=== PATIENT | female | born 1950 | race Caucasian/White ===

== ENCOUNTER 2023-10-06 18:28 | Inpatient (IN) | payer MEDICARE, OTHER, SELFPAY ==
[2023-10-06 18:53] VITALS: BP 148/88; PULSE 70; TEMP 36.7; O2SAT 100; BMI 48.2
--- NOTE | 2023-10-06 19:42 | ED_ITS ---
HPI - Extremity Problem General Chief complaint: Extremity Problem, Nontraumatic Stated complaint: LOWER EXTREMITY PAIN Time Seen by Provider: 10/06/23 19:35 Source: patient Mode of arrival: walk-in History of Present Illness HPI Narrative: This 73-year-old female with a history of diabetes and renal insufficiency presents for evaluation of swelling of the right great toe. Patient states she was at [facility] and admitted in August. At that time she was wearing socks that were intended to keep her from falling. After getting home she took the socks off and there was a white spot on the top of the right great toe. She states she popped it with a pin and a large amount of pus came out of it. She soaked it in Epsom salt water and the drainage stopped but the swelling persisted. In the past 2 days she has had redness and swelling in the left second toe which has spread onto the dorsal aspect of the foot up onto the ankle. She has not had any fevers or chills. She denies any injury to this toe. She has been treated for gout in the past but states she does not have gout. She is not having any pain in this area. Her sugars have been running in the 100s. She is scheduled to see Dr. Torres next Tuesday. Related Data Home Medications ?Medication ?Instructions ?Recorded ?Confirmed atorvastatin 10 mg tablet 10 mg PO DAILY 10/06/23 10/06/23 gabapentin 300 mg capsule 300 mg PO Q12H 10/06/23 10/06/23 hydrochlorothiazide 25 mg tablet 25 mg PO DAILY 10/06/23 10/06/23 lisinopril 5 mg tablet 5 mg PO DAILY 10/06/23 10/06/23 venlafaxine 150 mg 150 mg PO DAILY 10/06/23 10/06/23 capsule,extended release 24 hr Allergies Allergy/AdvReac Type Severity Reaction Status Date / Time Penicillins Allergy Severe Verified 10/06/23 18:59 semaglutide [From Ozempic] Allergy Severe Verified 10/06/23 18:59 Review of Systems ROS Status of ROS 10 or more systems reviewed and unremark able except as noted in history and below Exam Narrative Exam Narrative: Vital signs and Nursing Notes reviewed: Patient is afebrile with a normal pulse, blood pressure is elevated at 148/88, she is not hypoxic with pulse ox of 100% on room air General: Awake, alert, oriented, obese female, no respiratory distress, lying comfortably on the stretcher HEENT: Normocephalic atraumatic, mucous membranes are moist and pink, eyes are clear, normal conjunctiva, vision is grossly intact, Neck: Supple, no meningeal signs, no anterior or posterior cervical lymphadenopathy Chest: Lungs are clear to auscultation with good air entry, there is no wheezing rhonchi or rales appreciated no accessory muscle use, patient is speaking in complete sentences-no chest wall tenderness to palpation CVS: Regular rate and rhythm S1-S2, no murmurs rubs or gallops, pulses are brisk and equal bilaterally ABD: Soft, nondistended, nontender, no rebound guarding or rigidity, bowel sounds are normal, no pulsatile masses appreciated Extremities: There is bilateral pitting edema to both feet and lower legs. The right great toe is markedly enlarged but not tender or erythematous or does not appear infected, the left second toe is red, swollen and mildly tender. There is no drainage noted. The redness extends onto the dorsal aspect of the foot and up onto the lateral aspect of the ankle. There is no calf swelling or tenderness. There is no lymphangitic streaking. Skin: Normal in appearance without rash,pallor, petechiae or purpura Neuro: No focal deficits Constitutional Vital Signs, click to edit/add: Last Vital Signs Temp 98.0 F 10/06/23 18:53 Pulse 74 10/06/23 21:51 Resp 18 10/06/23 21:51 BP 168/92 H 10/06/23 21:51 Pulse Ox 99 10/06/23 21:51 O2 Del Method Room Air 10/06/23 18:53 Course Vital Signs Vital signs: Vital Signs Temperature 98.0 F 10/06/23 18:53 Pulse Rate 70 10/06/23 18:53 Respiratory Rate 16 10/06/23 18:53 Blood Pressure 148/88 H 10/06/23 18:53 Pulse Oximetry 100 10/06/23 18:53 Oxygen Delivery Method Room Air 10/06/23 18:53 Temperature 98.0 F 10/06/23 18:53 Pulse Rate 74 10/06/23 21:51 Respiratory Rate 18 10/06/23 21:51 Blood Pressure 168/92 H 10/06/23 21:51 Pulse Oximetry 99 10/06/23 21:51 Oxygen Delivery Method Room Air 10/06/23 18:53 MDM - Extremity (Nontraumatic) MDM Narrative Medical decision making narrative: The [address] [address] XRay Report Signed Patient: SHANT TRENT MR#: [id number] : 1950 Acct:[id number] Age/Sex: 73 / F ADM Date: 10/06/23 Loc: ER Attending Dr: Ordering Physician: Rosa Asher Date of Service: 10/06/23 Procedure(s): XR foot NANDO 2V Accession Number(s): [id number] cc: Yuli Duckworth OVEN UNLOADER; Rosa Asher~ The [address] [address] Patient Name: SHANT TRENT MRN: [id number] date: 1950 Sex: F Assigned Patient Location: ER Current Patient Location: ER Accession/Order Number: [id number] Exam Date: 10/06/2023 20:40 Report Date: 10/06/2023 21:41 At the request of: ROSA ASHER Procedure: XR foot NANDO 2V EXAM: XR foot NANDO 2V HISTORY: The patient is a 73-year-old female with diabetic foot infection, right great toe, left sec COMPARISON: None. FINDINGS: There is evidence of fragmentation of the base of the right great toe distal phalanx with narrowing of the interphalangeal joint. This could represent septic arthritis with osteomyelitis. This could be best evaluated with an MRI of the right forefoot pre and post intravenous contrast. No other fractures or areas of bone destruction are seen within the right foot. The widths and alignment of the other joints are maintained. No fractures or dislocations are seen on the 2 views of the left foot. There are no areas of bone destruction, periosteal reaction, or soft tissue gas to radiographically suggest osteomyelitis within the left foot. Specifically, I do not identify any abnormalities of the left second toe. This 73-year-old female with a history of diabetes presents for evaluation of a markedly enlarged right great toe that had an infection in June that she drained with Epsom salts and compression. She had a small wound on it after being hospitalized at [facility] The fifth toe swelling has never gone down. For the past several days she has had redness and swelling of the left second toe that extends onto the dorsum of her foot and up around the lateral aspect of her ankle. She has not had a fever. She has no lymphangitic streaking. She does have a history of penicillin allergy and chronic renal insufficiency. An IV was placed and she was medicated with IV clindamycin. Routine labs are ordered. She has a normal white count at 9. Hemoglobin is normal at 9.9. She has an elevated CRP and sed rate. Lactic acid is normal. 2 sets of blood cultures are pending. Potassium was noted to be low at 2.5 and this was replaced orally. X-ray of the extremity shows a bony erosion of the right great toe and normal x-ray of the left foot. This great toe x-ray on the right foot is concerning for osteomyelitis. She does have a history of gout and her uric acid is elevated however she does have sensation in her feet and denies any pain in her feet. Clinically this is not consistent with gout. The case was discussed with the hospitalist who suggested I add on vancomycin despite her elevated creatinine and this will be dosed by pharmacy. She received the first dose of vancomycin and clindamycin while in the emergency department. She is hemodynamically and neurologically stable. She has follow-up appointment with Dr. Torres, podiatry, he will be consulted while the patient is admitted. Lab Data Labs: Lab Results 10/06/23 Range/Units 19:52 WBC 9.9 (4.0-11.0) 10^3/uL RBC 3.70 L (4.20-5.40) 10^6/uL Hgb 9.9 L (12.0-16.0) g/dL Hct 32.0 L (36.0-48.0) % MCV 86.5 (81.0-99.0) fL MCH 26.8 (26.7-34.0) pg MCHC 30.9 (29.9-35.2) g/dL RDW 17.9 H (11.0-15.0) % Plt Count 352 (150-450) 10^3/uL MPV 9.2 L (9.5-13.5) fL Neut % (Auto) 75.3 H (43.0-75.0) % Lymph % (Auto) 12.6 L (20.5-60.0) % [place] % (Auto) 6.5 (1.7-12.0) % Eos % (Auto) 4.7 (0.9-7.0) % Baso % (Auto) 0.6 (0.2-2.0) % Neut # (Auto) 7.5 H (1.4-6.5) 10^3/uL Lymph # (Auto) 1.3 (1.2-3.8) 10^3/uL [place] # (Auto) 0.7 (0.3-0.8) 10^3/uL Eos # (Auto) 0.5 (0.0-0.7) 10^3/uL Baso # (Auto) 0.1 (0.0-0.1) 10^3/uL Abs Immat Gran (auto) 0.03 (0.00-0.03) 10^3/uL Imm/Tot Granulo (auto) 0.3 (0.0-0.5) % ESR >130 H (<=30) mm/hr Sodium 137 (136-145) mmol/L Potassium 2.5 L* (3.5-5.1) mmol/L Chloride 98 (98-107) mmol/L Carbon Dioxide 31.0 (21.0-32.0) mmol/L Anion Gap 10.5 BUN 16.0 (7.0-18.0) mg/dL Creatinine 1.51 H (0.55-1.02) mg/dL Est GFR ( Amer) 41 L (>=60) Est GFR (Non-Af Amer) 34 L (>=60) BUN/Creatinine Ratio 10.6 Glucose 116 H (74-106) mg/dL Lactate 1.2 (0.4-2.0) mmol/L Uric Acid 7.8 H (2.6-6.0) mg/dL Calcium 10.8 H (8.5-10.1) mg/dL Total Bilirubin 0.5 (0.2-1.0) mg/dL AST 22 (15-37) U/L ALT 34 (14-59) U/L Alkaline Phosphatase 159 H (46-116) U/L C-Reactive Protein 7.28 H (<=0.50) mg/dL Total Protein 7.3 (6.4-8.2) g/dL Albumin 3.2 L (3.4-5.0) g/dL Globulin 4.1 g/dL Albumin/Globulin Ratio 0.8 Discharge Plan Discharge Chief Complaint: Extremity Problem, Nontraumatic Clinical Impression: Osteomyelitis of great toe of right foot, Edema, peripheral, Cellulitis of second toe of left foot, Hypokalemia Prescriptions / Home Meds: No Action atorvastatin 10 mg tablet 10 mg PO DAILY gabapentin 300 mg capsule 300 mg PO Q12H hydrochlorothiazide 25 mg tablet 25 mg PO DAILY lisinopril 5 mg tablet 5 mg PO DAILY venlafaxine 150 mg capsule,extended release 24hr 150 mg PO DAILY Print Language: Afghan Referrals: Yuli Duckworth NP [Primary Care Provider] - 1 week
--- NOTE | 2023-10-06 19:42 | XR_ITS ---
The [address] [address] Patient Name: SHANT TRENT MRN: [id number] date: 1950 Sex: F Assigned Patient Location: ER Current Patient Location: Accession/Order Number: [id number] Exam Date: 10/06/2023 20:40 Report Date: 10/06/2023 21:41 At the request of: JAAVN MARKER Procedure: XR foot NANDO 2V EXAM: XR foot NANDO 2V HISTORY: The patient is a 73-year-old female with diabetic foot infection, right great toe, left sec COMPARISON: None. FINDINGS: There is evidence of fragmentation of the base of the right great toe distal phalanx with narrowing of the interphalangeal joint. This could represent septic arthritis with osteomyelitis. This could be best evaluated with an MRI of the right forefoot pre and post intravenous contrast. No other fractures or areas of bone destruction are seen within the right foot. The widths and alignment of the other joints are maintained. No fractures or dislocations are seen on the 2 views of the left foot. There are no areas of bone destruction, periosteal reaction, or soft tissue gas to radiographically suggest osteomyelitis within the left foot. Specifically, I do not identify any abnormalities of the left second toe. XR/XR foot NANDO 2V IMPRESSION: As above. Electronically authenticated by: MADAI SAINI Date: 10/06/2023 21:41
[2023-10-06 20:08] LABS: Basophils Absolute Auto 0.1 10^3/uL (0.0-0.1); Basophils Percent Auto 0.6 % (0.2-2.0); Eosinophils Absolute Auto 0.5 10^3/uL (0.0-0.7); Eosinophils Percent Auto 4.7 % (0.9-7.0); Hemoglobin 9.9 g/dL (12.0-16.0); Immature Granulocytes Abs Auto 0.03 10^3/uL (0.00-0.03); Immature Granulocytes Pct Auto 0.3 % (0.0-0.5); Lymphocytes Absolute Auto 1.3 10^3/uL (1.2-3.8); Lymphocytes Percent Auto 12.6 % (20.5-60.0); Mean Corpuscular HGB Conc 30.9 g/dL (29.9-35.2); Mean Corpuscular Hemoglobin 26.8 pg (26.7-34.0); Mean Corpuscular Volume 86.5 fL (81.0-99.0); Mean Platelet Volume 9.2 fL (9.5-13.5); Monocytes Absolute Auto 0.7 10^3/uL (0.3-0.8); Monocytes Percent Auto 6.5 % (1.7-12.0); Neutrophils Absolute Auto 7.5 10^3/uL (1.4-6.5); Neutrophils Percent Auto 75.3 % (43.0-75.0); Platelet Count 352 10^3/uL (150-450); Red Cell Distribution Width 17.9 % (11.0-15.0); White Blood Count 9.9 10^3/uL (4.0-11.0)
[2023-10-06 20:24] LABS: Alanine Aminotransferase 34 U/L (14-59); Albumin Globulin Ratio 0.8; Albumin Level 3.2 g/dL (3.4-5.0); Alkaline Phosphatase 159 U/L (46-116); Anion Gap 10.5; Aspartate Amino Transferase 22 U/L (15-37); BUN Creatinine Ratio 10.6; Bilirubin Total 0.5 mg/dL (0.2-1.0); Calcium 10.8 mg/dL (8.5-10.1); Chloride 98 mmol/L (98-107); Estimated GFR (African America 41 (>=60); Estimated GFR (Non-African Ame 34 (>=60); Globulin 4.1 g/dL; Glucose 116 mg/dL (74-106); Sodium 137 mmol/L (136-145); Total Protein 7.3 g/dL (6.4-8.2); Uric Acid 7.8 mg/dL (2.6-6.0)
[2023-10-06 20:28] LABS: Potassium 2.5 mmol/L (3.5-5.1)
[2023-10-06 20:59] LABS: Lactate/Lactic Acid 1.2 mmol/L (0.4-2.0)
[2023-10-06 21:04] LABS: C Reactive Protein 7.28 mg/dL (<=0.50); Erythrocyte Sedimentation Rate >130 mm/hr (<=30)
[2023-10-06] MEDS: POTASSIUM CHLORIDE 10 MEQ ER TABLET 40 MEQ PO (21:09)
[2023-10-06] MEDS: CLINDAMYCIN PHOSPHATE/D5W 600 MG/50 ML PIGGYBACK 100 MG IV (21:48)
[2023-10-06 21:51] VITALS: BP 168/92; PULSE 74; O2SAT 99
[2023-10-06 22:21] VITALS: BP 156/82; PULSE 76; TEMP 36.5; O2SAT 98
[2023-10-06] MEDS: VANCOMYCIN HCL 1,500 MG in 0.9 % SODIUM CHLORIDE 500 ML 250 MG IV (22:24)
--- NOTE | 2023-10-06 22:44 | PC.NURSE ---
Nurse is aware of blood pressure.
[2023-10-06 22:50] VITALS: BMI 48.7
[2023-10-06 22:51] LABS: Magnesium 1.9 mg/dL (1.8-2.4)
[2023-10-06 23:00] VITALS: BP 156/82; PULSE 76; TEMP 36.5; O2SAT 98
[2023-10-07] MEDS: HEPARIN SODIUM (PORCINE) 5,000 UNIT/ML VIAL 5000 UNIT SUBQ ×2 (00:40→09:50)
[2023-10-07] MEDS: GABAPENTIN 300 MG CAPSULE PO ×2 (00:40→09:50)
[2023-10-07] MEDS: VENLAFAXINE HCL ER 150 MG CAPSULE PO (01:15)
[2023-10-07 04:17] VITALS: BP 143/80; PULSE 82; TEMP 36.8; O2SAT 94
[2023-10-07 04:38] LABS: Basophils Absolute Auto 0.1 10^3/uL (0.0-0.1); Basophils Percent Auto 0.7 % (0.2-2.0); Eosinophils Absolute Auto 0.4 10^3/uL (0.0-0.7); Eosinophils Percent Auto 4.4 % (0.9-7.0); Hematocrit 29.8 % (36.0-48.0); Hemoglobin 9.1 g/dL (12.0-16.0); Immature Granulocytes Abs Auto 0.03 10^3/uL (0.00-0.03); Immature Granulocytes Pct Auto 0.3 % (0.0-0.5); Lymphocytes Absolute Auto 1.3 10^3/uL (1.2-3.8); Mean Corpuscular HGB Conc 30.5 g/dL (29.9-35.2); Mean Corpuscular Hemoglobin 26.2 pg (26.7-34.0); Mean Corpuscular Volume 85.9 fL (81.0-99.0); Mean Platelet Volume 9.6 fL (9.5-13.5); Monocytes Absolute Auto 0.5 10^3/uL (0.3-0.8); Monocytes Percent Auto 6.1 % (1.7-12.0); Neutrophils Absolute Auto 6.6 10^3/uL (1.4-6.5); Neutrophils Percent Auto 74.5 % (43.0-75.0); Platelet Count 317 10^3/uL (150-450); Red Blood Count 3.47 10^6/uL (4.20-5.40); Red Cell Distribution Width 17.6 % (11.0-15.0); White Blood Count 8.9 10^3/uL (4.0-11.0)
[2023-10-07 04:52] LABS: Alanine Aminotransferase 28 U/L (14-59); Albumin Globulin Ratio 0.7; Albumin Level 2.7 g/dL (3.4-5.0); Alkaline Phosphatase 135 U/L (46-116); Anion Gap 8.6; Aspartate Amino Transferase 14 U/L (15-37); BUN Creatinine Ratio 10.9; Bilirubin Total 0.7 mg/dL (0.2-1.0); Calcium 10.2 mg/dL (8.5-10.1); Carbon Dioxide 31.1 mmol/L (21.0-32.0); Chloride 101 mmol/L (98-107); Estimated GFR (African America 46 (>=60); Estimated GFR (Non-African Ame 38 (>=60); Globulin 3.7 g/dL; Glucose 114 mg/dL (74-106); Sodium 138 mmol/L (136-145); Total Protein 6.4 g/dL (6.4-8.2)
[2023-10-07 05:00] LABS: Potassium 2.7 mmol/L (3.5-5.1)
[2023-10-07] MEDS: CLINDAMYCIN PHOSPHATE/D5W 600 MG/50 ML PIGGYBACK 100 MG IV (05:00)
[2023-10-07] MEDS: POTASSIUM CHLORIDE 10 MEQ ER TABLET 40 MEQ PO (05:48)
[2023-10-07] MEDS: POTASSIUM CHLORIDE IN WATER 10 MEQ/100 ML PIGGYBACK 100 MEQ IV ×2 (05:48→06:43)
[2023-10-07] MEDS: 0.9 % SODIUM CHLORIDE 250 ML IV.SOLN 100 ML IV (08:28)
[2023-10-07 09:39] LABS: Estimated Average Glucose 105 mg/dL; Glycohemoglobin A1C 5.3 % (4.5-6.2)
[2023-10-07] MEDS: ATORVASTATIN CALCIUM 10 MG TABLET PO (09:50)
--- NOTE | 2023-10-07 11:17 | CM.NOTE ---
Rounds made with Dr. Coleman. Dr. Coleman reviews labs and Xray with Dinorah. Dinorah states great improvement in redness of foot/toe area. Plan for discharge today. Dinorah has an Appointment with Podiatry on October 11, 2023.
--- NOTE | 2023-10-07 11:33 | SWNOTE1 ---
SW met with pt and in room. Pt was sitting up in chair. Pt lives in 1 story home, does not use any assistive devices at home. Pt is independent. Pt has no concerns about discharge and is feeling better. She has as follow up with Dr. Torres on Tuesday. Pt voices no needs/concerns at discharge. Important Message from Medicare reviewed and discussed with patient. Pt. verbalized understanding and signed the form. Original given to patient and copy placed in patient?s chart.
--- NOTE | 2023-10-07 11:49 | PM.HP ---
HPI H&P: HPI History of Present Illness Chief complaint: Lower Extremity Pain, Diabetic Foot Infection Narrative: Redness and swelling to right great toe. Developed wound on toe several weeks ago and noticed a white spot. Picked at wound and drained small amount purulent material. Soaked in epson salt and continued to have drainage. Developed redness and increased drainage. Developed redness to left 2nd toe. To ER and WBC normal. ESR and CRP elevated. X-ray with changes concerning for osteomyelitis. Admitted and started IV clindamycin. Redness much improved today and almost resolved. Normal WBC and afebrile. No further drainage. Opioid HPI Opioid Management Most Recent Opioid Data: Last Pain Scale 0 10/07/23 06:18 Last Pain Assessment 10/07/23 11:00 Last ORT Total Score 0 10/06/23 22:50 Last ORT Risk Category Low Risk 10/06/23 22:50 Review of Systems ROS Constitutional Denies: fever, chills or fatigue Cardiovascular Denies: chest pain, palpitations or edema Respiratory Denies: shortness of breath, cough or wheezing Gastrointestinal Denies: abdominal pain, nausea, vomiting or diarrhea Genitourinary Denies: painful urination PFSH PFS Family History (Updated 10/06/23 @ 22:44 by María Fernandez, JAQUAN) Father Family history of CHF (congestive heart failure) Mother Family history of stroke Other Family history of diabetes mellitus Social History (Updated 10/06/23 @ 22:46 by María Fernandez, RN) Within the past year, how often did you have a drink containing alcohol: never Within the past year, how often did you have six or more drinks on one occasion: never Score interpretation: A score less than 3 is consistent with normal alcohol consumption. 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 history: stay at home Known occupational exposures/hazards: No Highest level of school completed/degree received: high school graduate Do you want help with school or training: No Are you now , , , , never or living with a partner: Little interest or pleasure in doing things: not at all Feeling down, depressed, or hopeless: not at all Feel stressed/tense/nervous/anxious/difficulty sleeping: not at all Due to disability, difficulty making decisions: No Meds Home Medications and Allergies Home Medications ?Medication ?Instructions ?Recorded ?Confirmed ?Type alendronate 70 mg tablet 70 mg PO .weekly 10/06/23 10/06/23 History atorvastatin 10 mg tablet 10 mg PO DAILY 10/06/23 10/06/23 History gabapentin 300 mg capsule 300 mg PO Q12H 10/06/23 10/06/23 History hydrochlorothiazide 25 mg tablet 25 mg PO DAILY 10/06/23 10/06/23 History lisinopril 5 mg tablet 5 mg PO DAILY 10/06/23 10/06/23 History venlafaxine 150 mg 150 mg PO DAILY 10/06/23 10/06/23 History capsule,extended release 24 hr clindamycin HCl 300 mg capsule 300 mg PO Q6H 14 days #56 caps 10/07/23 Rx Allergies Allergy/AdvReac Type Severity Reaction Status Date / Time Penicillins Allergy Severe Verified 10/06/23 18:59 semaglutide [From Ozempic] Allergy Severe Verified 10/06/23 18:59 Exam Constitutional Vital Signs, click to edit/add: Last Vital Signs Temp 98.2 F 10/07/23 04:17 Pulse 82 10/07/23 04:17 Resp 18 10/07/23 04:17 BP 143/80 H 10/07/23 04:17 Pulse Ox 94 L 10/07/23 04:17 O2 Del Method Room Air 10/06/23 23:00 Documenting provider has reviewed patient's vital signs: yes Common normals: no apparent distress, oriented x3 and alert HENMT Common normals: normocephalic Eye Common normals: PERRL and EOMs intact bilaterally Respiratory Common normals: normal respiratory effort and clear to auscultation bilaterally Cardio Common normals: regular rate, regular rhythm, no gallops, no murmurs and no rub GI Common normals: Normal to inspection, nondistended, normoactive bowel sounds present and non-tender Extremity Common normals: no pedal edema Right lower extremity: foot and digits (No redness or drainage, small eschar on right great toe) Left lower extremity: foot and digits (Mild redness over 2nd toe) Results Labs Labs: Short CBC 10/06/23 10/07/23 Range/Units 19:52 04:08 WBC 9.9 8.9 (4.0-11.0) 10^3/uL Hgb 9.9 L 9.1 L (12.0-16.0) g/dL Hct 32.0 L 29.8 L (36.0-48.0) % Plt Count 352 317 (150-450) 10^3/uL BMP 10/06/23 10/07/23 19:52 04:08 Sodium 137 138 Potassium 2.5 L* 2.7 L* Chloride 98 101 Carbon Dioxide 31.0 31.1 BUN 16.0 15.0 Creatinine 1.51 H 1.37 H Glucose 116 H 114 H Calcium 10.8 H 10.2 H Liver Function 10/06/23 10/07/23 Range/Units 19:52 04:08 Total Bilirubin 0.5 0.7 (0.2-1.0) mg/dL AST 22 14 L (15-37) U/L ALT 34 28 (14-59) U/L Alkaline Phosphatase 159 H 135 H (46-116) U/L Albumin 3.2 L 2.7 L (3.4-5.0) g/dL Imaging Foot x-ray: Attestation: I have reviewed the pertinent imaging results. Assessment and Plan Assessment and Plan (1) Osteomyelitis of great toe of right foot: (2) Cellulitis of second toe of left foot: (3) Hypokalemia: (4) Benign essential hypertension: (5) Type 2 diabetes mellitus without complications: (6) Edema, peripheral: (7) CKD stage 3b, GFR 30-44 ml/min: Plan Admitted with cellulitis and possible osteomyelitis. Much improved with antibiotics. Podiatry not available and discussed by phone. Will discharge home on oral clindamycin. Continue Epson salt soaks. Scheduled 10/10 with podiatry and follow up in office. If redness or drainage worsens return to ER. Resume home medication as directed.
--- NOTE | 2023-10-10 13:13 | CM.DCFOLLOWU ---
Person spoke with: Dinorah How are you feeling? Much better How is your pain? No pain Did you understand your discharge instructions? Yes Do you have any questions about your discharge instructions? No Were you given any prescriptions at discharge? Yes Were you able to get your prescriptions filled? Yes Do you understand how to take your medications as ordered? Yes Do you have any questions about your follow up appointment and do you plan to keep your follow up appointment? I have an appt with podiatry tomorrow. Is there anything else that you would like to discuss? No Questions/Comments/Concerns/Other:
== END 2023-10-07 12:06 | disposition home or self-care (01) | DRG 540 ==
LOC: ER 20:01 → MS 22:36
PROVIDERS: Registered Nurse; Admitting Provider Family Medicine; Emergency Provider Emergency Medicine; PCP Nurse Practitioner Family; Visit Provider Family Medicine
DX: M86.8X7 Other osteomyelitis, ankle and foot (principal); L03.116 Cellulitis of left lower limb; E87.6 Hypokalemia; I12.9 Hypertensive chronic kidney disease with stage 1 through stage 4 chronic kidney disease, or unspecified chronic kidney disease; N18.32 Chronic kidney disease, stage 3b; R60.9 Edema, unspecified; E11.22 Type 2 diabetes mellitus with diabetic chronic kidney disease; Z79.899 Other long term (current) drug therapy; Z88.0 Allergy status to penicillin; Z88.8 Allergy status to other drugs, medicaments and biological substances; Z79.83 Long term (current) use of bisphosphonates; Z83.3 Family history of diabetes mellitus; Z87.39 Personal history of other diseases of the musculoskeletal system and connective tissue
CPT/HCPCS: 36415; 73620; 80053; 83036; 83605; 83735; 84550; 85025; 85652; 86140; 87040; 96365; 96366; 96367; 96376; 99285; J3370

== ENCOUNTER 2023-10-26 09:00 | Outpatient (OUT) | payer MEDICARE, OTHER, SELFPAY ==
--- NOTE | 2023-10-26 09:05 | MR_ITS ---
The [address] [address] Patient Name: SHANT TRENT MRN: [id number] date: 1950 Sex: F Assigned Patient Location: MRI Current Patient Location: MRI Accession/Order Number: [id number] Exam Date: 10/26/2023 09:15 Report Date: 10/29/2023 08:26 At the request of: TANISHA BONILLA Procedure: MR foot RT wo con EXAM: MR foot RT wo con HISTORY: Right Foot Acute Osteomyelitis. Right foot great toe redness and swelling. COMPARISON: X-rays 10/06/2023. TECHNIQUE: Multiplanar multisequence MRI of the right foot was performed without IV contrast. This included short axis T1, short axis T2, sagittal PD fat-sat, sagittal T2, sagittal T1, long axis T1, long axis T2 imaging. FINDINGS: JOINTS: Study is somewhat motion degraded. The tarsometatarsal alignment appears preserved on this non-weightbearing study. The interosseous component of the Lisfranc ligament is identified and is intact. [id number]-[id number] marginal spur at the first MTP joint. There is irregularity of the articular surfaces of the first interphalangeal joint. Mild subchondral cystic change noted at the calcaneocuboid joint, naviculocuneiform articulations, and at the fourth and fifth TMT joints. BONES: Infiltrative T1 signal changes centered at the first interphalangeal joint with adjacent soft tissue edema. No fracture is seen. Sesamoid bones appear intact. TENDONS: Visualized flexor and extensor tendons are intact. Mild fluid in the second flexor tendon at the level of the distal metatarsals. PLANTAR FASCIA: The visualized plantar fascia appears intact. Large plantar calcaneal spur on sagittal imaging. SOFT TISSUES: There is soft tissue swelling and edema involving the great toe. No evidence of intermetatarsal bursitis. No perineural fibrosis/Santoro's neuroma identified. Plantar plates are intact. Mild to moderate atrophy of the forefoot muscles. MR/MR foot RT wo con IMPRESSION: 1. Soft tissue swelling and edema along the great toe concerning for cellulitis. No abscess identified. Evaluation of the soft tissues is limited without IV contrast. 2. Similar erosive/destructive changes noted at the first interphalangeal joint concerning for septic arthropathy. Recommend clinical correlation. 3. No tendon tear identified. 4. Minimal fluid in the second flexor tendon at the level of the metatarsals, nonspecific. 5. 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 Electronically authenticated by: KYLEE LOPEZ Date: 10/29/2023 08:26
--- NOTE | 2023-10-26 09:05 | MR_ITS ---
The [address] [address] Patient Name: SHANT TRENT MRN: [id number] date: 1950 Sex: F Assigned Patient Location: MRI Current Patient Location: MRI Accession/Order Number: [id number] Exam Date: 10/26/2023 09:15 Report Date: 10/29/2023 08:31 At the request of: TANISHA BONILLA Procedure: MR foot LT wo con EXAM: MR foot LT wo con HISTORY: Left Foot Acute Osteomyelitis. Left-second toe redness and swelling x 1 month. No known trauma. COMPARISON: X-rays 10/06/2023. TECHNIQUE: Multiplanar multisequence MRI of the left foot was performed without IV contrast. This included short axis T1, short axis T2, sagittal PD fat-sat, sagittal T2, sagittal T1, long axis T1, and long axis T2 imaging. FINDINGS: Study is somewhat motion degraded. JOINTS: The tarsometatarsal alignment appears preserved on this non-weightbearing study. The interosseous component of the Lisfranc ligament is identified and is intact. Mild marginal spur at the first MTP joint is noted. Subchondral cystic change at the calcaneocuboid joint. BONES: There is some flattening of the plantar aspect of the first metatarsal head with heterogeneous T1 signal change in the first metatarsal head and moderate adjacent bone marrow edema like signal. Associated effusion of the first MTP joint. Mild marginal spur at the second MTP joint. Sesamoid bones appear intact. TENDONS: Visualized flexor and extensor tendons are intact. No long-segment tenosynovitis is seen. PLANTAR FASCIA: The visualized plantar fascia appears intact. Plantar calcaneal spur is noted. SOFT TISSUES: No evidence of intermetatarsal bursitis. 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 Plantar plates are intact. There is [id number]-ra-iqijtbkw forefoot muscular atrophy which could be related to chronic diabetic neuropathy. MR/MR foot LT wo con IMPRESSION: 1. Interval flattening of the plantar surface of the first metatarsal head with heterogeneous T1 signal change and moderate bone marrow edema. This could be related to AVN versus acute traumatic injury. 2. Nthr-ha-ssucwaku osteoarthritis at the first MTP joint. Lesser osteoarthritis at the second MTP joint and calcaneocuboid joint. 3. No tendon tear or tenosynovitis. 4. 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 Electronically authenticated by: KYLEE LOPEZ Date: 10/29/2023 08:31
--- OUTSIDE RECORDS SUMMARY | 2023-10-26 09:19 | XMS_ITS | CCD ---
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 Name Role Phone Yuli Duckworth Primary Care Physician [phone] Heath Davis Unavailable Gucci Yuli Ze Primary Care Provider MART Walden Emergency Provider [phone] Chris Walden Attending Unavailable Chris Walden Admitting Unavailable Duckworth, Yuli L Primary Care Unavailable Duckworth, Yuli L Primary Care Unavailable Heath Davis Attending Unavailable Afshan Davisul Admitting Unavailable Duckworth, Yuli L Primary Care Provider MD Heath Davis Attending Provider [phone] VANDA STUART Attending Unavailable VANDA STUART Attending Unavailable VANDA STUART Referring Unavailable Angel Page Referring Unavailable Angel Page Admitting Unavailable Angel Page Attending Unavailable Duckworth, Yuli L Referring Unavailable Duckworth, Yuli L Admitting Unavailable Duckworth, Yuli L Attending Unavailable HEATH DAVIS Attending Unavailable HEATH DAVIS Referring Unavailable SUSAN, HEATH Admitting Unavailable Duckworth, Yuli L Attending Unavailable Duckworth, Yuli L Referring Unavailable Duckworth, Yuli L Admitting Unavailable Duckworth, Yuli L Attending Unavailable Duckworth, Yuli L Referring Unavailable Duckworth, Yuli L Admitting Unavailable Angel Page Attending Unavailable Angel Page Attending Unavailable Amy Julian Referring Unavailable Angel Page Admitting Unavailable Angel Page Attending Unavailable Angel Page Referring Unavailable Vin Joy Consulting Unavailable Vin Joy Consulting Unavailable Vin Joy Consulting Unavailable Vin Joy Consulting Unavailable Vin Joy Consulting Unavailable Vin Joy Consulting Unavailable Vin Joy Consulting Unavailable Rufino, Vin Kunz Consulting Unavailable Rufino, Vin Kunz Consulting Unavailable Rufino, Vin Kunz Consulting Unavailable SUSAN, HEATH Admitting Unavailable SUSAN, HEATH Attending Unavailable Akkina, Salvador Admitting Unavailable Akkina, Salvador Attending Unavailable SUSAN, HEATH Admitting Unavailable SUSAN, HEATH Attending Unavailable Gunner Remy Attending Unavailable Akkina, Salvador Consulting Unavailable Isabelle Wilson Admitting Unavailable MD Anabelle Salvador Consulting Unavailable Akkina, Salvador Consulting Unavailable Akkina, Salvador Consulting Unavailable Akkina, Salvador Consulting Unavailable Akkina, Salvador Consulting Unavailable Akkina, Salvador Consulting Unavailable Akkina, Salvador Consulting Unavailable Akkina, Salvador Consulting Unavailable Allergies Allergy Classification Reported Allergen(s) Allergy Type Date of Onset Reaction(s) Facility (13 sources) Penicillins; Translations: [penicillins] Drug allergy 3 Itching, Rash [facility] (2 sources) Penicillin Drug Allergy rash [facility] [place] Other (2 sources) Codeine Drug Allergy 4 [facility] Repository Medications Current Medications Medication Drug Class(es) Dates Sig (Normalized) Sig (Original) alendronic acid 70 mg oral tablet (12 sources) Bisphosphonate Start: 05-12-2023 take 70 mg by mouth every week alendronate 70 mg, Oral, qWeek, Refills(s) 0 Start Date: 09/03/23 Status: Ordered take 1 tablet by mouth once violeta y Fosamax 70 MG 1 tablet 30 minutes before the first food, beverage or medicine of the day with plain water Orally Active aspirin 81 mg delayed release oral tablet (12 sources) Platelet Aggregation Inhibitor, Nonsteroidal Anti-inflammatory Drug Start: 08-02-2023 take 81 mg by mouth once daily Aspirin Active 81 MG PO Daily August 02, 2023 12:00am Start: 07-01-2021 aspirin Refill s(s) 0, Prophylaxis Start Date: 07/01/21 Status: Ordered take 1 tablet by john every twenty-four hours Aspirin Adult Low Dose 81 MG 1 tablet Orally Once a day Active atorvastatin 10 mg oral tablet (10 sources) HMG-CoA Reductase Inhibitor Start: 05-12-2023 take 1 tablet by mouth once daily atorvastatin 10 mg Tab 10 mg = 1 tab(s), Oral, Daily, Refills(s) 0 Start Date: 05/12/23 Status: Ordered take 1 tablet by [facility] every twenty-four hours Atorvastatin Calcium 10 MG 1 tablet Oral ly Once a day Active ferrous sulfate 325 mg oral tablet (1 source) Start: 08-02-2023 Ferrous Sulfat e Active 325 MG PO Every 48 hours 45 August 02, 2023 12:00am gabapentin 300 mg oral capsule (12 sources) Anti-epileptic Agent Start: 08-02-2023 take 300 mg by mouth twice daily Gabapentin Active 300 MG PO Twice daily August 02, 2023 12:00am Start: 08-25-2015 take 2 capsules by [facility] at bedtime gabapentin 300 mg Cap 600 mg = 2 cap(s), Oral, Bedtime, Refills(s) 0, Other (see comment) Start Date: 08/25/15 Status: Ordered take 1 capsule by [facility] every twelve hours Gabapentin 300 MG 1 capsule Orally TWICE A DAY Active hydroCHLOROthiazide 50 mg / triamterene 75 mg oral tablet (10 sources) Potassium-sparing Diuretic, Thiazide Diuretic Start: 08-25-2015 take 1 tablet by mouth once daily Triamterene-Hydrochlorothiazid Active 1 TAB PO Daily August 02, 2023 12:00am indomethacin 50 mg oral capsule (8 sources) Nonsteroidal Anti-inflammatory Drug Start: 08-02-2023 take 50 mg by mouth once Indomethacin Active 50 MG PO Once August 02, 2023 12:00am Start: 05-12-2023 take 1 capsule by [facility] three times daily indomethacin 50 mg oral capsule 50 mg = 1 cap(s), Oral, TID, Refills(s) 0 Start Date: 05/12/23 Status: Ordered take 1 capsule by [facility] at mealtime Indomethacin 50 MG 1 capsule with food or milk Orally As Directed Active Lactobacillus acidophilus (2 sources) Start: 09-03-2023 Acidophilus Anthony cárdenas, Refill(s) 0 Start Date: 09/03/23 Status: Ordered metoprolol tartrate 50 mg oral tablet (10 sources) beta-Adrenergic Unruly Start: 08-25-2015 take 50 mg by mouth twice daily Metoprolol Tartrate Active 50 MG PO Twice daily August 02, 2023 12:00am Probiotic 250 MG (2 sources) Probiotic 250 MG as directed Orally Active saccharomyces boulardii 250 mg oral capsule (3 sources) Start: 09-03-2023 take 250 mg by mouth twice daily saccharomyces boulardii lyo 250 mg, Oral, BID, Refills(s) 0 Start Date: 09/03/23 Status: Ordered Start: 08-02-2023 Saccharomyces Boulardii Active PO As Directed August 02, 2023 12:00am FreeTextSig: as directed Orally; Note: Source Status: Taking; Provider: Susan Joe ( ) Semaglutide (1 source) Start: 08-02-2023 Semaglutide (Ozempic) 0.25 mg or 0.5 mg (2 mg/3 mL) pen injector Active 0.5 MG SUBCUT every week August 02, 2023 12:00am for 4 weeks 24 hr venlafaxine 150 mg extended release oral capsule (12 sources) Serotonin and Norepinephrine Reuptake Inhibitor Start: 08-25-2015 take 1 capsule by mouth once daily venlafaxine 150 mg Cap-ER 150 mg = 1 cap(s), Oral, Daily, Refills(s) 0, Depression Start Date: 08/25/15 Status: Ordered Completed/Discontinued Medications Medication Drug Class(es) Dates Sig (Normalized) Sig (Original) acetaminophen 325 mg / HYDROcodone bitartrate 5 mg oral tablet (2 sources) Opioid Agonist Start: 04-19-2023 End: 08-02-2023 take 1 tablet by mouth every six hours Hydrocodone-Acetami nophen Discontinued 1 TAB PO Q6H 12 April 19, 2023 August 02, 2023 11:26am Insulin Lispro (2 sources) Insulin Analog Start: 09-04-2023 End: 09-04-2023 Insulin Lispro Sliding Scale 0-10 Unit(s), Injection-Insulin, SubCutaneous, Start date 09/04/23 4:30:00 PM EDT Start Date: 09/04/23 Stop Date: 09/04/23 Status: Completed Start: 09-04-2023 End: 09-04-2023 Insulin Lispro Sliding Scale 0-10 Unit(s), Injection-Insulin, SubCutaneous, Start date 09/04/23 11:30:00 AM EDT Start Date: 09/04/23 Stop Date: 09/04/23 Status: Completed Problems Active Problems Problem Classification Problem Date Documented Date Episodic/Chronic Acute and unspecified renal failure (1 source) Acute renal failure syndrome; Translations: [Acute kidney failure, unspecified] Onset: 4 Episodic Calculus of urinary tract (18 sources) Kidney stone; Translations: [Urinary bladder stone] 05-29-2021 Episodic Chronic kidney disease (11 sources) Chronic kidney disease; Translations: [Chronic kidney disease, unspecified] Onset: 4 04-19-2023 Chronic Deficiency and other anemia (3 sources) Anemia of renal disease; Translations: [Anemia in chronic kidney disease] 08-02-2023 Chronic Deficiency and other anemia (1 source) Anemia in chronic kidney disease Chronic Diabetes mellitus with complications (5 sources) Disorder of kidney due to diabetes mellitus; Translations: [Type 2 diabetes mellitus with diabetic chronic kidney disease] Chronic Diabetes mellitus without complication (1 source) Type 2 diabetes mellitus without complication; Translations: [Type 2 diabetes mellitus without complications] Onset: 4 Chronic Disorders of lipid metabolism (6 sources) Dyslipidemia; Translations: [Hyperlipidemia, unspecified] Onset: 4 Chronic Essential hypertension (9 sources) Hypertensive disorder 08-25-2015 Chronic Hypertension with complications and secondary hypertension (6 sources) Chronic kidney disease due to hypertension; Translations: [Hypertensive chronic kidney disease with stage 1 through stage 4 chronic kidney disease, or unspecified chronic kidney disease] Onset: 4 Chronic Intestinal infection (9 sources) Clostridium difficile colitis 08-25-2015 Episodic Comment on above: in 2013 Malaise and fatigue (1 source) Asthenia; Translations: [Weakness] Onset: 4 Episodic Mood disorders (9 sources) Depressive disorder 08-25-2015 Chronic Osteoarthritis (9 sources) Osteoarthritis 08-25-2015 Chronic Other circulatory disease (1 source) Low blood pressure; Translations: [Hypotension, unspecified] Onset: 4 Episodic Other diseases of kidney and ureters (2 sources) Secondary hyperparathyroidism; Translations: [Secondary hyperparathyroidism of renal origin] Chronic Other diseases of kidney and ureters (1 source) Secondary hyperparathyroidism of renal origin Chronic Other hereditary and degenerative nervous system conditions (9 sources) Restless legs 08-25-2015 Chronic Other nervous system disorders (1 source) Abnormal gait; Translations: [Other abnormalities of gait and mobility] Onset: 4 Episodic Other non-traumatic joint disorders (2 sources) Pain in left shoulder; Translations: [Acute pain of left shoulder] 04-19-2023 Episodic Other nutritional; endocrine; and metabolic disorders (2 sources) Hypercalcemia; Translations: [Hypercalcemia] 04-19-2023 Chronic Other nutritional; endocrine; and metabolic disorders (9 sources) Obesity; Translations: [Obesity, unspecified] Onset: 3 Chronic Other nutritional; endocrine; and metabolic disorders (8 sources) Body mass index 40+ - severely obese; Translations: [Body mass index (BMI) 50.0-59.9, adult] Onset: 3 Chronic Other nutritional; endocrine; and metabolic disorders (2 sources) Hypercalcemia; Translations: [Hypercalcemia] Onset: 4 Chronic Other screening for suspected conditions (not mental disorders or infectious disease) (9 sources) Abnormal findings on diagnostic imaging of breast; Translations: [Other abnormal and inconclusive findings on diagnostic imaging of breast] Onset: 3 Episodic Other skin disorders (9 sources) Impaired skin integrity 09-09-2015 Episodic Comment on above: Problem added on doc umentation of skin impairments. Other skin disorders (1 source) Change in skin lesion; Translations: [Anemia in chronic kidney disease] Onset: 4 Episodic Thyroid disorders (1 source) Hypothyroidism; Translations: [Other specified hypothyroidism] Onset: 4 Chronic Unclassified (1 source) Pain in left shoulder; Translations: [Pain in left shoulder] Onset: 3 Past or Other Problems Problem Classification Problem Date Documented Da te Episodic/Chronic Chronic kidney disease (1 source) Chronic kidney disease Results Test Name Value Interpretation Reference Range Facility Physician Orderon 10-14-2023 Physician Order [id number] Normal [facility] Progress Note-Physicianon Progress Note-Physician Patient: DINORAH PEPE Age: 73 years Sex: Female : 1950 Associated Diagnoses: None Author: Madison Alvarez CNP Basic Information Requesting Provider: Hospitalist Reason For Request: IRINA management Review of Systems No overnight events. She is planning to be discharged today. Will follow-up with her anaesthetic technician. Health Status Allergies: Allergic Reactions (Selected) Severity Not Documented Penicillins- Itching. Current medications: Home Medications (8) Active Acidophilus , Daily alendronate 70 mg, Oral, qWeek aspirin atorvastatin 10 mg Tab 10 mg = 1 tab(s), Oral, Daily Fosamax 70 mg Tab 70 mg = 1 tab(s), Oral, qWeek gabapentin 300 mg Cap 600 mg = 2 cap(s), Oral, Bedtime saccharomyces boulardii lyo 250 mg, Oral, BID venlafaxine 150 mg Cap-ER 150 mg = 1 cap(s), Oral, Daily , Medications (11) Active Scheduled: (6) aspirin 81 mg Oral EC Tab [F] 81 mg 1 tab(s), Oral, Daily atorvastatin 20 mg Tab [F] 10 mg 0.5 tab(s), Oral, Daily gabapentin 300 mg Cap [F] 600 mg 2 cap(s), Oral, Bedtime heparin 5,000 units/mL Inj [F] 5,000 unit(s) 1 mL, SubCutaneous, q8hrFT insulin lispro 100 units/mL (HUMALOG) SubQ Inj [F] 0-10 Unit(s), SubCutaneous, QIDACHS venlafaxine 150 mg Cap-ER [F] 150 mg 1 cap(s), Oral, Bedtime Continuous: (1) Sodium Chloride 0.9% 1,000 mL 1,000 mL, IV, 75 mL/hr PRN: (4) acetaminophen 325 mg Tab UD [F] 650 mg 2 tab(s), Oral, q6hr dextrose 50% IV Diane 50 mL Abboject [F] 50 mL, IV Push, Once ondansetron 2 mg/mL Inj [F] 4 mg 2 mL, IV Push, q6hr senna 8.6 mg Tab [F] 17.2 mg 2 tab(s), Oral, BID Histories Past Medical History: No active or resolved past medical history items have been selected or recorded. Family History: Heart failure Father Stroke Mother Cardiac arrhythmia Sister Procedure history: Colonoscopy ([id number]) on 08/07/2021 at 71 Years. t tka compounded by obesity BMI>58 on 09/09/2015 at 65 Years. Knee arthroplasty ([id number]). Comments: 08/25/2015 10:57 EDT - Tiffany PARTIDA, Linda colindres Social History Social & Psychosocial Habits Alcohol 06/03/2023 Risk Assessment: Denies Alcohol Use Comment: Alexis - 03/20/2021 23:44 - Kenyatta Kitchen RN Substance Abuse 06/03/2023 Risk Assessment: Denies Substance Abuse Comment: Alexis - 03/20/2021 23:45 - Kenyatta Kitchen RN Tobacco 06/03/2023 Risk Assessment: Denies Tobacco Use 06/03/2023 Tobacco Use: Never (less than 100 in l Comment: Alexis - 03/20/2021 23:45 - Kenyatta Kitchen RN . Objective Vital Signs (last 24 hrs) Last Charted Temp Axillary 36.5 DegC (SEP 05 12:18) Heart Rate Monitored 75 bpm (SEP 05 12:22) SBP 120 mmHg (SEP 05 12:17) DBP 74 mmHg (SEP 05 12:17) Weight 122.4 kg (SEP 05 05:59) General: Alert and oriented, No acute distress. Eye: Pupils are equal, round and reactive to light, Normal conjunctiva. HENT: Oral mucosa is moist. Neck: Supple, Non-tender, No carotid bruit, No jugular venous distention. Respiratory: Lungs are clear to auscultation, Breath sounds are equal. Cardiovascular: Normal rate, Regular rhythm, No murmur, No gallop, Good pulses equal in all extremities, No edema. Gastrointestinal: Soft, Non-tender, Non-distended, Normal bowel sounds. Genitourinary: No costovertebral angle tenderness. Integumentary: Warm, Dry. Neurologic: Alert, Oriented, Normal motor function, No focal deficits. Review / Management Results review: Lab results 09/06/2023 15:39 EDT Test Name Light Free Av Test Code [id number] 09/06/2023 12:21 EDT Glucose Cap 100 mg/dL CT POC Device SN [id number] POC User ID [id number] POC Username TITA MARROQUIN 09/06/2023 10:05 EDT Glucose Cap 88 mg/dL POC Device SN [id number] POC User ID [id number] POC Username TITA MARROQUIN 09/06/2023 9:22 EDT Glucose Cap 70 mg/dL POC Device SN [id number] POC User ID [id number] POC Username ABIDA RYAN 09/06/2023 5:07 EDT WBC 5.4 E9/L RBC 3.4 E12/L LOW HGB 8.9 gm/dL LOW Hct 27.6 % LOW MCV 81.9 fL MCH 26.4 pg LOW MCHC 32.3 gm/dL RDW 20.3 % HI Platelet 212.0 E9/L MPV 7.5 fL RBC Morph NORMAL Glucose Lvl 76 mg/dL BUN 23 mg/dL HI Creatinine 2.1 mg/dL HI eGFR 25 mL/min/1.73 m2 LOW BUN/Creat Ratio 11 Sodium Lvl 140 mmol/L Potassium Lvl 3.5 mmol/L Chloride 112 mmol/L HI CO2 20 mmol/L LOW AGAP 12 mEq/L Calcium Lvl 10.0 mg/dL Vitamin D 25 Hydroxy 24.0 ng/mL LOW 09/05/2023 21:06 EDT Glucose Cap 86 mg/dL POC Device SN [id number] POC User ID [id number] POC Username TRENTON CHURCH 09/05/2023 16:01 EDT Glucose Cap 75 mg/dL POC Device SN [id number] POC User ID [id number] POC Username POC Username 09/05/2023 11:55 EDT Glucose Cap 100 mg/dL HI POC Device SN [id number] POC User ID [id number] POC Username MATTHEW DINERO 09/05/2023 8:32 EDT Glucose Cap 78 mg/dL POC Device SN [id number] POC User ID [id number] POC Username [email or web address] 09/05/2023 6:15 EDT WBC 4.5 (more content not included)... Normal [facility] Comment on above: Result Comment: Elec tronically Signed By: Madison Alvarez CNP\.br\Date and Time Signed: 09/06/23 16:31 EDT\.br\Electronically Co-Signed By: Salvador Ahn MD\.br\Date and Time Co-Signed: 10/05/23 15:53 EDT CHEMISTRYOrdered By: SYSTEM SYSTEM on 10-03-2023 Albumin [Mass/Vol] 3.8 g/dL Normal 3.3 - 5.0 gm/dL Remisol Chem Anion gap [Moles/Vol] 11 mmol/L Normal 6 - 16 mEq/L Remisol Chem Calcium [Mass/Vol] 10.4 mg/dL Normal 8.9 - 11. 1 mg/dL Remisol Chem Chloride [Moles/Vol] 101 mmol/L Normal 101 - 1 11 mmol/L Remisol Chem CO2 [Moles/Vol] 30 mmol/L Normal 21 - 31 mmol/L Remisol Chem Creatinine [Mass/Vol] 1.4 mg/dL High 0.5 - 1.3 mg/dL Remisol Chem eGFR 40 mL/min/1.73 m2 Low >=59mL/min /1.73 m2 Remisol Chem Glucose [Mass/Vol] 118 mg/dL Normal 55 - 199 mg/dL Remisol Chem Phosphate [Mass/Vol] 2.4 mg/dL Normal 1.9 - 4 .6 mg/dL Remisol Chem Potassium [Moles/Vol] 3.1 mmol/L Low 3.5 - 5.3 mmol/L Remisol Chem Sodium [Moles/Vol] 139 mmol/L Normal 135 - 145 mmol/L Remisol Chem Urea nitrogen [Mass/Vol] 14 mg/dL Normal 5 - 21 mg/dL Remisol Chem Urea nitrogen/Creatinine [Mass ratio] 10 mg/mg Normal 10 - 20 Remisol Chem Protein/Creatinine (U) [Ratio] 20.40 mg/gm Cr Normal 0.00 - 200.00 mg/gm Cr Remisol Chem U Creatinine 133.4 mg/dL Invalid Interpretation Code Remisol Chem Ur Total Protein 27.2 mg/dL Invalid Interpretation Code Remisol Chem Consent for Treatmenton 09-20 Consent for Treatment [id number]#[id number] Normal [facility] Physician Orderon 10-03-2023 Physician Order [id number]#[id number] Normal [facility] Renal Panelon 10-03-2023 Albumin [Mass/Vol] 3.8 g/dL Normal 3.3-5.0 [facility] Comment on above: Performed By: #### 1 [id number], [id number] ####[facility] [address] [place] [address] Anion gap [Moles/Vol] 11 mmol/L Normal 6-16 [facility] Comment on above: Performed By: #### 1 [id number], [id number] ####[facility] [address] [address] Calcium [Mass/Vol] 10.4 mg/dL Normal 8.9-11.1 [facility] Comment on above: Performed By: #### 1 [id number], [id number] ####[facility] [address] [place] [address] Chloride [Moles/Vol] 101 mmol/L Normal 101-111 [facility] Comment on above: Performed By: #### 1 [id number], [id number] ####[facility] [address] [address] CO2 [Moles/Vol] 30 mmol/L Normal 21-31 [facility] Comment on above: Performed By: #### 1 [id number], [id number] ####[facility] [address] [address] Creatinine [Mass/Vol] 1.4 mg/dL High 0.5-1.3 [facility] Comment on above: Performed By: #### 1 [id number], [id number] ####[facility] [address] [place] [address] Glucose [Mass/Vol] 118 mg/dL Normal 55-199 [facility] Comment on above: Performed By: #### 1 [id number], [id number] ####[facility] [address] [place] [address] Phosphate [Mass/Vol] 2.4 mg/dL Normal 1.9-4.6 [facility] Comment on above: Performed By: #### 1 [id number], [id number] ####[facility] [address] [place] [address] Potassium [Moles/Vol] 3.1 mmol/L Low 3.5-5.3 [facility] Comment on above: Performed By: #### 1 [id number], [id number] ####[facility] [address] [place] [address] Sodium [Moles/Vol] 139 mmol/L Normal 135-145 [facility] Comment on above: Performed By: #### 1 [id number], [id number] ####[facility] [address] [place] [address] Urea nitrogen [Mass/Vol] 14 mg/dL Normal 5-21 [facility] Comment on above: Performed By: #### 1 [id number], [id number] ####[facility] [address] [place] [address] Urea nitrogen/Creatinine [Mass ratio] 10 No Units Normal 10-20 [facility] Comment on above: Performed By: #### 1 [id number], [id number] ####[facility] [address] [place] [address] U Protein/Creat Ratioon 09-20 Protein/Creatinine (U) [Ratio] 20.40 mg/gm Cr Normal .00-200.00 [facility] Comment on above: Performed By: #### 2 [id number] #### [facility] [address] [place] [address] U Creatinine 133.4 mg/dL Invalid Interpretation Code [facility] Comment on above: Performed By: #### 2 [id number] #### [facility] [address] [place] [address] Ur Total Protein 27.2 mg/dL Invalid Interpretation Code [facility] Comment on above: Performed By: #### 2 [id number] #### [facility] [address] [place] [address] URINALYSISOrdered By: SYSTEM SYSTEM on 10-03-2023 Bacteria Auto Ql (U) Trace /HPF Normal Trace/HPF [facility] UA Auto SS Bilirubin Ql (U) Negative Normal Negativemg /dL [facility] UA Auto SS Clarity (U) Turbid *ABN* (10/03/23 9:15 AM) Invalid Interpretation Code Clear [facility] UA Auto SS Color (U) Yellow 1 (10/03/23 9:15 AM) Normal Yellow [facility] UA Auto SS Comment on above: Interpretive Data: M icroscopic readings are only performed on those samples that meet specific criteria set forth by [facility]. Epithelial cells.squamous Auto (Urine sed) [#/Area] >10 graded/HPF Invalid Interpretation Code 0-2graded/ HPF [facility] UA Auto SS Glucose Ql (U) Negative Normal Negativemg /dL [facility] UA Auto SS Hemoglobin Auto test strip (U) [Mass/Vol] Negative Normal Negativemg /dL [facility] UA Auto SS Ketones Auto test strip Ql (U) Negative Normal Negativemg /dL [facility] UA Auto SS Leukocyte esterase Auto test strip Ql (U) 500 Flakita/uL Flakita/uL Invalid Interpretation Code NegativeLe u/uL [facility] UA Auto SS Mucus Auto Ql (U) Trace graded/LPF Normal Negati vegr aded/LPF [facility] UA Auto SS Nitrite Auto test strip Ql (U) Negative Normal Negativemg /dL [facility] UA Auto SS pH (U) 6.5 *NA* (10/03/23 9:15 AM) Invalid Interpretation Code 5.0 - 9.0 [facility] UA Auto SS Protein Ql (U) Trace mg/dL Invalid Interpretation Code Negativemg /dL [facility] UA Auto SS RBC Ql (U) 4-20 graded/HPF Invalid Interpretation Code 0-3graded/ HPF [facility] UA Auto SS Specific gravity (U) [Rel density] 1.017 *NA* (10/03/23 9:15 AM) Invalid Interpretation Code 1.005 - 1.030 [facility] UA Auto SS Urobilinogen (U) [Mass/Vol] Negative Normal Negativemg /dL [facility] UA Auto SS WBC Auto (Urine sed) [#/Area] 31-75 graded/HPF Invalid Interpretation Code 0-5graded/ HPF [facility] UA Auto SS URINALYSISOrdered By: Genny Nava on 10-03-2023 UA Spec Desc Clean Catch (10/03/23 9:15 AM) Normal [facility] UA Auto SS Urinalysis with Microon 05- Bacteria Auto Ql (U) Trace Normal Trace Fish er [facility] Comment on above: Performed By: #### 2 [id number] #### [facility] [facility] [address] [place] [address] Bilirubin Ql (U) Negative Normal Negative [facility] Comment on above: Performed By: #### 2 [id number] #### [facility] [address] [place] [address] Clarity (U) Turbid Abnormal Clear [facility] Comment on above: Performed By: #### 2 [id number] #### [facility] [address] [place] [address] Color (U) Yellow Normal Yellow [facility] Comment on above: Result Comment: Micr oscopic readings are only performed on those samples that meet specific criteria set forth by [facility]. Performed By: #### 2 [id number] #### [facility] [address] [place] [address] Epithelial cells.squamous Auto (Urine sed) [#/Area] >10 Abnormal 0-2 [facility] Comment on above: Performed By: #### 2 [id number] #### [facility] [address] [place] [address] Glucose Ql (U) Negative Normal Negative [facility] Comment on above: Performed By: #### 2 [id number] #### [facility] [address] [place] [address] Hemoglobin Auto test strip (U) [Mass/Vol] Negative Normal Negative [facility] Comment on above: Performed By: #### 2 [id number] #### [facility] [address] [place] [address] Ketones Auto test strip Ql (U) Negative Normal Negative [facility] Comment on above: Performed By: #### 2 [id number] #### [facility] [address] [place] [address] Leukocyte esterase Auto test strip Ql (U) 500 Flakita/uL Abnormal Negative [facility] Comment on above: Performed By: #### 2 [id number] #### [facility] [address] [place] [address] Mucus Auto Ql (U) Trace Normal Negative [facility] Comment on above: Performed By: #### 2 [id number] #### [facility] [address] [place] [address] Nitrite Auto test strip Ql (U) Negative Normal Negative [facility] Comment on above: Performed By: #### 2 [id number] #### [facility] [address] [place] [address] pH (U) 6.5 [pH] Invalid Interpretation Code 5.0-9.0 [facility] Comment on above: Performed By: #### 2 [id number] #### [facility] [address] [place] [address] Protein Ql (U) Trace Abnormal Negative [facility] Comment on above: Performed By: #### 2 [id number] #### [facility] [address] [place] [address] RBC Ql (U) 4-20 Abnormal 0-3 [facility] Comment on above: Performed By: #### 2 [id number] #### [facility] [address] [place] [address] Specific gravity (U) [Rel density] 1.017 Invalid Interpretation Code 1.005-1.03 0 [facility] Comment on above: Performed By: #### 2 [id number] #### [facility] [address] [place] [address] Urobilinogen (U) [Mass/Vol] Negative Normal Negative [facility] Comment on above: Performed By: #### 2 [id number] #### [facility] [address] [place] [address] WBC Auto (Urine sed) [#/Area] 31-75 Abnormal 0-5 [facility] Comment on above: Performed By: #### 2 [id number] #### [facility] [address] [place] [address] Type of Urine collection method Clean Catch Normal [facility] Comment on above: Performed By: #### 2 [id number] #### [facility] [address] [place] [address] eGFRon 10-03-2023 eGFR 40 mL/min/1.73 m2 Low >=59 [facility] Comment on above: Order Comment: Order added by Discern Expert. Performed By: #### 1 [id number], [id number] ####[facility] [address] [place] [address] Inpatient Clinical Summaryon 09-20-2023 Inpatient Clinical Summary [address] [address] Clinical Summary Person Information: Name: DINORAH PEPE Age: 73 Years : 1950 Sex: Female PCP: Yuli Duckworth CNP Marital Status: Race: White Ethnicity: Non- or Language: Sri Lankan Visit Id: Visit Reason: Nausea; Weakness or fatigue; Vision changes; FEELING OFF BALANCE Speciality: Acuity: Enc Type: Inpatient Med Service: Medical Arrival: 09/03/2023 17:22:54 Discharge: 09/06/2023 16:56:26 Dispo Type: Home (Routine DC) Address: [address] [place] [id number] Provider Notes: Diagnosis: 1:Weakness; 2:Balance problems; 3:Acute kidney injury superimposed on chronic kidney disease; 4:Hypotension; 5:Hypercalcemia; 6:Stage 3b chronic kidney disease (CKD); 7:Type 2 diabetes mellitus; 8:Subclinical hypothyroidism; 9:Obesity Problems Active Obesity BMI 50.0-59.9, adult Abnormal mammogram of left breast Kidney stone Bladder stone Smoking Status: Never Smoker Functional Status: Sensory Deficits: History of Falls: Mobility Assistance Prior to Admission: ADLs: Independent Current Level of Assistance for Self-Care/Mobility: Cognitive Status: Oriented x 3 Allergies penicillins (Itching) Measurements: Height: 152.40 cm Weight: 122.4 kg Blood Pressure: 113 mmHg / 69 mmHg BMI: 50.25 kg/m2 Procedures No Procedures Documented Immunizations No Immunizations Documented This Visit Final Med List: alendronate 70 Milligram By Mouth every week. alendronate (Fosamax 70 mg Tab) 1 Tablets By Mouth every week. aspirin atorvastatin (atorvastatin 10 mg Tab) 1 Tablets By Mouth every day. gabapentin (gabapentin 300 mg Cap) 2 Capsules By Mouth at bedtime. lactobacillus acidophilus (Acidophilus) every day. saccharomyces boulardii lyo 250 Milligram By Mouth 2 times a day. venlafaxine (venlafaxine 150 mg Cap-ER) 1 Capsules By Mouth every day. Care Team Members: Attending Physician: Gunner Remy DO Consulting Physician: Anabelle GELLER, Salvador Referring Physician: Follow up: With: Address: When: Salvador Ahn [facility], [address] [place] [address] Business (1) Comments: Call for followup appointment With: Address: When: Follow-up with anaesthetic technician; call for appointment With: Address: When: Yuli Duckworth [address] [place] [address], [facility] [address], [address] [place] [address] Business (1) Comments: Call for followup appointment Type Location Start [facility] Diagnostic (FT) FT.MAMMOGRAM 11/07/2023 8:45 AM 11/07/2023 9:15 AM Confirmed US Breast (FT) FT.ULTRASOUND 11/07/2023 9:30 AM 11/07/2023 10:30 AM Confirmed Patient Education Information: Hypotension, Jhde-hd-Uhhp Normal [facility] Inpatient Patient Summaryon 09-20-2023 Inpatient Patient Summary [facility] [address] [place], [place] [address] Patient Discharge Instructions PERSON INFORMATION Name: DINORAH PEPE Date of : 1950 Current Date: 09/20/2023 12:56:30 PHYSICIANS Admitting Physician: Isabelle Wilson MD Primary Care Physician: Yuli Duckworth CNP PCP Comment: Discharge Diagnosis: 1:Weakness; 2:Balance problems; 3:Acute kidney injury superimposed on chronic kidney disease; 4:Hypotension; 5:Hypercalcemia; 6:Stage 3b chronic kidney disease (CKD); 7:Type 2 diabetes mellitus; 8:Subclinical hypothyroidism; 9:Obesity Condition at Discharge: DINORAH Snow has been given the following list of follow-up instructions, prescriptions, and patient education materials: PATIENT FOLLOW-UP INFORMATION Diet: Calorie Controlled- 1800 Calorie Diet Discharge Activity: Ambulate as tolerated Discharge Restrictions: No restrictions Wound Care Instructions: Remove Your Dressing In Days Call Your Doctor For: IF UNABLE TO CONTACT YOUR PHYSICIAN AND YOU FEEL IT IS AN EMERGENCY, GO TO THE NEAREST EMERGENCY ROOM OR CALL 911 Home Treatment: Devices/Equipment: Blood glucose monitor Special Services: Additional Instructions: Primary Care Physician to provide the following pending test results: Follow up: With: Address: When: Salvador Ahn [facility], [address] [place] [address] Business (1) Comments: Call for followup appointment With: Address: When: Follow-up with anaesthetic technician; call for appointment With: Address: When: Yuli Duckworth [address] [place] [address], [facility], [address] [place] [address] Business (1) Comments: Call for followup appointment In the event that this physician does not participate in your insurance network, please consult with your insurance company to find a nearby participating provider. Type Location [facility] Diagnostic (FT) FT.MAMMOGRAM 11/07/2023 8:45 AM 11/07/2023 9:15 AM Confirmed US Breast (FT) FT.ULTRASOUND 11/07/2023 9:30 AM 11/07/2023 10:30 AM Confirmed Comment: MILEY Ortiz LINDA L, have received the attached patient education materials/instructions and have verbalized understanding: Patient Signature __ Date Clinican/Nurse Signature Date HERE ARE THE MEDICATION CHANGES THAT OCCURRED DURING YOUR HOSPITAL STAY Medications to Continue with No Changes Other Medications alendronate 70 Milligram By Mouth every week. Last Dose: N ext Dose: alendronate (Fosamax 70 mg Tab) 1 Tablets By Mouth every week. Last Dose: N ext Dose: aspirin Last Dose: N ext Dose: atorvastatin (atorvastatin 10 mg Tab) 1 Tablets By Mouth every day. Last Dose: N ext Dose: gabapentin (gabapentin 300 mg Cap) 2 Capsules By Mouth at bedtime., restless leg syndrome Last Dose: N ext Dose: lactobacillus acidophilus (Acidophilus) every day. Last Dose: N ext Dose: saccharomyces boulardii lyo 250 Milligram By Mouth 2 times a day. Last Dose: N ext Dose: venlafaxine (venlafaxine 150 mg Cap-ER) 1 Capsules By Mouth every day. Last Dose: N ext Dose: No Longer Take the Following Medications hydrochlorothiazide-triamt erene (hydrochlorothiazide-triam terene 50 mg-75 mg Tab) 0.5 Tablets By Mouth every day. indomethacin (indomethacin 50 mg oral capsule) 1 Capsules By Mouth 3 times a day. lisinopril 5 Milligram By Mouth every day. metoprolol (Metoprolol tartrate 50 mg Tab) 1 Tablets By Mouth 2 times a day. semaglutide (Ozempic) Subcutaneous every week. Comment: MEDICATION LIST PROVIDED FOR YOU IS A LIST OF YOUR CURRENT MEDICATIONS. PLEASE CARRY THIS WITH YOU AT ALL TIMES. alendronate 70 Milligram By Mouth every week. alendronate (Fosamax 70 mg Tab) 1 Tablets By Mouth every week. aspirin atorvastatin (atorvastatin 10 mg Tab) 1 Tablets By Mouth every day. gabapentin (gabapentin 300 mg Cap) 2 Capsules By Mouth at bedtime. lactobacillus acidophilus (Acidophilus) every day. saccharomyces boulardii lyo 250 Milligram By Mouth 2 times a day. venlafaxine (venlafaxine 150 mg Cap-ER) 1 Capsules By Mouth every day. Pharmacy Information: [facility] , Mail Order Comment: PATIENT EDUCATION INFORMATION Instructions: Hypotension As your heart beats, it forces blood through your body. This force is called blood pressure. If you have hypotension, you have low blood pressure. When your blood pressure is too low, you may not get enough blood to your brain or ot (more content not included)... Normal [facility] Vit D 1,25on 09-12-2023 1,25-dihydroxyvitamin D [Mass/Vol] 25.8 pg/mL Invalid Interpretation Code 24.8-81.5 [facility] Comment on above: Result Comment: Perf ormed at: [facility] [address] [id number] MD Audi Vega Performed By: #### 1 [id number] #### [facility] [address] [place] [address] Lab Miscellaneous-LCon 09-08 Lab Miscellaneous COMMENT Invalid Interpretation Code [facility] Comment on above: Order Comment: urine Result Comment: Test Ordered: 140120 Immunofixation, Urine CHRIS Interpretation:U Comment No monoclonality detected. Performed at: [facility] [address] [place], [place] [id number] PhD Jessica Ferris Performed By: #### 1 [id number] ####[facility] [address] [place] [address] Discharge Instructionson Discharge Instructions [id number] Normal [facility] Lab Miscellaneous-LCon 09-07 Lab Miscellaneous COMMENT Invalid Interpretation Code [facility] Comment on above: Result Comment: Test Ordered: [id number] Free K+L Lt Chains,Qn,S Free [place] Lt Chains,S 37.8 [H ] mg/L CB Reference Range: 3.3-19.4 Free Lambda Lt Chains,S 32.8 [H ] mg/L CB Reference Range: 5.7-26.3 [place]/Lambda Ratio,S 1.15 CB Reference Range: 0.26-1.65 Performed at: [facility] [address] [place], [place] [id number] PhD Jessica Ferris Performed By: #### 2 [id number] #### [facility] [address] [place] [address] Message from Medicareon 08-21 Message from Medicare [id number] Normal [facility] Immunofixation Serumon 09-06 IgA [Mass/Vol] 294 mg/dL Invalid Interpretation Code 26-351 [facility] Comment on above: Performed By: #### 1 [id number], [id number], 51832635, 2500204, 6547335 #### [facility] [address] [place] [address] IgG [Mass/Vol] 795 mg/dL Invalid Interpretation Code 509-3717 [facility] Comment on above: Performed By: #### 1 8067060, [id number], 82610338, 5145132, 7627705 #### [facility] [address] [place] [address] IgM [Mass/Vol] 33 mg/dL Invalid Interpretation Code [facility] Comment on above: Result Comment: Perf ormed at: [address] [id number] PhD Jessica Ferris Performed By: #### 1 7581270, [id number], 75970553, 4791653, 8903848 #### [facility] [address] [place] [address] Protein Fractions [Interp] Comment Invalid Interpretation Code [facility] Comment on above: Result Comment: No m onoclonality detected. Performed By: #### 1 7758476, [id number], 76831366, 0879691, 0573098 #### [facility] [address] [place] [address] PTH Intacton 09-07-2023 Parathyrin.intact [Mass/Vol] 207 pg/mL High 15-65 [facility] Comment on above: Result Comment: Perf ormed at: [address] [id number] PhD Jessica Ferris Performed By: #### 1 [id number] ####[facility] [address] [place] [address] BMPon 09-06-2023 Anion gap [Moles/Vol] 12 mmol/L Normal 6-16 [facility] Comment on above: Performed By: #### 1 0601683, [id number], 12646174, 2730932, 2022261 #### [facility] [address] [place] [address] Calcium [Mass/Vol] 10.0 mg/dL Normal 8.9-11.1 [facility] Comment on above: Performed By: #### 1 [id number], [id number], 22792398, 9803803, 5293325 #### [facility] [address] [place] [address] Chloride [Moles/Vol] 112 mmol/L High 101-111 [facility] Comment on above: Performed By: #### 1 7164678, [id number], 00699432, 1969889, 1905045 #### [facility] [address] [place] [address] CO2 [Moles/Vol] 20 mmol/L Low 21-31 [facility] Comment on above: Performed By: #### 1 7625211, [id number], 88124023, 5006518, 9497461 #### [facility] [address] [place] [address] Creatinine [Mass/Vol] 2.1 mg/dL High 0.5-1.3 [facility] Comment on above: Performed By: #### 1 7519459, 481621334, 76442125, 2789870, 2741763 #### [facility] [address] [place] [address] Glucose [Mass/Vol] 76 mg/dL Normal 55-199 [facility] Comment on above: Performed By: #### 1 2221580, 678673506, 37247233, 8829782, 2373097 #### [facility] [address] [place] [address] Potassium [Moles/Vol] 3.5 mmol/L Normal 3.5-5.3 [facility] Comment on above: Performed By: #### 1 3384416, 689352037, 40707948, 0806772, 6234846 #### [facility] [address] [place] [address] Sodium [Moles/Vol] 140 mmol/L Normal 135-145 [facility] Comment on above: Performed By: #### 1 3809066, 424202723, 59908432, 0684522, 7475829 #### [facility] [address] [place] [address] Urea nitrogen [Mass/Vol] 23 mg/dL High 5-21 [facility] Comment on above: Performed By: #### 1 2681890, 692640253, 26161784, 5969515, 6438558 #### [facility] [address] [place] [address] Urea nitrogen/Creatinine [Mass ratio] 11 No Units Normal 10-20 [facility] Comment on above: Performed By: #### 1 8009459, 482056782, 02764585, 0269606, 4665919 #### [facility] [address] [place] [address] CBC w/Indiceson 09-06-2023 Erythrocyte distribution width (RBC) [Ratio] 20.3 % High 10.9-14.2 [facility] Comment on above: Performed By: #### 1 8957223, 665550977, 99837085, 7935293, 5698628 #### [facility] [address] [place] [address] Hematocrit (Bld) [Volume fraction] 27.6 % Low 34.0-46.0 [facility] Comment on above: Performed By: #### 1 0716809, 400122696, 20995475, 2784319, 4280390 #### [facility] [address] [place] [address] Hemoglobin (Bld) [Mass/Vol] 8.9 g/dL Low 12.0-16.0 [facility] Comment on above: Performed By: #### 1 6878459, 776714444, 91677053, 8575553, 5215653 #### [facility] [address] [place] [address] MCH (RBC) [Entitic mass] 26.4 pg Low 27.0-34.0 [facility] Comment on above: Performed By: #### 1 4850637, 603053261, 26335926, 7551725, 2239784 #### [facility] [address] [place] [address] MCHC (RBC) [Mass/Vol] 32.3 g/dL Normal 31.4-36.0 [facility] Comment on above: Performed By: #### 1 2618462, 561674429, 30917865, 6467769, 4807859 #### [facility] [address] [place] [address] MCV (RBC) [Entitic vol] 81.9 fL Normal 80.0-100.0 [facility] Comment on above: Performed By: #### 1 8591024, 676811103, 20338243, 5636520, 8343861 #### [facility] [address] [place] [address] Platelet mean volume (Bld) [Entitic vol] 7.5 fL Normal 6.4-10.8 [facility] Comment on above: Performed By: #### 1 5010686, 719361153, 32544053, 6333128, 1015751 #### [facility] [address] [place] [address] Platelets (Bld) [#/Vol] 212.0 E9/L Normal 150.0-500. 0 [facility] Comment on above: Performed By: #### 1 8389102, 281022711, 40981215, 1662509, 1118811 #### [facility] [address] [place] [address] RBC (Bld) [#/Vol] 3.4 E12/L Low 4.3-5.9 [facility] Comment on above: Performed By: #### 1 1445548, 682280171, 88601548, 1532046, 2538967 #### [facility] [address] [place] [address] RBC size Nom (Bld) NORMAL Invalid Interpretation Code [facility] Comment on above: Performed By: #### 1 6867969, 318694680, 34366749, 6129395, 8291443 #### [facility] [address] [place] [address] WBC corrected for nucl RBC Auto (Bld) [#/Vol] 5.4 E9/L Normal 4.0-11.0 [facility] Comment on above: Performed By: #### 1 7828031, 151386626, 49851874, 9722592, 7042741 #### [facility] [address] [place] [address] CHEMISTRYOrdered By: Lab ROP User on 09-06-2023 Glucose [Mass/Vol] 100 mg/dL High 55 - 99 mg/dL [facility] POC Subsection Comment on above: Result Comment: Katina esparza RN/ POC Device SN [id number] 1 Invalid Interpretation Code [facility] POC Subsection POC User ID [id number] 1 Invalid Interpretation Code [facility] POC Subsection POC Username TITA MARROQUIN Invalid Interpretation Code [facility] POC Subsection Glucose [Mass/Vol] 88 mg/dL Normal 55 - 99 mg/dL [facility] POC Subsection Comment on above: Result Comment: Katina esparza RN/ POC Device SN [id number] 1 Invalid Interpretation Code [facility] POC Subsection POC User ID [id number] 1 Invalid Interpretation Code [facility] POC Subsection POC Username TITA MARROQUIN Invalid Interpretation Code [facility] POC Subsection Glucose [Mass/Vol] 70 mg/dL Normal 55 - 99 mg/dL [facility] POC Subsection Comment on above: Result Comment: María mercedes Meter POC Device SN [id number] 1 Invalid Interpretation Code [facility] POC Subsection POC User ID [id number] 1 Invalid Interpretation Code [facility] POC Subsection POC Username ABIDA RYAN Invalid Interpretation Code [facility] POC Subsection CHEMISTRYOrdered By: SYSTEM SYSTEM on 09-06-2023 25-hydroxyvitamin D3 [Mass/Vol] 24.0 ng/mL Low 30.0 - 100.0 ng/mL [facility] Anion gap [Moles/Vol] 12 mmol/L Normal 6 - 16 mEq/L [facility] Calcium [Mass/Vol] 10.0 mg/dL Normal 8.9 - 11. 1 mg/dL [facility] Chloride [Moles/Vol] 112 mmol/L High 101 - 1 11 mmol/L [facility] CO2 [Moles/Vol] 20 mmol/L Low 21 - 31 mmol/L [facility] Creatinine [Mass/Vol] 2.1 mg/dL High 0.5 - 1.3 mg/dL [facility] eGFR 25 mL/min/1.73 m2 Low >=59mL/min /1.73 m2 [facility] Glucose [Mass/Vol] 76 mg/dL Normal 55 - 199 mg/dL [facility] Potassium [Moles/Vol] 3.5 mmol/L Normal 3.5 - 5.3 mmol/L [facility] Sodium [Moles/Vol] 140 mmol/L Normal 135 - 145 mmol/L [facility] Urea nitrogen [Mass/Vol] 23 mg/dL High 5 - 21 mg/dL [facility] Urea nitrogen/Creatinine [Mass ratio] 11 mg/mg Normal 10 - 20 [facility] Capillary Glucose POCon 08-21 Glucose [Mass/Vol] 100 mg/dL High 55-99 [facility] Comment on above: Result Comment: Katina AYALA Performed By: #### 2 [id number] #### [facility] [address] [place] [address] Glucose [Mass/Vol] 88 mg/dL Normal 55-99 [facility] Comment on above: Result Comment: Katina AYALA Performed By: #### 2 [id number] ####[facility] [address] [place] [address] Glucose [Mass/Vol] 70 mg/dL Normal 55-99 [facility] Comment on above: Result Comment: María mercedes Meter Performed By: #### 1 [id number] #### [facility] [address] [place] [address] HEMATOLOGYOrdered By: SYSTEM SYSTEM on 09-06-2023 Erythrocyte distribution width (RBC) [Ratio] 20.3 % High 10.9 - 14.2 % [facility] Heme Hematocrit (Bld) [Volume fraction] 27.6 % Low 34.0 - 46.0 % [facility] Heme Hemoglobin (Bld) [Mass/Vol] 8.9 g/dL Low 12.0 - 16.0 gm/dL Remisol Heme MCH (RBC) [Entitic mass] 26.4 pg Low 27.0 - 34.0 pg Remisol Heme MCHC (RBC) [Mass/Vol] 32.3 g/dL Normal 31.4 - 36.0 gm/dL Remisol [facility]e MCV (RBC) [Entitic vol] 81.9 fL Normal 80.0 - 100.0 fL [facility] Platelet mean volume (Bld) [Entitic vol] 7.5 fL Normal 6.4 - 10.8 fL [facility]e Platelets (Bld) [#/Vol] 212.0 E9/L Normal 150.0 - 500.0 E9/L [facility]e RBC (Bld) [#/Vol] 3.4 E12/L Low 4.3 - 5.9 E12/L [facility]e RBC size Nom (Bld) NORMAL *NA* (09/06/23 5:07 AM) Invalid Interpretation Code Remisol [facility]e WBC corrected for nucl RBC Auto (Bld) [#/Vol] 5.4 E9/L Normal 4.0 - 11.0 E9/L [facility] Inpatient Patient Summaryon 09-06-2023 Inpatient Patient Summary DINORAH PEPE :1950 Visit Date:09/03/2023 Inpatient Discharge Instructions Your Care Team Admitting Physician - Steve GELLER, Isabelle Consulting Physician - Salvador Ahn MD Reason for Your Visit Dizziness and no appetite Your Diagnosis Weakness Balance problems Acute kidney injury superimposed on chronic kidney disease Hypotension Hypercalcemia Stage 3b chronic kidney disease (CKD) Type 2 diabetes mellitus Subclinical hypothyroidism Obesity Nausea Vision changes Weakness or fatigue Tests Performed Dihydroxyvitamin D 1,25 Level -- Results Pending -- Immunofixation Serum -- Results Pending -- Lab Miscellaneous-LC -- Results Pending -- PTH Intact -- Results Pending -- UA with Cult Rflx -- Results Pending -- Urinalysis with Micro -- Results Pending -- Brain MRI w/o Contrast CT Head or Brain w/o Contrast XR Chest Single View Please visit your patient portal for your results or contact your primary care physician. This Is Your Medications List alendronate alendronate (Fosamax 70 mg Tab) aspirin atorvastatin (atorvastatin 10 mg Tab) gabapentin (gabapentin 300 mg Cap) lactobacillus acidophilus (Acidophilus) saccharomyces boulardii lyo venlafaxine (venlafaxine 150 mg Cap-ER) [Image Removed: STOP]Stop taking these medications hydrochlorothiazide-triamt erene (hydrochlorothiazide-triam terene 50 mg-75 mg Tab) indomethacin (indomethacin 50 mg oral capsule) lisinopril metoprolol (Metoprolol tartrate 50 mg Tab) semaglutide (Ozempic) Procedure History Colonoscopy (08/07/2021), t tka compounded by obesity BMI>58 (09/09/2015), Knee arthroplasty. Discharge Vitals Temperature (Axillary) 36.7 ?C Heart Rate (Monitored) 75 Respiratory Rate 18 Blood Pressure 113/69 Weight 122.4 kg What to do next Instructions From Your Doctor Event Name Event Result Discharge Activity Ambulate as tolerated Discharge Restrictions No restrictions Discharge Diet(s) Calorie Controlled- 1800 Calorie Diet Pharmacy Information [facility]- [place] , Mail Order Discharge Instructions STOP -Ozempic, indomethacin, lisinopril, metoprolol aand HCTZ-triamtereneNeed thyroid function studies in 6 weeks Previously Scheduled Follow-Up Appointments Tuesday 8:45 AM EDT Where: [facility] Tuesday 9:30 AM EDT Where: [facility] New Follow Up Appointments after Discharge Follow Up with Salvador Ahn When: Comments: Call for followup appointment Where: [address] [address]- Business (1) Follow Up with Follow-up with anaesthetic technician; call for appointment When: Follow Up with Yuli Duckworth When: Comments: Call for followup appointment Where: [address] [place] [address], [address] [place] [address]- Business (1) Medications What How Much When Instructions Next Dose Unchanged alendronate 70 Milligram By Mouth Every week resume Unchanged alendronate (Fosamax 70 mg Tab) 1 Tablets By Mouth Every week resume Unchanged aspirin Unchanged atorvastatin (atorvastatin 10 mg Tab) 1 Tablets By Mouth Every day 09/06 @ 0900am Unchanged gabapentin (gabapentin 300 mg Cap) 2 Capsules By Mouth At bedtime 09/05 @ 0900pm Unchanged lactobacillus acidophilus (Acidophilus) Every day 09/06 @ 0900am Unchanged saccharomyces boulardii lyo 250 Milligram By Mouth 2 times a day 09/05 @ 0900pm Unchanged venlafaxine (venlafaxine 150 mg Cap-ER) 1 Capsules By Mouth Every day 09/06 @ 0900am What How Much When Comments Stop Taking hydrochlorothiazide-triamt erene (hydrochlorothiazide-triam terene 50 mg-75 mg Tab) 0.5 Tablets By Mouth Every day Stop Taking indomethacin (indomethacin 50 mg oral capsule) 1 Capsules By Mouth 3 times a day Stop Taking lisinopril 5 Milligram By Mouth Every day Stop Taking metoprolol (Metoprolol tartrate 50 mg Tab) 1 Tablets By Mouth 2 times a day Stop Taking semaglutide (Ozempic) Subcutaneous Every week Test Results CBC BMP WBC: 5.4 E9/L (09/06/23 05:07:00) Glucose Lvl: 76 mg/dL (09/06/23 05:07:00) RBC: 3.4 E12/L Low (09/06/23 05:07:00) BUN: 23 mg/dL High (09/06/23 05:07:00) HGB: 8.9 gm/dL Low (09/06/23 05:07:00) Creatinine: 2.1 mg/dL High (09/06/23 05:07:00) Hct: 27.6 % Low (09/06/23 05:07:00) BUN/Creat Ratio: 11 (09/06/23 05:07:00) MCV: 81.9 fL (09/06/23 05:07:00) Sodium Lvl: 140 mmol/L (09/06/23 05:07:00) MCH: 26.4 pg Low (09/06/23 05:07:00) Potassium Lvl: 3.5 mmol/L (09/06/23 05:07:00) MCHC: 32.3 gm/dL (09/06/23 05:07:00) Chloride: 112 mmol/L High (09/06/23 05:07:00) RDW: 20.3 % High (09/06/23 05:07:00) CO2: 20 mmol/L Low (09/06/23 05:07:00) Platelet: 212 E9/L (09/06/23 05:07:00) AGAP: 12 mEq/L (09/06/23 05:07:00) MPV: 7.5 fL (09/06/23 05:07:00) Calcium Lvl: 10 mg/dL (09/06/23 05:07:00) Allergies penicillins (Itching) Problems Ongoing - A (more content not included)... Normal [facility] Interdisciplinary Note - Alan e Manageron 09-06-2023 Interdisciplinary Note - Video Effects Editor CRM to room to discuss DC planning. patient is alert and oriented. Spouse present in room. Patient white board updated, and CRM contact information provided. Discussed CRM spoke with Dr Remy who saw patient earlier today and waiting nephrology today. Patient is form home with spouse and he will transport at dc. She denies any needs at discharge. PT had no recommendations. Patient has walker at home. Reviewed Medicare rights. CRM following Possible DC today Normal [facility] Comment on above: Result Comment: Elec tronically Signed By: Ngozi Farfan\.br\Date and Time Signed: 09/06/23 12:44 EDT Lab Miscellaneous-LCon 09-05 Source Serum Invalid Interpretation Code [facility] Comment on above: Performed By: #### 2 [id number] #### [facility] Laboratory [address] [place] [address] Test Code 806662 Invalid Interpretation Code [facility] Comment on above: Performed By: #### 2 [id number] #### [facility] Laboratory [address] [facility] [place] [place] [address] Test Name Light Free Av Invalid Interpretation Code [facility] Comment on above: Performed By: #### 2 [id number] #### [facility] [address] [place] [address] Source Urine Invalid Interpretation Code [facility] Comment on above: Order Comment: urine Performed By: #### 1 [id number] ####[facility] [address] [place] [address] Test Code 210684 Invalid Interpretation Code [facility] Comment on above: Order Comment: urine Performed By: #### 1 [id number] ####[facility] [address] [place] [address] Test Name Immunofixation Invalid Interpretation Code [facility] Comment on above: Order Comment: urine Performed By: #### 1 [id number] ####[facility] [address] [place] [address] Message from Medicareon 08-21 Message from Medicare [id number] Normal [facility] Monitor Recordon 09-06-2023 Monitor Record [id number] Normal [facility] Monitor Record [id number] Normal [facility] Progress Note-Nurseon 2023 Progress Note-Nurse pt blood sugar this AM is 70. I gave patient 2 fruit juices and ordered her breakfast. Normal [facility] Reference Laboratory Testing Ordered By: Madison Alvarez on 09-06-2023 Test Code [id number] 1 Invalid Interpretation Code [facility] [employer] Work Phone: Test Name Immunofixation Invalid Interpretation Code [facility] [employer] Work Phone: Test Code 713508 1 Invalid Interpretation Code [facility] [employer] Work Phone: Test Name Light Free Av Invalid Interpretation Code [facility] [employer] Work Phone: URINALYSISOrdered By: SYSTEM SYSTEM on 09-06-2023 Bacteria Auto Ql (U) Trace graded/HPF Normal Tra cegrade d/HPF [facility] UA Auto SS Bilirubin Ql (U) Negative Normal Negativemg /dL [facility] Auto SS Clarity (U) Turbid *ABN* (09/06/23 4:31 PM) Invalid Interpretation Code Clear [facility]A Auto SS Color (U) Light-Yellow 1 (09/06/23 4:31 PM) Normal Yellow [facility] UA Auto SS Comment on above: Interpretive Data: M icroscopic readings are only performed on those samples that meet specific criteria set forth by [facility] Laboratory. Crystals.amorphous Computer assisted Ql (U) Present graded/HPF Invalid Interpretation Code [facility] UA Auto SS Epithelial cells.renal Computer assisted Ql (U) 0-2 graded/HPF Normal 0-2graded/ HPF [facility] UA Auto SS Epithelial cells.squamous Auto (Urine sed) [#/Area] >10 graded/HPF Invalid Interpretation Code 0-2graded/ HPF [facility] UA Auto SS Glucose Ql (U) Negative Normal Negativemg /dL [facility] UA Auto SS Hemoglobin Auto test strip (U) [Mass/Vol] 3+ mg/dL Invalid Interpretation Code Negativemg /dL [facility] UA Auto SS Ketones Auto test strip Ql (U) Negative Normal Negativemg /dL [facility] UA Auto SS Leukocyte esterase Auto test strip Ql (U) 500 Flakita/uL Flakita/uL Invalid Interpretation Code NegativeLe u/uL [facility] UA Auto SS Mucus Auto Ql (U) Trace graded/LPF Normal Negati vegr aded/LPF [facility] UA Auto SS Nitrite Auto test strip Ql (U) Negative Normal Negativemg /dL [facility] UA Auto SS pH (U) 5.5 *NA* (09/06/23 4:31 PM) Invalid Interpretation Code 5.0 - 9.0 [facility] UA Auto SS Protein Ql (U) Trace mg/dL Invalid Interpretation Code Negativemg /dL [facility] UA Auto SS RBC Ql (U) 4-20 graded/HPF Invalid Interpretation Code 0-3graded/ HPF [facility] UA Auto SS Specific gravity (U) [Rel density] 1.014 *NA* (09/06/23 4:31 PM) Invalid Interpretation Code 1.005 - 1.030 [facility] UA Auto SS Transitional cells Computer assisted (U) [#/Area] 5-8 graded/HPF Invalid Interpretation Code 0-2graded/ HPF [facility] UA Auto SS Urobilinogen (U) [Mass/Vol] Negative Normal Negativemg /dL [facility] UA Auto SS WBC Auto (Urine sed) [#/Area] 16-25 graded/HPF Invalid Interpretation Code 0-5graded/ HPF [facility] UA Auto SS URINALYSISOrdered By: Erin Lucero on 09-06-2023 UA Spec Desc Random Urine (09/06/23 4:31 PM) Normal [facility] UA Auto SS Work Phone: Urinalysis with Microon 08-21 Bacteria Auto Ql (U) Trace Normal Trace Fish [facility] Comment on above: Performed By: #### 1 [id number] #### [facility] [address] [place] [address] Bilirubin Ql (U) Negative Normal Negative [facility] Comment on above: Performed By: #### 1 [id number] #### [facility] [address] [place] [address] Clarity (U) Turbid Abnormal Clear [facility] Comment on above: Performed By: #### 1 [id number] #### [facility] [address] [place] [address] Color (U) Light-Yellow Normal Yellow [facility] Comment on above: Result Comment: Micr oscopic readings are only performed on those samples that meet specific criteria set forth by [facility]. Performed By: #### 1 [id number] #### [facility] [address] [place] [address] Crystals.amorphous Computer assisted Ql (U) Present Abnormal [facility] Comment on above: Performed By: #### 1 [id number] #### [facility] [address] [place] [address] Epithelial cells.renal Computer assisted Ql (U) 0-2 Normal 0-2 [facility] Comment on above: Performed By: #### 1 [id number] #### [facility] [address] [place] [address] Epithelial cells.squamous Auto (Urine sed) [#/Area] >10 Abnormal 0-2 [facility] Comment on above: Performed By: #### 1 [id number] #### [facility] [address] [place] [address] Glucose Ql (U) Negative Normal Negative [facility] Comment on above: Performed By: #### 1 [id number] #### [facility] [address] [place] [address] Hemoglobin Auto test strip (U) [Mass/Vol] 3+ mg/dL Abnormal Negative [facility] Comment on above: Performed By: #### 1 [id number] #### [facility] [address] [place] [address] Ketones Auto test strip Ql (U) Negative Normal Negative [facility] Comment on above: Performed By: #### 1 [id number] #### [facility] [address] [place] [address] Leukocyte esterase Auto test strip Ql (U) 500 Flakita/uL Abnormal Negative [facility] Comment on above: Performed By: #### 1 [id number] #### [facility] [address] [place] [address] Mucus Auto Ql (U) Trace Normal Negative [facility] Comment on above: Performed By: #### 1 [id number] #### [facility] [address] [place] [address] Nitrite Auto test strip Ql (U) Negative Normal Negative [facility] Comment on above: Performed By: #### 1 [id number] #### [facility] [address] [place] [address] pH (U) 5.5 [pH] Invalid Interpretation Code 5.0-9.0 [facility] Comment on above: Performed By: #### 1 [id number] #### [facility] [address] [place] [address] Protein Ql (U) Trace Abnormal Negative [facility] Comment on above: Performed By: #### 1 [id number] #### [facility] [address] [place] [address] RBC Ql (U) 4-20 Abnormal 0-3 [facility] Comment on above: Performed By: #### 1 [id number] #### [facility] [address] [place] [address] Specific gravity (U) [Rel density] 1.014 Invalid Interpretation Code 1.005-1.03 0 [facility] Comment on above: Performed By: #### 1 [id number] #### [facility] [address] [place] [address] Transitional cells Computer assisted (U) [#/Area] 5-8 Abnormal 0-2 [facility] Comment on above: Performed By: #### 1 [id number] #### [facility] [address] [place] [address] Urobilinogen (U) [Mass/Vol] Negative Normal Negative [facility] Comment on above: Performed By: #### 1 [id number] #### [facility] [address] [place] [address] WBC Auto (Urine sed) [#/Area] 16-25 Abnormal 0-5 [facility] Comment on above: Performed By: #### 1 [id number] #### [facility] [address] [place] [address] Vitamin D 25 Hydroxyon 09-05 25-hydroxyvitamin D3 [Mass/Vol] 24.0 ng/mL Low 30.0-100.0 [facility] Comment on above: Performed By: #### 1 [id number], [id number], [id number], [id number], [id number] #### [facility] [address] [place] [address] eGFRon 09-06-2023 eGFR 25 mL/min/1.73 m2 Low >=59 [facility] Comment on above: Order Comment: Order added by Discern Expert. Performed By: #### 1 [id number], [id number], [id number], [id number], [id number] #### [facility] [address] [place] [address] BMPon 09-05-2023 Anion gap [Moles/Vol] 9 mmol/L Normal 6-16 [facility] Comment on above: Performed By: #### 2 [id number], [id number], [id number] ####[facility] [address] [place] [address] Calcium [Mass/Vol] 9.9 mg/dL Normal 8.9-11.1 [facility] Comment on above: Performed By: #### 2 236858, [id number], [id number] ####[facility] [address] [place] [address] Chloride [Moles/Vol] 112 mmol/L High 101-111 [facility] Comment on above: Performed By: #### 2 184823, [id number], [id number] ####[facility] [address] [place] [address] CO2 [Moles/Vol] 23 mmol/L Normal 21-31 [facility] Comment on above: Performed By: #### 2 879454, [id number], 7239345 ####[facility] [address] [place] [address] Creatinine [Mass/Vol] 2.6 mg/dL High 0.5-1.3 [facility] Comment on above: Performed By: #### 2 043049, [id number], [id number] ####[facility] [address] [place] [address] Glucose [Mass/Vol] 87 mg/dL Normal 55-199 [facility] Comment on above: Performed By: #### 2 155384, [id number], [id number] ####[facility] [address] [place] [address] Potassium [Moles/Vol] 4.0 mmol/L Normal 3.5-5.3 [facility] Comment on above: Performed By: #### 2 206576, [id number], 8309434 ####[facility] [address] [place] [address] Sodium [Moles/Vol] 140 mmol/L Normal 135-145 [facility] Comment on above: Performed By: #### 2 269010, [id number], 2378960 ####[facility] [address] [place] [address] Urea nitrogen [Mass/Vol] 33 mg/dL High 5-21 [facility] Comment on above: Performed By: #### 2 443192, [id number], 0150114 ####[facility] [address] [place] [address] Urea nitrogen/Creatinine [Mass ratio] 13 No Units Normal 10-20 [facility] Comment on above: Performed By: #### 2 999846, [id number], 9675536 ####[address] [address] CBC w/ Auto Diffon 4 Basophils/100 WBC (Bld) 0.6 % Normal 0.0-2.0 [facility] Comment on above: Performed By: #### 2 229296, [id number], 6596059 ####[address] [address] Basophils/Leukocytes Auto (Bld) [Pure # fraction] 0.0 E9/L Normal 0.0-0.2 [facility] Comment on above: Performed By: #### 2 220001, [id number], 7752495 ####[address] [address] Eosinophils (Bld) [#/Vol] 0.2 E9/L Normal 0.0-0.5 [facility] Comment on above: Performed By: #### 2 016522, [id number], 8942153 ####[address] [address] Eosinophils/100 WBC (Bld) 5.3 % Normal 0.0-8.0 [facility] Comment on above: Performed By: #### 2 644021, 95989969, 2004329 ####[address] [address] Erythrocyte distribution width (RBC) [Ratio] 20.4 % High 10.9-14.2 [facility] Comment on above: Performed By: #### 2 704632, 46404542, 3671528 ####[address] [address] Hematocrit (Bld) [Volume fraction] 27.5 % Low 34.0-46.0 [facility] Comment on above: Performed By: #### 2 344906, 37993250, 9081712 ####[address] [address] Hemoglobin (Bld) [Mass/Vol] 8.8 g/dL Low 12.0-16.0 [facility] Comment on above: Performed By: #### 2 009124, 71572238, 8443682 ####[address] [address] Lymphocytes (Bld) [#/Vol] 0.6 E9/L Low 1.0-4.0 [facility] Comment on above: Performed By: #### 2 377516, 70329221, 4148441 ####[address] [address] Lymphocytes/100 WBC (Bld) 14.2 % Normal 14.0-50.0 [facility] Comment on above: Performed By: #### 2 786030, 16766432, 4875451 ####[address] [address] MCH (RBC) [Entitic mass] 26.3 pg Low 27.0-34.0 [facility] Comment on above: Performed By: #### 2 284463, 28053843, 5960824 ####[address] [address] MCHC (RBC) [Mass/Vol] 31.9 g/dL Normal 31.4-36.0 [facility] Comment on above: Performed By: #### 2 114352, 29257649, 6661689 ####[address] [address] MCV (RBC) [Entitic vol] 82.4 fL Normal 80.0-100.0 [facility] Comment on above: Performed By: #### 2 518084, 39988931, 5042979 ####[address] [address] Monocytes (Bld) [#/Vol] 0.3 E9/L Normal 0.2-1.0 [facility] Comment on above: Performed By: #### 2 801383, 23244342, 0415548 ####[address] [address] Neutrophils (Bld) [#/Vol] 3.3 E9/L Normal 2.0-7.5 [facility] Comment on above: Performed By: #### 2 416888, 90993152, 4705266 ####[address] [address] Neutrophils/100 WBC (Bld) 74.2 % Normal 36.0-75.0 [facility] Comment on above: Performed By: #### 2 762857, 92621371, 3730088 ####[address] [address] Platelet mean volume (Bld) [Entitic vol] 7.6 fL Normal 6.4-10.8 [facility] Comment on above: Performed By: #### 2 545878, 50108994, 1714616 ####[address] [address] Platelets (Bld) [#/Vol] 190.0 E9/L Normal 150.0-500. 0 [facility] Comment on above: Performed By: #### 2 417419, 37802274, 3259047 ####[address] [address] RBC (Bld) [#/Vol] 3.3 E12/L Low 4.3-5.9 [facility] Comment on above: Performed By: #### 2 920288, 93804755, 4780640 ####[address] [address] WBC corrected for nucl RBC Auto (Bld) [#/Vol] 4.5 E9/L Normal 4.0-11.0 [facility] Comment on above: Performed By: #### 2 143869, 28345647, 7575461 ####[address] [address] CHEMISTRYOrdered By: SYSTEM SYSTEM on 09-05-2023 Anion gap [Moles/Vol] 9 mmol/L Normal 6 - 16 mEq/L [facility] Calcium [Mass/Vol] 9.9 mg/dL Normal 8.9 - 11. 1 mg/dL [facility] Chloride [Moles/Vol] 112 mmol/L High 101 - 1 11 mmol/L [facility] CO2 [Moles/Vol] 23 mmol/L Normal 21 - 31 mmol/L [facility] Creatinine [Mass/Vol] 2.6 mg/dL High 0.5 - 1.3 mg/dL [facility] eGFR 19 mL/min/1.73 m2 Low >=59mL/min /1.73 m2 [facility] Glucose [Mass/Vol] 87 mg/dL Normal 55 - 199 mg/dL [facility] Potassium [Moles/Vol] 4.0 mmol/L Normal 3.5 - 5.3 mmol/L [facility] Sodium [Moles/Vol] 140 mmol/L Normal 135 - 145 mmol/L [facility] Urea nitrogen [Mass/Vol] 33 mg/dL High 5 - 21 mg/dL [facility] Urea nitrogen/Creatinine [Mass ratio] 13 mg/mg Normal 10 - 20 [facility] Capillary Glucose POCon 08-21 Glucose [Mass/Vol] 86 mg/dL Normal 55-99 [facility] Comment on above: Result Comment: Katina AYALA Performed By: #### 2 [id number] ####[facility] [address] [place] [address] Glucose [Mass/Vol] 75 mg/dL Normal 55-99 [facility] Comment on above: Result Comment: Katina AYALA Performed By: #### 2 [id number] ####[facility] [address] [place], [place] [id number] Glucose [Mass/Vol] 100 mg/dL High 55-99 [facility] Comment on above: Result Comment: Katina AYALA Performed By: #### 2 [id number] ####[facility] [address] [place] [address] Glucose [Mass/Vol] 78 mg/dL Normal 55-99 [facility] Comment on above: Result Comment: Katina AYALA Performed By: #### 1 [id number] #### [facility] Laboratory [address] [place] [address] Consultation Noteon 09-05-19 Consultation Note Patient: MANISHA PEPE Age: 73 years Sex: Female : 1950 Associated Diagnoses: None Author: Anabelle GELLER, Salvador Interval History 73-year-old female with hypertension presents to the hospital with generalized weakness and blurred vision. We are being consulted for evaluation of elevated creatinine of 4.5 mg/dL and hypercalcemia with calcium of 12.2. She was started on IV fluids and renal function and calcium are both improving. Patient was on hydrochlorothiazide and triamterene prior to admission; she was also on indomethacin and lisinopril. Review of Systems Constitutional: Negative except as documented in history of present illness. Eye: No double vision, No visual disturbances. Ear/Nose/Mouth/Throat Respiratory: No shortness of breath, No cough, No sputum production, No hemoptysis. Cardiovascular: No chest pain, No palpitations. Gastrointestinal: No nausea, No vomiting, No diarrhea, No abdominal pain. Genitourinary: No dysuria, No hematuria. Hematology/Lymphatics: No bleeding tendency, No swollen lymph glands. Endocrine: No excessive thirst, No polyuria, No cold intolerance, No heat intolerance. Immunologic: No recurrent fevers, No recurrent infections. Musculoskeletal: No neck pain, No joint pain, No muscle pain. Integumentary: No rash, No pruritus, No skin lesion. Neurologic: Alert and oriented X4, No numbness, No tingling. Psychiatric: No anxiety, No depression, No alice. Health Status Allergies: Allergic Reactions (Selected) Severity Not Documented Penicillins- Itching., Allergies (1) Active Severity Reaction penicillins Itching Current medications: (Selected) Inpatient Medications Ordered Dextrose 50% Soln-IV: 50 mL, Soln-IV, IV Push, Once PRN Blood glucose, Routine, Start date 09/03/23 21:53:00 EDT Insulin Lispro Sliding Scale: 0-10 Unit(s), Injection-Insulin, SubCutaneous, QIDACHS, Routine, Start date 09/04/23 7:30:00 EDT NS 1000 mL Soln-IV 1,000 mL: 1,000 mL, IV, 125 mL/hr, Routine, Start date 09/03/23 20:51:00 EDT, 8 hour(s), Total volume (mL): 1,000, 112.5 kg, 2.18, m2 Senokot 8.6 mg Tab: 17.2 mg = 2 tab(s), Tab, Oral, BID PRN Other (see comment), Routine, Start date 09/03/23 20:51:00 EDT, 09/03/23 20:51:00 EDT Zofran 4 mg/2 mL Injection: 4 mg = 2 mL, Injection, IV Push, q6hr PRN Nausea, Routine, Start date 09/03/23 20:51:00 EDT, 09/03/23 20:51:00 EDT acetaminophen 325 mg Tab: 650 mg = 2 tab(s), Tab, Oral, q6hr PRN Pain, Routine, Start date 09/03/23 20:51:00 EDT, 09/03/23 20:51:00 EDT aspirin 81 mg Oral EC Tab: 81 mg = 1 tab(s), Tab-EC, Oral, Daily, Routine, Start date 09/04/23 9:00:00 EDT, 09/03/23 22:17:00 EDT atorvastatin 20 mg Tab: 10 mg = 0.5 tab(s), Tab, Oral, Daily, Routine, Start date 09/04/23 9:00:00 EDT, 09/03/23 22:17:00 EDT gabapentin 300 mg Cap: 600 mg = 2 cap(s), Cap, Oral, Bedtime, NOW, Start date 09/03/23 22:17:00 EDT, 09/03/23 22:17:00 EDT heparin 5000 units/mL Inj: 5,000 unit(s) = 1 mL, Injection, SubCutaneous, q8hrFT for 30 day(s), Stop date 10/03/23 23:59:00 EDT, Routine, Start date 09/04/23 0:00:00 EDT, 09/03/23 20:51:00 EDT venlafaxine 150 mg Cap-ER: 150 mg = 1 cap(s), Cap-ER, Oral, Bedtime, NOW, Start date 09/03/23 22:16:00 EDT Documented Medications Documented Acidophilus: Daily, Refill(s) 0 Fosamax 70 mg Tab: 70 mg = 1 tab(s), Oral, qWeek, Refills(s) 0 Metoprolol tartrate 50 mg Tab: 50 mg = 1 tab(s), Oral, BID, Refills(s) 0, High blood pressure Ozempic: SubCutaneous, qWeek, Refill(s) 0 alendronate: 70 mg, Oral, qWeek, Refills(s) 0 aspirin: Refills(s) 0, Prophylaxis atorvastatin 10 mg Tab: 10 mg = 1 tab(s), Oral, Daily, Refills(s) 0 gabapentin 300 mg Cap: 600 mg = 2 cap(s), Oral, Bedtime, Refills(s) 0, Other (see comment) hydrochlorothiazide-triamt erene 50 mg-75 mg Tab: 0.5 tab(s), Oral, Daily, 90 tab(s), Refill(s) 0, High blood pressure indomethacin 50 mg oral capsule: 50 mg = 1 cap(s), Oral, TID, Refills(s) 0 lisinopril: 5 mg, Oral, Daily, Refills(s) 0 saccharomyces boulardii lyo: 250 mg, Oral, BID, Refills(s) 0 venlafaxine 150 mg Cap-ER: 150 mg = 1 cap(s), Oral, Daily, Refills(s) 0, Depression, Home Medications (13) Active Acidophilus , Daily alendronate 70 mg, Oral, qWeek aspirin atorvastatin 10 mg Tab 10 mg = 1 tab(s), Oral, Daily Fosamax 70 mg Tab 70 mg = 1 tab(s), Oral, qWeek gabapentin 300 mg Cap 600 mg = 2 cap(s), Oral, Bedtime hydrochlorothiazide-triamt erene 50 mg-75 mg Tab 0.5 tab(s), Oral, Daily indomethacin 50 mg oral capsule 50 mg = 1 cap(s), Oral, TID lisinopril 5 mg, Oral, Daily Metoprolol tartrate 50 mg Tab 50 mg = 1 tab(s), Oral, BID Ozempic , SubCutaneous, qWeek saccharomyces boulardii lyo 250 mg, Oral, BID venlafaxine 150 mg Cap-ER 150 mg = 1 cap(s), Oral, Daily , Medications (11) Active Scheduled: (6) aspirin 81 mg Oral EC Tab [F] 81 mg 1 tab(s), Oral, Daily atorvastatin 20 mg Tab [F] 10 mg 0.5 tab(s), Oral, Daily gabapentin 300 mg Cap [F] 600 mg 2 ca (more content not included)... Normal [facility] Comment on above: Result Comment: Elec tronically Signed By: Anabelle GELLER, Salvador\.br\Date and Time Signed: 09/05/23 15:04 EDT HEMATOLOGYOrdered By: SYSTEM SYSTEM on 09-05-2023 Basophils/100 WBC (Bld) 0.6 % Normal 0.0 - 2.0 % Remisol Heme Basophils/Leukocytes Auto (Bld) [Pure # fraction] 0.0 E9/L Normal 0.0 - 0.2 E9/L Remisol Heme Eosinophils (Bld) [#/Vol] 0.2 E9/L Normal 0.0 - 0.5 E9/L Remisol Heme Eosinophils/100 WBC (Bld) 5.3 % Normal 0.0 - 8.0 % Remisol Heme Erythrocyte distribution width (RBC) [Ratio] 20.4 % High 10.9 - 14.2 % Remisol Heme Hematocrit (Bld) [Volume fraction] 27.5 % Low 34.0 - 46.0 % Remisol Heme Hemoglobin (Bld) [Mass/Vol] 8.8 g/dL Low 12.0 - 16.0 gm/dL Remisol Heme Lymphocytes (Bld) [#/Vol] 0.6 E9/L Low 1.0 - 4.0 E9/L Remisol Heme Lymphocytes/100 WBC (Bld) 14.2 % Normal 14.0 - 50.0 % Remisol Heme MCH (RBC) [Entitic mass] 26.3 pg Low 27.0 - 34.0 pg Remisol Heme MCHC (RBC) [Mass/Vol] 31.9 g/dL Normal 31.4 - 36.0 gm/dL Remisol Heme MCV (RBC) [Entitic vol] 82.4 fL Normal 80.0 - 100.0 fL Remisol Heme Monocytes (Bld) [#/Vol] 0.3 E9/L Normal 0.2 - 1.0 E9/L Remisol Heme Monocytes/100 WBC (Bld) 5.7 % Normal 4.0 - 14.0 % Remisol Heme Neutrophils (Bld) [#/Vol] 3.3 E9/L Normal 2.0 - 7.5 E9/L Remisol Heme Neutrophils/100 WBC (Bld) 74.2 % Normal 36.0 - 75.0 % Remisol Heme Platelet mean volume (Bld) [Entitic vol] 7.6 fL Normal 6.4 - 10.8 fL Remisol Heme Platelets (Bld) [#/Vol] 190.0 E9/L Normal 150.0 - 500.0 E9/L Remisol Heme RBC (Bld) [#/Vol] 3.3 E12/L Low 4.3 - 5.9 E12/L Remisol Heme WBC corrected for nucl RBC Auto (Bld) [#/Vol] 4.5 E9/L Normal 4.0 - 11.0 E9/L Remisol Heme Interdisciplinary Note - Alan e Manageron 09-05-2023 Interdisciplinary Note - Video Effects Editor CRM spoke with patients spouse in room. Patient is off unit for MRI at this time, spouse participates in discharge planning. Patient white board updated, and CRM contact information provided. Discussed CRM spoke with Dr Remy who saw patient earlier today and waiting MRI results and nephrology to see today. Possible dc tomorrow or next day. Patient spouse verified PCP, insurance and DME. Patient is form home with spouse and he will transport at dc. He denies any needs at discharge. PT had no recommmendations. Reviewed Medicare rights, he denies any questions and signs form. Gave him a copy of signed form. Normal [facility] Comment on above: Result Comment: Elec tronically Signed By: Pranay PARTIDA, Candie\.br\Date and Time Signed: 09/05/23 11:32 EDT MRI Brain w/o Contraston MRI Brain w/o Contrast Exam Date/Time: 09/05/2023 11:27 EDT Reason for Exam: Neuro deficit, acute, stroke suspected Report IMPRESSION: NO ACUTE INTRACRANIAL PROCESS IDENTIFIED. CHRONIC, ATROPHIC, AND INVOLUTIONAL CHANGES, NOTED. EXAM: MRI Brain w/o Contrast DATE: 09/05/2023 10:38 AM CLINICAL HISTORY: Neuro deficit, acute, stroke suspected. COMPARISON: Head CT 09/03/2023. TECHNIQUE: Multiplanar MR imaging of the head was performed without contrast. FINDINGS: Motion artifact mildly limits most sequences. Acute Change: There is no evidence of restricted diffusion to suggest an acute infarct. Hemorrhage: No evidence of intracranial hemorrhage. Mass Lesion/ Mass Effect: No evidence of an intracranial mass or extra-axial fluid collection. No significant mass effect. Chronic Change: Mild predominantly supratentorial white matter changes most consistent with chronic small vessel ischemic disease. Parenchyma: Mild to moderate volume loss for age. Ventricles: Normal caliber and morphology. Skull Base: Nearly empty sella turcica, which is a nonspecific finding of uncertain clinical significance. Hypothalamic region is grossly normal. Craniocervical junction is normal. No significant marrow replacement process. Vasculature: Major intracranial arterial structures, and dural venous sinuses show typical flow void, suggesting patency. Other: Paranasal sinuses and mastoid air cells are clear. The orbits are unremarkable. The extracranial soft tissues are unremarkable. Report Ordering Provider: Isabelle Wilson FINAL REPORT Dictated: 09/05/2023 11:39 am Lamin Grace MD Signed (Electronic Signature): 09/05/2023 11:39 am Signed by: Lamin Grace MD Transcribed by: PAT Technologist: LEYDI Technical Comments None Normal [facility] Monitor Recordon 09-05-2023 Monitor Record [id number]#1.00TIFF Normal [facility] Monitor Record [id number]#1.00TIFF Normal [facility] Monitor Record [id number]#1.00TIFF Normal [facility] Monitor Record [id number]#1.00TIFF Normal [facility] Monitor Record [id number]#1.00TIFF Normal [facility] Progress Note-Physicianon Progress Note-Physician Subjective Patient seen with at the bedside Patient doing better this morning compared to the last couple days and appetite is better No complaints Review of Systems Constitutional: no fever, no chills, no sweats, no weakness Respiratory: no shortness of breath, no cough, no orthopnea, no wheezing Cardiovascular: no chest pain, no palpitations, no edema Additional ROS info: Except as noted in the above Review of Systems and in the History of Present Illness all other systems have been reviewed and are negative or noncontributory. Objective Vitals & Measurements T: 36.5 ?C(Oral) TMIN: 36.3 ?C(Axillary) TMAX: 36.6 ?C(Oral) HR: 69(Monitored) BP: 94/63 SpO2: 100% WT: 119.4 kg Intake & Output This visit (24 hour periods starting at 07:00 EDT) 09/05/23 * 09/04/23 09/03/23 Total Summary Intake mL 0.5 3,160.59 -- Output mL 1,000 600 600 Fluid Balance -999.5 2,560.59 -600 Intake (3) Oral Intake mL -- 620 -- Sodium Chloride 0.9% intravenous solution 1,000 mL mL -- 2,540.59 -- lorazepam mL 0.5 -- -- Total 0.5 3,160.59 -- Output (1) Urine Voided mL 1,000 600 600 Total 1,000 600 600 Counts (0) * This column has not completed the indicated time period. Physical Exam Constitutional: Awake and alert; oriented x 3 with no apparent distress or respiratory distress Head/neck: Neck supple with no palpable lymphadenopathy, bruits or masses; trachea midline Chest/lungs: Clear to auscultation bilaterally no wheezes or rhonchi noted bilaterally Cardiovascular: Regular rate and rhythm; normal S1-S2 with no murmur; no pitting edema and 2+ pulses bilaterally Gastrointestinal: Soft, nontender, nondistended, positive bowel sounds; obese Neurological: Nonfocal; cranial nerves II through XII appear intact Psychological: Pleasant affect Lab Results WBC: 4.5 E9/L (09/05/23 06:15:00) RBC: 3.3 E12/L Low (09/05/23 06:15:00) HGB: 8.8 gm/dL Low (09/05/23 06:15:00) Hct: 27.5 % Low (09/05/23 06:15:00) MCV: 82.4 fL (09/05/23 06:15:00) MCH: 26.3 pg Low (09/05/23 06:15:00) MCHC: 31.9 gm/dL (09/05/23 06:15:00) RDW: 20.4 % High (09/05/23 06:15:00) Platelet: 190 E9/L (09/05/23 06:15:00) MPV: 7.6 fL (09/05/23 06:15:00) Neutro Auto: 74.2 % (09/05/23 06:15:00) Lymph Auto: 14.2 % (09/05/23 06:15:00) Bledsoe Auto: 5.7 % (09/05/23 06:15:00) Eos Auto: 5.3 % (09/05/23 06:15:00) Basophil Auto: 0.6 % (09/05/23 06:15:00) Neutro Absolute: 3.3 E9/L (09/05/23 06:15:00) Lymph Absolute: 0.6 E9/L Low (09/05/23 06:15:00) Bledsoe Absolute: 0.3 E9/L (09/05/23 06:15:00) Eos Absolute: 0.2 E9/L (09/05/23 06:15:00) Basophil Absolute: 0 E9/L (09/05/23 06:15:00) Glucose Lvl: 87 mg/dL (09/05/23 06:15:00) BUN: 33 mg/dL High (09/05/23 06:15:00) Creatinine: 2.6 mg/dL High (09/05/23 06:15:00) eGFR: 19 mL/min/1.73 m2 Low (09/05/23 06:15:00) BUN/Creat Ratio: 13 (09/05/23 06:15:00) Sodium Lvl: 140 mmol/L (09/05/23 06:15:00) Potassium Lvl: 4 mmol/L (09/05/23 06:15:00) Chloride: 112 mmol/L High (09/05/23 06:15:00) CO2: 23 mmol/L (09/05/23 06:15:00) AGAP: 9 mEq/L (09/05/23 06:15:00) Calcium Lvl: 9.9 mg/dL (09/05/23 06:15:00) Glucose Cap: 78 mg/dL (09/05/23 08:32:00) POC Device SN: [id number] (09/05/23 08:32:00) POC User ID: [id number] (09/05/23 08:32:00) POC Username: MATTHEW DINERO (09/05/23 08:32:00) Assessment/Plan 73-year-old female admitted for weakness and balance issues as well as acute kidney injury superimposed on chronic kidney disease. Her weakness and balance problems started after taking Ozempic in July. She also has nausea - improved. Comorbidities include type 2 diabetes with neuropathy, chronic kidney disease stage IIIb, history of hypertension, hypercholesterolemia, history of kidney stones in the past and osteoporosis. 1. Weakness (R53.1: Weakness) Secondary to dehydration Improving Continue PT 2. Balance problems (R26.89: Other abnormalities of gait and mobility) Secondary to weakness and she also had blurring of her vision MRI of the brain without contrast to be performed today to rule out any central process 3. Acute kidney injury superimposed on chronic kidney disease (N17.9: Acute kidney failure, unspecified) Secondary to dehydration in setting of poor intake while on Ozempic plus she was on an EDIS inhibitor Maintain fluid hydration Nephrology consulted Serum creatinine down to 2.6 Urinalysis ordered by the ED but I will reorder it Renal ultrasound from February 2023 shows left kidney small and bilaterally, no hydronephrosis or stones or masses seen 4. Hypotension (I95.9: Hypotension, unspecified) Pressures are still on the low end; we are withholding antihypertensives at this time 5. Hypercalcemia (E83.52: Hypercalcemia) Stable 6. Stage 3b chronic kidney disease (CKD) (N18.32: Chronic kidney disease, stage 3b) Creatinine down to 2.6 this morning; see #3 above We are withholding her lisinopril and her hydrochl (more content not included)... Normal [facility] Comment on above: Result Comment: Elec tronically Signed By: Gunner Remy DObr\Date and Time Signed: 09/05/23 11:29 EDT RAD - MRI Screening Formon 0 09-05-2023 RAD - MRI Screening Form [id number]#1.00TIFF Normal [facility] Urinalysis with Microon 08-21 Type of Urine collection method Random Urine Normal [facility] Comment on above: Performed By: #### 1 [id number] #### [facility] [address] [place] [address] eGFRon 09-05-2023 eGFR 19 mL/min/1.73 m2 Low >=59 [facility] Comment on above: Order Comment: Order added by Discern Expert. Performed By: #### 2 [id number], [id number], [id number] ####[facility] [address] [place] [address] BMPon 09-04-2023 Anion gap [Moles/Vol] 11 mmol/L Normal 6-16 [facility] Comment on above: Performed By: #### 1 [id number], [id number], [id number], 1580391, 1972644 #### [facility] [address] [place] [address] Calcium [Mass/Vol] 10.4 mg/dL Normal 8.9-11.1 [facility] Comment on above: Performed By: #### 1 [id number], [id number], 92605711, 6794188, 3374812 #### [facility] [address] [place] [address] Chloride [Moles/Vol] 109 mmol/L Normal 101-111 [facility] Comment on above: Performed By: #### 1 [id number], [id number], 90869200, 1895357, 9281128 #### [facility] [address] [place] [address] CO2 [Moles/Vol] 22 mmol/L Normal 21-31 [facility] Comment on above: Performed By: #### 1 [id number], [id number], 11479846, 1996837, 8820472 #### [facility] [address] [place] [address] Creatinine [Mass/Vol] 3.6 mg/dL High 0.5-1.3 [facility] Comment on above: Performed By: #### 1 [id number], [id number], 79908764, 9291027, 2134876 #### [facility] [address] [place] [address] Glucose [Mass/Vol] 78 mg/dL Normal 55-199 [facility] Comment on above: Performed By: #### 1 [id number], [id number], 25509521, 4759851, 5989983 #### [facility] [address] [place] [address] Potassium [Moles/Vol] 4.1 mmol/L Normal 3.5-5.3 [facility] Comment on above: Performed By: #### 1 [id number], [id number], 92649833, 8321561, 9968406 #### [facility] [address] [place] [address] Sodium [Moles/Vol] 138 mmol/L Normal 135-145 [facility] Comment on above: Performed By: #### 1 [id number], [id number], 76880689, 4786054, 7373047 #### [facility] [address] [place] [address] Urea nitrogen [Mass/Vol] 49 mg/dL High 5-21 [facility] Comment on above: Performed By: #### 1 [id number], [id number], 45615231, 7937309, 9833464 #### [facility] [address] [place] [address] Urea nitrogen/Creatinine [Mass ratio] 14 No Units Normal 10-20 [facility] Comment on above: Performed By: #### 1 [id number], [id number], 05168951, 2185940, 6179247 #### [facility] [address] [place] [address] CBC w/ Auto Diffon 4 Basophils/100 WBC (Bld) 0.6 % Normal 0.0-2.0 [facility] Comment on above: Performed By: #### 1 [id number], [id number], 69753421, 6484712, 6417990 #### [facility] [address] [place] [address] Basophils/Leukocytes Auto (Bld) [Pure # fraction] 0.0 E9/L Normal 0.0-0.2 [facility] Comment on above: Performed By: #### 1 8083671, [id number], 34474645, 0467474, 7979475 #### [facility] [address] [place] [address] Eosinophils (Bld) [#/Vol] 0.3 E9/L Normal 0.0-0.5 [facility] Comment on above: Performed By: #### 1 0554932, [id number], 61867735, 6761690, 9582373 #### [facility] [address] [place] [address] Eosinophils/100 WBC (Bld) 4.7 % Normal 0.0-8.0 [facility] Comment on above: Performed By: #### 1 [id number], 878043866, 55600280, 1938118, 4244803 #### [facility] [address] [place] [address] Erythrocyte distribution width (RBC) [Ratio] 20.0 % High 10.9-14.2 [facility] Comment on above: Performed By: #### 1 [id number], [id number], 25273649, 9129139, 6213647 #### [facility] [address] [place] [address] Hematocrit (Bld) [Volume fraction] 29.5 % Low 34.0-46.0 [facility] Comment on above: Performed By: #### 1 7439356, [id number], 63115494, 0645079, 5522587 #### [facility] [address] [place] [address] Hemoglobin (Bld) [Mass/Vol] 9.4 g/dL Low 12.0-16.0 [facility] Comment on above: Performed By: #### 1 9508787, [id number], 28001093, 3229126, 4974493 #### [facility] [address] [place] [address] Lymphocytes (Bld) [#/Vol] 1.1 E9/L Normal 1.0-4.0 [facility] Comment on above: Performed By: #### 1 [id number], 781037994, 63511210, 4719393, 1332591 #### [facility] [address] [place] [address] Lymphocytes/100 WBC (Bld) 16.2 % Normal 14.0-50.0 [facility] Comment on above: Performed By: #### 1 8062577, [id number], 82874930, 1494730, 6244898 #### [facility] [address] [place] [address] MCH (RBC) [Entitic mass] 26.2 pg Low 27.0-34.0 [facility] Comment on above: Performed By: #### 1 [id number], 341152599, 76290127, 8045839, 4903907 #### [facility] [address] [place] [address] MCHC (RBC) [Mass/Vol] 31.9 g/dL Normal 31.4-36.0 [facility] Comment on above: Performed By: #### 1 6807532, [id number], 42555742, 0536306, 7337744 #### [facility] [address] [place] [address] MCV (RBC) [Entitic vol] 82.2 fL Normal 80.0-100.0 [facility] Comment on above: Performed By: #### 1 2921136, [id number], 47583229, 0339953, 1712789 #### [facility] [address] [place] [address] Monocytes (Bld) [#/Vol] 0.4 E9/L Normal 0.2-1.0 [facility] Comment on above: Performed By: #### 1 0393488, 094067853, 29738380, 0136404, 2918384 #### [facility] [address] [place] [address] Neutrophils (Bld) [#/Vol] 4.7 E9/L Normal 2.0-7.5 [facility] Comment on above: Performed By: #### 1 2097082, 466966739, 32440730, 8970012, 9775938 #### [facility] [address] [place] [address] Neutrophils/100 WBC (Bld) 72.3 % Normal 36.0-75.0 [facility] Comment on above: Performed By: #### 1 8657686, 137090213, 55759563, 2764347, 9732725 #### [facility] [address] [place] [address] Platelet 194.0 E9/L Normal 150.0-500. 0 [facility] Comment on above: Performed By: #### 1 3836641, 761041260, 92628298, 2140772, 1257885 #### [facility] [address] [place] [address] Platelet mean volume (Bld) [Entitic vol] 7.5 fL Normal 6.4-10.8 [facility] Comment on above: Performed By: #### 1 [id number], [id number], 55670241, 1264092, 5235882 #### [facility] [address] [place] [address] RBC (Bld) [#/Vol] 3.6 E12/L Low 4.3-5.9 [facility] Comment on above: Performed By: #### 1 8194566, 936254921, 82080460, 2466634, 5154585 #### [facility] [address] [place] [address] WBC corrected for nucl RBC Auto (Bld) [#/Vol] 6.5 E9/L Normal 4.0-11.0 [facility] Comment on above: Performed By: #### 1 [id number], [id number], [id number], [id number] #### [facility] Laboratory [address] [place] [address] CHEMISTRYOrdered By: SYSTEM SYSTEM on 09-04-2023 Anion gap [Moles/Vol] 11 mmol/L Normal 6 - 16 mEq/L Remisol Chem Calcium [Mass/Vol] 10.4 mg/dL Normal 8.9 - 11. 1 mg/dL Remisol Chem Chloride [Moles/Vol] 109 mmol/L Normal 101 - 1 11 mmol/L Remisol Chem CO2 [Moles/Vol] 22 mmol/L Normal 21 - 31 mmol/L Remisol Chem Creatinine [Mass/Vol] 3.6 mg/dL High 0.5 - 1.3 mg/dL Remisol Chem eGFR 13 mL/min/1.73 m2 Low >=59mL/min /1.73 m2 Remisol Chem Glucose [Mass/Vol] 78 mg/dL Normal 55 - 199 mg/dL Remisol Chem Potassium [Moles/Vol] 4.1 mmol/L Normal 3.5 - 5.3 mmol/L Remisol Chem Sodium [Moles/Vol] 138 mmol/L Normal 135 - 145 mmol/L Remisol Chem Urea nitrogen [Mass/Vol] 49 mg/dL High 5 - 21 mg/dL Remisol Chem Urea nitrogen/Creatinine [Mass ratio] 14 mg/mg Normal 10 - 20 Remisol Chem Troponin 3.40 pg/mL Low 10.10 - 27.10 pg/mL Remisol Chem Comment on above: Interpretive Data: T he 95% CI (Confidence Interval) PPV (Positive Predictive Value) for myocardial infarction in females is 38 pg/mL, in males 51 pg/mL. The results should be used in conjunction with clinical conditions of myocardial infarction. (Access High Sensitivity Troponin I Instructions For Use, [place] [place], December 2017) CHEMISTRYOrdered By: Kenyatta Avila on 09-04-2023 HbA1c (Bld) [Mass fraction] 6.0 % High <=5.9% [facility] ChemAutoSS CT Head or Brain w/o Contras ton 09-04-2023 CT Head or Brain w/o Contrast Exam Date/Time: 09/03/2023 18:13 EDT Reason for Exam: Off Balance;Other (please specify) Report IMPRESSION: NO ACUTE FINDINGS. MILD CEREBRAL ATROPHY. CHRONIC ISCHEMIC WHITE MATTER DISEASE. CT OF THE BRAIN WITHOUT INTRAVENOUS CONTRAST MEDIUM. History: Intermittent blurry vision and balance problems.. Technical factors: CT imaging of the brain was obtained and formatted as 5 mm contiguous axial images. 2.5 mm contiguous axial images were obtained through the osseous structures. Sagittal and coronal reconstruction obtained during postprocessing. Comparison: None. Findings: Extra-axial spaces: Normal. Intracranial hemorrhage: None. Ventricular system: Ventricles mildly enlarged with sulci mildly prominent. Basal Cisterns: Normal. Cerebral Parenchyma: Lateral symmetric periventricular areas decreased attenuation. Midline Shift: None. Cerebellum: Normal. Paranasal sinuses and mastoid air cells: Normal. Visualized Orbits: Normal. All CT scans at this facility use dose modulation, iterative reconstruction, and/or weight based dosing when appropriate to reduce radiation dose to as low as reasonably achievable. . Report Ordering Provider: Usha Ramirez FINAL REPORT Dictated: 09/04/2023 9:10 am Dylan Ashby MD Signed (Electronic Signature): 09/04/2023 9:10 am Signed by: Dylan Ashby MD Transcribed by: PAT Technologist: LISA Normal [facility] Capillary Glucose POCon 08-21 Glucose [Mass/Vol] 83 mg/dL Normal 55-99 [facility] Comment on above: Result Comment: Katina esparza RN/ Performed By: #### 2 [id number] ####[facility] [id number] [place] [address] Glucose [Mass/Vol] 104 mg/dL High 55-99 [facility] Comment on above: Result Comment: María long Meter Performed By: #### 2 [id number] #### [facility] Laboratory [address] [place] [address] Glucose [Mass/Vol] 63 mg/dL Normal 55-99 [facility] Comment on above: Result Comment: Katina esparza RN/ Performed By: #### 2 [id number] ####[facility] [id number] [place] [address] Glucose [Mass/Vol] 81 mg/dL Normal 55-99 [facility] Comment on above: Result Comment: Katina esparza RN/ Performed By: #### 2 [id number] #### [facility] Laboratory [address] [place] [address] Glucose [Mass/Vol] 79 mg/dL Normal 55-99 [facility] Comment on above: Result Comment: Katina esparza RN/ Performed By: #### 2 [id number] #### [facility] Laboratory [address] [place] [address] HEMATOLOGYOrdered By: SYSTEM SYSTEM on 09-04-2023 Basophils/100 WBC (Bld) 0.6 % Normal 0.0 - 2.0 % Remisol Heme Basophils/Leukocytes Auto (Bld) [Pure # fraction] 0.0 E9/L Normal 0.0 - 0.2 E9/L Remisol Heme Eosinophils (Bld) [#/Vol] 0.3 E9/L Normal 0.0 - 0.5 E9/L Remisol Heme Eosinophils/100 WBC (Bld) 4.7 % Normal 0.0 - 8.0 % Remisol Heme Erythrocyte distribution width (RBC) [Ratio] 20.0 % High 10.9 - 14.2 % Remisol Heme Hematocrit (Bld) [Volume fraction] 29.5 % Low 34.0 - 46.0 % Remisol Heme Hemoglobin (Bld) [Mass/Vol] 9.4 g/dL Low 12.0 - 16.0 gm/dL Remisol Heme Lymphocytes (Bld) [#/Vol] 1.1 E9/L Normal 1.0 - 4.0 E9/L Remisol Heme Lymphocytes/100 WBC (Bld) 16.2 % Normal 14.0 - 50.0 % Remisol Heme MCH (RBC) [Entitic mass] 26.2 pg Low 27.0 - 34.0 pg Remisol Heme MCHC (RBC) [Mass/Vol] 31.9 g/dL Normal 31.4 - 36.0 gm/dL Remisol Heme MCV (RBC) [Entitic vol] 82.2 fL Normal 80.0 - 100.0 fL Remisol Heme Monocytes (Bld) [#/Vol] 0.4 E9/L Normal 0.2 - 1.0 E9/L Remisol Heme Monocytes/100 WBC (Bld) 6.2 % Normal 4.0 - 14.0 % Remisol Heme Neutrophils (Bld) [#/Vol] 4.7 E9/L Normal 2.0 - 7.5 E9/L Remisol Heme Neutrophils/100 WBC (Bld) 72.3 % Normal 36.0 - 75.0 % Remisol Heme Platelet 194.0 E9/L Normal 150.0 - 500.0 E9/L Remisol Heme Platelet mean volume (Bld) [Entitic vol] 7.5 fL Normal 6.4 - 10.8 fL Remisol Heme RBC (Bld) [#/Vol] 3.6 E12/L Low 4.3 - 5.9 E12/L Remisol Heme WBC corrected for nucl RBC Auto (Bld) [#/Vol] 6.5 E9/L Normal 4.0 - 11.0 E9/L Remisol Heme [id number] 09-04-2023 HbA1c (Bld) [Mass fraction] 6.0 % High <=5.9 [facility] Comment on above: Performed By: #### 1 [id number], [id number], [id number], [id number], [id number] #### [facility] Laboratory [address] [place] [address] Interdisciplinary Note - PTo n 09-04-2023 Interdisciplinary Note - PT Pt to be seen daily for transfers, gait, balance training. No device No needs anticipated upon discharge.home. AM-PAC Normal [facility] Progress Note-Physicianon Progress Note-Physician Subjective Patient seen in room this morning voicing no complaints; she feels better compared to when she was admitted. Has a little bit of nausea still. Review of Systems Constitutional: no fever, no chills, no sweats, no weakness Respiratory: no shortness of breath, no cough, no orthopnea, no wheezing Cardiovascular: no chest pain, no palpitations, no edema Additional ROS info: Except as noted in the above Review of Systems and in the History of Present Illness all other systems have been reviewed and are negative or noncontributory. Objective Vitals & Measurements T: 36.6 ?C(Oral) TMIN: 36.4 ?C(Oral) TMAX: 36.6 ?C(Oral) HR: 63(Peripheral) RR: 16 BP: 96/60 SpO2: 96% HT: 152.40 cm WT: 116.7 kg Intake & Output This visit (24 hour periods starting at 07:00 EDT) 09/04/23 * 09/03/23 09/02/23 Total Summary Intake mL -- -- -- Output mL -- 600 -- Fluid Balance -- -600 -- Intake (0) Output (1) Urine Voided mL -- 600 -- Total -- 600 -- Counts (0) * This column has not completed the indicated time period. Physical Exam Constitutional: Awake and alert; oriented x 3 with no apparent distress or respiratory distress Head/neck: Neck supple with no palpable lymphadenopathy, bruits or masses; trachea midline Chest/lungs: Clear to auscultation bilaterally no wheezes or rhonchi noted bilaterally Cardiovascular: Regular rate and rhythm; normal S1-S2 with no murmur; no pitting edema and 2+ pulses bilaterally Gastrointestinal: Soft, nontender, nondistended, positive bowel sounds; obese Neurological: Nonfocal; cranial nerves II through XII appear intact Psychological: Pleasant affect Lab Results WBC: 6.5 E9/L (09/04/23 06:07:00) RBC: 3.6 E12/L Low (09/04/23 06:07:00) HGB: 9.4 gm/dL Low (09/04/23 06:07:00) Hct: 29.5 % Low (09/04/23 06:07:00) MCV: 82.2 fL (09/04/23 06:07:00) MCH: 26.2 pg Low (09/04/23 06:07:00) MCHC: 31.9 gm/dL (09/04/23 06:07:00) RDW: 20 % High (09/04/23 06:07:00) Platelet: 194 E9/L (09/04/23 06:07:00) MPV: 7.5 fL (09/04/23 06:07:00) Neutro Auto: 72.3 % (09/04/23 06:07:00) Lymph Auto: 16.2 % (09/04/23 06:07:00) Bledsoe Auto: 6.2 % (09/04/23 06:07:00) Eos Auto: 4.7 % (09/04/23 06:07:00) Basophil Auto: 0.6 % (09/04/23 06:07:00) Neutro Absolute: 4.7 E9/L (09/04/23 06:07:00) Lymph Absolute: 1.1 E9/L (09/04/23 06:07:00) Bledsoe Absolute: 0.4 E9/L (09/04/23 06:07:00) Eos Absolute: 0.3 E9/L (09/04/23 06:07:00) Basophil Absolute: 0 E9/L (09/04/23 06:07:00) PT: 11.9 second(s) (09/03/23 17:58:00) INR: 1.06 (09/03/23 17:58:00) PTT: 36.4 second(s) (09/03/23 17:58:00) Glucose Lvl: 78 mg/dL (09/04/23 06:07:00) BUN: 49 mg/dL High (09/04/23 06:07:00) Creatinine: 3.6 mg/dL High (09/04/23 06:07:00) eGFR: 13 mL/min/1.73 m2 Low (09/04/23 06:07:00) BUN/Creat Ratio: 14 (09/04/23 06:07:00) Sodium Lvl: 138 mmol/L (09/04/23 06:07:00) Potassium Lvl: 4.1 mmol/L (09/04/23 06:07:00) Chloride: 109 mmol/L (09/04/23 06:07:00) CO2: 22 mmol/L (09/04/23 06:07:00) AGAP: 11 mEq/L (09/04/23 06:07:00) Calcium Lvl: 10.4 mg/dL (09/04/23 06:07:00) Alk Phos: 87 Int._Unit/L (09/03/23 17:58:00) ALT: 20 Int._Unit/L (09/03/23 17:58:00) AST: 13 Int._Unit/L (09/03/23 17:58:00) Total Protein: 7 gm/dL (09/03/23 17:58:00) Albumin Lvl: 4 gm/dL (09/03/23 17:58:00) Globulin: 3 gm/dL (09/03/23 17:58:00) A/G Ratio: 1.3 (09/03/23 17:58:00) Bili Total: 0.4 mg/dL (09/03/23 17:58:00) Bili Direct: 0.1 mg/dL (09/03/23 17:58:00) Bili Indirect: 0.3 mg/dL (09/03/23 17:58:00) Magnesium: 2.1 mg/dL (09/03/23 17:58:00) TSH: 7.43 mcIU/mL High (09/03/23 17:58:00) T4 Free: 0.79 ng/dL (09/03/23 17:58:00) Troponin: 3.4 pg/mL Low (09/04/23 03:13:00) Glucose Cap: 79 mg/dL (09/04/23 09:02:00) POC Device SN: [id number] (09/04/23 09:02:00) POC User ID: [id number] (09/04/23 09:02:00) POC Username: PRETTY CASTRO (09/04/23 09:02:00) Assessment/Plan 73-year-old female admitted for weakness and balance issues as well as acute kidney injury superimposed on chronic kidney disease. Her weakness and balance problems started after taking Ozempic in July. She also has nausea. Comorbidities include type 2 diabetes with neuropathy, chronic kidney disease stage IIIb, history of hypertension, hypercholesterolemia, history of kidney stones in the past and osteoporosis. 1. Weakness (R53.1: Weakness) Secondary to dehydration (she was unable to take much p.o. while on the Ozempic) and acute kidney injury PT to eval and treat 2. Balance problems (R26.89: Other abnormalities of gait and mobility) Secondary to weakness but she also has blurring of her vision and MRI of the brain without contrast ordered to rule out a central process 3. Acute kidney injury superimposed on chronic kidney disease (N17.9: Acute kidney failure, unspecified) Secondary to dehydration in the setting of poor intake while on Ozempic plus she was on an EDIS inhibitor Continue fluid hydration Nephrology consulted C (more content not included)... Normal [facility] Comment on above: Result Comment: Elec tronically Signed By: Gunner Remy DO\.br\Date and Time Signed: 09/04/23 10:33 EDT RAD - Preliminary Cat Scan R eporton 09-04-2023 RAD - Preliminary Cat Scan Report [id number] Normal [facility] Troponin 6 Hr.on 09-04-2023 Troponin 3.90 pg/mL Low 10.10-27.1 0 [facility] Comment on above: Result Comment: The 95% CI (Confidence Interval) PPV (Positive Predictive Value) for myocardial infarction in females is 38 pg/mL, in males 51 pg/mL. The results should be used in conjunction with clinical conditions of myocardial infarction. ([employer] High Sensitivity Troponin I Instructions For Use, [employer], December 2017) Performed By: #### 1 [id number] ####[facility] [id number] [place] [address] Troponin 9 Hr.on 09-04-2023 Troponin 3.40 pg/mL Low 10.10-27.1 0 [facility] Comment on above: Result Comment: The 95% CI (Confidence Interval) PPV (Positive Predictive Value) for myocardial infarction in females is 38 pg/mL, in males 51 pg/mL. The results should be used in conjunction with clinical conditions of myocardial infarction. ([employer] High Sensitivity Troponin I Instructions For Use, [employer], December 2017) Performed By: #### 1 [id number], [id number], [id number], [id number], [id number] #### [facility] Laboratory [address] [place] [address] XR Chest Single Viewon 09-03 XR Chest Single View Exam Date/Time: 09/03/2023 18:16 EDT Reason for Exam: Shortness of breath (SOB) Report IMPRESSION: NO ACUTE CARDIOPULMONARY DISEASE. CLINICAL HISTORY: Shortness of breath (SOB) COMPARISON: August 25, 2015 FINDINGS: Osseous structures are intact. Cardiopericardial silhouette is normal. Aorta calcified. Pulmonary vasculature is normal. Lungs are clear. Ordering Provider: Usha Ramierz FINAL REPORT Dictated: 09/04/2023 7:31 am Dylan Ashby MD Signed (Electronic Signature): 09/04/2023 7:31 am Signed by: Dylan Ashby MD Transcribed by: PAT Technologist: LISA Technical Comments Radiation Dose: Ka,r in mGy = na DAP = na Normal [facility] eGFRon 09-04-2023 eGFR 13 mL/min/1.73 m2 Low >=59 [facility] Comment on above: Order Comment: Order added by Discern Expert. Performed By: #### 1 [id number], [id number], [id number], 5442539, [id number] #### [facility] Laboratory [address] [place] [address] BMPon 09-03-2023 Anion gap [Moles/Vol] 14 mmol/L Normal 6-16 [facility] Comment on above: Performed By: #### 1 [id number], [id number], [id number], 3887060, 6012329 #### [facility] [address] [place] [address] Calcium [Mass/Vol] 12.2 mg/dL High 8.9-11.1 [facility] Comment on above: Performed By: #### 1 [id number], [id number], [id number], 6555797, 2174018 #### [facility] [address] [place] [address] Chloride [Moles/Vol] 101 mmol/L Normal 101-111 [facility] Comment on above: Performed By: #### 1 [id number], [id number], 74646006, 9743212, 0766029 #### [facility] [address] [place] [address] CO2 [Moles/Vol] 25 mmol/L Normal 21-31 [facility] Comment on above: Performed By: #### 1 [id number], [id number], 57478896, 4744630, 0039834 #### [facility] [address] [place] [address] Creatinine [Mass/Vol] 4.5 mg/dL High 0.5-1.3 [facility] Comment on above: Performed By: #### 1 [id number], [id number], 69629894, 5292627, 3780168 #### [facility] [address] [place] [address] Glucose [Mass/Vol] 96 mg/dL Normal 55-199 [facility] Comment on above: Performed By: #### 1 [id number], [id number], 46344265, 5662900, 6480840 #### [facility] [address] [place] [address] Potassium [Moles/Vol] 4.8 mmol/L Normal 3.5-5.3 [facility] Comment on above: Performed By: #### 1 [id number], [id number], 99829942, 4802058, 6195744 #### [facility] [address] [place] [address] Sodium [Moles/Vol] 135 mmol/L Normal 135-145 [facility] Comment on above: Performed By: #### 1 [id number], [id number], 02811505, 1986944, 4941935 #### [facility] [address] [place] [address] Urea nitrogen [Mass/Vol] 57 mg/dL High 5-21 [facility] Comment on above: Performed By: #### 1 5620921, [id number], 42054229, 4656893, 1732431 #### [facility] [address] [place] [address] Urea nitrogen/Creatinine [Mass ratio] 13 No Units Normal 10-20 [facility] Comment on above: Performed By: #### 1 0584998, [id number], 30813943, 4397605, 0305832 #### [facility] Laboratory [address] [place] [address] CBC w/ Auto Diffon 4 Basophils/100 WBC (Bld) 0.4 % Normal 0.0-2.0 [facility] Comment on above: Performed By: #### 1 [id number], [id number], 01935160, 9310968, 9612138 #### [facility] [address] [place] [address] Basophils/Leukocytes Auto (Bld) [Pure # fraction] 0.0 E9/L Normal 0.0-0.2 [facility] Comment on above: Performed By: #### 1 [id number], [id number], 07377975, 5851695, 1749428 #### [facility] [address] [place] [address] Eosinophils (Bld) [#/Vol] 0.3 E9/L Normal 0.0-0.5 [facility] Comment on above: Performed By: #### 1 0968561, 142530866, 69115310, 9729282, 9332174 #### [facility] [address] [place] [address] Eosinophils/100 WBC (Bld) 3.1 % Normal 0.0-8.0 [facility] Comment on above: Performed By: #### 1 3697500, [id number], 27616610, 9616053, 2351111 #### [facility] [address] [place] [address] Erythrocyte distribution width (RBC) [Ratio] 20.2 % High 10.9-14.2 [facility] Comment on above: Performed By: #### 1 [id number], [id number], 75478815, 9189475, 0760512 #### [facility] [address] [place] [address] Hematocrit (Bld) [Volume fraction] 33.1 % Low 34.0-46.0 [facility] Comment on above: Performed By: #### 1 4239873, [id number], 94771620, 0633882, 1893525 #### [facility] [address] [place] [address] Hemoglobin (Bld) [Mass/Vol] 10.7 g/dL Low 12.0-16.0 [facility] Comment on above: Performed By: #### 1 1928635, [id number], 21980381, 2270334, 0659513 #### [facility] [address] [place] [address] Lymphocytes (Bld) [#/Vol] 1.0 E9/L Normal 1.0-4.0 [facility] Comment on above: Performed By: #### 1 9644563, [id number], 23871612, 0020207, 5500421 #### [facility] Laboratory [address] [place] [address] Lymphocytes/100 WBC (Bld) 10.9 % Low 14.0-50.0 [facility] Comment on above: Performed By: #### 1 5876668, 224816492, 38957142, 4959538, 9026259 #### [facility] [address] [place] [address] MCH (RBC) [Entitic mass] 26.2 pg Low 27.0-34.0 [facility] Comment on above: Performed By: #### 1 [id number], 574939920, 33830853, 2709228, 5794663 #### [facility] [address] [place] [address] MCHC (RBC) [Mass/Vol] 32.2 g/dL Normal 31.4-36.0 [facility] Comment on above: Performed By: #### 1 0886413, [id number], 57161290, 1257656, 0761193 #### [facility] [address] [place] [address] MCV (RBC) [Entitic vol] 81.2 fL Normal 80.0-100.0 [facility] Comment on above: Performed By: #### 1 5949890, 494197722, 52518816, 0047804, 0479433 #### [facility] [address] [place] [address] Monocytes (Bld) [#/Vol] 0.5 E9/L Normal 0.2-1.0 [facility] Comment on above: Performed By: #### 1 [id number], 174748873, 01877862, 5275215, 6224393 #### [facility] [address] [place] [address] Neutrophils (Bld) [#/Vol] 7.0 E9/L Normal 2.0-7.5 [facility] Comment on above: Performed By: #### 1 0442778, 574454729, 96377314, 2967669, 8739254 #### [facility] [address] [place] [address] Neutrophils/100 WBC (Bld) 79.5 % High 36.0-75.0 [facility] Comment on above: Performed By: #### 1 [id number], 236939727, 58091836, 9267144, 5531877 #### [facility] [address] [place] [address] Platelet 229.0 E9/L Normal 150.0-500. 0 [facility] Comment on above: Performed By: #### 1 7818334, 794834941, 50131155, 8356132, 5810284 #### [facility] [address] [place] [address] Platelet mean volume (Bld) [Entitic vol] 7.6 fL Normal 6.4-10.8 [facility] Comment on above: Performed By: #### 1 0648724, 561363101, 28058588, 9790600, 9320970 #### [facility] [address] [place] [address] RBC (Bld) [#/Vol] 4.1 E12/L Low 4.3-5.9 [facility] Comment on above: Performed By: #### 1 9437035, 963650415, 36439899, 8638631, 9726210 #### [facility] [address] [place] [address] WBC corrected for nucl RBC Auto (Bld) [#/Vol] 8.8 E9/L Normal 4.0-11.0 [facility] Comment on above: Performed By: #### 1 [id number], [id number], 41434170, 8853788, 4994947 #### [facility] [address] [place] [address] CHEMISTRYOrdered By: SYSTEM SYSTEM on 09-03-2023 Troponin 3.90 pg/mL Low 10.10 - 27.10 pg/mL Rem[facility] Chem Comment on above: Interpretive Data: T he 95% CI (Confidence Interval) PPV (Positive Predictive Value) for myocardial infarction in females is 38 pg/mL, in males 51 pg/mL. The results should be used in conjunction with clinical conditions of myocardial infarction. (Access High Sensitivity Troponin I Instructions For Use, [employer], December 2017) Troponin 3.40 pg/mL Low 10.10 - 27.10 pg/mL [facility] Chem Comment on above: Interpretive Data: T he 95% CI (Confidence Interval) PPV (Positive Predictive Value) for myocardial infarction in females is 38 pg/mL, in males 51 pg/mL. The results should be used in conjunction with clinical conditions of myocardial infarction. (Access High Sensitivity Troponin I Instructions For Use, [employer], December 2017) Albumin [Mass/Vol] 4.0 g/dL Normal 3.3 - 5.0 gm/dL Remisol Chem Albumin/Globulin [Mass ratio] 1.3 {ratio} Normal 1.1 - 2.2 Remisol Chem ALP [Catalytic activity/Vol] 87 [iU]/d Normal 21 - 98 Int._Unit/ L Remisol Chem ALT No additional P-5'-P [Catalytic activity/Vol] 20 [iU]/d Normal 6 - 46 Int._Unit/ L Remisol Chem AST [Catalytic activity/Vol] 13 [iU]/d Normal 5 - 43 Int._Unit/ L Remisol Chem Bilirubin [Mass/Vol] 0.4 mg/dL Normal 0.0 - 1 .1 mg/dL Remisol Chem Bilirubin.direct [Mass/Vol] 0.1 mg/dL Normal 0.0 - 0.4 mg/dL Remisol Chem Bilirubin.indirect [Mass or moles/Vol] 0.3 mg/dL Normal 0.1 - 0.9 mg/dL Remisol Chem Free T4 [Mass/Vol] 0.79 ng/dL Normal 0.58 - 1.64 ng/dL Remisol Chem Globulin (S) [Mass/Vol] 3.0 g/dL Normal 1.4 - 4.0 gm/dL Remisol Chem Magnesium [Mass/Vol] 2.1 mg/dL Normal 1.3 - 2 .4 mg/dL Remisol Chem Protein [Mass/Vol] 7.0 g/dL Normal 6.0 - 7.8 gm/dL Remisol Chem TSH Qn 7.43 m[IU]/L High 0.34 - 5.60 mcIU/mL Remisol Chem COAGULATIONOrdered By: Linda Barron on 09-03-2023 aPTT Coag (PPP) [Time] 36.4 s Normal 25.1 - 36.5 second(s) [facility] Comment on above: Interpretive Data: P arameter 15 days - 4 weeks 1 - 5 months 6 - 11 months 1 - 5 years 6 - 10 years 11 - 17 years PTT Mean: 35.4 (27.6-45.6) Mean: 33.5 (24.8-40.7) Mean: 32.4 (25.1-40.7) Mean: 31.6 (24.0-39.2) Mean: 31.6 (26.9-38.7) Mean: 31.0 (24.6-38.4) Pediatric Reference ranges were obtained from a study by Vamshi Peter et al. prepared from 1437 samples obtained at 7 different centers using the same coagulation reagent and instrumentation as [facility]. Currently there are no coagulation studies available worldwide for children to 14 days, and no normal ranges. Heparin therapeutic range (represented by Anti-Factor Xa activity of 0.2 - 0.4 U/mL) corresponds to PTT of 56.6 - 109.0 sec. INR Coag (PPP) [Relative time] 1.06 {INR} Invalid Interpretation Code [facility] Auto Coag Comment on above: Interpretive Data: I NR results are specifically intended to assess patients stabilized on long-term Anticoagulation therapy suggested INR s Less Intensive Anticoagulation 2.0 3.0 Conventional Range 3.0 4.5 PT Coag (PPP) [Time] 11.9 s Normal 9.4 - 1 2.5 second(s) [facility] Auto Coag Comment on above: Interpretive Data: 1 5 days - 4 weeks 1 - 5 months 6 -11 months 1 5 years 6 10 years 11 -17 years Mean: 11.2 (9.5 12.6) Mean: 11.0 (9.7 12.8) Mean: 11.0 (9.8 13.0) Mean: 11.3 (9.9 13.4) Mean: 11.7 (10.0 14.6) Mean: 11.8 (10.0 - 14.1) Pediatric Reference ranges were obtained from a study by Vamshi Peter et al. prepared from 1437 samples obtained at 7 different centers using the same coagulation reagent and instrumentation as [facility]. Currently there are no coagulation studies available worldwide for children to 14 days, and no normal ranges. Capillary Glucose POCon 08-21 Glucose [Mass/Vol] 76 mg/dL Normal 55-99 [facility] Comment on above: Result Comment: Katina esparza RN/ Performed By: #### 1 [id number], [id number], [id number], [id number], [id number] #### [facility] Laboratory [address] [place] [address] Consent for Treatmenton 08-21 Consent for Treatment [id number] Normal [facility] ED Note-Physicianon 09-03-19 24 ED Note-Physician Patient was signed o ut to by the outgoing physician. Patient presented for some loss of balance and fatigue and at the time of signout is pending a CT of the brain. Lab work did show she has a significant elevation in her BUN and creatinine and her physical exam is also consistent with dehydration. She is getting a liter of IV fluids. CT of the brain shows no acute process. Patient's blood pressure did have a slight dip before the fluids were started and improved after the 1 L fluids back to the 100s over 40s and 50s. With her clinical and lab work showing acute dehydration with elevated kidney function we will admit her for further medical management. Case was discussed the hospitalist on-call who agreed to admit the patient. Normal [facility] Comment on above: Result Comment: Elec tronically Signed By: Xander Augustin DO\.br\Date and Time Signed: 09/03/23 20:33 EDT ED Note-Physician Basic Information Time Seen: Usha Ramirez M.D. 09/03/2023 17:31 Chief Complaint pt. states intermittent blurry vision and balance issues since starting Ozempic in July. c/o nausea. hx DM, denies abd. pain. History of Present Illness The patient is a 73-year-old female past medical history of anemia, diabetes mellitus, kidney disease who presented to the emergency room with her and vxcryqbi-[id number] for being off balance. The patient states she has been feeling off balance since July. She states the symptoms been on and off however for past 1 week they have gotten worse. The patient denies any dizziness or lightheadedness. She states at times she will have blurry vision. She denies any difficulty swallowing. Denies any headache. The patient denies any blurred vision or double vision currently. She denies any nausea, denies any vomiting. She denies any diarrhea. The patient denies any chest pain denies any shortness of breath. She denies any headache. She reports generalized weakness. She denies any numbness or tingling on extremities. The patient denies any other associated symptoms. Review of Systems Additional ROS info: Except as noted in the above Review of Systems and in the History of Present Illness all other systems have been reviewed and are negative or noncontributory. Physical Exam Vitals & Measurements T: 36.6 ?C(Oral) HR: 57(Monitored) RR: 14 BP: 84/49 SpO2: 99% HT: 152 cm WT: 112.5 kg BMI: 48.69 General: alert, no acute distress Skin: warm, dry, Head: no trauma, normocephalic Neck: Trachea midline, no tenderness, supple Eye: normal conjunctiva, sclera clear, PERRL, EOMI, vision unchanged ENMT: Oral mucosa dry, no pharyngeal erythema or exudate Cardiovascular: regular rate and rhythm, Respiratory: Lungs CTA, respirations non labored, breath sounds equal, Gastrointestinal: soft, non distended, no tenderness, no guarding, Extremities: no deformity, no trauma Neurological: Alert and oriented, CN II-XII intact, motor strength equal & normal bilaterally, sensation equal & normal bilaterally, speech normal, no focal neuro deficits, normal coordination Psychiatric: cooperative, affect appropriate for age, Medical Decision Making MEDICAL DECISION MAKING Number and Complexity of Problems Differential Diagnosis: [] [facility] Data External documents reviewed: [] My EKG interpretation: [] My CT interpretation: [] My X-ray interpretation: [] My Ultrasound interpretation: [] Decision rules/scores evaluated: [] Discussed with: [] Treatment and Disposition ED Course: The patient presented with weakness and being off balance. There is no focal neurological deficit. Her oral mucosa is dry. Blood work shows that she does have acute kidney injury superimposed on chronic kidney disease. Her calcium is slightly high. Blood pressure dropped down to 84 systolic from 102. The patient was given IV fluid 1 L. The care of the patient was transitioned to Dr. Fisher upon shift change to follow-up with the rest of blood work imaging and final disposition. Shared decision making: [] Code status: [] Assessment/Plan 1. Balance problems (R26.89: Other abnormalities of gait and mobility) 2. Acute kidney injury superimposed on chronic kidney disease (N17.9: Acute kidney failure, unspecified) 3. Weakness (R53.1: Weakness) 4. Hypotension (I95.9: Hypotension, unspecified) Chronic kidney disease, unspecified (N18.9: Chronic kidney disease, unspecified) Orders: Sodium Chloride 0.9% intravenous solution 500 mL, 500 mL, IV, 999 mL/hr, STAT, Start date 09/03/23 18:57:00 EDT, 0.5 hour(s), Total volume (mL): 500, 112.5 kg, 2.18, m2 Basic Metabolic Panel Capillary Glucose POC CBC w/ Auto Diff CT Head or Brain w/o Contrast eGFR Extra SST Tube Free T4 Hepatic Function Panel Magnesium Level PT & PTT Saline Lock Insert Troponin 0 Hr. Troponin 3 Hr. Troponin 6 Hr. Troponin 9 Hr. TSH With T4fr Reflex UA with Cult Rflx XR Chest Single View Medications Administered Given Sodium Chloride 0.9% IV Diane 500 mL 500 mL, 500 mL, IV Disposition Plan Discharge Prescription List Prescriptions No active prescription medications Follow-up No qualifying data available Problem List/Past Medical History Ongoing Abnormal mammogram of left breast Bladder stone BMI 50.0-59.9, adult Kidney stone Obesity Historical No qualifying data Procedure/Surgical History Colonoscopy (08/07/2021), t tka compounded by obesity BMI>58 (09/09/2015), Knee arthroplasty. Medications Inpatient Sodium Chloride 0.9% IV Diane 500 mL 500 mL, 500 mL, IV Home aspirin atorvastatin 10 mg Tab, 10 mg= 1 tab(s), Oral, Daily Fosamax 70 mg Tab, 70 mg= 1 tab(s), Oral, qWeek gabapentin 300 mg Cap, 600 mg= 2 cap(s), Oral, Bedtime hydrochlorothiazide-triamt erene 50 mg-75 mg Tab, 0.5 tab(s), Oral, Daily indomethacin 50 mg oral capsule, 50 mg= 1 cap(s), Oral, TID M (more content not included)... Normal [facility] Comment on above: Result Comment: Elec tronically Signed By: James Coates, Usha H\.br\Date and Time Signed: 09/03/23 19:10 EDT Free T4on 09-03-2023 Free T4 [Mass/Vol] 0.79 ng/dL Normal 0.58-1.64 [facility] Comment on above: Performed By: #### 1 [id number], [id number], [id number], [id number], [id number] #### [facility] Laboratory [address] [place] [address] HEMATOLOGYOrdered By: SYSTEM SYSTEM on 09-03-2023 Basophils/100 WBC (Bld) 0.4 % Normal 0.0 - 2.0 % Remisol Heme Basophils/Leukocytes Auto (Bld) [Pure # fraction] 0.0 E9/L Normal 0.0 - 0.2 E9/L Remisol Heme Eosinophils (Bld) [#/Vol] 0.3 E9/L Normal 0.0 - 0.5 E9/L Remisol Heme Eosinophils/100 WBC (Bld) 3.1 % Normal 0.0 - 8.0 % Remisol Heme Lymphocytes (Bld) [#/Vol] 1.0 E9/L Normal 1.0 - 4.0 E9/L Remisol Heme Lymphocytes/100 WBC (Bld) 10.9 % Low 14.0 - 50.0 % Remisol Heme Monocytes (Bld) [#/Vol] 0.5 E9/L Normal 0.2 - 1.0 E9/L Remisol Heme Monocytes/100 WBC (Bld) 6.1 % Normal 4.0 - 14.0 % Remisol Heme Neutrophils (Bld) [#/Vol] 7.0 E9/L Normal 2.0 - 7.5 E9/L Remisol Heme Neutrophils/100 WBC (Bld) 79.5 % High 36.0 - 75.0 % Remisol Heme Hep Func Panelon 09-03-2023 Albumin [Mass/Vol] 4.0 g/dL Normal 3.3-5.0 [facility] Comment on above: Performed By: #### 1 [id number], [id number], 08545734, 8169847, 4705420 #### [facility] Laboratory [address] [place] [address] Albumin/Globulin (S) [Mass conc ratio] 1.3 Normal 1.1-2.2 [facility] Comment on above: Performed By: #### 1 [id number], [id number], 30348836, 4600820, 8931376 #### [facility] [address] [place] [address] ALP [Catalytic activity/Vol] 87 Int._Unit/L Normal 21-98 [facility] Comment on above: Performed By: #### 1 [id number], [id number], 07507078, 7346262, 6423327 #### [facility] [address] [place] [address] ALT No additional P-5'-P [Catalytic activity/Vol] 20 Int._Unit/L Normal 6-46 [facility] Comment on above: Performed By: #### 1 [id number], [id number], 38902932, 9733792, 8244376 #### [facility] [address] [place] [address] AST [Catalytic activity/Vol] 13 Int._Unit/L Normal 5-43 [facility] Comment on above: Performed By: #### 1 [id number], [id number], 33887514, 3270610, 5618150 #### [facility] [address] [place] [address] Bilirubin [Mass/Vol] 0.4 mg/dL Normal 0.0-1.1 [facility] Comment on above: Performed By: #### 1 [id number], 895835269, 31056749, 6326882, 8867433 #### [facility] [address] [place] [address] Bilirubin.direct [Mass/Vol] 0.1 mg/dL Normal 0.0-0.4 [facility] Comment on above: Performed By: #### 1 1373105, 144857930, 19756265, 4148568, 7701167 #### [facility] [address] [place] [address] Bilirubin.indirect [Mass or moles/Vol] 0.3 mg/dL Normal 0.1-0.9 [facility] Comment on above: Performed By: #### 1 6871634, 662244599, 89421622, 9963511, 5443184 #### [facility] [address] [place] [address] Globulin (S) [Mass/Vol] 3.0 g/dL Normal 1.4-4.0 [facility] Comment on above: Performed By: #### 1 [id number], [id number], 17651155, 8502522, 5235276 #### [facility] [address] [place] [address] Protein [Mass/Vol] 7.0 g/dL Normal 6.0-7.8 [facility] Comment on above: Performed By: #### 1 1172117, [id number], 32283573, 3499675, 4138300 #### [facility] [address] [place] [address] Magnesiumon 09-03-2023 Magnesium [Mass/Vol] 2.1 mg/dL Normal 1.3-2.4 [facility] Comment on above: Performed By: #### 1 7101502, 656541430, 48033333, 1511004, 3703386 #### [facility] [address] [place] [address] Monitor Recordon 09-03-2023 Monitor Record [id number] Normal [facility] PT & PTTon 09-03-2023 aPTT Coag (PPP) [Time] 36.4 second(s) Normal 25.1-36.5 [facility] Comment on above: Result Comment: Para meter 15 days - 4 weeks 1 - 5 months 6 - 11 months 1 - 5 years 6 - 10 years 11 - 17 years PTT Mean: 35.4 (27.6-45.6) Mean: 33.5 (24.8-40.7) Mean: 32.4 (25.1-40.7) Mean: 31.6 (24.0-39.2) Mean: 31.6 (26.9-38.7) Mean: 31.0 (24.6-38.4) Pediatric Reference ranges were obtained from a study by Vamshi Peter et al. prepared from 1437 samples obtained at 7 different centers using the same coagulation reagent and instrumentation as [facility]. Currently there are no coagulation studies available worldwide for children to 14 days, and no normal ranges. Heparin therapeutic range (represented by Anti-Factor Xa activity of 0.2 - 0.4 U/mL) corresponds to PTT of 56.6 - 109.0 sec. Performed By: #### 1 [id number], [id number], 46120743, 0209710, 2812385 #### [facility] [address] [place] [address] INR Coag (PPP) [Relative time] 1.06 {INR} Invalid Interpretation Code [facility] Comment on above: Result Comment: INR results are specifically intended to assess patients stabilized on long-term Anticoagulation therapy suggested INR?s ?Less Intensive Anticoagulation? 2.0 ? 3.0 Conventional Range 3.0 ? 4.5 Performed By: #### 1 4856558, [id number], 05642532, 1069288, 2189303 #### [facility] [address] [place] [address] PT Coag (PPP) [Time] 11.9 second(s) Normal 9.4-12.5 [facility] Comment on above: Result Comment: 15 d ays - 4 weeks 1 - 5 months 6 -11 months 1 ? 5 years 6 ? 10 years 11 -17 years Mean: 11.2 (9.5 ? 12.6) Mean: 11.0 (9.7 ? 12.8) Mean: 11.0 (9.8 ? 13.0) Mean: 11.3 (9.9 ? 13.4) Mean: 11.7 (10.0 ? 14.6) Mean: 11.8 (10.0 - 14.1) Pediatric Reference ranges were obtained from a study by Vamshi Peter et al. prepared from 1437 samples obtained at 7 different centers using the same coagulation reagent and instrumentation as [facility]. Currently there are no coagulation studies available worldwide for children to 14 days, and no normal ranges. Performed By: #### 1 5654038, [id number], 15025046, 0738790, 6059113 #### [facility] [address] [place] [address] TSH With T4fr Reflexon 09-02 TSH Qn 7.43 m[IU]/L High 0.34-5.60 [facility] Comment on above: Performed By: #### 1 2639611, 114412218, 86736095, 2095816, 1383108 #### [facility] [address] [place] [address] Troponin 0 Hr.on 09-03-2023 Troponin 3.80 pg/mL Low 10.10-27.1 0 [facility] Comment on above: Result Comment: The 95% CI (Confidence Interval) PPV (Positive Predictive Value) for myocardial infarction in females is 38 pg/mL, in males 51 pg/mL. The results should be used in conjunction with clinical conditions of myocardial infarction. (Access High Sensitivity Troponin I Instructions For Use, [employer], December 2017) Performed By: #### 1 [id number], [id number], 26878737, 4009317, 4165391 #### [facility] Laboratory [address] [place] [address] Troponin 3 Hr.on 09-03-2023 Troponin 3.40 pg/mL Low 10.10-27.1 0 [facility] Comment on above: Result Comment: The 95% CI (Confidence Interval) PPV (Positive Predictive Value) for myocardial infarction in females is 38 pg/mL, in males 51 pg/mL. The results should be used in conjunction with clinical conditions of myocardial infarction. (Access High Sensitivity Troponin I Instructions For Use, [employer], December 2017) Performed By: #### 1 [id number] ####[facility] [address] [place] [address] eGFRon 09-03-2023 eGFR 10 mL/min/1.73 m2 Low >=59 [facility] Comment on above: Order Comment: Order added by Discern Expert. Performed By: #### 1 [id number], [id number], 40681847, 9780040, 0962194 #### [facility] [address] [place] [address] Lab Miscellaneous-LCon 08-11 Lab Miscellaneous COMMENT Invalid Interpretation Code [facility] Comment on above: Result Comment: Test Ordered: [id number] PTHrP (PTH-Related Peptide) PTHrP (PTH-Related Peptide) <2.0 pmol/L ES This test was developed and its performance characteristics determined by [employer]. It has not been cleared or approved by the Food and Drug Administration. Reference Range: All Ages: <2.0 The PTHrP assay should not be used to exclude cancer or screen tumor patients for humoral hypercalcemia of malignancy (HHM). The results should always be assessed in conjunction with the patient's medical history, clinical examination, and other findings. If test results are clinically discordant, please contact the laboratory. Performed at: [facility] [address] [place] [address] [id number] PhD Jessica Ferris Performed By: #### 1 [id number] #### [facility] [address] [place] [address] Free K+L Lt Chains,Qn,Son Immunoglobulin light chains.kappa.free (S) [Mass/Vol] 51.4 mg/L High 3.3-19.4 [facility] Comment on above: Performed By: #### 1 [id number] #### [facility] Laboratory [address] [place] [address] Immunoglobulin light chains.kappa.free/Immu noglobulin light chains.lambda.free (S) [Mass ratio] 1.29 Invalid Interpretation Code 0.26-1.65 [facility] Comment on above: Result Comment: Perf ormed at: [facility] [address] [place] [address] [id number] PhD Jessica Ferris Performed By: #### 1 [id number] #### [facility] [address] [place] [address] Immunoglobulin light chains.lambda.free [Mass/Vol] 39.7 mg/L High 5.7-26.3 [facility] Comment on above: Performed By: #### 1 [id number] #### [facility] [address] [place] [address] CHRIS and PE, Serumon 08-10-19 24 Albumin [Mass/Vol] 3.6 g/dL Invalid Interpretation Code 2.9-4.4 [facility] Comment on above: Performed By: #### 1 2862527 #### [facility] [address] [place] [address] Albumin/Globulin [Mass ratio] 1.1 {ratio} Invalid Interpretation Code 0.7-1.7 [facility] Comment on above: Performed By: #### 1 [id number] #### [facility] [address] [place] [address] Alpha 1 globulin Elph [Mass/Vol] 0.3 g/dL Invalid Interpretation Code 0.0-0.4 [facility] Comment on above: Performed By: #### 1 [id number] #### [facility] [address] [place] [address] Alpha 2 globulin Elph [Mass/Vol] 0.8 g/dL Invalid Interpretation Code 0.4-1.0 [facility] Comment on above: Performed By: #### 1 [id number] #### [facility] [address] [place] [address] Beta globulin Elph [Mass/Vol] 1.2 g/dL Invalid Interpretation Code 0.7-1.3 [facility] Comment on above: Performed By: #### 1 [id number] #### [facility] [address] [place] [address] Gamma globulin Elph [Mass/Vol] 1.0 g/dL Invalid Interpretation Code 0.4-1.8 [facility] Comment on above: Performed By: #### 1 [id number] #### [facility] [address] [place] [address] Globulin (S) [Mass/Vol] 3.3 g/dL Invalid Interpretation Code 2.2-3.9 [facility] Comment on above: Performed By: #### 1 [id number] #### [facility] [address] [place] [address] IgA [Mass/Vol] 377 mg/dL Invalid Interpretation Code 64-422 [facility] Comment on above: Performed By: #### 1 [id number] #### [facility] [address] [place] [address] IgG [Mass/Vol] 987 mg/dL Invalid Interpretation Code 586-1602 [facility] Comment on above: Performed By: #### 1 [id number] #### [facility] [address] [place] [address] IgM [Mass/Vol] 45 mg/dL Invalid Interpretation Code 26-217 [facility] Comment on above: Performed By: #### 1 [id number] #### [facility] [address] [place] [address] Interpretation IEP [Interp] Comment Invalid Interpretation Code [facility] Comment on above: Result Comment: No m onoclonality detected. Performed By: #### 1 [id number] #### [facility] [address] [place] [address] Laboratory comment Jacob (Report) Comment Invalid Interpretation Code [facility] Comment on above: Result Comment: Prot ein electrophoresis scan will follow via computer, mail, or research assoc delivery. Performed at: [facility] [address], [place] [id number] PhD Jessica Ferris Performed By: #### 1 [id number] #### [facility] [address] [place] [address] Protein [Mass/Vol] 6.9 g/dL Invalid Interpretation Code 6.0-8.5 [facility] Comment on above: Performed By: #### 1 [id number] #### [facility] [address] [place] [address] Protein.monoclonal Elph [Mass/Vol] Not Observed Invalid Interpretation Code Not Observed [facility] Comment on above: Performed By: #### 1 [id number] #### [facility] [address] [place] [address] Lab Miscellaneous-LCon 08-09 Lab Miscellaneous COMMENT Invalid Interpretation Code [facility] Comment on above: Result Comment: Test Ordered: [id number] Immunofixation, Urine CHRIS Interpretation:U Comment No monoclonality detected. Performed at: [facility] [address], [place] [id number] PhD Jessica Ferris Performed By: #### 1 [id number] #### [facility] [address] [place] [address] Vit D 1,25on 03-20-2024 1,25-dihydroxyvitamin D [Mass/Vol] 38.7 pg/mL Invalid Interpretation Code 24.8-81.5 [facility] Comment on above: Result Comment: Perf ormed at: [facility] [address] [id number] MD Audi Vega Performed By: #### 1 [id number] #### [facility] [address] [place] [address] NM*parathyroid SPECT*on 07-21 NM*parathyroid SPECT* [facility] [place] [address] [place], [place] [id number] Nuclear Medicine Report Signed Patient: Dinorah Pepe MR#: [id number] 9 : 1950 Acct:[id number] Age/Sex: 73 / F ADM Date: 08/09/23 Loc: [place] Room: Type: [facility] Attending Dr: Heath Davis MD Copies to: MD Yulissa Wells MD Ordering Provider: Heath Davis MD Date of Service: 08/09/23 NM/NM*parathyroid SPECT*: E83.52 - Hypercalcemia PARATHYROID SCAN WITH SPECT IMAGING CLINICAL DATA: Hypercalcemia. COMPARISON: None Following the intravenous administration of 23.0 mCi of technetium 99 M labeled sestamibi, imaging of the neck and chest was performed at 15 minutes and 2 hours. SPECT imaging in 3 planes was also performed. On the early imaging, there is physiologic uptake at the salivary glands. There is also uptake at both thyroid lobes. There is a focus of asymmetric increased uptake at the lower pole of the left thyroid. On the delayed images, there is some washout from the thyroid lobes. There is still of focal area of increased uptake near the lower pole of the thyroid on the left. This is suspicious for a parathyroid adenoma. NM/NM*parathyroid SPECT* IMPRESSION: FINDINGS SUGGESTING POTENTIAL PARATHYROID ADENOMA NEAR THE LOWER POLE OF THE LEFT THYROID LOBE. Impression dictated by: Yulissa Torres M.D.08/09/2023 2:59 PM Dictation Location: [place] [address] Transcribed By: [facility] 08/09/23 1459 Dictated By: Yulissa Torres MD 08/09/23 1454 Signed By: 08/09/23 1459 Normal [facility] Consent for Treatmenton 07-21 Consent for Treatment [id number]#1.00TIFF Normal [facility] Lab Miscellaneous-LCon 08-07 Test Code 742166 Invalid Interpretation Code [facility] Comment on above: Performed By: #### 1 [id number] #### [facility] Laboratory [address] [place] [address] Test Code 757141 Invalid Interpretation Code [facility] Comment on above: Performed By: #### 1 [id number] #### [facility] Laboratory [address] [place] [address] Test Name PTH REL PEPTIDE Invalid Interpretation Code [facility] Comment on above: Performed By: #### 1 [id number] #### [facility] Laboratory [address] [place] [address] Test Name IMMUNOFIX UR Invalid Interpretation Code [facility] Comment on above: Performed By: #### 1 [id number] #### [facility] Laboratory [address] [place] [address] Physician Orderon 08-08-2023 Physician Order [id number]#1.00TIFF Normal [facility] Reference Laboratory Testing Ordered By: Genny Nava on 08-08-2023 Test Code 551750 1 Invalid Interpretation Code [facility] Test Code 247502 1 Invalid Interpretation Code [facility] Test Name PTH REL PEPTIDE Invalid Interpretation Code [facility] Test Name IMMUNOFIX UR Invalid Interpretation Code [facility] PTH Intacton 07-26-2023 Parathyrin.intact [Mass/Vol] 96 pg/mL High 15-65 [facility] Comment on above: Result Comment: Perf ormed at: [facility] [address] [id number] PhD Jessica Ferris Performed By: #### 1 [id number] ####[facility] [address] [place] [address] CBC w/Indiceson 07-25-2023 RBC size Nom (Bld) NORMAL Invalid Interpretation Code [facility] Comment on above: Performed By: #### 1 7517914, [id number], 96515109, 4442529, 9395012 #### [facility] Laboratory [address] [place] [address] Erythrocyte distribution width (RBC) [Ratio] 17.2 % High 10.9-14.2 [facility] Comment on above: Performed By: #### 1 3130994, 620879499, 01648784, 2608422, 4582091 #### [facility] Laboratory [address] [place] [address] Hematocrit (Bld) [Volume fraction] 36.6 % Normal 34.0-46.0 [facility] Comment on above: Performed By: #### 1 1024841, 639662240, 87280763, 1882196, 3951539 #### [facility] Laboratory [address] [place] [address] Hemoglobin (Bld) [Mass/Vol] 11.5 g/dL Low 12.0-16.0 [facility] Comment on above: Performed By: #### 1 2164927, 729388690, 38189996, 4443372, 8099151 #### [facility] Laboratory [address] [place] [address] MCH (RBC) [Entitic mass] 24.7 pg Low 27.0-34.0 [facility] Comment on above: Performed By: #### 1 1794371, 204204741, 47756068, 8996001, 6142725 #### [facility] Laboratory [address] [place] [address] MCHC (RBC) [Mass/Vol] 31.4 g/dL Normal 31.4-36.0 [facility] Comment on above: Performed By: #### 1 6984518, 981436618, 43788137, 4304004, 0816037 #### [facility] Laboratory [address] [place] [address] MCV (RBC) [Entitic vol] 78.6 fL Low 80.0-100.0 [facility] Comment on above: Performed By: #### 1 2738000, 285897828, 21728191, 0129547, 8365836 #### [facility] Laboratory [address] [place] [address] Platelet mean volume (Bld) [Entitic vol] 7.8 fL Normal 6.4-10.8 [facility] Comment on above: Performed By: #### 1 4371073, 616269997, 83215946, 4799999, 0406846 #### [facility] Laboratory [address] [place] [address] Platelets (Bld) [#/Vol] 373.0 E9/L Normal 150.0-500. 0 [facility] Comment on above: Performed By: #### 1 5167422, 330575124, 67077517, 2310395, 2089570 #### [facility] Laboratory [address] [place] [address] RBC (Bld) [#/Vol] 4.7 E12/L Normal 4.3-5.9 [facility] Comment on above: Performed By: #### 1 4517723, 368736882, 45117887, 4753536, 8403206 #### [facility] Laboratory [address] [place] [address] WBC corrected for nucl RBC Auto (Bld) [#/Vol] 8.7 E9/L Normal 4.0-11.0 [facility] Comment on above: Performed By: #### 1 0174608, 621485721, 50807980, 6975851, 3142873 #### [facility] Laboratory [address] [place] [address] CHEMISTRYOrdered By: SYSTEM SYSTEM on 07-25-2023 25-hydroxyvitamin D3 [Mass/Vol] 39.2 ng/mL Normal 30.0 - 100.0 ng/mL Rem[facility] Chem eGFR 32 mL/min/1.73 m2 Low >=59mL/min /1.73 m2 [facility] Folate [Mass/Vol] 9.9 ng/mL Normal >=6.7ng/mL [facility] Chem Iron [Mass/Vol] 36 ug/dL Normal 35 - 153 mcg/dL [facility] Iron binding capacity [Mass/Vol] 421 ug/dL High 250 - 400 mcg/dL [facility] Chem Phosphate [Mass/Vol] 2.8 mg/dL Normal 1.9 - 4 .6 mg/dL [facility] Urate (U) [Mass/Vol] 10.4 mg/dL High 2.2 - 7 .4 mg/dL [facility] Urea nitrogen/Creatinine [Mass ratio] 14 mg/mg Normal 10 - 20 [facility] U Creatinine 140.6 mg/dL Invalid Interpretation Code Rem[facility] Chem Ur Total Protein 10.3 mg/dL Invalid Interpretation Code [facility] Chem Consent for Treatmenton Consent for Treatment [id number]#1.00TIFF Normal [facility] Erythrocyte distribution wid th [Ratio] by Automated countOrdered By: SYSTEM SYSTEM on 07-25-2023 Erythrocyte distribution width (RBC) [Ratio] 17.2 % 10.9-14.2 [facility] Erythrocytes [#/volume] in B lood by Automated countOrdered By: SYSTEM SYSTEM on 07-25-2023 RBC (Bld) [#/Vol] 4.7 E12/L 4.3-5.9 [facility] Heme Estimated glomerular filtrat ion rate (GFR) non- Americanon 07-25-2023 GFR/1.73 sq M.predicted among non-blacks MDRD (S/P/Bld) [Vol rate/Area] 32 mL/min/1.73 m2 >=59 [facility] Ferritinon 07-25-2023 Ferritin [Mass/Vol] 9 ng/mL Low 11-307 [facility] Comment on above: Performed By: #### 1 4702312, 194538544, 67879943, 5933711, 8826773 #### [facility] Laboratory [address] [place] [address] Folateon 07-25-2023 Folate [Mass/Vol] 9.9 ng/mL Normal >=6.7 [facility] Comment on above: Performed By: #### 2 [id number] #### [facility] Laboratory [address] [place] [address] HEMATOLOGYOrdered By: Geno Olson on 07-25-2023 RBC size Nom (Bld) NORMAL Invalid Interpretation Code [facility] Hematocrit [Volume Fraction] of Blood by Automated countOrdered By: SYSTEM SYSTEM on 07-25-2023 Hematocrit (Bld) [Volume fraction] 36.6 % 34.0-46.0 [facility] Hemoglobin [Mass/volume] in BloodOrdered By: SYSTEM SYSTEM on 07-25-2023 Hemoglobin (Bld) [Mass/Vol] 11.5 g/dL 12.0-16.0 [facility] Ironon 07-25-2023 Iron [Mass/Vol] 36 microgram/dL Normal 35-153 [facility] Comment on above: Performed By: #### 1 6469518, 163706309, 70073570, 6569492, 7743055 #### [facility] Laboratory [address] [place] [address] Iron binding capacity [Mass/ volume] in Serum or Plasmaon 07-25-2023 Iron binding capacity [Mass/Vol] 421 microgram/dL 250-400 [facility] Laboratory - Chemistry and C hemistry - challengeOrdered By: SYSTEM SYSTEM on 07-25-2023 Albumin [Mass/Vol] 4.3 g/dL 3.3-5.0 Remiso l Chem Calcium [Mass/Vol] 12.2 mg/dL 8.9-11.1 Remiso l Chem Chloride [Moles/Vol] 99 mmol/L 101-111 Farhan diane Chem CO2 [Moles/Vol] 29 mmol/L 21-31 [facility] Cobalamin (Vitamin B12) [Mass/Vol] 138 pg/mL 50-1500 [facility] Creatinine [Mass/Vol] 1.7 mg/dL 0.5-1.3 Rem isol Chem Ferritin [Mass/Vol] 9 ng/mL 11-307 Remis ol Chem Glucose [Mass/Vol] 108 mg/dL 55-199 Remiso l Chem Magnesium [Mass/Vol] 2.0 mg/dL 1.3-2.4 Farhan diane Chem Potassium [Moles/Vol] 3.8 mmol/L 3.5-5.3 Rem isol Chem Sodium [Moles/Vol] 137 mmol/L 135-145 Remiso l Chem Transferrin [Mass/Vol] 301 mg/dL 200-370 Re misol Chem Urea nitrogen [Mass/Vol] 24 mg/dL 5-21 [facility] Laboratory - Urinalysison Protein (U) [Mass/Vol] 10.3 mg/dL [facility] Leukocytes [#/volume] correc jorge for nucleated erythrocytes in Blood by Automated counOrdered By: SYSTEM SYSTEM on 07-25-2023 WBC corrected for nucl RBC Auto (Bld) [#/Vol] 8.7 E9/L 4.0-11.0 [facility]e MCH [Entitic mass] by Automa jorge countOrdered By: SYSTEM SYSTEM on 07-25-2023 MCH (RBC) [Entitic mass] 24.7 pg 27.0-34.0 [facility]e MCHC [Mass/volume] by Automa jorge countOrdered By: SYSTEM SYSTEM on 07-25-2023 MCHC (RBC) [Mass/Vol] 31.4 g/dL 31.4-36.0 Rem isol Heme MCV [Entitic volume] by Auto mated countOrdered By: SYSTEM SYSTEM on 07-25-2023 MCV (RBC) [Entitic vol] 78.6 fL 80.0-100.0 [facility] Magnesiumon 07-25-2023 Magnesium [Mass/Vol] 2.0 mg/dL Normal 1.3-2.4 [facility] Comment on above: Performed By: #### 1 [id number], 576735609, 15426681, 1813106, 0796438 #### [facility] Laboratory [address] [place] [address] No Panel Informationon 07-24 25-Hydroxy Vitamin D Total 39.2 ng/mL 30.0-100.0 [facility] BUN/Creatinine Ratio 14 No Units 10-20 [facility] Folate 9.9 ng/mL >=6.7 [facility] Iron Level 36 microgram/dL 35-153 [facility] Parathyroid Hormone (Intact) 96 pg/mL 15-65 [facility] Phosphorus Level 2.8 mg/dL 1.9-4.6 [facility] RBC Size NORMAL [facility] Urine Citric Acid 10.4 mg/dL 2.2-7.4 [facility] Urine Random Creatinine 140.6 mg/dL [facility] Physician Orderon 07-25-2023 Physician Order [id number]#1.00TIFF Normal [facility] Platelet mean volume [Entiti c volume] in Blood by Automated countOrdered By: SYSTEM SYSTEM on 07-25-2023 Platelet mean volume (Bld) [Entitic vol] 7.8 fL 6.4-10.8 [facility] Platelets [#/volume] in Bloo d by Automated countOrdered By: SYSTEM SYSTEM on 07-25-2023 Platelets (Bld) [#/Vol] 373.0 E9/L 150.0-500. 0 [facility] Renal Panelon 07-25-2023 Albumin [Mass/Vol] 4.3 g/dL Normal 3.3-5.0 [facility] Comment on above: Performed By: #### 2 467355, 26454975, 7919067, 299480117, 11386665, 8299052 ####[facility] [address] [place] [address] Anion gap [Moles/Vol] 13 mmol/L Normal 6-16 [facility] Comment on above: Performed By: #### 2 385570, 08639264, 2417371, 688261653, 31559349, 3027272 ####[facility] [address] [place] [address] Calcium [Mass/Vol] 12.2 mg/dL High 8.9-11.1 [facility] Comment on above: Performed By: #### 2 226996, 14757938, 5757389, 721979781, 82203669, 9995811 ####[facility] [address] [place] [address] Chloride [Moles/Vol] 99 mmol/L Low 101-111 [facility] Comment on above: Performed By: #### 2 762317, 43610425, 9313605, 243380895, 39656854, 4580743 ####[facility] [address] [place] [address] CO2 [Moles/Vol] 29 mmol/L Normal 21-31 [facility] Comment on above: Performed By: #### 2 860460, 55379048, 2167021, 723024911, 30736457, 9334494 ####[facility] [address] [place] [address] Creatinine [Mass/Vol] 1.7 mg/dL High 0.5-1.3 [facility] Comment on above: Performed By: #### 2 541619, 66001175, 9741811, 666329734, 57906477, 7602342 ####[facility] [address] [place] [address] Glucose [Mass/Vol] 108 mg/dL Normal 55-199 [facility] Comment on above: Performed By: #### 2 126975, 85915846, 0366227, 478136534, 88997760, 2112948 ####[facility] [address] [place] [address] Phosphate [Mass/Vol] 2.8 mg/dL Normal 1.9-4.6 [facility] Comment on above: Performed By: #### 2 913729, 55919366, 5570149, 330886453, 68733037, 7515902 ####[facility] [address] [place] [address] Potassium [Moles/Vol] 3.8 mmol/L Normal 3.5-5.3 [facility] Comment on above: Performed By: #### 2 187503, 54113990, 2425503, 361389631, 86619351, 6863681 ####[facility] [address] [place] [address] Sodium [Moles/Vol] 137 mmol/L Normal 135-145 [facility] Comment on above: Performed By: #### 2 950046, 92398150, 9786378, 560872049, 95448855, 0705004 ####[facility] [address] [place] [address] Urea nitrogen [Mass/Vol] 24 mg/dL High 5-21 [facility] Comment on above: Performed By: #### 2 680589, 32449487, 0871416, 996351517, 66722421, 8198602 ####[facility] [address] [place] [address] Urea nitrogen/Creatinine [Mass ratio] 14 No Units Normal 10-20 [facility] Comment on above: Performed By: #### 2 772304, 32750208, 9425107, 022172838, 14535412, 8114788 ####[facility] [address] [place] [address] Serum or plasma anion gap de terminationOrdered By: SYSTEM SYSTEM on 07-25-2023 Anion gap [Moles/Vol] 13 mmol/L 6-16 Rem isol Chem TIBC Calculatedon 07-25-2023 Iron binding capacity [Mass/Vol] 421 microgram/dL High 250-400 [facility] Comment on above: Performed By: #### 1 8445571, 709724541, 04615940, 1117513, 6089888 #### [facility] Laboratory [address] [place] [address] Transferrin [Mass/Vol] 301 mg/dL Normal 200-370 [facility] Comment on above: Performed By: #### 1 6923146, 854699905, 61660312, 7111894, 1312550 #### [facility] Laboratory [address] [place] [address] U Protein/Creat Ratioon 03-0 Protein/Creatinine (U) [Ratio] 7.30 mg/gm Cr Normal .00-200.00 [facility] Comment on above: Performed By: #### 1 0010772, 717580827, 22533802, 0219047, 5791794 #### [facility] Laboratory [address] [place] [address] U Creatinine 140.6 mg/dL Invalid Interpretation Code [facility] Comment on above: Performed By: #### 1 8421919, 952081406, 02176470, 2528758, 3927873 #### [facility] Laboratory [address] [place] [address] Ur Total Protein 10.3 mg/dL Invalid Interpretation Code [facility] Comment on above: Performed By: #### 1 3025849, 880668778, 52268409, 5981922, 4508107 #### [facility] Laboratory [address] [place] [address] URINALYSISOrdered By: Deborah Rice on 07-25-2023 Bacteria LM Ql (Urine sed) Trace /HPF Normal Trace/HPF [facility] UA Auto SS Bilirubin Ql (U) Negative (07/25/23 10:50 AM) Normal Negative [facility] UA Auto SS Clarity (U) SL CLOUDY Invalid Interpretation Code [facility] UA Auto SS Color (U) Yellow (07/25/23 10:50 AM) Normal Yellow [facility] UA Auto SS Epithelial cells.squamous LM.HPF (Urine sed) [#/Area] 0-2 /HPF Normal 0-2/HPF [facility] UA Auto SS Glucose Test strip (U) [Mass/Vol] Negative (07/25/23 10:50 AM) Normal Negative [facility] UA Auto SS Hemoglobin Ql (U) Negative (07/25/23 10:50 AM) Normal Negative [facility] UA Auto SS Ketones (U) [Mass/Vol] Negative (07/25/23 10:50 AM) Normal Negative [facility] UA Auto SS [place].plasma/[place] .RBC (Bld) [Mass ratio] 0-3 /HPF Normal 0-3/HPF [facility] UA Auto SS Mucus Ql (Urine sed) Trace (07/25/23 10:50 AM) Normal [facility] UA Auto SS Nitrite Ql (U) Negative (07/25/23 10:50 AM) Normal Negative [facility] UA Auto SS pH (U) 6.0 *NA* (07/25/23 10:50 AM) Invalid Interpretation Code 5.0 - 9.0 [facility] UA Auto SS Protein (U) [Mass/Vol] Negative (07/25/23 10:50 AM) Normal Negative [facility] UA Auto SS Specific gravity (U) [Rel density] 1.020 *NA* (07/25/23 10:50 AM) Invalid Interpretation Code 1.005 - 1.030 [facility] UA Auto SS UA Spec Desc Clean Catch (07/25/23 10:50 AM) Normal [facility] UA Auto SS Urobilinogen Qn (U) 0.6730698 {Vitaliy'U}/dL Normal 0.0 - 1.0 EU/dL [facility] UA Auto SS WBC Auto Ql (U) 1+ *ABN* (07/25/23 10:50 AM) Invalid Interpretation Code Negative [facility] UA Auto SS WBC casts LM.LPF (Urine sed) [#/Area] 0-3 (07/25/23 10:50 AM) Normal [facility] UA Auto SS WBC LM.HPF (Urine sed) [#/Area] 6-15 /HPF Invalid Interpretation Code 0-5/HPF [facility] UA Auto SS Uric Acidon 07-25-2023 Urate (U) [Mass/Vol] 10.4 mg/dL High 2.2-7.4 [facility] Comment on above: Performed By: #### 2 926832, 53752537, 6689033, 446030359, 67351429, 1089147 ####[facility] [address] [place] [address] Urinalysison 07-25-2023 Bacteria LM Ql (Urine sed) TRACE Normal Trace [facility] Comment on above: Performed By: #### 1 1130870, 164161335, 83222045, 5150298, 2632016 #### [facility] Laboratory [address] [place] [address] Bilirubin Ql (U) Negative Normal Negative [facility] Comment on above: Performed By: #### 1 6214809, 063042860, 41903102, 6672737, 8101294 #### [facility] Laboratory [address] [place] [address] Clarity (U) SL CLOUDY Invalid Interpretation Code [facility] Comment on above: Performed By: #### 1 8109454, 126645065, 09278328, 2534099, 4912235 #### [facility] Laboratory [address] [place] [address] Color (U) YELLOW Normal Yellow [facility] Comment on above: Performed By: #### 1 1866090, 922360161, 73234398, 6925010, 6136420 #### [facility] Laboratory [address] [place] [address] Epithelial cells.squamous LM.HPF (Urine sed) [#/Area] 0-2 Normal 0-2 [facility] Comment on above: Performed By: #### 1 3110979, 296948045, 64115932, 5439889, 0060984 #### [facility] [address] [place] [address] Glucose Test strip (U) [Mass/Vol] Negative Normal Negative [facility] Comment on above: Performed By: #### 1 8922794, 800995675, 12489785, 4121490, 8847671 #### [facility] Laboratory [address] [place] [address] Hemoglobin Ql (U) Negative Normal Negative [facility] Comment on above: Performed By: #### 1 0575181, 103722146, 27768632, 0996443, 1252879 #### [facility] Laboratory [address] [place] [address] Ketones (U) [Mass/Vol] Negative Normal Negative [facility] Comment on above: Performed By: #### 1 7582797, 866585225, 07316598, 8810808, 4618433 #### [facility] Laboratory [address] [place] [address] [place].plasma/[place] .RBC (Bld) [Mass ratio] 0-3 Normal 0-3 [facility] Comment on above: Performed By: #### 1 6388627, 698422346, 43906450, 2624601, 2281601 #### [facility] Laboratory [address] [place] [address] Mucus Ql (Urine sed) TRACE Normal [facility] Comment on above: Performed By: #### 1 7517363, 300708700, 17476102, 6495712, 9418398 #### [facility] [address] [place] [address] Nitrite Ql (U) Negative Normal Negative [facility] Comment on above: Performed By: #### 1 0243304, 827798713, 42075345, 6967300, 3007070 #### [facility] Laboratory [address] [place] [address] pH (U) 6.0 [pH] Invalid Interpretation Code 5.0-9.0 [facility] Comment on above: Performed By: #### 1 3370300, 938413442, 58600342, 5401908, 9916726 #### [facility] Laboratory [address] [place] [address] Protein (U) [Mass/Vol] Negative Normal Negative [facility] Comment on above: Performed By: #### 1 7111394, 058609641, 32032341, 7425518, 8795792 #### [facility] Laboratory [address] [place] [address] Specific gravity (U) [Rel density] 1.020 Invalid Interpretation Code 1.005-1.03 0 [facility] Comment on above: Performed By: #### 1 6072299, 998923151, 61568010, 1941813, 8686157 #### [facility] Laboratory [address] [place] [address] Type of Urine collection method Clean Catch Normal [facility] Comment on above: Performed By: #### 1 7251715, 047585537, 96360370, 0386291, 2035048 #### [facility] Laboratory [address] [place] [address] Urobilinogen Qn (U) 0.2 {Vitaliy'U}/dL Normal 0.0-1.0 [facility] Comment on above: Performed By: #### 1 5665205, 464084110, 78445577, 9425469, 9132840 #### [facility] Laboratory [address] [place] [address] WBC Auto Ql (U) 1+ Abnormal Negative [facility] Comment on above: Performed By: #### 1 7401480, 936976678, 31723092, 5522828, 5404695 #### [facility] Laboratory [address] [place] [address] WBC casts LM.LPF (Urine sed) [#/Area] 0-3 Normal [facility] Comment on above: Performed By: #### 1 8579775, 808526974, 52329977, 8329599, 7407069 #### [facility] Laboratory [address] [place] [address] WBC LM.HPF (Urine sed) [#/Area] 6-15 Abnormal 0-5 [facility] Comment on above: Performed By: #### 1 8626436, 101709614, 65806692, 5442785, 0247813 #### [facility] Laboratory [address] [place] [address] Urine protein/creatinine rat ioOrdered By: SYSTEM SYSTEM on 07-25-2023 Protein/Creatinine (U) [Ratio] 7.30 mg/gm Cr .00-200.00 [facility] Chem Vit B12on 07-25-2023 Cobalamin (Vitamin B12) [Mass/Vol] 138 pg/mL Normal 50-1500 [facility] Comment on above: Performed By: #### 2 [id number] #### [facility] Laboratory [address] [place] [address] Vitamin D 25 Hydroxyon 07-24 25-hydroxyvitamin D3 [Mass/Vol] 39.2 ng/mL Normal 30.0-100.0 [facility] Comment on above: Performed By: #### 2 [id number] #### [facility] [address] [facility] [address] [place] [address] eGFRon 07-25-2023 eGFR 32 mL/min/1.73 m2 Low >=59 [facility] Comment on above: Order Comment: Order added by Discern Expert. Performed By: #### 2 [id number] #### [facility] Laboratory [address] [place] [address] MA Mamm Diag w/CAD if perfor med LTon 06-16-2023 MA Mamm Diag w/CAD if performed LT Exam Date/Time: 05/27/2023 13:57 EST Reason for Exam: R92.8;Abnormal mammogram Report IMPRESSION: BIRADS 3 PROBABLY BENIGN, SHORT INTERVAL FOLLOW-UP FINAL PATHOLOGIC DIAGNOSIS: LEFT BREAST NODULE, 12 O'CLOCK, ULTRASOUND-GUIDED CORE BIOPSY: \X2013\ FIBROADENOMA. \X2013\ FIBROCYSTIC CHANGES. \X2013\ SCANT MICROCALCIFICATIONS PRESENT. The pathologic diagnosis corresponds to the imaging findings, and follow-up imaging is suggested suggested in 6 months. Follow-up: 6 MONTH RECALL EXAM: MA Mamm Diag w/CAD if performed LT DATE: 05/27/2023 1:41 PM CLINICAL HISTORY: Abnormal mammogram, R92.8. COMPARISONS: 05/06/2023. TECHNIQUE: Full field CC, MLO, and ML 2D mammograms were obtained of the left breast. FINDINGS: A biopsy marking clip and mild surrounding postbiopsy changes are noted within the upper-outer quadrant of the left breast at a and anterior to middle depth, which correspond to the mammographic area of concern. No evidence of significant clip migration or other significant changes identified. Dense Breast: No. CAD analysis was performed and used in the interpretation. Board Certified Radiologists. Accredited by the ACR and FDA. MAMMOGRAPHY IS VERY IMPORTANT TO YOUR HEALTH. THE CURRENT [employer] GUIDELINES RECOMMENDS ANNUAL MAMMOGRAPHY BEGINNING AT AGE 40. THIS FACILITY UTILIZES A REMINDER SYSTEM TO ENSURE ALL PATIENTS RECEIVE REMINDER Report NOTIFICATIONS AT THE APPROPRIATE TIME BASED ON THE RECOMMENDATIONS OF THIS EXAM. \X09\ Ordering Provider: Angel Page FINAL REPORT Dictated: 06/16/2023 10:50 am Lamin Grace MD Signed (Electronic Signature): 06/16/2023 10:50 am Signed by: Lamin Grace MD Transcribed by: PAT Technologist: BARBARA Assessment: BI-RADS Category 3-Probably benign - short interval follow-up Recommendation: Follow-up at short interval [facility] US Breast biopsy Vac Asst, F irst Lesionon 06-10-2023 US Breast biopsy Vac Asst, First Lesion Exam Date/Time: 05/27/2023 14:04 EST Reason for Exam: R92.8;Breast Mass / Nodule Addendum ADDENDUM: FINAL PATHOLOGIC DIAGNOSIS: LEFT BREAST NODULE, 12 O'CLOCK, ULTRASOUND-GUIDED CORE BIOPSY: \X2013\ FIBROADENOMA. \X2013\ FIBROCYSTIC CHANGES. \X2013\ SCANT MICROCALCIFICATIONS PRESENT. The pathologic diagnosis corresponds to the imaging findings, and follow-up imaging is suggested suggested in 6 months. Ordering Provider: Angel Page FINAL REPORT Dictated: 06/10/2023 4:43 pm Lamin Grace MD Signed (Electronic Signature): 06/10/2023 4:43 pm Signed by: Lamin Grace MD Transcribed by: PAT Technologist: FREDERICK, Report IMPRESSION: ULTRASOUND-GUIDED LEFT BREAST BIOPSY. BIOPSY RESULTS ARE PENDING. EXAM: US Breast biopsy Vac Asst, First Lesion DATE: 05/27/2023 12:53 PM CLINICAL HISTORY: Breast Mass / Nodule, R92.8. COMPARISON: 05/06/2023. PROCEDURE: Informed consent was obtained. Sterile technique, local lidocaine anesthesia and ultrasound guidance were used to place a 9 [facility]-assisted biopsy needle directly adjacent to the suspicious nodule within the 12 o'clock position of the left breast. Numerous core samples were obtained in the usual fashion. A [employer] mini cork-shaped marking clip was then deployed. Report The patient tolerated the procedure without evidence of an immediate complication. Postbiopsy mammograms demonstrated the clip to be in expected position with respect to the mammographic area of concern. She was discharged home in stable condition with usual instructions. Ordering Provider: Angel Page FINAL REPORT Dictated: 05/27/2023 2:39 pm Lamin Grace MD Signed (Electronic Signature): 05/27/2023 2:39 pm Signed by: Lamin Grace MD Transcribed by: PAT Technologist: FREDERICK, Report last revised on 06/10/2023 16:43 EST by Lamni Grace MD [facility] General Surgery Office/Clini c Noteon 06-03-2023 General Surgery Office/Clinic Note HPI Staff Dinorah is a 73 y.o. female here for s/p US guided bx done 05/27/2023 MRI was unable to be performed d/t cre leve abnormal History of Present Illness Dinorah Pepe is a 73-year-old female here for follow-up ultrasound-guided core needle biopsy performed on 05/27/2023. Final pathology reveals fibroadenoma, fibrocystic changes, and scant microcalcifications. Final pathology showed a fibroadenoma of the left breast core needle biopsy. Per radiology reports, they did recommend a repeat right breast mammogram and ultrasound in 6 months. The patient is amenable to this plan. We did attempt an MRI which was the other alternative. However, due to kidney function, we were unable to proceed with this particular imaging. Review of Systems ROS - Constitutional: No fever, no sweats, no weight loss. Eyes: No glasses, no blurred vision, no visual loss. ENMT: No dentures, no hoarseness, no swallowing difficulties, no hearing loss, no ear infection (s), no nose bleeds. Cardiovascular: Normal blood pressure, no chest pain, regular heartbeat, no heart murmur. Respiratory: No shortness of breath, no cough, no wheezing, no asthma. Gastrointestinal: No nausea, no vomiting, no diarrhea, no constipation, no blood in stool, no change in bowel habits, no abdominal pain, no hepatitis. Genitourinary: No kidney stones, no urine infection, no difficulty passing urine. Musculoskeletal: No pain, no weakness. Skin: No changing moles, no rash, no skin lumps. Neurologic: No seizures, no epilepsy, no headache. Psychiatric: No emotional, no psychiatric problem. Endocrine: No thyroid, no diabetes. Heme/Lymph: No bleeding problems, no anemia, no blood clots, no transfusions. Allergy/Immunologic: No swollen lymph nodes/glands, no IV drug abuse. Other: Additional ROS info: Except as noted in the above Review of Systems and in the History of Present Illness, all other systems have been reviewed and are negative or noncontributory. Physical Exam General: No acute distress Respiratory: Unlabored breathing on room air Cardiac: Regular rate and rhythm Abdomen: Soft nontender nondistended Breast: The biopsy site is healing well. Assessment/Plan 1. Abnormal mammogram of left breast (R92.8: Other abnormal and inconclusive findings on diagnostic imaging of breast) We will proceed with a right breast mammogram and right breast ultrasound in 6 months to monitor the nodularity. Portions of this record may have been created with voice recognition artificial intelligence software, specifically [employer], [email or web address] and or [employer]. Substitutions may have occurred voice recognition and artificial intelligence software. ATTESTATION: Documentation services were performed after patient or guardian consented to allow [facility]ER[facility] to record this visit. KARTHIK internal control specialist and provider reviewed before signing. KARTHIK: Gloria Cilocilo. Follow-up No qualifying data available Problem List/Past Medical History Ongoing Abnormal mammogram of left breast Bladder stone BMI 50.0-59.9, adult Kidney stone Obesity Historical No qualifying data Procedure/Surgical History Colonoscopy (08/07/2021), t tka compounded by obesity BMI>58 (09/09/2015), Knee arthroplasty. Medications aspirin atorvastatin 10 mg Tab, 10 mg= 1 tab(s), Oral, Daily Fosamax 70 mg Tab, 70 mg= 1 tab(s), Oral, qWeek gabapentin 300 mg Cap, 600 mg= 2 cap(s), Oral, Bedtime hydrochlorothiazide-triamt erene 50 mg-75 mg Tab, 0.5 tab(s), Oral, Daily indomethacin 50 mg oral capsule, 50 mg= 1 cap(s), Oral, TID Metoprolol tartrate 50 mg Tab, 50 mg= 1 tab(s), Oral, BID venlafaxine 150 mg Cap-ER, 150 mg= 1 cap(s), Oral, Daily Allergies penicillins (Itching) Social History Alcohol - Denies Alcohol Use, 08/25/2015 Substance Abuse - Denies Substance Abuse, 08/25/2015 Tobacco - Denies Tobacco Use, 08/25/2015 Never (less than 100 in lifetime) Tobacco Use:., 06/03/2023 Family History Cardiac arrhythmia: Sister. Heart failure: Father. Stroke: Mother. Immunizations Vaccine Date Status influenza virus vaccine, inactivated 03/22/2023 Recorded influenza virus vaccine, inactivated 04/07/2022 Recorded SARS-CoV-2 (COVID-19) [id number] 04/07/2022 Recorded zoster vaccine, inactivated 09/07/2021 Recorded SARS-CoV-2 (COVID-19) mRNA BNT-162b2 vax 09/07/2021 Recorded influenza virus vaccine, inactivated 02/23/2021 Recorded SARS-CoV-2 (COVID-19) mRNA BNT-162b2 vax 02/23/2021 Recorded influenza virus vaccine, inactivated 02/2021 Recorded SARS-CoV-2 (COVID-19) Ad26 vaccine 08/13/2020 Recorded SARS-CoV-2 (COVID-19) mRNA BNT-162b2 vax 07/25/2020 Recorded SARS-CoV-2 (COVID-19) Ad26 vaccine 07/16/2020 Recorded SARS-CoV-2 (COVID-19) mRNA BNT-162b2 vax 07/03/2020 Recorded diphtheria/pertussis, acel/tetanus adult 03/19/2020 Recorded pneumococcal 23-valent vaccine 03/19/2020 Recorded zoster vaccine, inactivated 03/03/2020 Re (more content not included)... [facility] Comment on above: Result Comment: Elec tronically Signed By: Camilo GELLER, Angel Bui\.br\Date and Time Signed: 06/03/23 10:48 EST\.br\Electronically Co-Signed By: Gloria Eden\.br\Date and Time Co-Signed: 06/03/23 10:47 EST Consent for Treatmenton Consent for Treatment [id number]#1.00TIFF [facility] RAD - Consent to Procedureon 05-27-2023 RAD - Consent to Procedure [id number]#1.00TIFF [facility] RAD - MISCon 05-27-2023 RAD - MISC [id number]#1.00TIFF [facility] Consent for Treatmenton Consent for Treatment [id number]#1.00TIFF Normal [facility] Creatinineon 05-24-2023 Creatinine [Mass/Vol] 1.8 mg/dL High 0.5-1.3 [facility] Comment on above: Performed By: #### 1 [id number] #### [facility] Laboratory [address] [place] [address] RAD - MRI Screening Formon 0 05-24-2023 RAD - MRI Screening Form [id number]#1.00TIFF Normal [facility] eGFRon 05-24-2023 eGFR 30 mL/min/1.73 m2 Low >=59 [facility] Comment on above: Order Comment: Order added by Discern Expert. Performed By: #### 1 [id number] #### [facility] Laboratory [address] [place] [address] Physician Orderon 05-20-2023 Physician Order [id number]#1.00TIFF Normal [facility] Ambulatory Visit Summaryon 1 07-19-2022 Ambulatory Visit Summary DINORAH PEPE :1950 Visit Date:05/17/2023 Ambulatory Visit Instructions Your Diagnosis Abnormal mammogram of left breast BMI 50.0-59.9, adult Obesity Your Care Team Attending Physician - Camilo GELLER, Angel Bui Primary Care Physician - Yuli Duckworth CNP Referring Physician - Amy Julian DO This Is Your Medications List alendronate (Fosamax 70 mg Tab) aspirin atorvastatin (atorvastatin 10 mg Tab) gabapentin (gabapentin 300 mg Cap) hydrochlorothiazide-triamt erene (hydrochlorothiazide-triam terene 50 mg-75 mg Tab) indomethacin (indomethacin 50 mg oral capsule) metoprolol (Metoprolol tartrate 50 mg Tab) venlafaxine (venlafaxine 150 mg Cap-ER) Procedures Performed Colonoscopy (08/07/2021), t tka compounded by obesity BMI>58 (09/09/2015), Knee arthroplasty. Discharge Vitals Heart Rate (Peripheral) 71 Blood Pressure 115/75 Height 152 cm Height 60 in Weight 120 kg Weight 264 lb BMI 51.94 What to do next Scheduled Follow-Up Appointments Tuesday 2:00 PM EST With: Where: [facility] Tuesday 1:00 PM EST With: Where: [facility] Tuesday 2:00 PM EST With: Where: [facility]amm[facility] Tuesday 9:20 AM EST With: Angel Page MD Where: [facility] General Surgery [place] Normal [facility] General Surgery Office/Clini c Noteon 05-17-2023 General Surgery Office/Clinic Note Chief Complaint 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 female here for abnormal mammogram-BiRads 4 Alok Julian referring Screening mammogram done 10/29/2022 Diagnostic mammogram done w/ US-Left breast 05/06/2023 She states she had an episode of right arm pain. Sought out to chiropractor. Then she started with left shoulder pain that travels to left breast. She denies feeling lumps, itching or rashes She did use icy hot axillary for muscle pain. Noticed after tenderness. She denies family hx of breast or previous abnormal mammograms History of Present Illness Dinorah Pepe is a 73-year-old female who was referred to us by Dr. Amy Julian for evaluation of BI-RADS 4 mammogram obtained on 05/06/2023. On ultrasound examination, there is a small hypoechoic nodule noted at the 12 o'clock position, in the left breast that was recommended for biopsy. There were 2 other nodular densities noted on mammograms that are stable in appearance, but not specifically delineated on ultrasound examination. The radiology report recommended either repeat mammogram in 6 months or possibly an MRI breast exam with and without intravenous contrast for further evaluation of these nodules. The patient denies any breast changes. She denies family history of breast cancer. She denies family history of colon cancer. Review of Systems PHQ Score Initial Depression Screen Score: 1 SCORE Constitutional: No fever, no sweats, no weight loss. Eyes: No glasses, no blurred vision, no visual loss. ENMT: No dentures, no hoarseness, no swallowing difficulties, no hearing loss, no ear infection (s), no nose bleeds. Cardiovascular: Normal blood pressure, no chest pain, regular heartbeat, no heart murmur. Respiratory: No cough, no wheezing, no asthma. Gastrointestinal: No nausea, no vomiting, no constipation, no change in bowel habits, no abdominal pain, no hepatitis. Genitourinary: No kidney stones, no urine infection, no difficulty passing urine. Musculoskeletal: No pain, no weakness. Skin: No changing moles, no rash, no skin lumps. Neurologic: No seizures, no epilepsy, no headache. Psychiatric: No emotional, no psychiatric problem. Endocrine: No thyroid, no diabetes. Heme/Lymph: No bleeding problems, no anemia, no blood clots, no transfusions. Allergy/Immunologic: No swollen lymph nodes/glands, no IV drug abuse. Other: Additional ROS info: Except as noted in the above Review of Systems and in the History of Present Illness, all other systems have been reviewed and are negative or noncontributory. Physical Exam Vitals & Measurements HR: 71(Peripheral) BP: 115/75 HT: 60 in HT: 152 cm WT: 120 kg WT: 264 lb BMI: 51.94 General: No acute distress Respiratory: Unlabored breathing on room air Cardiac: Regular rate and rhythm Abdomen: Soft nontender nondistended Breast: Her left and right breast are unremarkable. Left axillary exam is unremarkable. Right axillary exam is unremarkable. Assessment/Plan 1. Abnormal mammogram of left breast (R92.8: Other abnormal and inconclusive findings on diagnostic imaging of breast) We will proceed with an ultrasound-guided core needle biopsy of the 12 o'clock area of concern in the left breast and obtain bilateral MRIs with and without contrast of both breasts per radiology recommendation to evaluate the area of the nodularity. 2. BMI 50.0-59.9, adult (Z68.43: Body mass index [BMI] 50.0-59.9, adult) Education provided. 3. Obesity (E66.9: Obesity, unspecified) Education provided. Portions of this record may have been created with voice recognition artificial intelligence software, specifically [employer], official[employer]fm and or [employer]. Substitutions may have occurred voice recognition and artificial intelligence software. ATTESTATION: Documentation services were performed after patient or guardian consented to allow Francheska Aguirre to record this visit. KARTHIK internal control specialist and provider reviewed before signing. KARTHIK: Adalgisa Downing Follow-up No qualifying data available Patient Education Obesity, Adult Problem List/Past Medical History Ongoing Abnormal mammogram of left breast Bladder stone BMI 50.0-59.9, adult Kidney stone Obesity Historical No qualifying data Procedure/Surgical History Colonoscopy (08/07/2021), t tka compounded by obesity BMI>58 (09/09/2015), Knee arthroplasty. Medications aspirin atorvastatin 10 mg Tab, 10 mg= 1 tab(s), Oral, Daily Fosamax 70 mg Tab, 70 mg= 1 tab(s), Oral, qWeek gabapentin 300 mg Cap, 600 mg= 2 cap(s), Oral, Bedtime hydrochlorothiazide-triamt erene 50 mg-75 mg Tab, 0.5 tab(s), Oral, Daily indomethacin 50 mg oral capsule, 50 mg= 1 cap(s), Oral, TID, Not taking: patient states has not needed for a while. Instructed not to take from kidney specialist Metoprolol tartrate 50 mg Tab, 50 mg= 1 tab(s), Oral, BID venlafaxine 150 mg Cap-ER, 150 mg= 1 cap(s), Oral, Daily Allergies penicillins (more content not included)... Normal [facility] Comment on above: Result Comment: Elec tronically Signed By: Angel Page MD\.br\Date and Time Signed: 05/17/23 10:46 EST\.br\Electronically Co-Signed By: Adalgisa Downing\.br\Date and Time Co-Signed: 05/17/23 10:09 EST Patient Educationon 05-17-20 Patient Education Gastroenterology Obesity, Adult Obesity is the condition of having too much total body fat. Being overweight or obese means that your weight is greater than what is considered healthy for your body size. Obesity is determined by a measurement called BMI (body mass index). BMI is an estimate of body fat and is calculated from height and weight. For adults, a BMI of 30 or higher is considered obese. Obesity can lead to other health concerns and major illnesses, including: ? Stroke. ? Coronary artery disease (CAD). ? Type 2 diabetes. ? Some types of cancer, including cancers of the colon, breast, uterus, and gallbladder. ? High blood pressure (hypertension). ? High cholesterol. ? Gallbladder stones. Obesity can also contribute to: ? Osteoarthritis. ? Sleep apnea. ? Infertility problems. What are the causes? Common causes of this condition include: ? Eating daily meals that are high in calories, sugar, and fat. ? Drinking high amounts of sugar-sweetened beverages, such as soft drinks. ? Being born with genes that may make you more likely to become obese. ? Having a medical condition that causes obesity, including: ? Hypothyroidism. ? Polycystic ovarian syndrome (PCOS). ? Binge-eating disorder. ? [place] syndrome. ? Taking certain medicines, such as steroids, antidepressants, and seizure medicines. ? Not being physically active (sedentary lifestyle). ? Not getting enough sleep. What increases the risk? The following factors may make you more likely to develop this condition: ? Having a family history of obesity. ? Living in an area with limited access to: ? [place], recreation centers, or sidewalks. ? Healthy food choices, such as grocery stores and [employer]. What are the signs or symptoms? The main sign of this condition is having too much body fat. How is this diagnosed? This condition is diagnosed based on: ? Your BMI. If you are an adult with a BMI of 30 or higher, you are considered obese. ? Your waist circumference. This measures the distance around your waistline. ? Your skinfold thickness. Your health care provider may gently pinch a fold of your skin and measure it. You may have other tests to check for underlying conditions. How is this treated? Treatment for this condition often includes changing your lifestyle. Treatment may include some or all of the following: ? Dietary changes. This may include developing a healthy meal plan. ? Regular physical activity. This may include activity that causes your heart to beat faster (aerobic exercise) and strength training. Work with your health care provider to design an exercise program that works for you. ? Medicine to help you lose weight if you are unable to lose one pound a week after six weeks of healthy eating and more physical activity. ? Treating conditions that cause the obesity (underlying conditions). ? Surgery. Surgical options may include gastric banding and gastric bypass. Surgery may be done if: ? Other treatments have not helped to improve your condition. ? You have a BMI of 40 or higher. ? You have life-threatening health problems related to obesity. Follow these instructions at home: Eating and drinking ? Follow recommendations from your health care provider about what you eat and drink. Your health care provider may advise you to: ? Limit fast food, sweets, and processed snack foods. ? Choose low-fat options, such as low-fat milk instead of whole milk. ? Eat five or more servings of fruits or vegetables every day. ? Choose healthy foods when you eat out. ? Keep low-fat snacks available. ? Limit sugary drinks, such as soda, fruit juice, sweetened iced tea, and flavored milk. ? Drink enough water to keep your urine pale yellow. ? Do not follow a fad diet. Fad diets can be unhealthy and even dangerous. ? Other healthful choices include: ? Eat at home more often. This gives you more control over what you eat. ? Learn to read food labels. This will help you understand how much food is considered one serving. ? Learn what a healthy serving size is. Physical activity ? Exercise regularly, as told by your health care provider. ? Most adults should get up to 150 minutes of moderate-intensity exercise every week. ? Ask your health care provider what types of exercise are safe for you and how often you should exercise. ? Warm up and stretch before being active. ? Cool down and stretch after being active. ? Rest between periods of activity. Lifestyle ? Work with your health care provider and a dietitian to set a weight-loss goal that is healthy and reasonable for you. ? Limit your screen time. ? Find ways to reward yourself that do not involve food. ? Do not drink alcohol if: ? Your health care provider tells you not to drink. ? You are , may be , or are planning to become . ? If you drink alcohol: ? Limit how much you have to (more content not included)... [facility] Physician Referralon 023 Physician Referral [id number]#1.00TIFF [facility] Consent for Treatmenton 04-22 Consent for Treatment [id number]#1.00TIFF [facility] MA Mamm Diag w/CAD if perf a nd 3D LTon 05-06-2023 MA Mamm Diag w/CAD if perf and 3D LT Exam Date/Time: 05/06/2023 09:24 EST Reason for Exam: R92.8 Other abnormal and inconclusive findings on diagnostic imaging of breast Report IMPRESSION: BIRADS 4 SUSPICIOUS ABNORMALITY, BIOPSY SHOULD BE CONSIDERED.RECALL NOW. ON THE ULTRASOUND EXAMINATION, A SMALL HYPOECHOIC NODULE IS NOTED AT 12:00, THAT APPEARS TO BE SOLID, AND BIOPSY IS A CONSIDERATION. THIS DOES NOT DEFINITELY CORRESPOND TO EITHER OF THE NODULAR DENSITIES NOTED ON THE MAMMOGRAMS. THE TWO NODULAR DENSITIES NOTED ON THE MAMMOGRAMS ARE STABLE IN APPEARANCE, BUT NOT SPECIFICALLY DELINEATED ON THE ULTRASOUND EXAM. A REASONABLE APPROACH WOULD BE TO FOLLOW THESE, WITH SIX-MONTH MAMMOGRAMS AND ULTRASOUND EXAMINATION. ALTERNATIVELY, A MRI BREAST EXAMINATION, WITHOUT AND WITH INTRAVENOUS CONTRAST ENHANCEMENT, MAY BE HELPFUL FOR FURTHER EVALUATION. CLINICAL HISTORY: R92.8 Other abnormal and inconclusive findings on diagnostic imaging of breast. COMPARISON: 10/29/2022. COMMENT: Routine views and tomosynthesis views of the left breast were obtained. There are scattered areas of fibroglandular density. In the anterior upper outer left breast, there is an approximately 7 mm diameter nodular density. In the posterior left breast near the nipple line, there is an approximately 7 mm diameter nodular density. There has been no significant change in these nodular densities when compared to the prior exam. No neoplastic calcifications are identified in the left breast. The examination was reviewed with Computer Aided Detection. An ultrasound was obtained at all clock face positions and in the central/ retroareolar region of the left breast. At 12:00, there is a nodular structure, with rounded margin, that measures approximately 4 mm in greatest diameter. This is hypoechoic with neither appreciable acoustic shadowing or enhancement. No associated hyperemia is noted on the color flow Doppler images. Based on size and location, this does not definitely correspond to either of the nodular densities noted on the mammograms. However, by ultrasound findings, this is not a simple cyst. On scanning of the remainder of the left breast, no mass, no cyst, nor suspicious lesion is evident. No definite ultrasound findings to correspond to the mammographic findings are noted. Breast Density: No Mammography is very important to your health. The current [employer] and National [employer] guidelines recommends annual Report mammography beginning at age 40. This facility utilizes a reminder system to ensure all patients receive reminder notifications at the appropriate time based on the recommendations of this exam. Board Certified Radiologists. Accredited by the ACR and FDA. Ordering Provider: Yuli Duckworth FINAL REPORT Dictated: 05/06/2023 10:42 am Vin Joy M.D. Signed (Electronic Signature): 05/06/2023 10:42 am Signed by: Vin Joy M.D. Transcribed by: PAT Technologist: BEV Assessment: BI-RADS Category 4-Suspicious abnormality, biopsy should be considered Recommendation: Biopsy should be considered Normal [facility] US Breast Unilateral Lt Comp leteon 05-06-2023 US Breast Unilateral Lt Complete Exam Date/Time: 05/06/2023 09:59 EST Reason for Exam: R92.8 Other abnormal and inconclusive findings on diagnostic imaging of breast Report PLEASE REFER TO THE MAMMOGRAM REPORT. Ordering Provider: Yuli Duckworth FINAL REPORT Dictated: 05/06/2023 10:42 am Vin Joy M.D. Signed (Electronic Signature): 05/06/2023 10:42 am Signed by: Vin Joy M.D. Transcribed by: PAT Technologist: FREDERICK Normal [facility] Troponin I High Sensitivityo n 04-20-2023 Troponin I High Sensitivity 3.6 pg/mL Normal 0.0-15.0 [facility] Comment on above: Result Comment: PERF ORMED BY: [place] [address] PATHOLOGIST ROLLED SEAT TRIMMER ARSENIO GARCIA M.D. Performed By: #### C BC, PTT, LIPASE, HEPATIC, BNP, BMP, PT, HS TROP, CK #### [facility] [address] Activated partial thrombopla stin time (aPTT) in platelet poor plasma by coagulation aOrdered By: Chris Walden on 04-19-2023 aPTT Coag (PPP) [Time] 32.1 s 25.1-36.5 [facility] Comment on above: A hematocrit value g reater than 55% may lead to inaccurate results in coagulation testing. Patients having hematocrit values >55% require a special collection tube for coagulation studies. Please contact the laboratory at [phone] for redraw instructions. Alanine aminotransferase [En zymatic activity/volume] in Serum or PlasmaOrdered By: Chris Walden on 04-19-2023 ALT [Catalytic activity/Vol] 19 U/L 7-52 [facility] Albumin [Mass/volume] in Ser um or Plasma by Bromocresol green (BCG) dye binding methoOrdered By: Chris Walden on 04-19-2023 Albumin BCG dye [Mass/Vol] 4.1 g/dL 3.5-5.7 [facility] Alkaline phosphatase [Enzyma tic activity/volume] in Serum or PlasmaOrdered By: Chris Walden on 04-19-2023 ALP [Catalytic activity/Vol] 108 U/L 34-104 [facility] Aspartate aminotransferase [ Enzymatic activity/volume] in Serum or PlasmaOrdered By: Chris Walden on 04-19-2023 AST [Catalytic activity/Vol] 14 U/L 13-39 [facility] B-Type Natriuretic Peptideon 04-19-2023 Natriuretic peptide B (Bld) [Mass/Vol] 102.0 pg/mL High 5-100 [facility] Comment on above: Result Comment: PERF ORMED BY: [place] [address] PATHOLOGIST ROLLED SEAT TRIMMER ARSENIO GARCIA M.D. Performed By: #### C BC, PTT, LIPASE, HEPATIC, BNP, BMP, PT, HS TROP, CK #### [facility] [address] [place] [address] Basic Metabolic Panelon - Anion gap [Moles/Vol] 10.7 mmol/L Normal 6.0-15.0 [facility] Comment on above: Performed By: #### C BC, PTT, LIPASE, HEPATIC, BNP, BMP, PT, HS TROP, CK #### [facility] [address] Calcium [Mass/Vol] 11.4 mg/dL High 8.6-10.3 [facility] Comment on above: Performed By: #### C BC, PTT, LIPASE, HEPATIC, BNP, BMP, PT, HS TROP, CK #### [facility] [address] Chloride [Moles/Vol] 102 mmol/L Normal 98-107 [facility] Comment on above: Performed By: #### C BC, PTT, LIPASE, HEPATIC, BNP, BMP, PT, HS TROP, CK #### [facility] [address] CO2 [Moles/Vol] 27.6 mmol/L Normal 21.0-31.0 [facility] Comment on above: Performed By: #### C BC, PTT, LIPASE, HEPATIC, BNP, BMP, PT, HS TROP, CK #### [facility] [address] Creatinine [Mass/Vol] 1.76 mg/dL High 0.60-1.20 [facility] Comment on above: Performed By: #### C BC, PTT, LIPASE, HEPATIC, BNP, BMP, PT, HS TROP, CK #### [facility] [address] Creatinine Clr Calc Pharmacy 35.34 [facility] Comment on above: Performed By: #### C BC, PTT, LIPASE, HEPATIC, BNP, BMP, PT, HS TROP, CK #### [facility] [address] GFR/1.73 sq M.predicted MDRD (S/P/Bld) [Vol rate/Area] 30.563 mL/min/{1.73_m2} [facility] Comment on above: Performed By: #### C BC, PTT, LIPASE, HEPATIC, BNP, BMP, PT, HS TROP, CK #### [facility] [address] Glucose [Mass/Vol] 126 mg/dL High 70-100 [facility] Comment on above: Result Comment: Rodney Glucose Reference Range is dependent on time and content of last meal. Glucose of more than 200 mg/dL in a nonstressed, ambulatory subject supports the diagnosis of Diabetes Mellitus. ADA recommended reference range Performed By: #### C BC, PTT, LIPASE, HEPATIC, BNP, BMP, PT, HS TROP, CK #### [facility] [address] Potassium [Moles/Vol] 3.3 mmol/L Low 3.5-5.1 [facility] Comment on above: Performed By: #### C BC, PTT, LIPASE, HEPATIC, BNP, BMP, PT, HS TROP, CK #### [facility] [address] Sodium [Moles/Vol] 137 mmol/L Normal 136-145 [facility] Comment on above: Performed By: #### C BC, PTT, LIPASE, HEPATIC, BNP, BMP, PT, HS TROP, CK #### [facility] [address] Urea nitrogen [Mass/Vol] 24 mg/dL Normal 7-25 [facility] Comment on above: Performed By: #### C BC, PTT, LIPASE, HEPATIC, BNP, BMP, PT, HS TROP, CK #### [address] Basophils Auto (Bld) [#/Vol] Ordered By: Chris Walden on 04-19-2023 Basophils (Bld) [#/Vol] 0.1 10*3/uL 0.0-0.2 [facility] Basophils/100 WBC Auto (Bld) Ordered By: Chris Walden on 04-19-2023 Basophils/100 WBC (Bld) 1.0 % . [facility] Bilirubin.direct [Mass/volum e] in Serum or PlasmaOrdered By: Chris Walden on 04-19-2023 Bilirubin.direct [Mass/Vol] 0.10 mg/dL 0.03-0.18 [facility] Bilirubin.total [Mass/volume ] in Serum or PlasmaOrdered By: Chris Walden on 04-19-2023 Bilirubin [Mass/Vol] 0.3 mg/dL 0.3-1.0 [facility] Calcium [Mass/volume] in Ser um or PlasmaOrdered By: Chris Walden on 04-19-2023 Calcium [Mass/Vol] 11.4 mg/dL 8.6-10.3 [facility] Carbon dioxide, total [Moles /volume] in Serum or PlasmaOrdered By: Chris Walden on 04-19-2023 CO2 [Moles/Vol] 27.6 mmol/L 21.0-31.0 [facility] Chloride [Moles/volume] in S alma or PlasmaOrdered By: Chris Walden on 04-19-2023 Chloride [Moles/Vol] 102 mmol/L 98-107 [facility] Complete Blood Count Auto Di ffon 04-19-2023 Basophils (Bld) [#/Vol] 0.1 10*3/uL Normal 0.0-0.2 [facility] Comment on above: Result Comment: PERF ORMED BY: [place] [address] PATHOLOGIST ROLLED SEAT TRIMMER ARSENIO GARCIA M.D. Performed By: #### C BC, PTT, LIPASE, HEPATIC, BNP, BMP, PT, HS TROP, CK #### [address] Basophils/100 WBC (Bld) 1.0 % Normal . [facility] Comment on above: Performed By: #### C BC, PTT, LIPASE, HEPATIC, BNP, BMP, PT, HS TROP, CK #### [address] Eosinophils (Bld) [#/Vol] 0.4 10*3/uL Normal 0.0-0.45 [facility] Comment on above: Performed By: #### C BC, PTT, LIPASE, HEPATIC, BNP, BMP, PT, HS TROP, CK #### [address] Eosinophils/100 WBC (Bld) 3.5 % Normal . [facility] Comment on above: Performed By: #### C BC, PTT, LIPASE, HEPATIC, BNP, BMP, PT, HS TROP, CK #### [address] Erythrocyte distribution width (RBC) [Ratio] 18.2 % High 11.9-15.3 [facility] Comment on above: Performed By: #### C BC, PTT, LIPASE, HEPATIC, BNP, BMP, PT, HS TROP, CK #### [address] Hematocrit (Bld) [Volume fraction] 33.9 % Low 34.0-46.4 [facility] Comment on above: Performed By: #### C BC, PTT, LIPASE, HEPATIC, BNP, BMP, PT, HS TROP, CK #### [address] Hemoglobin (Bld) [Mass/Vol] 11.2 g/dL Low 11.8-15.4 [facility] Comment on above: Performed By: #### C BC, PTT, LIPASE, HEPATIC, BNP, BMP, PT, HS TROP, CK #### [address] Lymphocytes (Bld) [#/Vol] 1.3 10*3/uL Normal 1.00-4.8 [facility] Comment on above: Performed By: #### C BC, PTT, LIPASE, HEPATIC, BNP, BMP, PT, HS TROP, CK #### [address] Lymphocytes/100 WBC (Bld) 12.3 % Normal . [facility] Comment on above: Performed By: #### C BC, PTT, LIPASE, HEPATIC, BNP, BMP, PT, HS TROP, CK #### [address] MCH (RBC) [Entitic mass] 25.6 pg Normal 24.7-34.3 [facility] Comment on above: Performed By: #### C BC, PTT, LIPASE, HEPATIC, BNP, BMP, PT, HS TROP, CK #### [address] MCV (RBC) [Entitic vol] 77.7 fL Low 80-100 [facility] Comment on above: Performed By: #### C BC, PTT, LIPASE, HEPATIC, BNP, BMP, PT, HS TROP, CK #### [place] [address] [place] Mean Corpuscular HGB Conc 32.9 g/dL Normal 32.0-35.0 [facility] Comment on above: Performed By: #### C BC, PTT, LIPASE, HEPATIC, BNP, BMP, PT, HS TROP, CK #### [facility] [address] Monocytes (Bld) [#/Vol] 0.5 10*3/uL Normal 0.0-0.8 [facility] Comment on above: Performed By: #### C BC, PTT, LIPASE, HEPATIC, BNP, BMP, PT, HS TROP, CK #### [facility] [address] Monocytes/100 WBC (Bld) 21.44 % High 0.00-20.00 [facility] Comment on above: Result Comment: For adults in ED, MDW > 20.0 may be associated with a higher risk of sepsis during the first 12 hrs of hospital admission Performed By: #### C BC, PTT, LIPASE, HEPATIC, BNP, BMP, PT, HS TROP, CK #### [facility] [address] Monocytes/100 WBC (Bld) 5.2 % Normal . [facility] Comment on above: Performed By: #### C BC, PTT, LIPASE, HEPATIC, BNP, BMP, PT, HS TROP, CK #### [facility] [address] Neutrophils (Bld) [#/Vol] 8.1 10*3/uL High 1.8-7.7 [facility] Comment on above: Performed By: #### C BC, PTT, LIPASE, HEPATIC, BNP, BMP, PT, HS TROP, CK #### [facility] [address] [place] [address] [place] Neutrophils/100 WBC (Bld) 78.0 % Normal . [facility] Comment on above: Performed By: #### C BC, PTT, LIPASE, HEPATIC, BNP, BMP, PT, HS TROP, CK #### [facility] [address] [place] [address] [place] NRBC% 0.1 /100{WBC} Normal 0-0.5 [facility] Comment on above: Performed By: #### C BC, PTT, LIPASE, HEPATIC, BNP, BMP, PT, HS TROP, CK #### [address] Platelet mean volume (Bld) [Entitic vol] 7.8 fL Normal 6.3-10.7 [facility] Comment on above: Performed By: #### C BC, PTT, LIPASE, HEPATIC, BNP, BMP, PT, HS TROP, CK #### [facility] [address] Platelets (Bld) [#/Vol] 309 10*3/uL Normal 150-450 [facility] Comment on above: Performed By: #### C BC, PTT, LIPASE, HEPATIC, BNP, BMP, PT, HS TROP, CK #### [address] RBC (Bld) [#/Vol] 4.36 10*6/uL Normal 3.60-5.00 [facility] Comment on above: Performed By: #### C BC, PTT, LIPASE, HEPATIC, BNP, BMP, PT, HS TROP, CK #### [address] WBC (Bld) [#/Vol] 10.4 10*3/uL Normal 3.8-11.6 [facility] Comment on above: Performed By: #### C BC, PTT, LIPASE, HEPATIC, BNP, BMP, PT, HS TROP, CK #### [address] Creatine Kinaseon 04-19-2023 CK [Catalytic activity/Vol] 23 U/L Low 30-223 [facility] Comment on above: Performed By: #### C BC, PTT, LIPASE, HEPATIC, BNP, BMP, PT, HS TROP, CK #### [address] Creatine kinase [Enzymatic a ctivity/volume] in Serum or PlasmaOrdered By: Chris Walden on 04-19-2023 CK [Catalytic activity/Vol] 23 U/L 30-223 [facility] Creatinine [Mass/volume] in Serum or PlasmaOrdered By: Chris Walden on 04-19-2023 Creatinine [Mass/Vol] 1.76 mg/dL 0.60-1.20 [facility] ECG 12 lead ECGon 04-19-2023 ECG 12 lead ECG [facility] [place] [address] Electrocardiograph Report Signed Patient: Dinorah Pepe MR#: [id number] 9 : 1950 Acct:[id number] Age/Sex: 73 / F ADM Date: 04/19/23 Loc: ER Room: Type: [facility] ER Attending Dr: Ordering Provider: Chris Walden PA-C Date of Service: 04/19/23 ECG/ECG 12 lead ECG: Extremity Injury, Upper Copies to: Test Reason : Blood Pressure : / mmHG Vent. Rate : 060 BPM Atrial Rate : 060 BPM P-R Int : 164 ms QRS Dur : 090 ms QT Int : 418 ms P-R-T Axes : 051 056 091 degrees QTc Int : 418 ms Sinus rhythm with premature atrial complexes Nonspecific ST and T wave abnormality Abnormal ECG No previous ECGs available Confirmed by ANGEL SAMSON MD ([id number]) on 04/19/2023 8:59:49 PM Referred By: Electronically Signed By:ANGEL SAMSON MD Transcribed By: MUS Signed By Angel Samson MD 04/19/232058 Normal [facility] Eosinophils Auto (Bld) [#/Vo l]Ordered By: Chris Walden on 04-19-2023 Eosinophils (Bld) [#/Vol] 0.4 10*3/uL 0.0-0.45 [facility] Eosinophils/100 WBC Auto (Bl d)Ordered By: Chris Walden on 04-19-2023 Eosinophils/100 WBC (Bld) 3.5 % . [facility] Erythrocyte distribution wid th Auto (RBC) [Ratio]Ordered By: Chris Walden on 04-19-2023 Erythrocyte distribution width (RBC) [Ratio] 18.2 % 11.9-15.3 [facility] Globulin Calc (S) [Mass/Vol] Ordered By: Chris Walden on 04-19-2023 Globulin (S) [Mass/Vol] 3.2 g/dL [facility] Glucose [Mass/volume] in Ser um or PlasmaOrdered By: Chris Walden on 04-19-2023 Glucose [Mass/Vol] 126 mg/dL 70-100 [facility] Comment on above: ADA recommended refe rence rangeRandom Glucose Reference Range is dependent on time and content of last meal. Glucose of more than 200 mg/dL in a nonstressed, ambulatory subject supports the diagnosis of Diabetes Mellitus. Hematocrit Auto (Bld) [Volum e fraction]Ordered By: Chris Walden on 04-19-2023 Hematocrit (Bld) [Volume fraction] 33.9 % 34.0-46.4 [facility] Hemoglobin [Mass/volume] in BloodOrdered By: Chris Walden on 04-19-2023 Hemoglobin (Bld) [Mass/Vol] 11.2 g/dL 11.8-15.4 [facility] Hepatic Panelon 04-19-2023 Albumin [Mass/Vol] 4.1 g/dL Normal 3.5-5.7 [facility] Comment on above: Performed By: #### C BC, PTT, LIPASE, HEPATIC, BNP, BMP, PT, HS TROP, CK #### [facility] [address] Albumin/Globulin [Mass ratio] 1.3 {ratio} Normal [facility] Comment on above: Performed By: #### C BC, PTT, LIPASE, HEPATIC, BNP, BMP, PT, HS TROP, CK #### [facility] [address] [place] [address] [place] ALP [Catalytic activity/Vol] 108 U/L High 34-104 [facility] Comment on above: Performed By: #### C BC, PTT, LIPASE, HEPATIC, BNP, BMP, PT, HS TROP, CK #### [facility] [address] ALT [Catalytic activity/Vol] 19 U/L Normal 7-52 [facility] Comment on above: Performed By: #### C BC, PTT, LIPASE, HEPATIC, BNP, BMP, PT, HS TROP, CK #### [facility] [address] AST [Catalytic activity/Vol] 14 U/L Normal 13-39 [facility] Comment on above: Performed By: #### C BC, PTT, LIPASE, HEPATIC, BNP, BMP, PT, HS TROP, CK #### [facility] [address] Bilirubin [Mass/Vol] 0.3 mg/dL Normal 0.3-1.0 [facility] Comment on above: Performed By: #### C BC, PTT, LIPASE, HEPATIC, BNP, BMP, PT, HS TROP, CK #### [facility] [address] Bilirubin,Indirect 0.2 mg/dL Normal [facility] Comment on above: Performed By: #### C BC, PTT, LIPASE, HEPATIC, BNP, BMP, PT, HS TROP, CK #### [facility] [address] Bilirubin.indirect [Mass/Vol] 0.10 mg/dL Normal 0.03-0.18 [facility] Comment on above: Performed By: #### C BC, PTT, LIPASE, HEPATIC, BNP, BMP, PT, HS TROP, CK #### [facility] [address] Globulin (S) [Mass/Vol] 3.2 g/dL Normal [facility] Comment on above: Performed By: #### C BC, PTT, LIPASE, HEPATIC, BNP, BMP, PT, HS TROP, CK #### [facility] [address] Protein [Mass/Vol] 7.3 g/dL Normal 6.4-8.9 [facility] Comment on above: Performed By: #### C BC, PTT, LIPASE, HEPATIC, BNP, BMP, PT, HS TROP, CK #### [address] INR in Platelet poor plasma by Coagulation assayOrdered By: Chris Walden on 04-19-2023 INR Coag (PPP) [Relative time] 1.0 {INR} [facility] Comment on above: INR Therapeutic Rang e A) Pre- and Peroperative OAT started two weeks before surgery. NOT HIP SURGERY: 1.5 - 2.5 HIP SURGERY: 2 - 3B) Primary and secondary prevention of venous THROMBOSIS: 2 - 3C) Active venous thrombosis, pulmonary embolismand prevention of recurrent venous thrombosis: 2 - 3D) Prevention of arterial thromboembolismincluding patients with mechanical heart valves: 3 - 4.5 Leukocytes [#/volume] correc jorge for nucleated erythrocytes in Blood by Automated counOrdered By: Chris Walden on 04-19-2023 WBC corrected for nucl RBC Auto (Bld) [#/Vol] 10.4 10*3/uL 3.8-11.6 [facility] Lipaseon 04-19-2023 Lipase [Catalytic activity/Vol] 19.0 U/L Normal 11.0-82.0 [facility] Comment on above: Result Comment: PERF ORMED BY: [place] [address] PATHOLOGIST ROLLED SEAT TRIMMER ARSENIO GARCIA M.D. Performed By: #### C BC, PTT, LIPASE, HEPATIC, BNP, BMP, PT, HS TROP, CK #### [address] Lipase [Enzymatic activity/v olume] in Serum or PlasmaOrdered By: Chris Walden on 04-19-2023 Lipase [Catalytic activity/Vol] 19.0 U/L 11.0-82.0 [facility] Lymphocytes Auto (Bld) [#/Vo l]Ordered By: Chris Walden on 04-19-2023 Lymphocytes (Bld) [#/Vol] 1.3 10*3/uL 1.00-4.8 [facility] Lymphocytes/100 WBC Auto (Bl d)Ordered By: Chris Walden on 04-19-2023 Lymphocytes/100 WBC (Bld) 12.3 % . [facility] MCH Auto (RBC) [Entitic mass ]Ordered By: Chris Walden on 04-19-2023 MCH (RBC) [Entitic mass] 25.6 pg 24.7-34.3 [facility] MCHC Auto (RBC) [Mass/Vol]Or dered By: Chris Walden on 04-19-2023 MCHC (RBC) [Mass/Vol] 32.9 g/dL 32.0-35.0 [facility] MCV Auto (RBC) [Entitic vol] Ordered By: Chris Walden on 04-19-2023 MCV (RBC) [Entitic vol] 77.7 fL 80-100 [facility] Monocyte distribution width [Entitic volume] in Blood by AutomatedOrdered By: Chris Walden on 04-19-2023 Monocyte distribution width Auto (Bld) [Entitic vol] 21.44 % 0.00-20.00 [facility] Comment on above: For adults in ED, MD W > 20.0 may be associated with a higher risk of sepsis during the first 12 hrs of hospital admission Monocytes Auto (Bld) [#/Vol] Ordered By: Chris Walden on 04-19-2023 Monocytes (Bld) [#/Vol] 0.5 10*3/uL 0.0-0.8 [facility] Monocytes/100 WBC Auto (Bld) Ordered By: Chris Walden on 04-19-2023 Monocytes/100 WBC (Bld) 5.2 % . [facility] Natriuretic peptide B [Mass/ Vol]Ordered By: Chris Walden on 04-19-2023 Natriuretic peptide B (Bld) [Mass/Vol] 102.0 pg/mL 5-100 [facility] Neutrophils Auto (Bld) [#/Vo l]Ordered By: Chris Wladen on 04-19-2023 Neutrophils (Bld) [#/Vol] 8.1 10*3/uL 1.8-7.7 [facility] Neutrophils/100 WBC Auto (Bl d)Ordered By: Chris Walden on 04-19-2023 Neutrophils/100 WBC (Bld) 78.0 % . [facility] No Panel InformationOrdered By: Chris Walden on 04-19-2023 Estimated GFR (CKD-EPI) 30.563 mL/Min [facility] Creatinine Clearance (Chem 35.34 [facility] Nucleated erythrocytes [Pres ence] in Blood by Automated countOrdered By: Chris Walden on 04-19-2023 Nucleated RBC Auto Ql (Bld) 0.1 /100{WBC} 0-0.5 [facility] Partial Thromboplastin Timeo n 04-19-2023 aPTT Coag (Bld) [Time] 32.1 s Normal 25.1-36.5 [facility] Comment on above: Result Comment: A he matocrit value greater than 55% may lead to inaccurate results in coagulation testing. Patients having hematocrit values >55% require a special collection tube for coagulation studies. Please contact the laboratory at [phone] for redraw instructions. PERFORMED BY: [place] [address] PATHOLOGIST ROLLED SEAT TRIMMER ARSENIO GARCIA M.D. Performed By: #### C BC, PTT, LIPASE, HEPATIC, BNP, BMP, PT, HS TROP, CK #### [address] Platelet mean volume Auto (B ld) [Entitic vol]Ordered By: Chris Walden on 04-19-2023 Platelet mean volume (Bld) [Entitic vol] 7.8 fL 6.3-10.7 [facility] Platelets Auto (Bld) [#/Vol] Ordered By: Chris Walden on 04-19-2023 Platelets (Bld) [#/Vol] 309 10*3/uL 150-450 [facility] Potassium [Moles/volume] in Serum or PlasmaOrdered By: Chris Walden on 04-19-2023 Potassium [Moles/Vol] 3.3 mmol/L 3.5-5.1 [facility] Protein [Mass/volume] in Ser um or PlasmaOrdered By: Chris Walden on 04-19-2023 Protein [Mass/Vol] 7.3 g/dL 6.4-8.9 [facility] Prothrombin Time INRon 04-19 INR Coag (PPP) [Relative time] 1.0 {INR} Normal [facility] Comment on above: Result Comment: INR Therapeutic Range A) Pre- and Peroperative OAT started two weeks before surgery. NOT HIP SURGERY: 1.5 - 2.5 HIP SURGERY: 2 - 3 B) Primary and secondary prevention of venous THROMBOSIS: 2 - 3 C) Active venous thrombosis, pulmonary embolism and prevention of recurrent venous thrombosis: 2 - 3 D) Prevention of arterial thromboembolism including patients with mechanical heart valves: 3 - 4.5 Performed By: #### C BC, PTT, LIPASE, HEPATIC, BNP, BMP, PT, HS TROP, CK #### [facility] [address] [place] [address] [facility] PT Coag (PPP) [Time] 12.0 s Normal 9.0-12.9 [facility] Comment on above: Result Comment: A he matocrit value greater than 55% may lead to inaccurate results in coagulation testing. Patients having hematocrit values >55% require a special collection tube for coagulation studies. Please contact the laboratory at [phone] for redraw instructions. Performed By: #### C BC, PTT, LIPASE, HEPATIC, BNP, BMP, PT, HS TROP, CK #### [facility] [address] [place] [address] [facility] Prothrombin time (PT)Ordered By: Chris Walden on 04-19-2023 PT Coag (PPP) [Time] 12.0 s 9.0-12.9 [facility] Comment on above: A hematocrit value g reater than 55% may lead to inaccurate results in coagulation testing. Patients having hematocrit values >55% require a special collection tube for coagulation studies. Please contact the laboratory at [phone] for redraw instructions. RBC Auto (Bld) [#/Vol]Ordere d By: Chris Walden on 04-19-2023 RBC (Bld) [#/Vol] 4.36 10*6/uL 3.60-5.00 [facility] Serum or plasma albumin/glob ulin mass ratioOrdered By: Chris Walden on 04-19-2023 Albumin/Globulin [Mass ratio] 1.3 {ratio} [facility] Serum or plasma anion gap de terminationOrdered By: Chris Walden on 04-19-2023 Anion gap [Moles/Vol] 10.7 mmol/L 6.0-15.0 [facility] Serum or plasma non-glucuron idated bilirubin measurement (mass/volume)Ordered By: Chris Walden on 04-19-2023 Bilirubin.indirect [Mass/Vol] 0.2 mg/dL [facility] Sodium [Moles/volume] in Ser um or PlasmaOrdered By: Chris Walden on 04-19-2023 Sodium [Moles/Vol] 137 mmol/L 136-145 [facility] Troponin I High Sensitivityo n 04-19-2023 Troponin I High Sensitivity 3.6 pg/mL Normal 0.0-15.0 [facility] Comment on above: Result Comment: PERF ORMED BY: [place] [address] PATHOLOGIST ROLLED SEAT TRIMMER ARSENIO GARCIA M.D. Performed By: #### C BC, PTT, LIPASE, HEPATIC, BNP, BMP, PT, HS TROP, CK #### [address] Troponin I.cardiac [Mass/vol ume] in Serum or Plasma by Detection limit <= 0.01 ng/Ordered By: Chris Walden on 04-19-2023 Troponin I.cardiac DL <= 0.01 ng/mL [Mass/Vol] 3.6 pg/mL 0.0-15.0 [facility] Urea nitrogen [Mass/volume] in Serum or PlasmaOrdered By: Chris Walden on 04-19-2023 Urea nitrogen [Mass/Vol] 24 mg/dL 7-25 [facility] WBC Auto (Bld) [#/Vol]Ordere d By: Chris Walden on 04-19-2023 WBC (Bld) [#/Vol] 10.4 10*3/uL 3.8-11.6 [facility] XR chest 2V*on 04-19-2023 XR chest 2V* [facility] [place] [address] XRay Report Signed Patient: Dinorah Pepe MR#: [id number] 9 : 1950 Acct:[id number] Age/Sex: 73 / F ADM Date: 04/19/23 Loc: ER Room: Type: [facility] ER Attending Dr: Copies to: Chris Walden PA-C Ordering Provider: Chris Walden PA-C Date of Service: 04/19/23 XR/XR chest 2V*: Extremity Injury, [place] film chest 2 view HISTORY: Left shoulder pain COMPARISON: 04/19/2023 FINDINGS: SUPPORT DEVICES: None POSTSURGICAL CHANGES: None HEART: Within normal limits PULMONARY MATTHEW: Within normal limits MEDIASTINUM: Atherosclerosis of thoracic aorta. LUNGS AND PLEURA: No acute lung process, pleural effusion or pneumothorax identified. BONY STRUCTURES: Thoracic hyperostosis. Diffuse osteopenia. ADDITIONAL FINDINGS None XR/XR chest 2V* IMPRESSION: No acute process. Impression dictated by: Stephen Andujar M.D.04/19/2023 8:53 PM Dictation Location: [place] [address] Transcribed By: [facility] 04/19/232052 Dictated By: Stephen Andujar DO 04/19/232052 Signed By: 04/19/232052 [facility] Lab Miscellaneous-LCon 03-14 Lab Miscellaneous See ref report Invalid Interpretation Code [facility] Comment on above: Result Comment: Perf ormed at: [facility] [address] [id number] PhD Jessica Ferris Test results were corrected to add comment see reference report Performed at: [facility] [id number] PhD Jessica Ferris Performed By: #### 1 [id number], [id number], 68118099, 0925877, 2012573 #### [facility] Laboratory [address] [place] [address] Reference Lab Reporton 03-14 Reference Lab Report [id number]#1.00TIFF Normal [facility] Free K+L Lt Chains,Qn,Son Immunoglobulin light chains.kappa.free (S) [Mass/Vol] 48.9 mg/L High 3.3-19.4 [facility] Comment on above: Performed By: #### 2 649485, 5630449, 51856327, 176564013, 34605119, 288458620, 92432570 ####[facility] [address] [place] [address] Immunoglobulin light chains.kappa.free/Immu noglobulin light chains.lambda.free (S) [Mass ratio] 1.31 Invalid Interpretation Code 0.26-1.65 [facility] Comment on above: Result Comment: Perf ormed at: [facility] [address] [place], [place] [id number] PhD Jessica Ferris Performed By: #### 2 956458, 9551336, 17003645, 733461604, 39172837, 441502439, 51871793 ####[facility] [address] [place] [address] Immunoglobulin light chains.lambda.free [Mass/Vol] 37.2 mg/L High 5.7-26.3 [facility] Comment on above: Performed By: #### 2 327306, 0283825, 56551198, 292264791, 43042343, 686354541, 72429064 ####[facility] [address] [place] [address] Immunofixation Serumon 03-10 IgA [Mass/Vol] 386 mg/dL High 87-352 [facility] Comment on above: Performed By: #### 2 870040, 9313732, 73890338, 992544284, 35752238, 021613739, 95501698 ####[facility] [address] [place] [address] IgG [Mass/Vol] 1021 mg/dL Invalid Interpretation Code [id number] [facility] Comment on above: Performed By: #### 2 140355, 9390178, 13853749, 730593532, 46747979, 440543052, 61125299 ####[facility] [address] [place] [address] IgM [Mass/Vol] 47 mg/dL Invalid Interpretation Code 26217 [facility] Comment on above: Result Comment: Perf ormed at: [facility] [address] [place], [place] [id number] PhD Jessica Ferris Performed By: #### 2 291778, 2728103, 01519403, 469153838, 24555609, 104811036, 13663708 ####[facility] [address] [place] [address] Protein Fractions [Interp] Comment Invalid Interpretation Code [facility] Comment on above: Result Comment: No m onoclonality detected. Performed By: #### 2 529374, 9574365, 37606463, 586972969, 69666845, 965003202, 73163545 ####[facility] [address] [place] [address] PTH Intacton 03-10-2023 Parathyrin.intact [Mass/Vol] 169 pg/mL High 15-65 [facility] Comment on above: Result Comment: Perf ormed at: [facility] [address] [place], [place] [id number] PhD Jessica Ferris Performed By: #### 2 [id number] #### [facility] Laboratory [address] [place] [address] US Renalon 03-10-2023 US Renal Exam Date/Time: 03/09/2023 09:18 EDT Reason for Exam: N18.30 Chronic kidney disease, stage 3 unspecified Report Ultrasound of the Kidneys History: CKD Comparison:_04/28/21 Findings: The right kidney measures 10 cm in greatest length and the left kidney measures 7.4 cm. The corticomedullary junctions are maintained. No focal mass, calculus or hydronephrosis seen. IMPRESSION: The left kidney is small. Bilaterally no hydronephrosis, stones or mass seen. FINAL REPORT Signed (Electronic Signature): 03/10/2023 12:25 pm Signed by: Alfonso Elizabeth Technologist: HW Normal [facility] CBC w/Indiceson 03-09-2023 Erythrocyte distribution width (RBC) [Ratio] 18.4 % High 10.9-14.2 [facility] Comment on above: Performed By: #### 2 815159, 2400237, 84760449, 462218931, 92361509, 151041002, 93372840 ####[place] [address] [place] [address] Hematocrit (Bld) [Volume fraction] 34.4 % Normal 34.0-46.0 [facility] Comment on above: Performed By: #### 2 845932, 4939982, 67690553, 770402083, 19186386, 655992383, 32595660 ####[address] [address] Hemoglobin (Bld) [Mass/Vol] 11.2 g/dL Low 12.0-16.0 [facility] Comment on above: Performed By: #### 2 855527, 2719033, 06448936, 570127680, 90371249, 713745570, 68393548 ####[address] [address] MCH (RBC) [Entitic mass] 24.7 pg Low 27.0-34.0 [facility] Comment on above: Performed By: #### 2 005780, 1861769, 08357304, 429895596, 32938285, 846273735, 06615562 ####[address] [address] MCHC (RBC) [Mass/Vol] 32.5 g/dL Normal 31.4-36.0 [facility] Comment on above: Performed By: #### 2 949075, 4839361, 18595443, 837008633, 68388204, 242332120, 22487176 ####[address] [address] MCV (RBC) [Entitic vol] 75.9 fL Low 80.0-100.0 [facility] Comment on above: Performed By: #### 2 865681, 5538714, 38654088, 386648843, 03555577, 271762937, 99936550 ####[facility] [address] [place] [address] Platelet mean volume (Bld) [Entitic vol] 7.4 fL Normal 6.4-10.8 [facility] Comment on above: Performed By: #### 2 007067, 6779289, 55603293, 579456384, 94537772, 394861042, 67800693 ####[facility] [address] [place] [address] Platelets (Bld) [#/Vol] 317.0 E9/L Normal 150.0-500. 0 [facility] Comment on above: Performed By: #### 2 525210, 4249729, 73215180, 314742831, 24252838, 241067273, 00780926 ####[place] [address] [place] [address] RBC (Bld) [#/Vol] 4.5 E12/L Normal 4.3-5.9 [facility] Comment on above: Performed By: #### 2 359070, 2760316, 16857709, 080583124, 37418568, 408581869, 25523647 ####[facility] [address] [place] [address] WBC corrected for nucl RBC Auto (Bld) [#/Vol] 7.9 E9/L Normal 4.0-11.0 [facility] Comment on above: Performed By: #### 2 343782, 3407016, 03895287, 046942867, 32301299, 261619348, 72297246 ####[facility] [address] [place] [address] CHEMISTRYOrdered By: SYSTEM SYSTEM on 03-09-2023 25-hydroxyvitamin D3 [Mass/Vol] 31.1 ng/mL Normal 30.0 - 100.0 ng/mL [facility] Remisol Comment on above: Interpretive Data: Vitamin D deficiency has been defined as a level of serum 25-OH vitamin D less than 20 ng/mL (1,2) by the [place] of Medicine and an Endocrine Society practice guideline. The Endocrine Society further defined vitamin D insufficiency as a level between 21 and 29 ng/mL (2). 1. IOM ([place] of Medicine). 2010. Dietary reference intakes for calcium and D. [place]: The National AcademuVore Press. 2. Cathleen MF, Tami NC, Adeola BARAHONA, et al. Evaluation, treatment, and prevention of vitamin D deficiency: an Endocrine Society clinical practice guideline. JCEM. 2010; 96 (7):1911-30. Albumin [Mass/Vol] 4.0 g/dL Normal 3.3 - 5.0 gm/dL [facility] Anion gap [Moles/Vol] 13 mmol/L Normal 6 - 16 mEq/L [facility] Calcium [Mass/Vol] 10.9 mg/dL Normal 8.9 - 11. 1 mg/dL [facility] Chloride [Moles/Vol] 103 mmol/L Normal 101 - 1 11 mmol/L [facility] CO2 [Moles/Vol] 28 mmol/L Normal 21 - 31 mmol/L [facility] Creatinine [Mass/Vol] 2.0 mg/dL High 0.5 - 1.3 mg/dL [facility] GFR/1.73 sq M.predicted among non-blacks MDRD (S/P/Bld) [Vol rate/Area] 26 mL/min/1.73 m2 Low >=59mL/min /1.73 m2 [facility] Chem S Comment on above: Interpretive Data: C hronic kidney disease could be indicated at eGFR's of less than 60 mL/min/1.73m2. Kidney failure is indicated at less than 15 mL/min/1.73m2. Glucose [Mass/Vol] 124 mg/dL Normal 55 - 199 mg/dL [facility] Comment on above: Interpretive Data: I f this glucose result represents a fasting glucose, interpretation should refer to the following reference range: 55-99 mg/dL Magnesium [Mass/Vol] 1.9 mg/dL Normal 1.3 - 2 .4 mg/dL [facility] Phosphate [Mass/Vol] 3.0 mg/dL Normal 1.9 - 4 .6 mg/dL [facility] Potassium [Moles/Vol] 3.6 mmol/L Normal 3.5 - 5.3 mmol/L [facility] Sodium [Moles/Vol] 140 mmol/L Normal 135 - 145 mmol/L [facility] Urea nitrogen [Mass/Vol] 29 mg/dL High 5 - 21 mg/dL [facility] Remisol Urea nitrogen/Creatinine [Mass ratio] 14 mg/mg Normal 10 - 20 [facility] Remisol CHEMISTRYOrdered By: Jamee Araya on 03-09-2023 Albumin Elph (U) [Mass fraction] 8.9 mg/dL Invalid Interpretation Code [facility] Remiso Comment on above: Interpretive Data: T he reference range and other method performance specifications have not been established for this test; results should be integrated into the clinical context for interpretation. Creatinine (U) [Mass/Vol] 126.3 mg/dL Invalid Interpretation Code [facility] Comment on above: Interpretive Data: T he reference range and other method performance specifications have not been established for this test; results should be integrated into the clinical context for interpretation. U Prot/Creat Ratio 70.50 mg/gm Cr Normal 0.00 - 200.00 mg/gm Cr [facility] Remisol Consent for Treatmenton 02-20 Consent for Treatment [id number]#[id number] Normal [facility] HEMATOLOGYOrdered By: Deborah Rice on 03-09-2023 Erythrocyte distribution width (RBC) [Ratio] 18.4 % High 10.9 - 14.2 % [facility] Hematocrit (Bld) [Volume fraction] 34.4 % Normal 34.0 - 46.0 % [facility] Hemoglobin (Bld) [Mass/Vol] 11.2 g/dL Low 12.0 - 16.0 gm/dL [facility] MCH (RBC) [Entitic mass] 24.7 pg Low 27.0 - 34.0 pg FT [facility] MCHC (RBC) [Mass/Vol] 32.5 g/dL Normal 31.4 - 36.0 gm/dL [facility] MCV (RBC) [Entitic vol] 75.9 fL Low 80.0 - 100.0 fL [facility] Platelet mean volume (Bld) [Entitic vol] 7.4 fL Normal 6.4 - 10.8 fL [facility]SS Platelets (Bld) [#/Vol] 317.0 E9/L Normal 150.0 - 500.0 E9/L [facility]SS RBC (Bld) [#/Vol] 4.5 E12/L Normal 4.3 - 5.9 E12/L [facility] WBC corrected for nucl RBC Auto (Bld) [#/Vol] 7.9 E9/L Normal 4.0 - 11.0 E9/L [facility] Lab Miscellaneous-LCon 03-09 Test Code [id number] Invalid Interpretation Code [facility] Comment on above: Performed By: #### 1 5638585, 991854053, 90838418, 9174390, 7349688 #### [facility] Laboratory [address] [place] [address] Test Name immunofix ur Invalid Interpretation Code [facility] Comment on above: Performed By: #### 1 5959735, 060882888, 61993966, 5164587, 7594195 #### [facility] Laboratory [address] [place] [address] Magnesiumon 03-09-2023 Magnesium [Mass/Vol] 1.9 mg/dL Normal 1.3-2.4 [facility] Comment on above: Performed By: #### 2 341708, 1327224, 09225768, 958643688, 71101568, 206051501, 53346469 ####[facility] [address] [place] [address] Physician Orderon 03-09-2023 Physician Order [id number]#[id number] Normal [facility] Reference Laboratory Testing Ordered By: Genny Nava on 03-09-2023 Sodium [Moles/Vol] 740719 mmol/L Invalid Interpretation Code [facility] SendOutsSS Test Name immunofix ur Invalid Interpretation Code [facility] SendOutsSS Renal Panelon 03-09-2023 Albumin [Mass/Vol] 4.0 g/dL Normal 3.3-5.0 [facility] Comment on above: Performed By: #### 2 160066, 3468342, 90814414, 886498658, 22831113, 665692867, 90929802 ####[facility] [address] [place] [address] Anion gap [Moles/Vol] 13 mmol/L Normal 6-16 [facility] Comment on above: Performed By: #### 2 425540, 6305773, 61412801, 879851765, 33495086, 406919438, 90770749 ####[facility] [address] [place] [address] Calcium [Mass/Vol] 10.9 mg/dL Normal 8.9-11.1 [facility] Comment on above: Performed By: #### 2 779724, 7245811, 62541345, 896021343, 62215091, 092445530, 43463854 ####[facility] [address] [place] [address] Chloride [Moles/Vol] 103 mmol/L Normal 101-111 [facility] Comment on above: Performed By: #### 2 696766, 2978123, 73433585, 272164860, 72627828, 621347075, 51425634 ####[facility] [address] [place] [address] CO2 [Moles/Vol] 28 mmol/L Normal 21-31 [facility] Comment on above: Performed By: #### 2 409119, 2018340, 18532324, 006460699, 77673158, 416379800, 22089048 ####[facility] [address] [place] [address] Creatinine [Mass/Vol] 2.0 mg/dL High 0.5-1.3 [facility] Comment on above: Performed By: #### 2 279435, 5543057, 36797382, 168250750, 42793273, 618846579, 28935737 ####[facility] [address] [place] [address] Glucose [Mass/Vol] 124 mg/dL Normal 55-199 [facility] Comment on above: Result Comment: If t his glucose result represents a fasting glucose, interpretation should refer to the following reference range: 55-99 mg/dL Performed By: #### 2 009047, 3982114, 45437578, 190910142, 24891112, 026491379, 80181530 ####[facility] [address] [place] [address] Phosphate [Mass/Vol] 3.0 mg/dL Normal 1.9-4.6 [facility] Comment on above: Performed By: #### 2 866782, 1873149, 84453390, 896842509, 64373875, 618739081, 71132993 ####[facility] [address] [place] [address] Potassium [Moles/Vol] 3.6 mmol/L Normal 3.5-5.3 [facility] Comment on above: Performed By: #### 2 647182, 0238952, 68391314, 994217660, 06821278, 567944704, 43433301 ####[facility] [address] [place] [address] Sodium [Moles/Vol] 140 mmol/L Normal 135-145 [facility] Comment on above: Performed By: #### 2 111289, 3039252, 55623007, 459114030, 73940148, 902300496, 86706729 ####[facility] [address] [place] [address] Urea nitrogen [Mass/Vol] 29 mg/dL High 5-21 [facility] Comment on above: Performed By: #### 2 218813, 3619149, 95100907, 389027115, 31429656, 253454479, 16377949 ####[facility] [address] [place] [address] Urea nitrogen/Creatinine [Mass ratio] 14 No Units Normal - [facility] Comment on above: Performed By: #### 2 216244, 2746878, 29460393, 672301937, 31737540, 723999806, 53394181 ####[facility] [address] [place] [address] U Protein/Creat Ratioon 02-20 Albumin Elph (U) [Mass fraction] 8.9 mg/dL Invalid Interpretation Code [facility] Comment on above: Result Comment: The reference range and other method performance specifications have not been established for this test; results should be integrated into the clinical context for interpretation. Performed By: #### 1 6177277, 441948957, 28460078, 6452020, 5688279 #### [facility] Laboratory [address] [place] [address] Creatinine (U) [Mass/Vol] 126.3 mg/dL Invalid Interpretation Code [facility] Comment on above: Result Comment: The reference range and other method performance specifications have not been established for this test; results should be integrated into the clinical context for interpretation. Performed By: #### 1 1269352, 716727739, 18990719, 0925729, 2874837 #### [facility] Laboratory [address] [place] [address] U Prot/Creat Ratio 70.50 mg/gm Cr Normal .00-200.00 [facility] Comment on above: Performed By: #### 1 1094502, 999726199, 94230583, 1283080, 0060903 #### [facility] [address] [place] [address] URINALYSISOrdered By: Trevin Dominguez on 03-09-2023 Bacteria LM Ql (Urine sed) Trace /HPF Normal Trace/HPF [facility] Auto SS Bilirubin Ql (U) Negative (03/09/23 9:33 AM) Normal Negative [facility] Auto SS Clarity (U) Clear (03/09/23 9:33 AM) Normal Clear [facility] Auto SS Color (U) Yellow (03/09/23 9:33 AM) Normal Yellow [facility] UA Auto SS Epithelial cells.squamous LM.HPF (Urine sed) [#/Area] 5-8 /HPF Normal 0-2/HPF [facility] Auto SS Glucose Test strip (U) [Mass/Vol] Negative (03/09/23 9:33 AM) Normal Negative [facility] UA Auto SS Hemoglobin Ql (U) Negative (03/09/23 9:33 AM) Normal Negative [facility] UA Auto SS Ketones (U) [Mass/Vol] Negative (03/09/23 9:33 AM) Normal Negative [facility] UA Auto SS [place].plasma/[place] .RBC (Bld) [Mass ratio] 0-3 /HPF Normal 0-3/HPF [facility] UA Auto SS Nitrite Ql (U) Negative (03/09/23 9:33 AM) Normal Negative [facility] UA Auto SS pH (U) 5.5 *NA* (03/09/23 9:33 AM) Invalid Interpretation Code 5.0 - 9.0 [facility] UA Auto SS Protein (U) [Mass/Vol] Negative (03/09/23 9:33 AM) Normal Negative [facility] UA Auto SS Specific gravity (U) [Rel density] 1.020 *NA* (03/09/23 9:33 AM) Invalid Interpretation Code 1.005 - 1.030 [facility]A Auto SS UA Spec Desc Clean Catch (03/09/23 9:33 AM) Normal [facility] UA Auto SS Urobilinogen Qn (U) 0.5890013 {Vitaliy'U}/dL Normal 0.0 - 1.0 EU/dL [facility] Auto SS WBC Auto Ql (U) 1+ *ABN* (03/09/23 9:33 AM) Invalid Interpretation Code Negative [facility] UA Auto SS WBC LM.HPF (Urine sed) [#/Area] 6-15 /HPF Invalid Interpretation Code 0-5/HPF [facility] UA Auto SS Urinalysison 03-09-2023 Bacteria LM Ql (Urine sed) TRACE Normal Trace [facility] Comment on above: Performed By: #### 1 7946829, 883819150, 23708025, 4512339, 7131423 #### [facility] Laboratory [address] [place] [address] Bilirubin Ql (U) Negative Normal Negative [facility] Comment on above: Performed By: #### 1 2537220, 272467201, 65904660, 2484674, 3543378 #### [facility] [address] [place] [address] Clarity (U) CLEAR Normal Clear [facility] Comment on above: Performed By: #### 1 3672673, 310416515, 20562235, 8453739, 0310978 #### [facility] Laboratory [address] [place] [address] Color (U) YELLOW Normal Yellow [facility] Comment on above: Performed By: #### 1 5026684, 479076814, 69553409, 7642861, 2858875 #### [facility] Laboratory [address] [place] [address] Epithelial cells.squamous LM.HPF (Urine sed) [#/Area] 5-8 Normal 0-2 [facility] Comment on above: Performed By: #### 1 4801736, 267270233, 37976509, 5612602, 1120011 #### [facility] Laboratory [address] [place] [address] Glucose Test strip (U) [Mass/Vol] Negative Normal Negative [facility] Comment on above: Performed By: #### 1 6895473, 747363140, 82169993, 5369629, 8307397 #### [facility] Laboratory [address] [place] [address] Hemoglobin Ql (U) Negative Normal Negative [facility] Comment on above: Performed By: #### 1 9563168, 251747103, 57738058, 5619239, 2896915 #### [facility] [address] [place] [address] Ketones (U) [Mass/Vol] Negative Normal Negative [facility] Comment on above: Performed By: #### 1 6283182, 351395013, 89312604, 5841537, 0509964 #### [facility] Laboratory [address] [place] [address] [place].plasma/[place]pe[place] .RBC (Bld) [Mass ratio] 0-3 Normal 0-3 [facility] Comment on above: Performed By: #### 1 5508788, 015706486, 08929330, 4318130, 0425788 #### [facility] [address] [place] [address] Nitrite Ql (U) Negative Normal Negative [facility] [facility] Comment on above: Performed By: #### 1 [id number], [id number], [id number], [id number], [id number] #### [facility] [address] [place] [address] pH (U) 5.5 [pH] Invalid Interpretation Code 5.0-9.0 [facility] Comment on above: Performed By: #### 1 [id number], [id number], [id number], 4936145, [id number] #### [facility] [address] [place] [address] Protein (U) [Mass/Vol] Negative Normal Negative [facility] Comment on above: Performed By: #### 1 [id number], [id number], 84511073, 0716354, 9858038 #### [facility] [address] [place] [address] Specific gravity (U) [Rel density] 1.020 Invalid Interpretation Code 1.005-1.03 0 [facility] Comment on above: Performed By: #### 1 [id number], [id number], 86498474, 6847974, 7487946 #### [facility] [address] [place] [address] Type of Urine collection method Clean Catch Normal [facility] Comment on above: Performed By: #### 1 [id number], [id number], [id number], 9877454, 1153911 #### [facility] [address] [place] [address] Urobilinogen Qn (U) 0.2 {Vitaliy'U}/dL Normal 0.0-1.0 [facility] Comment on above: Performed By: #### 1 [id number], [id number], 88959677, 5151344, 7149728 #### [facility] [address] [place] [address] WBC Auto Ql (U) 1+ Abnormal Negative [facility] Comment on above: Performed By: #### 1 [id number], [id number], 35171969, 8623316, 8089241 #### [facility] [address] [place] [address] WBC LM.HPF (Urine sed) [#/Area] 6-15 Abnormal 0-5 [facility] Comment on above: Performed By: #### 1 [id number], [id number], 94583285, 1742034, 4803911 #### [facility] [address] [place] [address] Vitamin D 25 Hydroxyon 03-09 25-hydroxyvitamin D3 [Mass/Vol] 31.1 ng/mL Normal 30.0-100.0 [facility] Comment on above: Result Comment: Vit aviles D deficiency has been defined as a level of serum 25-OH vitamin D less than 20 ng/mL (1,2) by the [place] of [employer] and an Endocrine Society practice guideline. The Endocrine Society further defined vitamin D insufficiency as a level between 21 and 29 ng/mL (2). 1. IOM ([place] of Medicine). 2010. Dietary reference intakes for calcium and D. [place]: The National Academies Press. 2. Cathleen MF, Tami NC, Adeola BARAHONA, et al. Evaluation, treatment, and prevention of vitamin D deficiency: an Endocrine Society clinical practice guideline. JCEM. 2010; 96 (7):1911-30. Performed By: #### 2 347133, 1826245, 96371861, [id number], 16207416, [id number], 23018084 ####[facility] [address] [place] [address] eGFRon 03-09-2023 GFR/1.73 sq M.predicted among non-blacks MDRD (S/P/Bld) [Vol rate/Area] 26 mL/min/1.73 m2 Low >=59 [facility] Comment on above: Order Comment: Order added by Discern Expert. Result Comment: [employer] daria kidney disease could be indicated at eGFR's of less than 60 mL/min/1.73m2. Kidney failure is indicated at less than 15 mL/min/1.73m2. Performed By: #### 2 295791, 4148511, 02201080, 177451917, 95919886, [id number], 96533953 ####[facility] [address] [place] [address] Physician Orderon 02-16-2023 Physician Order [id number]#1.00CD:127 Normal [facility] Physician Orderon 11-09-2022 Physician Order [id number]#1.00CD:127 Normal [facility] Consent for Treatmenton 10-21 Consent for Treatment [id number]#1.00CD:127 Normal [facility] US Breast Unilateral Lt Comp leteon 11-08-2022 US Breast Unilateral Lt Complete Exam Date/Time: 11/08/2022 15:14 EDT Reason for Exam: N63.20 Report IMPRESSION: BIRADS 3 PROBABLY BENIGN, SHORT INTERVAL FOLLOW-UP Follow-up: 6 MONTH RECALL Density: Scattered tissue. EXAM: US Breast Unilateral Lt Complete DATE: 11/08/2022 CLINICAL HISTORY: N63.20. COMPARISONS: Screening mammogram 11/08/2022. TECHNIQUE: Complete ultrasound was performed of the left breast. FINDINGS: No discrete ultrasound abnormalities are identified to correspond to the mammographic area of concern. Six-month follow-up left breast mammograms are suggested. CAD analysis was performed and used in the interpretation. Board Certified Radiologists. Accredited by the ACR and FDA. MAMMOGRAPHY IS VERY IMPORTANT TO YOUR HEALTH. THE CURRENT [place] [employer] OF [employer] AND NATIONAL COMPREHENSIVE CANCER NETWORK GUIDELINES RECOMMENDS ANNUAL MAMMOGRAPHY BEGINNING AT AGE 40. THIS FACILITY UTILIZES A REMINDER SYSTEM TO ENSURE ALL PATIENTS RECEIVE REMINDER NOTIFICATIONS AT THE APPROPRIATE TIME BASED ON THE RECOMMENDATIONS OF THIS EXAM. \X09\ Report Ordering Provider: Yuli Duckworth FINAL REPORT Dictated: 11/08/2022 5:16 pm Lamin Grace MD Signed (Electronic Signature): 11/08/2022 5:16 pm Signed by: Lamin Grace MD Transcribed by: PAT Technologist: RAMYA Assessment: BI-RADS Category 3-Probably benign - short interval follow-up Recommendation: Follow-up at short interval Normal [facility] Physician Orderon 11-03-2022 Physician Order [id number]#1.00CD:127 Normal [facility] Physician Order [id number]#1.00CD:127 Normal [facility] MA Mamm Screen w/CAD if perf and 3D Bilon 11-02-2022 MA Mamm Screen w/CAD if perf and 3D Cabrera Exam Date/Time: 10/29/2022 14:25 EDT Reason for Exam: Z12.31 Encounter for screening mammogram for malignant neoplasm of breast Report IMPRESSION: BIRADS 0 - INCOMPLETE, NEED ADDITIONAL IMAGING EVALUATION.RECALL NOW. ULTRASOUND OF THE LEFT BREAST IS RECOMMENDED FOR FURTHER EVALUATION. CLINICAL HISTORY: Z12.31 Encounter for screening mammogram for malignant neoplasm of breast. COMPARISON: None. COMMENT: Routine views and tomosynthesis views of both breasts were obtained. There are scattered areas of fibroglandular density. There are two approximately 7 mm diameter focal nodular densities in the left breast, one located anteriorly, laterally, and superiorly and the other posteriorly. Further evaluation is suggested. There is coarse benign calcification in the right breast. No neoplastic calcifications are identified in either breast. Remote prior mammograms are no longer available for comparison purposes. The examination was reviewed with Computer Aided Detection. Breast Density: No Mammography is very important to your health. The current [place] [employer] and National Comprehensive Cancer Network guidelines recommends annual mammography beginning at age 40. This facility utilizes a reminder system to ensure all patients receive reminder notifications at the appropriate time based on the recommendations of this exam. Board Certified Radiologists. Accredited by the ACR and FDA. Ordering Provider: Yuli Duckworth FINAL REPORT Dictated: 11/02/2022 4:18 pm Vin Joy M.D. Signed (Electronic Signature): 11/02/2022 4:18 pm Signed by: Vin Joy M.D. Transcribed by: PAT Technologist: BEV Assessment: BI-RADS Category 0-Incomplete: Need additional imaging evaluation Recommendation: Additional projections Normal [facility] BD Bone Density DEXAon 11-01 BD Bone Density DEXA Exam Date/Time: 10/29/2022 14:27 EDT Reason for Exam: M85.89 Other specified disorders of bone density and structure, multiple sites Report IMPRESSION: OSTEOPOROSIS. The NOF/ISD guideline recommend FRAX for postmenopausal patients (not on treatment) if the lowest T-score for Spine(L1-L4), Femur Neck or Femur Total indicates low bone density (T score -1.0 to -2.5, osteopenia). EXAM: BD Bone Density DEXA DATE: 10/29/2022 1:53 PM CLINICAL HISTORY: M85.89 Other specified disorders of bone density and structure, multiple sites. COMPARISON: None available. COMMENTS: The lumbar spine and both hips were scanned. The mean bone mineral density from L1 to L4 is 1.089 g/cm2 and this value is -0.8 standard of deviation below the standard reference value for a young adult. Bone mineral density of the left femoral neck is 0.722 g/cm2 and this value is -2.3 standard of deviation below the standard reference value. Bone mineral density of the right femoral neck is 0.674 g/cm2 and this value is -2.6 standard of deviation below the standard reference value. These values meet WHO criteria for osteoporosis. Ordering Provider: Yuli Duckworth FINAL REPORT Dictated: 11/01/2022 4:55 am Lamin Grace MD Signed (Electronic Signature): 11/01/2022 4:55 am Signed by: Lamin Grace MD Transcribed by: PAT Technologist: BEV Normal [facility] CMPon 10-29-2022 Albumin [Mass/Vol] 4.0 g/dL Normal 3.3-5.0 [facility] Comment on above: Performed By: #### 2 [id number], [id number], 6915844 ####[address] [address] Albumin/Globulin (S) [Mass conc ratio] 1.1 Normal 1.1-2.2 [facility] Comment on above: Performed By: #### 2 925930, 11546539, 0425838 ####[address] [address] ALP [Catalytic activity/Vol] 85 Int._Unit/L Normal 21-98 [facility] Comment on above: Performed By: #### 2 751762, 70131567, 2570549 ####[address] [address] ALT No additional P-5'-P [Catalytic activity/Vol] 15 Int._Unit/L Normal 6-46 [facility] Comment on above: Performed By: #### 2 909640, 67109079, 5694085 ####[address] [address] Anion gap [Moles/Vol] 13 mmol/L Normal 6-16 [facility] Comment on above: Performed By: #### 2 848013, [id number], 9455076 ####[address] [address] AST [Catalytic activity/Vol] 14 Int._Unit/L Normal 5-43 [facility] Comment on above: Performed By: #### 2 146268, 85472441, 9560199 ####[address] [address] Bilirubin [Mass/Vol] 0.6 mg/dL Normal 0.0-1.1 [facility] Comment on above: Performed By: #### 2 382941, 19958450, 7841355 ####[address] [address] Calcium [Mass/Vol] 10.9 mg/dL Normal 8.9-11.1 [facility] Comment on above: Performed By: #### 2 167406, 90077845, 2770557 ####[facility] [address] [place] [address] Chloride [Moles/Vol] 101 mmol/L Normal 101-111 [facility] Comment on above: Performed By: #### 2 066204, 01229990, 8727176 ####[facility] [address] [place] [address] CO2 [Moles/Vol] 27 mmol/L Normal 21-31 [facility] Comment on above: Performed By: #### 2 922601, 14948109, 9176900 ####[facility] [address] [place] [address] Creatinine [Mass/Vol] 1.5 mg/dL High 0.5-1.3 [facility] Comment on above: Performed By: #### 2 111819, 95777029, 4304857 ####[facility] [address] [place] [address] Globulin (S) [Mass/Vol] 3.7 g/dL Normal 1.4-4.0 [facility] Comment on above: Performed By: #### 2 266794, 02987215, 1458467 ####[facility] [address] [place] [address] Glucose [Mass/Vol] 133 mg/dL Normal 55-199 [facility] Comment on above: Result Comment: If t his glucose result represents a fasting glucose, interpretation should refer to the following reference range: 55-99 mg/dL Performed By: #### 2 262979, 66660762, 4889018 ####[facility] [address] [place] [address] Potassium [Moles/Vol] 4.0 mmol/L Normal 3.5-5.3 [facility] Comment on above: Performed By: #### 2 153286, 19398245, 1017995 ####[facility] [address] [place] [address] Protein [Mass/Vol] 7.7 g/dL Normal 6.0-7.8 [facility] Comment on above: Performed By: #### 2 881967, 28483185, 5859254 ####[facility] [address] [place] [address] Sodium [Moles/Vol] 137 mmol/L Normal 135-145 [facility] Comment on above: Performed By: #### 2 527087, 16620168, 8347280 ####[facility] [address] [place] [address] Urea nitrogen [Mass/Vol] 19 mg/dL Normal 5-21 [facility] Comment on above: Performed By: #### 2 994292, 07455972, 0662611 ####[facility] [address] [place] [address] Urea nitrogen/Creatinine [Mass ratio] 13 No Units Normal 10-20 [facility] Comment on above: Performed By: #### 2 169206, 83134365, 8226826 ####[facility] [address] [place] [address] Consent for Treatmenton 060 Consent for Treatment [id number]:127 Normal [facility] Lipid Panelon 10-29-2022 Cholesterol [Mass/Vol] 254 mg/dL High 120-200 [facility] Comment on above: Performed By: #### 2 291224, 56124020, 7410368 ####[facility] [address] [place] [address] Cholesterol in HDL [Mass/Vol] 39 mg/dL Invalid Interpretation Code [facility] Comment on above: Result Comment: HDL > or equal to 60 mg/dL: Low cardiovascular risk HDL < 40 mg/dL : High cardiovascular risk Performed By: #### 2 903067, 24296599, 6791443 ####[facility] [address] [place] [address] Cholesterol in LDL [Mass/Vol] 169 mg/dL High <=129 [facility] Comment on above: Performed By: #### 2 393885, 39712126, 0531738 ####[facility] [address] [place] [address] Cholesterol in VLDL [Mass/Vol] 44 mg/dL High 7-40 [facility] Comment on above: Performed By: #### 2 181111, 81664458, 0163756 ####[facility] [address] [place] [address] Triglyceride [Mass/Vol] 218 mg/dL High <=149 [facility] Comment on above: Performed By: #### 2 199670, 94341969, 7575809 ####[facility] [address] [place] [address] Physician Orderon 10-29-2022 Physician Order [id number]:127 Normal [facility] eGFRon 10-29-2022 GFR/1.73 sq M.predicted among non-blacks MDRD (S/P/Bld) [Vol rate/Area] 37 mL/min/1.73 m2 Low >=59 [facility] Comment on above: Order Comment: Order added by Discern Expert. Result Comment: [employer] daria kidney disease could be indicated at eGFR's of less than 60 mL/min/1.73m2. Kidney failure is indicated at less than 15 mL/min/1.73m2. Performed By: #### 2 400458, 21002484, 6524132 ####[facility] [address] [place] [address] Vital Signs Date Time Vital Sign Value Performing Clinician Facility 09-06-2023 16:18-0400 Heart rate 75 /min [facility] 09-06-2023 16:18-0400 SaO2% (BldA) [Mass fraction] 100 % [facility] 09-06-2023 16:15-0400 Body temperature 98.06 [degF] [facility] 09-06-2023 16:15-0400 Di[facility] blood [facility] 69 [facility]Hg[facility] 16:15-0400 Mean blood pressure 84 mm[Hg[facility] 16:15-0400 Systolic blood pressure 113 mm[Hg] Isabelle [facility] 09-06-2023 15:24-[address] [facility] 09-06-2023 15:24-[address] [facility] 09-06-2023 14:51-[address] [facility] 09-06-2023 14:51-0400 Promise to Return Isabelle [facility] 09-06-2023 12:22-0400 Heart rate 75 /min [facility] 09-06-2023 12:22-0400 SaO2% (BldA) [Mass fraction] 100 % [facility] 09-06-2023 12:18-0400 Body temperature 97.7 [degF] [facility] 09-06-2023 12:17-0400 Diastolic blood pressure 74 mm[Hg] [facility] 09-06-2023 12:17-0400 Mean blood pressure 89 mm[Hg] [facility] 09-06-2023 12:17-0400 Systolic blood pressure 120 mm[Hg] [facility] 09-06-2023 12:00-[address] [facility] 09-06-2023 12:00-[address] [facility] 09-06-2023 01:17-0400 Respiratory rate 18 /min [facility] 09-05-2023 21:04-0400 Respiratory rate 16 /min [facility] 09-05-2023 21:03-[address] [facility] 09-05-2023 15:00-0400 Body temperature 97.7 [degF] [facility] 09-05-2023 12:00-0400 Body temperature 97.52 [degF] [facility] 09-05-2023 12:00-0400 Mean blood pressure 74 mm[Hg] [facility] 09-05-2023 07:30-0400 gluc 78 mg/dL [facility] 09-04-2023 16:32-0400 gluc 104 mg/dL [facility] 09-04-2023 11:48-0400 gluc 81 mg/dL [facility] 09-04-2023 08:00-0400 Mean blood pressure 69 mm[Hg] [facility] 09-04-2023 06:00-0400 Mean blood pressure 72 mm[Hg] Isabelle [facility] 09-04-2023 04:00-0400 Heart rate 63 /min [facility] 09-04-2023 01:00-0400 Heart rate 61 /min [facility] 09-03-2023 23:00-0400 Heart rate 98 /min [facility] 09-03-2023 20:35-0400 Respiratory rate 13 /min [facility] 09-03-2023 20:02-0400 Respiratory rate 15 /min [facility] 09-03-2023 19:47-0400 Respiratory rate 16 /min [facility] 09-03-2023 17:48-[address] [facility] 08-02-2023 11:19-0400 Body height 152.4 cm Yuli Duckworth Work Phone: [facility] 08-02-2023 11:19-0400 Body mass index (BMI) [Ratio] 49.6 kg/m2 Yuli Duckworth Work Phone: [facility] 08-02-2023 11:19-0400 Body temperature 96.4 [degF] Yuli Duckworth Work Phone: [facility] 08-02-2023 11:19-0400 Body weight 115.26 kg Yuli Duckworth Work Phone: [facility] 08-02-2023 11:19-0400 Diastolic blood pressure 72 mm[Hg] Yuli Duckworth Work Phone: [facility] 08-02-2023 11:19-0400 Heart rate 73 /min Yuli Duckworth Work Phone: [facility] 08-02-2023 11:19-0400 Respiratory rate 18 /min Yuli Duckworth Work Phone: [facility] 08-02-2023 11:19-0400 SaO2% (BldA) [Mass fraction] 100 % Yuli Duckworth Work Phone: [facility] 08-02-2023 11:19-0400 Systolic blood pressure 123 mm[Hg] Yuli Duckworth Work Phone: [facility] 05-17-2023 09:04-0500 Diastolic blood pressure 75 mm[Hg] Angel Page [facility] [place] 05-17-2023 09:04-0500 Heart rate 71 /min Angel Page [facility] 05-17-2023 09:04-0500 Systolic blood pressure 115 mm[Hg] Angel Page [facility] 04-19-2023 23:14-0500 Diastolic blood pressure 69 mm[Hg] Yuli Duckworth Work Phone: [facility] 04-19-2023 23:14-0500 Heart rate 47 /min Yuli Duckworth Work Phone: [facility] 04-19-2023 23:14-0500 Respiratory rate 16 /min Yuli Duckworth Work Phone: [facility] 04-19-2023 23:14-0500 SaO2% (BldA) [Mass fraction] 98 % Yuli Duckworth Work Phone: [facility] 04-19-2023 23:14-0500 Systolic blood pressure 152 mm[Hg] Yuli Duckworth Work Phone: [facility] 04-19-2023 19:31-0500 Body height 152.4 cm Yuli Duckworth Work Phone: [facility] 04-19-2023 19:31-0500 Body temperature 98.2 [degF] Yuli Duckworth Work Phone: [facility] 04-19-2023 19:31-0500 Body weight 122.65 kg Yuli Duckworth Work Phone: [facility] 03-24-2023 09:40-0400 Body height 152.4 cm Heath Susan Other [employer] Other 03-24-2023 09:40-0400 Body mass index (BMI) [Ratio] 52.45 kg/m2 Heath Susan Other [employer] Other 03-24-2023 09:40-0400 Body weight 121.84 kg Heath Susan Other [employer] Other 03-24-2023 09:40-0400 Diastolic blood pressure 80 mm[Hg] Heath Susan Other [employer] Other 03-24-2023 09:40-0400 Respiratory rate 18 /min Heath Susan Other [employer] [facility] [employer] Other 03-24-2023 09:40-0400 Systolic blood pressure 130 mm[Hg] Heath Susan Other [employer] Other Encounters Encounter Date Encounter Type Care Provider Facility Start: 10-03-2023 End: 10-04-2023 ambulatory Salvador Akkina Facility:[facility] Start: 10-03-2023 End: 10-03-2023 Patient encounter procedure Salvador Juankina [facility] Start: 09-03-2023 End: 09-06-2023 Evaluation and management of inpatient Gunner Remy Facility:[facility] Start: 09-03-2023 End: 09-06-2023 Evaluation and management of inpatient Isabelle Wilson [facility] Start: 08-25-2023 End: 08-25-2023 ambulatory VANDA STUART Not Available Start: 08-09-2023 End: 08-09-2023 ambulatory Yuli Ze Duckworth Facility:[facility] Start: 08-09-2023 End: 08-09-2023 ambulatory Yuli L Duckworth Work Phone: [facility] Work Phone: Start: 08-09-2023 End: 08-09-2023 Patient encounter procedure Yuli Duckworth Work Phone: [facility] [place] Work Phone: Start: 08-08-2023 End: 08-09-2023 ambulatory HEATH SUSAN Facility:[facility] Start: 08-08-2023 End: 08-08-2023 Patient encounter procedure HEATH SUSAN [facility] Start: 08-02-2023 End: 08-02-2023 Patient encounter procedure Yuli Duckworth Work Phone: [facility] Work Phone: Start: 07-25-2023 End: 07-26-2023 ambulatory HEATH SUSAN Facility:[facility] Start: 07-25-2023 Non-patient / Non-visit Yuli Duckworth Work Phone: [facility] Work Phone: Start: 07-25-2023 End: 07-25-2023 Patient encounter procedure HEATH SUSAN [facility] Start: 06-03-2023 End: 06-04-2023 ambulatory Angel Page Facility:[facility] Start: 06-03-2023 End: 06-03-2023 Patient encounter procedure Angel Page [facility] Start: 05-27-2023 End: 05-28-2023 ambulatory Angel Johnsony Facility:[facility] Start: 05-27-2023 End: 05-27-2023 Patient encounter procedure Angel Page [facility] Start: 05-24-2023 End: 05-25-2023 ambulatory Angel Johnsony Facility:[facility] Start: 05-17-2023 End: 05-18-2023 ambulatory Angel Johnsony Facility:[facility] Start: 05-17-2023 End: 05-17-2023 Patient encounter procedure Angel Page [facility] Start: 05-09-2023 ambulatory Angel aPge Facility:[facility] Start: 05-06-2023 End: 05-07-2023 ambulatory Yuli Duckworth Facility:[facility] Start: 05-03-2023 End: 05-03-2023 ambulatory VANDA Sherman STUART Not Available Start: 04-19-2023 End: 04-20-2023 Emergency department patient visit Chris Sandoval Iram Facility:[facility] Start: 04-19-2023 End: 04-19-2023 Emergency department patient visit Yuli Duckworth Work Phone: [facility] Work Phone: Start: 03-24-2023 End: 03-24-2023 ambulatory Heath Susan Other [employer] Other Start: 03-24-2023 Office outpatient visit 25 minutes Heath Susan [facility] Start: 03-24-2023 Telephone encounter Heath Susan [facility] Start: 03-09-2023 End: 03-10-2023 ambulatory HEATH SUSAN Facility:[facility] Start: 03-09-2023 End: 03-09-2023 Patient encounter procedure HEATH SUSAN [facility] Start: 11-08-2022 End: 11-09-2022 ambulatory Yuli Duckworth Facility:[facility] Start: 11-08-2022 End: 11-08-2022 Patient encounter procedure Yuli Duckworth [facility] Start: 10-29-2022 End: 10-30-2022 ambulatory Yuli Duckworth Facility:[facility] Procedures Date Procedure Procedure Detail Performing Clinician Start: 08-09-2023 Single photon emissi on computed tomography of parathyroid Yuli Duckworth Work Phone: Start: 04-19-2023 Plain chest X-ray Terence Duckworth Work Phone: Start: 08-07-2021 Colonoscopy Yuli nath Start: 09-09-2015 t tka compounded by obesity BMI>58 Yuli Duckworth Arthroplasty of knee Yuli Gucci Comment on above: right Plan of Treatment Date Care Activity Detail Author Calcitriol [Mass/vol ume] in Serum or Plasma [facility] Immunofixation for Urine Fir [facility] Parathyrin related p rotein [Moles/volume] in Serum or Plasma [facility] Patient Education Shoulder Pain ED [facility] Work Phone: Patient referral [facility] Work Phone: Renal function 2000 panel - Serum or Plasma [facility] Immunizations Immunization Date Immunization Notes Care Provider Fa [facility] 03-22-2023 influenza virus vacc ine, unspecified formulation [facility] 04-07-2022 influenza virus vacc ine, unspecified formulation [facility] 04-07-2022 SARS-CoV-2 (COVID-19 ) [id number] [facility] 09-07-2021 SARS-CoV-2 (COVID-19 ) mRNA BNT-162b2 vax [facility] 09-07-2021 zoster vaccine recombinant [facility] 02-23-2021 influenza virus vacc ine, unspecified formulation [facility] 02-23-2021 SARS-CoV-2 (COVID-19 ) mRNA BNT-162b2 vax [facility] 02-20-2021 influenza virus vacc ine, unspecified formulation Yuli Duckworth [facility] 08-13-2020 SARS-CoV-2 (COVID-19 ) Ad26 vaccine, recombinant Yuli Duckworth [facility] 07-25-2020 SARS-CoV-2 (COVID-19 ) mRNA BNT-162b2 vax Angel Callowayalena [facility] 07-16-2020 SARS-CoV-2 (COVID-19 ) Ad26 vaccine, recombinant Yuli Duckworth [facility] 07-03-2020 SARS-CoV-2 (COVID-19 ) mRNA BNT-162b2 vax Angel Pgae [facility] 03-19-2020 pneumococcal polysaccharide vaccine, 23 valent [facility] 03-19-2020 tetanus toxoid, redu matthew diphtheria toxoid, and acellular pertussis vaccine, adsorbed [facility] 03-03-2020 zoster vaccine recombinant [facility] 02-29-2020 influenza virus vacc ine, unspecified formulation [facility] 03-23-2016 influenza virus vacc ine, unspecified formulation [facility] 05-22-2014 influenza virus vacc ine, unspecified formulation [facility] Payers Date Payer Category Payer Self-pay 2021 Unknown [id number] 2. [id number] 2017 Medicare [id number] 2.1 [id number] 1952 Unknown [id number] 2.16.84 [id number] 1952 Unknown [id number] 2.16.840 .1.185667.3.579.2.1259 1952 Unknown [id number] 2.16.840 .1.128687.3.579.2.1259 1952 Unknown [id number] 2.16.8 40.1.496757.3.579.2.727 1952 Unknown [id number] 2.16.8 40.1.366409.3.579.2.727 1952 Unknown [id number] 2.16.8 40.1.121469.3.579.2.727 1952 Unknown [id number] 2.16.8 40.1.852254.3.579.2.727 1952 Unknown [id number] 2.16.8 40.1.544552.3.579.2.727 1952 Unknown [id number] 2.16.8 40.1.437772.3.579.2.727 1952 Unknown [id number] 2.16.8 40.1.575103.3.579.2.727 1952 Unknown [id number] 2.16.8 40.1.156143.3.579.2.727 1952 Unknown [id number] 2.16.8 40.1.989024.3.579.2.727 1952 Unknown [id number] 2.16.8 40.1.472588.3.579.2.727 1952 Unknown [id number] 2.16.8 40.1.616847.3.579.2.727 1952 Unknown [id number] 2.16.8 40.1.541312.3.579.2.727 Unknown [id number] 2.16.8 40.1.162554.3.579.2.531 Unknown [id number] 2.16.8 40.1.125879.3.579.2.531 Social History Date Type Detail Facility Start: 07-01-2021 End: 06-03-2023 Tobacco smoking status Never smoked tobacco (finding) [facility] Comment on above: Denies Sex Assigned At Female [facility] Start: 1950 Sex Assigned At Female F [facility] Functional Status Date Assessment Result Facility 09-03-2023 Functional Status No [facility] 09-03-2023 Functional Status [facility] 05-17-2023 Functional Status N/A [facility] [place] Clinical Notes 05-27-2019 to 09-06-2023 Note Date & Type Note Facility 09-06-2023 Note Admission and Discha rge Information Admit Date/Time:09/03/2023 20:32 Admitting Physician - Steve GELLER, Isabelle Consulting Physician - Salvador Ahn MD Admitting Diagnoses: Discharge Order Date Discharge Patient - Ordered -- 09/06/23 14:34:00 EDT, to home Discharge Diagnoses 1. Weakness, 09/03/2023 2. Balance problems, 09/03/2023 3. Acute kidney injury superimposed on chronic kidney disease, 09/03/2023 4. Hypotension, 09/03/2023 5. Hypercalcemia, 09/03/2023 6. Stage 3b chronic kidney disease (CKD), 09/03/2023 7. Type 2 diabetes mellitus, 09/03/2023 8. Subclinical hypothyroidism, 09/03/2023 9. Obesity, 09/03/2023 Nausea, 09/03/2023 Vision changes, 09/03/2023 Weakness or fatigue, 09/03/2023 Procedure History Colonoscopy (08/07/2021), t tka compounded by obesity BMI>58 (09/09/2015), Knee arthroplasty. Hospital Course Significant Findings Please refer to history and physical for details of admission. Patient presented to the emergency room in September 02 because of blurred vision and balance issues. She started Ozempic in July and has been having these issues as well as nausea. She states that after 2 weeks of starting the Ozempic she started having these issues and has just progressed from there. No vomiting or diarrhea and she does report little to no appetite not wanting to eat much of anything. at the bedside stated she has been stumbling around and walking with directions at times. In the emergency room she was noted with creatinine of 4.5 with a baseline creatinine of 1.7 to 1.8. She was also hypotensive at 84/49. After liter of fluids BP did increase to 105/55. She is admitted to the medical service for evaluation and treatment. On the medical service patient was admitted for weakness due to dehydration and acute kidney injury as well as balance problems also due to weakness. Acute kidney injury superimposed on chronic kidney disease was due to dehydration plus Ozempic. She was also taking indomethacin, HCTZ-triamterene and lisinopril as well. We consulted nephrology. She does see nephrology in the outpatient setting. She had a renal ultrasound done February 2023 that showed small left kidney. Nephrology saw the patient in consultation and recommended keeping patient off the hydrochlorothiazide and triamterene as well as the indomethacin. We did hold her antihypertensives due to hypotension. Also we stopped the Ozempic and she is willing to stop that completely. Nephrology ordered PTH as well as vitamin D 25-OH and vitamin D 1, 25 OH levels. They also ordered serum immunofixation, urine immunofixation and serum free light chain analysis. MRI of the brain was performed today that showed no acute process. Patient will be discharged home today. She will stop her Ozempic, indomethacin, Dyazide, lisinopril and metoprolol and she will need to follow-up with her primary care doctor and anaesthetic technician in the outpatient setting. Procedures and Treatment Provided 1. CT of the head without contrast 09/03/2023 2. Nephrology consultation 3. MRI of the brain without contrast 09/05/2023 Services Consulted Consult to Nephrology - Ordered -- 09/03/23 20:51:00 EDT, IRINA on CKD Stage 3b, Consult and Co-manage Physical Exam Vitals & Measurements T: 36.5 ?C(Axillary) TMIN: 36.3 ?C(Axillary) TMAX: 36.7 ?C(Axillary) HR: 75(Monitored) RR: 18 BP: 120/74 SpO2: 100% WT: 122.4 kg Constitutional: Awake and alert; oriented x 3 with no apparent distress or respiratory distress Head/neck: Neck supple with no palpable lymphadenopathy, bruits or masses; trachea midline Chest/lungs: Clear to auscultation bilaterally no wheezes or rhonchi noted bilaterally Cardiovascular: Regular rate and rhythm; normal S1-S2 with no murmur; no pitting edema and 2+ pulses bilaterally Gastrointestinal: Soft, nontender, nondistended, positive bowel sounds; obese Neurological: Nonfocal; cranial nerves II through XII appear intact Psychological: Pleasant affect Tests Performed Dihydroxyvitamin D 1,25 Level -- Results Pending -- Immunofixation Serum -- Results Pending -- Lab Miscellaneous-LC -- Results Pending -- PTH Intact -- Results Pending -- UA with Cult Rflx -- Results Pending -- Urinalysis with Micro -- Results Pending -- Brain MRI w/o Contrast CT Head or Brain w/o Contrast XR Chest Single View Please visit your patient portal for your results or contact your primary care physician. Discharge Plan Patient Discharge Condition stable Discharge Disposition Discharge To, Anticipated II - Home with responsible caregiver Transported by, Anticipated - Family Discharge Diet Discharge Diet(s): Calorie Controlled- 1800 Calorie Diet (09/06/23 14:28:00) Discharge Medication List Prescriptions No active prescription medications Home Acidophilus, Daily alendronate, 70 mg, Oral, qWeek aspirin atorvastatin 10 mg Tab, 10 mg= 1 tab(s), Oral, Daily Fosamax 70 mg Tab, 70 mg= 1 tab(s), Oral, qWeek gabapentin 300 mg Cap, (more content not included)... [facility] Comment on above: Result Comment: Elec tronically Signed By: Gunner Remy DO.[email or web address]\Date and Time Signed: 09/06/23 14:54 EDT 09-06-2023 Hospital Discharge instructions Patient Education 09/06/2023 14:52:56 Hypotension, Xoam-fw-Antd Hypotension As your heart beats, it forces blood through your body. This force is called blood pressure. If you have hypotension, you have low blood pressure. When your blood pressure is too low, you may not get enough blood to your brain or other parts of your body. This may cause you to feel weak, light-headed, have a fast heartbeat, or even faint. Low blood pressure may be harmless, or it may cause serious problems. What are the causes? Blood loss. Not enough water in the body (dehydration). Heart problems. Hormone problems. . A very bad infection. Not having enough of certain nutrients. Very bad allergic reactions. Certain medicines. What increases the risk? Age. The risk increases as you get older. Conditions that affect the heart or the brain and spinal cord (central nervous system). What are the signs or symptoms? Feeling: ?Weak. ?Light-headed. ?Dizzy. ?Tired (fatigued). Blurred vision. Fast heartbeat. Fainting, in very bad cases. How is this treated? Changing your diet. This may involve drinking more water or including more salt (sodium) in your diet by eating high-salt foods. Taking medicines to raise your blood pressure. Changing how much you take (the dosage) of some of your medicines. Wearing compression stockings. These stockings help to prevent blood clots and reduce swelling in your legs. In some cases, you may need to go to the hospital to: Receive fluids through an IV tube. Receive donated blood through an IV tube (transfusion). Get treated for an infection or heart problems, if this applies. Be monitored while medicines that you are taking wear off. Follow these instructions at home: Eating and drinking Drink enough fluids to keep your pee (urine) pale yellow. Eat a healthy diet. Follow instructions from your doctor about what you can eat or drink. A healthy diet includes: ?Fresh fruits and vegetables. ?Whole grains. ?Low-fat (lean) meats. ?Low-fat dairy products. If told, include more salt in your diet. Do not add extra salt to your diet unless your doctor tells you to. Eat small meals often. Avoid standing up quickly after you eat. Medicines Take gokz-udy-crtsasu and prescription medicines only as told by your doctor. ?Follow instructions from your doctor about changing how much you take of your medicines, if this applies. ?Do not stop or change any of your medicines on your own. General instructions Wear compression stockings as told by your doctor. Get up slowly from lying down or sitting. Avoid hot showers and a lot of heat as told by your doctor. Return to your normal activities when your doctor says that it is safe. Do not smoke or use any products that contain nicotine or tobacco. If you need help quitting, ask your doctor. Keep all follow-up visits. Contact a doctor if: You vomit. You have watery poop (diarrhea). You have a fever for more than 2 3 days. You feel more thirsty than normal. You feel weak and tired. Get help right away if: You have chest pain. You have a fast or uneven heartbeat. You lose feeling (have numbness) in any part of your body. You cannot move your arms or your legs. You have trouble talking. You get sweaty or feel light-headed. You faint. You have trouble breathing. You have trouble staying awake. You feel mixed up (confused). These symptoms may be an emergency. Get help right away. Call 911. Do not wait to see if the symptoms will go away. Do not drive yourself to the hospital. Summary Hypotension is also called low blood pressure. It is when the force of blood pumping through your body is too weak. Hypotension may be harmless, or it may cause serious problems. Treatment may include changing your diet and medicines, and wearing compression stockings. In very bad cases, you may need to go to the hospital. This information is not intended to replace advice given to you by your health care provider. Make sure you discuss any questions you have with your health care provider. Document Revised: 12/28/2021 Document Reviewed: 12/28/2021 [employer] Patient Education 2022 [employer]. Follow Up Care 09/03/2023 17:25:09 With:Salvador Ahn Address: [facility] [address] [place] [address]- Business (1) When: Unknown Comments:Call for followup appointment With:Follow-up with anaesthetic technician; call for appointment Address:Unknown When: Unknown With:Yuli Duckworth Address: [address], [address] [place] [address]- Business (1) When: Unknown Comments:Call for followup appointment [facility] 09-06-2023 Evaluation + Plan note Extrac jorge from: Title:Discharge Note Author:Jonel JAY Gunner Heath Date:09/06/23 stable Discharge To, Anticipated II - Home with responsible caregiver Transported by, Anticipated - Family Discharge Diet(s): Calorie Controlled- 1800 Calorie Diet (09/06/23 14:28:00) Prescriptions No active prescription medications Home Acidophilus, Daily alendronate, 70 mg, Oral, qWeek aspirin atorvastatin 10 mg Tab, 10 mg= 1 tab(s), Oral, Daily Fosamax 70 mg Tab, 70 mg= 1 tab(s), Oral, qWeek gabapentin 300 mg Cap, 600 mg= 2 cap(s), Oral, Bedtime saccharomyces boulardii lyo, 250 mg, Oral, BID venlafaxine 150 mg Cap-ER, 150 mg= 1 cap(s), Oral, Daily STOP: 1. Ozempic 2. Indomethacin 3. Hydrochlorothiazide-triamterene 4. Lisinopril 5. Metoprolol Hold these medications until follow-up appointments Follow-up with anaesthetic technician; call for appointment as well as PCP With When Contact Information Follow-up with anaesthetic technician; call for appointment Additional Instructions: Yuli Duckworth [address] [place] [address], [address] [facility] (1) Additional Instructions: Call for followup appointment Extracted from: Title:Acute Renal Failure * Author:Anabelle GELLER, House nil Date:09/05/23 Impression and Plan 1. Acute kidney injury -Likely from significant hypercalcemia in the setting of indomethacin, lisinopril, and hydrochlorothiazide use. -Creatinine peaked at 4.5 mg/dL and is improving to 2.6 mg/dL. -Continue normal saline but decrease to 75 cc/h. Remains nonoliguric 2. Nonproteinuric chronic kidney disease stage III baseline creatinine 1.3 mg/dL: From longstanding hypertension 3. Hypercalcemia: In part from hydrochlorothiazide. Calcium peaked at 12.2 and is improving to 9.9. -She has had hypercalcemia at least since 2020. No hydrochlorothiazide on discharge Please check serum immunofixation, urinary immunofixation, and serum free light chain analysis -Also please check PTH and vitamin D 25-OH, and Vit D 1,25-OH 4. Hypotension -Please continue off all bp meds as you are. Extracted from: Title:Progress/SOAP Note Author:Mary Remy DO Date:09/05/23 73-year-old female admitted for weakness and balance issues as well as acute kidney injury superimposed on chronic kidney disease. Her weakness and balance problems started after taking Ozempic in July. She also has nausea - improved. Comorbidities include type 2 diabetes with neuropathy, chronic kidney disease stage IIIb, history of hypertension, hypercholesterolemia, history of kidney stones in the past and osteoporosis. 1. Weakness (R53.1: Weakness) Secondary to dehydration Improving Continue PT 2. Balance problems (R26.89: Other abnormalities of gait and mobility) Secondary to weakness and she also had blurring of her vision MRI of the brain without contrast to be performed today to rule out any central process 3. Acute kidney injury superimposed on chronic kidney disease (N17.9: Acute kidney failure, unspecified) Secondary to dehydration in setting of poor intake while on Ozempic plus she was on an EDIS inhibitor Maintain fluid hydration Nephrology consulted Serum creatinine down to 2.6 Urinalysis ordered by the ED but I will reorder it Renal ultrasound from February 2023 shows left kidney small and bilaterally, no hydronephrosis or stones or masses seen 4. Hypotension (I95.9: Hypotension, unspecified) Pressures are still on the low end; we are withholding antihypertensives at this time 5. Hypercalcemia (E83.52: Hypercalcemia) Stable 6. Stage 3b chronic kidney disease (CKD) (N18.32: Chronic kidney disease, stage 3b) Creatinine down to 2.6 this morning; see #3 above We are withholding her lisinopril and her hydrochlorothiazide-triamterene 7. Type 2 diabetes mellitus (E11.9: Type 2 diabetes mellitus without complications) Patient is sliding scale insulin for her diabetes 8. Subclinical hypothyroidism (E03.8: Other specified hypothyroidism) Repeat TFTs in 6 weeks in the outpatient setting 9. Obesity (E66.9: Obesity, unspecified) Orders: lorazepam, 1 mg = 0.5 mL, Injection, IV Push, Once, Stop date 09/05/23 9:00:00 EDT, Start date 09/05/23 9:00:00 EDT, prior to MRI Basic Metabolic Panel CBC w/ Auto Diff eGFR Urinalysis with Micro PLAN: 1. Continue antihypertensives lisinopril and HCTZ-triamterene 2. Nephrology consultation 3. Maintain fluid hydration 4. MRI of the brain without contrast this morning for balance and vision problems 5. Will order urinalysis; urinalysis was ordered on admission by ER but not done 6. Sliding-scale insulin coverage for her diabetes 7. Maintain aspirin, atorvastatin, gabapentin and Effexor from home 8. DVT prophylaxis with SCDs and subcu heparin 9. Full CODE STATUS 10. Discharge planning Extracted from: Title:Progress/SOAP Note Author:Mary Remy DO Date:09/04/23 73-year-old female admitted for weakness and balance issues as well as acute kidney injury superimposed on chronic kidney disease. Her weakness and balance problems started after taking Ozempic in July. She also has nausea. Comorbidities include type 2 diabetes with neuropathy, chronic kidney disease stage IIIb, history of hypertension, hypercholesterolemia, history of kidney stones in the past and osteoporosis. 1. Weakness (R53.1: Weakness) Secondary to dehydration (she was unable to take much p.o. while on the Ozempic) and acute kidney injury PT to eval and treat 2. Balance problems (R26.89: Other abnormalities of gait and mobility) Secondary to weakness but she also has blurring of her vision and MRI of the brain without contrast ordered to rule out a central process 3. Acute kidney injury superimposed on chronic kidney disease (N17.9: Acute kidney failure, unspecified) Secondary to dehydration in the setting of poor intake while on Ozempic plus she was on an EDIS inhibitor Continue fluid hydration Nephrology consulted Check labs in a.m. 4. Hypotension (I95.9: Hypotension, unspecified) Holding antihypertensives at this time and continue fluid hydration 5. Hypercalcemia (E83.52: Hypercalcemia) Calcium is returned back to normal at 10.2 this morning 6. Stage 3b chronic kidney disease (CKD) (N18.32: Chronic kidney disease, stage 3b) Creatinine down to 3.6-4.5 yesterday Continue fluid hydration and nephrology has been consulted Of her lisinopril plus hydrochlorothiazide-triamterene 7. Type 2 diabetes mellitus (E11.9: Type 2 diabetes mellitus without complications) Mild scale insulin coverage for diabetes 8. Subclinical hypothyroidism (E03.8: Other specified hypothyroidism) Repeat TFTs 6 weeks in the outpatient setting 9. Obesity (E66.9: Obesity, unspecified) BMI 48 PLAN: 1. Continue off of Ozempic 2. Continue fluid hydration 3. Nephrology consult 4. MRI of the brain without contrast ordered 5. Lab for a.m. 6. Sliding scale insulin coverage for her diabetes 7. Off all antihypertensives at this time 8. Continue aspirin, atorvastatin, gabapentin and Effexor from home 9. DVT prophylaxis with SCDs and subcu heparin 10. Full CODE STATUS Extracted from: Title:Admission H & P Author:Isabelle Wilson MD Date:09/03/23 1. Weakness (R53.1: Weakness ) Likely due to dehydration and IRINA PT Eval in AM 2. Balance problems (R26.89: Other abnormalities of gait and mobility) Probably related to above weakness. CT Head negative. Ordered MRI Brain to r/o central process, although may be due to hypoperfusion issues from hypotension. Balance issues sounds like possible ataxia. She also reports blurry vision. 3. Acute kidney injury superimposed on chronic kidney disease (N17.9: Acute kidney failure, unspecified) Likely due to dehydration in setting of poor oral intake while on Ozempic in conjunction with ACEI use. Ozempic has been reported to cause IRINA on its own. Continue NS at 125 cc/hr Hold Nephrotoxic medication. Bladder Scan. Had Renal US 02/2023 that showed a small left kidney. Nephrology consultation. 4. Hypotension (I95.9: Hypotension, unspecified) Due to volume depletion. Improved with hydration. Hold anti-hypertensives 5. Hypercalcemia (E83.52: Hypercalcemia) Chronic issue. Being worked up as an outpatient. 6. Stage 3b chronic kidney disease (CKD) (N18.32: Chronic kidney disease, stage 3b) Baseline creatinine around 1.7-1.8. Patient follows jeremi Davis in [place]. 7. Type 2 diabetes mellitus (E11.9: Type 2 diabetes mellitus without complications) Controlled. States last A1C 6.9 Would recommend coming off Ozempic indefinitely. Patient in agreement. 8. Subclinical hypothyroidism (E03.8: Other specified hypothyroidism) Patient not on Synthroid. Recommend repeat thyroid labs in 6 weeks as an outpatient. 9. Obesity (E66.9: Obesity, unspecified) Morbid obesity BMI 48 Addendum by Isabelle Wilson MD on September 03, 2023 22:43:40 EDT Bladder scan = 25cc Extracted from: Title:ED Note Author:James Coates, Usha Cruz te:09/03/23 1. Balance problems (R26.89: Other abnormalities of gait and mobility) 2. Acute kidney injury superimposed on chronic kidney disease (N17.9: Acute kidney failure, unspecified) 3. Weakness (R53.1: Weakness) 4. Hypotension (I95.9: Hypotension, unspecified) Chronic kidney disease, unspecified (N18.9: Chronic kidney disease, unspecified) Orders: Sodium Chloride 0.9% intravenous solution 500 mL, 500 mL, IV, 999 mL/hr, STAT, Start date 09/03/23 18:57:00 EDT, 0.5 hour(s), Total volume (mL): 500, 112.5 kg, 2.18, m2 Basic Metabolic Panel Capillary Glucose POC CBC w/ Auto Diff CT Head or Brain w/o Contrast eGFR Extra SST Tube Free T4 Hepatic Function Panel Magnesium Level PT & PTT Saline Lock Insert Troponin 0 Hr. Troponin 3 Hr. Troponin 6 Hr. Troponin 9 Hr. TSH With T4fr Reflex UA with Cult Rflx XR Chest Single View Future Appointments Appointment Date:11/07/2023 08:45:00 AM Scheduled Provider: Location:FT.[facility] Appointment Type:MA Diagnostic (FT) Appointment Date:11/07/2023 09:30:00 AM Scheduled Provider: Location:.[facility] Appointment Type:US Breast (FT) Diagnostic Tests Pending * UA with Cult Rflx 09/03/23 * Immunofixation Serum 09/06/23 * PTH Intact 09/06/23 * Dihydroxyvitamin D 1,25 Level 09/06/23 Future Scheduled Tests Radiology* US Breast Unilateral Lt Complete 11/07/23 * US Breast Unilateral Rt Complete 11/07/23 * MA Mamm Diag w/CAD if perf and 3D Cabrera 11/07/23 [facility]04-14-2024 NoteBasic Information Admit Date/Time:09/03/2023 20:32 Chief Complaint pt. states intermittent blurry vision and balance issues since starting Ozempic in July. c/o nausea. hx DM, denies abd. pain. History of Present Illness 73-year-old female who presented to the emergency room with weakness, balance issues, and blurry vision. She states that she was started on Ozempic the first week of July. About 2 weeks after being on the medication she started to have issues, and things have just progressed from there. She has had some nausea. No vomiting or diarrhea. Her biggest issue is that she has no appetite and does not want to eat or drink much of anything. When asked about her balance issues, she states she is not dizzy. Her does state that she has been stumbling around a lot and seems to be walking in weirddirections at times. Workup in the emergency room revealed IRINA on CKD. Her creatinine came back elevated at 4.5. Baseline is around 1.7-1.8. She was also initially hypotensive at 84/49. After a liter of fluid this did improve to 105/55. She states she still has been urinating, but not as much as normal. She is in agreement to come off Ozempic indefinitely. Review of Systems Constitutional: no fever, no chills, no sweats, + weakness Skin: no jaundice, no rash, no lesions, no petechiae ENMT: no ear pain, no sore throat, no congestion, no hoarseness, + blurry vision Respiratory: no shortness of breath, no cough, no orthopnea, no wheezing Cardiovascular: no chest pain, no palpitations, no edema Gastrointestinal: + nausea, no vomiting, no diarrhea, no abdominal pain Genitourinary: no dysuria, no hematuria Musculoskeletal: no trauma, no joint or muscle pain Neurologic: no headache, no dizziness, no syncope Psychiatric: no depression, + anxiety Heme/Lymph: no bleeding tendency, no bruising tendency Additional ROS info: Except as noted in the above Review of Systems and in the History of Present Illness all other systems have been reviewed and are negative or noncontributory. Scoring [place] Fall Risk Score: 35 (09/03/23) Physical Exam Vitals & Measurements T: 36.6 ?C(Oral) HR: 61(Monitored) RR: 13 BP: 105/55 SpO2: 100% HT: 152 cm WT: 112.5 kg General: NAD Skin: warm, dry, no rash Head: AT/NC Neck: Trachea midline, supple Eye: normal conjunctiva, sclera clear Cardiovascular: regular rate and rhythm, S1S2, normal peripheral perfusion Respiratory: Lungs CTA, respirations non labored, breath sounds equal, no w/r/r Chest wall: no deformity Gastrointestinal: soft, NT, ND, obese Extremities: no deformity, no edema Neurological: oriented, LOC appropriate for age, no focal deficits, normal speech Psychiatric: cooperative, affect appropriate for age, good eye contact Lab Results WBC: 8.8 E9/L (09/03/23 17:58:00) RBC: 4.1 E12/L Low (09/03/23 17:58:00) HGB: 10.7 gm/dL Low (09/03/23 17:58:00) Hct: 33.1 % Low (09/03/23 17:58:00) MCV: 81.2 fL (09/03/23 17:58:00) MCH: 26.2 pg Low (09/03/23 17:58:00) MCHC: 32.2 gm/dL (09/03/23 17:58:00) RDW: 20.2 % High (09/03/23 17:58:00) Platelet: 229 E9/L (09/03/23 17:58:00) MPV: 7.6 fL (09/03/23 17:58:00) Neutro Auto: 79.5 % High (09/03/23 17:58:00) Lymph Auto: 10.9 % Low (09/03/23 17:58:00) Bledsoe Auto: 6.1 % (09/03/23 17:58:00) Eos Auto: 3.1 % (09/03/23 17:58:00) Basophil Auto: 0.4 % (09/03/23 17:58:00) Neutro Absolute: 7 E9/L (09/03/23 17:58:00) Lymph Absolute: 1 E9/L (09/03/23 17:58:00) Bledsoe Absolute: 0.5 E9/L (09/03/23 17:58:00) Eos Absolute: 0.3 E9/L (09/03/23 17:58:00) Basophil Absolute: 0 E9/L (09/03/23 17:58:00) PT: 11.9 second(s) (09/03/23 17:58:00) INR: 1.06 (09/03/23 17:58:00) PTT: 36.4 second(s) (09/03/23 17:58:00) Glucose Lvl: 96 mg/dL (09/03/23 17:58:00) BUN: 57 mg/dL High (09/03/23 17:58:00) Creatinine: 4.5 mg/dL High (09/03/23 17:58:00) eGFR: 10 mL/min/1.73 m2 Low (09/03/23 17:58:00) BUN/Creat Ratio: 13 (09/03/23 17:58:00) Sodium Lvl: 135 mmol/L (09/03/23 17:58:00) Potassium Lvl: 4.8 mmol/L (09/03/23 17:58:00) Chloride: 101 mmol/L (09/03/23 17:58:00) CO2: 25 mmol/L (09/03/23 17:58:00) AGAP: 14 mEq/L (09/03/23 17:58:00) Calcium Lvl: 12.2 mg/dL High (09/03/23 17:58:00) Alk Phos: 87 Int._Unit/L (09/03/23 17:58:00) ALT: 20 Int._Unit/L (09/03/23 17:58:00) AST: 13 Int._Unit/L (09/03/23 17:58:00) Total Protein: 7 gm/dL (09/03/23 17:58:00) Albumin Lvl: 4 gm/dL (09/03/23 17:58:00) Globulin: 3 gm/dL (09/03/23 17:58:00) A/G Ratio: 1.3 (09/03/23 17:58:00) Bili Total: 0.4 mg/dL (09/03/23 17:58:00) Bili Direct: 0.1 mg/dL (09/03/23 17:58:00) Bili Indirect: 0.3 mg/dL (09/03/23 17:58:00) Magnesium: 2.1 mg/dL (09/03/23 17:58:00) TSH: 7.43 mcIU/mL High (09/03/23 17:58:00) T4 Free: 0.79 ng/dL (09/03/23 17:58:00) Troponin: 3.4 pg/mL Low (09/03/23 20:44:00) Glucose Cap: 76 mg/dL (09/03/23 17:54:00) POC Device SN: [id number] (09/03/23 17:54:00) POC User ID: [id number] (09/03/23 17:54:00) POC Username: POC Username ( (more content not included)...[facility] Center[facility]:Result Comment: Electronically Signed By: Steve GELLER, Isabelle\.br\Date and Time Signed: 09/03/23 22:43 [id number] Hospital Discharge instructions Patient Education 05/17/2023 09:09:37 Obesity, Adult Obesity, Adult Obesity is the condition of having too much total body fat. Being overweight or obese means that your weight is greater than what is considered healthy for your body size. Obesity is determined by a measurement called BMI (body mass index). BMI is an estimate of body fat and is calculated from height and weight. For adults, a BMI of 30 or higher is considered obese. Obesity can lead to other health concerns and major illnesses, including: Stroke. Coronary artery disease (CAD). Type 2 diabetes. Some types of cancer, including cancers of the colon, breast, uterus, and gallbladder. High blood pressure (hypertension). High cholesterol. Gallbladder stones. Obesity can also contribute to: Osteoarthritis. Sleep apnea. Infertility problems. What are the causes? Common causes of this condition include: Eating daily meals that are high in calories, sugar, and fat. Drinking high amounts of sugar-sweetened beverages, such as soft drinks. Being born with genes that may make you more likely to become obese. Having a medical condition that causes obesity, including: ?Hypothyroidism. ?Polycystic ovarian syndrome (PCOS). ?Binge-eating disorder. ?[place] syndrome. Taking certain medicines, such as steroids, antidepressants, and seizure medicines. Not being physically active (sedentary lifestyle). Not getting enough sleep. What increases the risk? The following factors may make you more likely to develop this condition: Having a family history of obesity. Living in an area with limited access to: ?[place], recreation centers, or sidewalks. ?Healthy food choices, such as grocery stores and farmers' markets. What are the signs or symptoms? The main sign of this condition is having too much body fat. How is this diagnosed? This condition is diagnosed based on: Your BMI. If you are an adult with a BMI of 30 or higher, you are considered obese. Your waist circumference. This measures the distance around your waistline. Your skinfold thickness. Your health care provider may gently pinch a fold of your skin and measureit. You may have other tests to check for underlying conditions. How is this treated? Treatment for this condition often includes changing your lifestyle. Treatment may include some or all of the following: Dietary changes. This may include developing a healthy meal plan. Regular physical activity. This may include activity that causes your heart to beat faster (aerobicexercise) and strength training. Work with your health care provider to design an exercise program that works for you. Medicine to help you lose weight if you are unable to lose one pound a week after six weeks of healthy eating and more physical activity. Treating conditions that cause the obesity (underlying conditions). Surgery. Surgical options may include gastric banding and gastric bypass. Surgery may be done if: ?Other treatments have not helped to improve your condition. ?You have a BMI of 40 or higher. ?You have life-threatening health problems related to obesity. Follow these instructions at home: Eating and drinking Follow recommendations from your health care provider about what you eat and drink. Your health care provider may advise you to: ?Limit fast food, sweets, and processed snack foods. ?Choose low-fat options, such as low-fat milk instead of whole milk. ?Eat five or more servings of fruits or vegetables every day. ?Choose healthy foods when you eat out. ?Keep low-fat snacks available. ?Limit sugary drinks, such as soda, fruit juice, sweetened iced tea, and flavored milk. Drink enough water to keep your urine pale yellow. Do not follow a fad diet. Fad diets can be unhealthy and even dangerous. Other healthful choices include: ?Eat at home more often. This gives you more control over what you eat. ?Learn to read food labels. This will help you understand how much food is considered one serving. ?Learn what a healthy serving size is. Physical activity Exercise regularly, as told by your health care provider. ?Most adults should get up to 150 minutes of moderate-intensity exercise every week. ?Ask your health care provider what types of exercise are safe for you and how often you should exercise. Warm up and stretch before being active. Cool down and stretch after being active. Rest between periods of activity. Lifestyle Work with your health care provider and a dietitian to set a weight-loss goal that is healthy and reasonable for you. Limit your screen time. Find ways to reward yourself that do not involve food. Do not drink alcohol if: ?Your health care provider tells you not to drink. ?You are , may be , or are planning to become . If you drink alcohol: ?Limit how much you have to: ?0 1 drink a day for women. ?0 2 drinks a day for men. ?Know how much alcohol is in your drink. In the [place] one drink equals one 12 oz bottle of beer (355 mL), one 5 oz glass of wine (148 mL), or one 1 oz glass of hard liquor (44 mL). General instructions Keep a weight-loss journal to keep track of the food you eat and how much exercise you get. Take [id number] and prescription medicines only as told by your health care provider. Take vitamins and supplements only as told by your health care provider. Consider joining a support group. Your health care provider may be able to recommend a support group. Pay attention to your mental health as obesity can lead to depression or self esteem issues. Keep all follow-up visits. This is important. Contact a health care provider if: You are unable to meet your weight-loss goal after six weeks of dietary and lifestyle changes. You have trouble breathing. Summary Obesity is the condition of having too much total body fat. Being overweight or obese means that your weight is greater than what is considered healthy for your body size. Work with your health care provider and a dietitian to set a weight-loss goal that is healthy and reasonable for you. Exercise regularly, as told by your health care provider. Ask your health care provider what types of exercise are safe for you and how often you should exercise. This information is not intended to replace advice given to you by your health care provider. Make sure you discuss any questions you have with your health care provider. Document Revised: 12/15/2021 Document Reviewed: 12/15/2021 [employer] Patient Education 2022 [employer]. [facility] [place] 11-02-2023 Evaluation note* Encounter Date Diagnosis Assessment Notes Treatment Notes Treatment Clinical Notes Mar, Chronic kidney disea se, stage III (moderate) (ICD-10 - N18.30) She has a longstanding DM with HTN and likely has a CKD. Her serum creatinine is 2.0 mg/dL.-Her renal function has declined likely due to progression of CKD. Her renal ultrasound showed a small left kidney with no evidence of the kidney mass hydronephrosis or kidney stones. No evidence for hematuria for proteinuria. I discussed with the importance of good DM and HTN control to slow down progression of CKD. I have advised her to avoid indomethacin for gout. She can have prednisone for gout flare. 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 She appears to be euvolemic. Continue current dose of the metoprolol and Dyazide. I have advised her to monitor blood pressure at home and call office if stays above 140 over 90 mmHg or drop below 100 over 60 mmHg. Mar, Diabetes mellitus wi th chronic kidney disease (ICD-10 - E11.22) Her blood sugars are within the acceptable range.Advised her to continue to follow with PCP for DM management. Due to her declining renal function and no evidence of proteinuria I will not prescribe EDIS or ARB. Patient reported that that she was started taking Ozempic after her insurance approval. Mar, Secondary hyperparathyroidism (ICD-10 - N25.81) She has a secondary hyperparathyroidism due to the CKD but her calcium, phosphorus and vitamin D are within the goal. Mar, Dyslipidemia (ICD-10 - E78.5) Continue atorvastatin. Continue to monitor lipid profile and LFTs Mar, Anemia of renal dise ase (ICD-10 - D63.1) Hemoglobin is within the goal. We will check iron studies, B12 and folate level. She reported she had a colonoscopy less than 2 years ago. She has unremarkable work-up for paraproteinemia including serum free light chain ratio, SPEP, UPEP serum and urine immunofixation. [facility] Other 01-05-2020 Evaluation + Plan note Future Appointments Appointment Date:05/24/2023 02:00:00 PM Scheduled Provider: Location:.MRI Appointment Type:MRI Breast (FT) Appointment Date:05/27/2023 01:00:00 PM Scheduled Provider: Location:.[facility]ASOUND Appointment Type:US Breast (FT) Appointment Date:05/27/2023 02:00:00 PM Scheduled Provider: Location:.[facility] Appointment Type:MA Diagnostic (FT) Appointment Date:06/03/2023 09:20:00 AM Scheduled Provider:Angel Page MD Location:[facility] Appointment Type:[facility] 15 Future Scheduled Tests Radiology* MA Mamm Diag w/CAD if performed LT 05/27/23 * US Breast biopsy Vac Asst, First Lesion 05/27/23 * MRI Breast w/o and w/ Contrast, Bilat 05/24/23 [facility] [place] Evaluation + Plan note No data available for this section [facility] Future Appointments Appointment Date:05/06/2023 09:15:00 AM Scheduled Provider: Location:.[facility] Appointment Type:MA Diagnostic (FT) Appointment Date:05/06/2023 10:00:00 AM Scheduled Provider: Location:.[facility]TRASOUND Appointment Type:US Breast (FT) Diagnostic Tests Pending * Free K+L Lt Chains,Qn,S 03/09/23 * Immunofixation Serum 03/09/23 * PTH Intact 03/09/23 Future Scheduled Tests Radiology* US Breast Unilateral Lt Complete 05/06/23 * MA Mamm Diag w/CAD if perf and 3D LT 05/06/23 [facility] Future Appointments Appointment Date:06/03/2023 09:20:00 AM Scheduled Provider:Angel Page MD Location:[facility] Appointment Type:GS Established [facility] Future Appointments Appointment Date:11/07/2023 08:45:00 AM Scheduled Provider: Location:.[facility]MOGRAM Appointment Type:MA Diagnostic (FT) Appointment Date:11/07/2023 09:30:00 AM Scheduled Provider: Location:.[facility]TRASOUND Appointment Type:US Breast (FT) Future Scheduled Tests Radiology* US Breast Unilateral Lt Complete 11/07/23 * US Breast Unilateral Rt Complete 11/07/23 * MA Mamm Diag w/CAD if perf and 3D Cabrera 11/07/23 [facility] [place] Evaluation + Plan note Future Appointments Appointment Date:11/07/2023 08:45:00 AM Scheduled Provider: Location:.M[facility]MOGRAM Appointment Type:MA Diagnostic (FT) Appointment Date:11/07/2023 09:30:00 AM Scheduled Provider: Location:.[facility]TRASOUND Appointment Type:US Breast (FT) Diagnostic Tests Pending * PTH Intact 07/25/23 Future Scheduled Tests Radiology* US Breast Unilateral Lt Complete 11/07/23 * US Breast Unilateral Rt Complete 11/07/23 * MA Mamm Diag w/CAD if perf and 3D Cabrera 11/07/23 [facility] Future Appointments Appointment Date:11/07/2023 08:45:00 AM Scheduled Provider: Location:.M[facility]MOGRAM Appointment Type:MA Diagnostic (FT) Appointment Date:11/07/2023 09:30:00 AM Scheduled Provider: Location:.[facility]TRASOUND Appointment Type:US Breast (FT) Diagnostic Tests Pending * Free K+L Lt Chains,Qn,S 08/08/23 * Dihydroxyvitamin D 1,25 Level 08/08/23 * CHRIS and PE, Serum 08/08/23 Future Scheduled Tests Radiology* US Breast Unilateral Lt Complete 11/07/23 * US Breast Unilateral Rt Complete 11/07/23 * MA Mamm Diag w/CAD if perf and 3D Cabrera 11/07/23 [facility] note[facility] InformationNort NotaryAct Other Evaluation noteNo assessment information available [facility] Work Phone: Evaluation note* Diagnosis Onset Date Resolution Status Anemia of renal disease acut e Priyank hy kid w cr kid I-IV acu te Chronic kidney disease, stage III (moderate) acute Diabetes mellitus with chronic kidney disease acute Hyperlipidemia acute [facility] Work Phone: History general Narrative - Reported* Type Description Date Medical History DEPRESSION Medical History HYPERTENSION Medical History DIABETES MELLITUS Medical History HYPERLIPIDEMIA Medical History RESTLESS LEG Surgical History BILATERAL KNEE REPLACEMENTS Hospitalization History SEE ABOVE Hospitalization History 3 CHILD BIRTHS [facility] Other Hospital Discharge instructions No data available for this section [facility] No data available for this section [facility] Chief Complaint and Reason for Visit Chief Complaint Left shoulder pain Chief Complaint RENAL 3 month Follow up E83.52 E78.5 I12.9 N18.9 D63.1 Reason for Visit Anemia of renal dise ase Priyank hy kid w cr kid I-IV Chronic kidney disease, stage III (moderate) Diabetes mellitus with chronic kidney disease Hyperlipidemia Advance Directives No Advanced Directives Records Found Advance Directive Response Recorded Date/ Time Advance Directives No March 7:40pm Advance Directive Response Recorded Date/ Time Advance Directives No March 8:40pm Summary Purpose Family History Relationship Condition Age at Onset Recorded Date/T pepito father Congestive heart failure Unknown Unknown Not Specified Unknown History of stroke Unknown natural son Hypertension Unknown sister Heart disease Unknown Atrial fibrillation Unknown No Family History Records Found Additional Source Comments Patient Care team informatio n (unrecognized section and content) Team Status: Active Member Role Status Dates Yuli Duckworth Primary Care Provider Active Team Status: Active Member Role Status Dates Yuli Duckworth Primary Care Provider Active Star t: July 25, 2023 Heath Davis MD Attending Provider Active Start : July 25, 2023 Team Status: Inactive Member Role Status Dates Yuli Duckworth Primary Care Provider Active Star t: August 02, 2023 End: August 02, 2023 Heath Davis MD Attending Provider Active Start : August 02, 2023 End: August 02, 2023 Team Status: Inactive Member Role Status Dates Yuli Duckworth Primary Care Provider Active Star t: August 09, 2023 End: August 09, 2023 Heath Davis MD Attending Provider Active Start : August 09, 2023 End: August 09, 2023 Team Status: Inactive Member Role Status Dates Yuli Duckworth Primary Care Provider Active Chris Walden PA-C Emergency Provider Active REASON FOR VISIT (unrecogniz ed section and content) CKD and AnemiaNo Information Goals (unrecognized section and content) Goals may be documented in a n alternate section INFORMATION SOURCE (unrecogn ized section and content) DATE CREATED AUTHOR 08/10/2023 [facility] DATE CREATED AUTHOR AUTHOR'S ORGANNEIL ATION 08/26/2023 [facility] DATE CREATED AUTHOR AUTHOR'S ORGANIZ ATION 10/16/2023 [facility] FOR RECORDS PERTAINING TO PATIENTS WHO ARE OR HAVE BEEN ENROLLED IN A CHEMICAL DEPENDENCY/SUBSTANCEABUSE PROGRAM, SOME INFORMATION MAY BE OMITTED. This clinical summary was aggregated from multiple sources. Caution should be exercised in using it in the provision of clinical care. This summary normalizes information from multiple sources, and as a consequence, information in this document may materially change the coding, format and clinical context of patient data. In addition, data may be omitted in some cases. CLINICAL DECISIONS SHOULD BE BASED ON THE PRIMARY CLINICAL RECORDS. [employer] [facility]. provides no warranty or guarantee of the accuracy or completeness of information in this document.
== END 2023-10-26 09:01 | disposition home or self-care (01) ==
LOC: MRI 09:01
PROVIDERS: PCP Nurse Practitioner Family; Visit Provider Physician Assistant
DX: M86.171 Other acute osteomyelitis, right ankle and foot (principal); M25.474 Effusion, right foot; G57.62 Lesion of plantar nerve, left lower limb
CPT/HCPCS: 73718

== ENCOUNTER 2023-11-29 10:29 | Outpatient (OUT) | payer MEDICARE, OTHER, SELFPAY ==
--- NOTE | 2023-11-29 | XR_ITS ---
[address] [address] Patient Name: SHANT TRENT MRN: [id number] date: 1950 Sex: F Assigned Patient Location: Current Patient Location: Accession/Order Number: [id number] Exam Date: 11/29/2023 10:30 Report Date: 11/29/2023 12:12 At the request of: SHIRA GLASS Procedure: XR foot NANDO min 3V EXAMINATION: XR foot NANDO min 3V HISTORY: BILATERAL FOOT PAIN COMPARISON: 10/06/23 FINDINGS: RIGHT FINDINGS: BONES: Fragmented appearance base of the first proximal phalanx with mixed lytic and sclerotic changes. Moderate plantar enthesopathic spurring of the calcaneus SOFT TISSUES: Negative. No visible soft tissue swelling. OTHER: Negative. LEFT FINDINGS: BONES: No acute fracture or dislocation. Mild to moderate Achilles enthesopathy SOFT TISSUES: Negative. No visible soft tissue swelling. OTHER: Negative. XR/XR foot NANDO min 3V IMPRESSION: RIGHT CONCLUSION: Fragmented appearance of the first proximal phalanx with increase in sclerosis. The differential diagnosis would include a subacute/chronic fracture versus osteomyelitis versus tumor LEFT CONCLUSION: No acute abnormality Electronically authenticated by: CHAPARRITA BANKS Date: 11/29/2023 12:12
== END 2023-11-29 10:30 | disposition home or self-care (01) ==
LOC: EC 10:29
PROVIDERS: PCP Nurse Practitioner Family; Visit Provider Podiatrist Foot & Ankle Surgery
DX: M79.672 Pain in left foot (principal); M79.671 Pain in right foot; M89.8X7 Other specified disorders of bone, ankle and foot
CPT/HCPCS: 73630

== ENCOUNTER 2024-02-28 09:21 | Outpatient (OUT) | payer MEDICARE, OTHER, SELFPAY ==
--- NOTE | 2024-02-28 | XR_ITS ---
The [address] [address] Patient Name: SHANT TRENT MRN: [id number] date: 1950 Sex: F Assigned Patient Location: [facility] Current Patient Location: Accession/Order Number: [id number] Exam Date: 02/28/2024 09:25 Report Date: 02/29/2024 06:40 At the request of: SHIRA GLASS Procedure: XR foot RT min 3V PROCEDURE: XR foot RT min 3V HISTORY: RIGHT FOOT PAIN COMPARISON: XR foot bilateral 11/29/2023 FINDINGS: BONES:Prior comminuted fracture of base of first distal phalanx. Some sclerosis and evidence of bone healing. Markedly irregular articular surface. Prior fracture of lateral distal corner of the first proximal phalanx. SOFT TISSUES:No visible soft tissue swelling. EFFUSION:None visible. OTHER: Negative. XR/XR foot RT min 3V IMPRESSION: 1. Partial osseous healing of markedly comminuted fracture of the first toe distal phalanx and to lesser extent proximal phalanx. Electronically authenticated by: FRANCOIS CARDENAS Date: 02/29/2024 06:40
--- OUTSIDE RECORDS SUMMARY | 2024-02-28 09:34 | XMS_ITS | CCD ---
Author Organization [facility] Care Team Providers Care Inspector Structural Bonding Name Role Phone Yuli Duckworth Primary Care Physician Heath Davis Unavailable Yuli Duckworth Primary Care Provider [phone] MART Walden Emergency Provider Chris Walden Attending Unavailable Chris Walden Admitting Unavailable Yuli Duckworth Primary Care Unavailable Yuli Duckworth Primary Care Unavailable Heath Davis Attending Unavailable Heath Davis Admitting Unavailable Yuli Duckworth Primary Care Provider MD Heath Davis Attending Provider VANDA STUART Attending Unavailable VANDA STUART Attending Unavailable VANDA STUART Referring Unavailable Xander Augustin Attending Unavailable Salvador Ahn Admitting Unavailable AkSalvador muñoz Attending Unavailable Salvador Ahn Referring Unavailable Angel Page Admitting Unavailable Angel Page Referring Unavailable Angel Page Attending Unavailable Angel Page Admitting Unavailable Angel Page Referring Unavailable Angel Page Attending Unavailable Aminata Joy Consulting Unavailab Vin Singh Consulting Unavailable Vin Joy Consulting Unavailable Vin Joy Consulting Unavailable Vin Joy Consulting Unavailable Vin Joy Consulting Unavailable Vin Joy Consulting Unavailable Vin Joy Consulting Unavailable Vin Joy Consulting Unavailable Vin Joy Consulting Unavailable Angel Page Attending Unavailable Angel Page Admitting Unavailable Angel Page Referring Unavailable Yuli Duckworth Attending Unavailable Yuli Duckworth Admitting Unavailable Yuli Duckworth Referring Unavailable SUSAN, MD HEATH Referring Unavailable MD HEATH DAVIS Attending Unavailable MD HEATH DAVIS Admitting Unavailable Angel Page Attending Unavailable DO Amy Julian Referring Unavailable Angel Page Attending Unavailable SUSAN, MD JOE Attending Unavailable MD HEATH DAVIS Admitting Unavailable MD HEATH DAVIS Attending Unavailable MD HEATH DAVIS Admitting Unavailable Akkina, Salvador Attending Unavailable Akkina, Salvador Admitting Unavailable Gunner Remy Attending Unavailable Isabelle Wilson Admitting Unavailable Akkina, Salvador Consulting Unavailable MD Anabelle Salvador Consulting Unavailable Akkina, Salvador Consulting Unavailable Akkina, Salvador Consulting Unavailable Akkina, Salvador Consulting Unavailable Akkina, Salvador Consulting Unavailable Akkina, Salvador Consulting Unavailable Akkina, Salvador Consulting Unavailable Akkina, Salvador Consulting Unavailable DO Xander Augustin Attending Unavailable Akkina, Salvador Attending Unavailable Akkina, Salvador Referring Unavailable Akkina, Salvador Admitting Unavailable Akkina, Salvador Attending Unavailable Akkina, Salvador Admitting Unavailable Akkina, Salvador Attending Unavailable Akkina, Salvador Admitting Unavailable Yuli Duckworth Referring Unavailable Augustine Ledbetter Consulting Unavaila Yuli Jasmine Admitting Unavailable Yuli Duckworth Attending Unavailable Augustine Ledbetter Consulting Unavaila Augustine Terry Consulting Unavaila ble Allergies Allergy Classification Reported Allergen(s) Allergy Type Date of Onset Reaction(s) Facility (19 sources) Penicillins; Translations: [penicillins] Drug allergy 3 Itching, Rash [facility] (2 sources) Penicillin Drug Allergy rash [facility] Other (2 sources) Codeine Drug Allergy 4 [facility] Rep[facility] Medications Current Medications Medication Drug Class(es) Dates Sig (Normalized) Sig (Original) alendronic acid 70 mg oral tablet (18 sources) Bisphosphonate Start: 05-12-2023 take 70 mg by mouth every week alendronate 70 mg, Oral, qWeek, Refills(s) 0 Start Date: 09/03/23 Status: Ordered take 1 tablet by mouth once violeta y Fosamax 70 MG 1 tablet 30 minutes before the first food, beverage or medicine of the day with plain water Orally Active aspirin 81 mg delayed release oral tablet (15 sources) Platelet Aggregation Inhibitor, Nonsteroidal Anti-inflammatory Drug Start: 08-02-2023 take 81 mg by mouth once daily Aspirin Active 81 MG PO Daily August 02, 2023 12:00am Start: 07-01-2021 aspirin Refill s(s) 0, Prophylaxis Start Date: 07/01/21 Status: Ordered take 1 tablet by john th every twenty-four hours Aspirin Adult Low Dose 81 MG 1 tablet Orally Once a day Active atorvastatin 10 mg oral tablet (13 sources) HMG-CoA Reductase Inhibitor Start: 05-12-2023 take 1 tablet by mouth once daily atorvastatin 10 mg Tab 10 mg = 1 tab(s), Oral, Daily, Refills(s) 0 Start Date: 05/12/23 Status: Ordered take 1 tablet by john th every twenty-four hours Atorvastatin Calcium 10 MG 1 tablet Oral ly Once a day Active cephalexin 500 mg oral capsule (1 source) Cephalosporin Antibacterial Start: 11-26-2023 End: 12-03-2023 take 1 capsule by mouth every twelve hours Keflex 500 mg Cap 500 mg = 1 cap(s), Oral, q12hr, X 7 day(s), # 14 cap(s), Refills(s) 0, Pharmacy: [facility]/pharmacy #[id number], 152, cm, 11/26/23 2:41:00 EDT, Height/Length Dosing, 113, kg, 11/26/23 2:41:00 EDT, Weight Dosing Start Date: 11/26/23 Stop Date: 12/03/23 Status: Ordered docusate sodium 100 mg oral capsule (1 source) Start: 11-26-2023 End: 12-03-2023 take 1 capsule by mouth twice daily Colace 100 mg Cap 100 mg = 1 cap(s), Oral, BID, X 7 day(s), # 14 cap(s), Refills(s) 0, Pharmacy: [facility]/pharmacy #[id number], 152, cm, 11/26/23 2:41:00 EDT, Height/Length Dosing, 113, kg, 11/26/23 2:41:00 EDT, Weight Dosing Start Date: 11/26/23 Stop Date: 12/03/23 Status: Ordered ferrous sulfate 325 mg oral tablet (1 source) Start: 08-02-2023 Ferrous Sulfate Active 325 MG PO Every 48 hours 45 August 02, 2023 12:00am gabapentin 300 mg oral capsule (15 sources) Anti-epileptic Agent Start: 08-02-2023 take 300 mg by mouth twice daily Gabapentin Active 300 MG PO Twice daily August 02, 2023 12:00am Start: 08-25-2015 take 2 capsules by [facility] at bedtime gabapentin 300 mg Cap 600 mg = 2 cap(s), Oral, Bedtime, Refills(s) 0, Other (see comment) Start Date: 08/25/15 Status: Ordered take 1 capsule by mo [facility] every twelve hours Gabapentin 300 MG 1 [...] 12:00am Start: 05-12-2023 take 1 capsule by [facility] three times daily indomethacin 50 mg oral capsule 50 mg = 1 cap(s), Oral, TID, Refills(s) 0 Start Date: 05/12/23 Status: Ordered take 1 capsule by [facility] at mealtime Indomethacin 50 MG 1 capsule with food or milk Orally As Directed Active Lactobacillus acidophilus (5 sources) Start: 09-03-2023 Acidophilus Da melia, Refill(s) 0 Start Date: 09/03/23 Status: Ordered metoprolol tartrate 50 mg oral tablet (10 sources) beta-Adrenergic Unruly Start: 08-25-2015 take 50 mg by mouth twice daily Metoprolol Tartrate Active 50 MG PO Twice daily August 02, 2023 12:00am polyethylene glycol 3350 97538 mg powder for oral solution (3 sources) Osmotic Laxative Start: 11-26-2023 polyethylene glycol 3350 Oral Pwdr for Recon 17 gram, Oral, Daily, dissolve in water before taking, # 527 gram, Refills(s) 0, Pharmacy: [facility]/pharmacy #[id number], 152, cm, 11/26/23 2:41:00 EDT, Height/Length Dosing, 113, kg, 11/26/23 2:41:00 EDT, Weight Dosing Start Date: 11/26/23 Status: Ordered Probiotic 250 MG (2 sources) Probiotic 250 MG as directed Orally Active saccharomyces boulardii 250 mg oral capsule (6 sources) Start: 09-03-2023 take 250 mg by [...] August 02, 2023 12:00am for 4 weeks tamsulosin hydrochloride 0.4 mg oral capsule (3 sources) alpha-Adrenergic Unruly Start: 11-26-2023 take 1 capsule by mouth once daily Flomax 0.4 mg Cap 0.4 mg = 1 cap(s), Oral, Daily, # 10 cap(s), Refills(s) 0, Pharmacy: [facility]/pharmacy #[id number], 152, cm, 11/26/23 2:41:00 EDT, Height/Length Dosing, 113, kg, 11/26/23 2:41:00 EDT, Weight Dosing Start Date: 11/26/23 Status: Ordered 24 hr venlafaxine 150 mg extended release oral capsule (15 sources) Serotonin and Norepinephrine Reuptake Inhibitor Start: [...] Onset: 4 Episodic Calculus of urinary tract (20 sources) Kidney stone; Translations: [Urinary bladder stone] Onset: 4 05-29-2021 Episodic Chronic kidney disease (11 sources) [...] [Hyperlipidemia, unspecified] Onset: 4 Chronic Essential hypertension (12 sources) Hypertensive disorder 08-25-2015 Chronic Fluid and electrolyte disorders (1 source) Hypokalemia; Translations: [Hypokalemia] Onset: 4 Episodic Hypertension with complications and secondary hypertension (6 sources) Chronic kidney disease due to hypertension; Translations: [Hypertensive chronic kidney disease with stage 1 through stage 4 chronic kidney disease, or unspecified chronic kidney disease] Onset: 4 Chronic Intestinal infection (12 sources) Clostridium difficile colitis 08-25-2015 Episodic Comment on above: in 2013 Malaise and fatigue (1 source) Asthenia; Translations: [Weakness] Onset: 4 Episodic Mood disorders (12 sources) Depressive disorder 08-25-2015 Chronic Osteoarthritis (12 sources) Osteoarthritis 08-25-2015 Chronic Other circulatory disease (1 source) Low blood pressure; Translations: [Hypotension, unspecified] Onset: 4 Episodic Other diseases of kidney and ureters (2 sources) Secondary hyperparathyroidism; Translations: [Secondary hyperparathyroidism of renal origin] Chronic Other diseases of kidney and ureters (1 source) Secondary hyperparathyroidism of renal origin Chronic Other hereditary and degenerative nervous system conditions (12 sources) Restless legs 08-25-2015 Chronic Other nervous system disorders (1 source) Abnormal gait; Translations: [Other abnormalities of gait and mobility] Onset: 4 Episodic Other non-traumatic joint disorders (2 sources) Pain in left shoulder; Translations: [Acute pain of left shoulder] 04-19-2023 Episodic Other nutritional; endocrine; and metabolic disorders (2 sources) Hypercalcemia; Translations: [Hypercalcemia] 04-19-2023 Chronic Other nutritional; endocrine; and metabolic disorders (12 sources) Obesity; Translations: [Obesity, unspecified] Onset: 3 Chronic Other nutritional; endocrine; and metabolic disorders (11 sources) Body mass index 40+ - severely obese; Translations: [Body mass index (BMI) 50.0-59.9, adult] Onset: 3 Chronic Other nutritional; endocrine; and metabolic disorders (2 sources) Hypercalcemia; Translations: [Hypercalcemia] Onset: 4 Chronic Other screening for suspected conditions (not mental disorders or infectious disease) (12 sources) Abnormal findings on diagnostic imaging of breast; Translations: [Other abnormal and inconclusive findings on diagnostic imaging of breast] Onset: 3 Episodic Other skin disorders (12 sources) Impaired skin integrity 09-09-2015 Episodic Comment [...] Test Name Value Interpretation Reference Range Facility [facility] 02-02-2024 Parathyrin.intact [Mass/Vol] 174 pg/mL High 15-65 [facility] Comment on above: Result Comment: Perf ormed at: [facility] [address] [id number] PhD Jessica Ferris Performed By: #### 1 [id number] #### [facility] [address] [place] [address] CHEMISTRYOrdered By: SYSTEM SYSTEM on 02-01-2024 25-hydroxyvitamin D3 [Mass/Vol] 18.6 ng/mL Low 30.0 - 100.0 ng/mL [facility] Albumin [Mass/Vol] 3.9 g/dL Normal 3.3 - 5.0 gm/dL [facility] Anion gap [Moles/Vol] 11 mmol/L Normal 6 - 16 mEq/L [facility] Calcium [Mass/Vol] 10.3 mg/dL Normal 8.9 - 11. 1 mg/dL [facility] Chloride [Moles/Vol] 107 mmol/L Normal 101 - 1 11 mmol/L [facility] CO2 [Moles/Vol] 26 mmol/L Normal 21 - 31 mmol/L [facility] Creatinine [Mass/Vol] 1.4 mg/dL High 0.5 - 1.3 mg/dL [facility] eGFR 40 mL/min/1.73 m2 Low >=59mL/min /1.73 m2 [facility] Glucose [Mass/Vol] 109 mg/dL Normal 55 - 199 mg/dL [facility] Phosphate [Mass/Vol] 2.5 mg/dL Normal 1.9 - 4 .6 mg/dL [facility] Potassium [Moles/Vol] 4.1 mmol/L Normal 3.5 - 5.3 mmol/L [facility] Sodium [Moles/Vol] 140 mmol/L Normal 135 - 145 mmol/L [facility] Urea nitrogen [Mass/Vol] 14 mg/dL Normal 5 - 21 mg/dL [facility] Urea nitrogen/Creatinine [Mass ratio] 10 mg/mg Normal 10 - 20 [facility] HEMATOLOGYOrdered By: SYSTEM SYSTEM on 02-01-2024 Hematocrit (Bld) [Volume fraction] 37.0 % Normal 34.0 - 46.0 % Remisol Heme Hemoglobin (Bld) [Mass/Vol] 12.2 g/dL Normal 12.0 - 16.0 gm/dL Rem[facility] Heme Hct & Hgbon 02-01-2024 Hematocrit (Bld) [Volume fraction] 37.0 % Normal 34.0-46.0 [facility] Comment on above: Performed By: #### 1 [id number] #### [facility] [address] [place] [address] Hemoglobin (Bld) [Mass/Vol] 12.2 g/dL Normal 12.0-16.0 [facility] Comment on above: Performed By: #### 1 [id number] #### [facility] [address] [place] [address] Renal Panelon 02-01-2024 Phosphate [Mass/Vol] 2.5 mg/dL Normal 1.9-4.6 [facility] Comment on above: Performed By: #### 1 [id number] #### [facility] [address] [place] [address] Albumin [Mass/Vol] 3.9 g/dL Normal 3.3-5.0 [facility] Comment on above: Performed By: #### 1 [id number] #### [facility] [address] [place] [address] Anion gap [Moles/Vol] 11 mmol/L Normal 6-16 [facility] Comment on above: Performed By: #### 1 [id number] #### [facility] [address] [place] [address] Calcium [Mass/Vol] 10.3 mg/dL Normal 8.9-11.1 [facility] Comment on above: Performed By: #### 1 [id number] #### [facility] [address] [place] [address] Chloride [Moles/Vol] 107 mmol/L Normal 101-111 [facility] Comment on above: Performed By: #### 1 [id number] #### [facility] [address] [place] [address] CO2 [Moles/Vol] 26 mmol/L Normal 21-31 [facility] Comment on above: Performed By: #### 1 [id number] #### [facility] [address] [place] [address] Creatinine [Mass/Vol] 1.4 mg/dL High 0.5-1.3 [facility] Comment on above: Performed By: #### 1 [id number] #### [facility] [address] [place] [address] Glucose [Mass/Vol] 109 mg/dL Normal 55-199 [facility] Comment on above: Performed By: #### 1 [id number] #### [facility] [address] [place] [address] Potassium [Moles/Vol] 4.1 mmol/L Normal 3.5-5.3 [facility] Comment on above: Performed By: #### 1 [id number] #### [facility] [address] [place] [address] Sodium [Moles/Vol] 140 mmol/L Normal 135-145 [facility] Comment on above: Performed By: #### 1 [id number] #### [facility] [address] [place] [address] Urea nitrogen [Mass/Vol] 14 mg/dL Normal 5-21 [facility] Comment on above: Performed By: #### 1 [id number] #### [facility] [address] [place] [address] Urea nitrogen/Creatinine [Mass ratio] 10 No Units Normal 10-20 [facility] Comment on above: Performed By: #### 1 [id number] #### [facility] [address] [place] [address] U Protein/Creat RatioOrdered By: SYSTEM SYSTEM on 02-01-2024 Protein/Creatinine (U) [Ratio] 15.50 mg/gm Cr Normal .00-200.00 [facility] Comment on above: Performed By: #### 1 [id number] #### [facility] [address] [place] [address] U Creatinine 69.9 mg/dL Invalid Interpretation Code [facility] Comment on above: Performed By: #### 1 [id number] #### [facility] [address] [place] [address] Ur Total Protein 10.8 mg/dL Invalid Interpretation Code [facility] Comment on above: Performed By: #### 1 [id number] #### [facility] [address] [place] [address] URINALYSISOrdered By: SYSTEM SYSTEM on 02-01-2024 Clarity (U) Clear (02/01/24 9:00 AM) Normal Clear [employer] UA Auto SS Color (U) Light-Yellow 1 (02/01/24 9:00 AM) Normal Yellow [employer] [facility] [employer] UA Auto SS Comment on above: Interpretive Data: M icroscopic readings are only performed on those samples that meet specific criteria set forth by [facility]. Epithelial cells.squamous Auto (Urine sed) [#/Area] 0-2 graded/HPF Invalid Interpretation Code FT UA Auto SS Leukocyte esterase Auto test strip Ql (U) 75 Flakita/uL Flakita/uL Invalid Interpretation Code NegativeLe u/uL [facility] UA Auto SS Mucus Auto Ql (U) Trace graded/LPF Normal Negati vegr aded/LPF FT UA Auto SS pH (U) 6.5 *NA* (02/01/24 9:00 AM) Invalid Interpretation Code 5.0 - 9.0 [employer] [employer] UA Auto SS RBC Ql (U) 0-3 graded/HPF Normal 0-3graded/ HPF [facility] UA Auto SS Specific gravity (U) [Rel density] 1.012 *NA* (02/01/24 9:00 AM) Invalid Interpretation Code 1.005 - 1.030 [facility] UA Auto SS WBC Auto (Urine sed) [#/Area] 0-5 graded/HPF Normal 0-5graded/ HPF [facility] UA Auto SS URINALYSISOrdered By: Jenny Mccoy on 02-01-2024 UA Spec Desc Clean Catch (02/01/24 9:00 AM) Normal [facility] UA Auto SS Urinalysis with MicroOrdered By: SYSTEM SYSTEM on 02-01-2024 Bilirubin Ql (U) Negative Normal Negative [facility] UA Auto SS Comment on above: Performed By: #### 4 [id number] #### [facility] [address] [place] [address] Glucose Ql (U) Negative Normal Negative [facility] UA Auto SS Comment on above: Performed By: #### 4 [id number] #### [facility] [address] [place] [address] Hemoglobin Auto test strip (U) [Mass/Vol] Negative Normal Negative [facility] UA Auto SS Comment on above: Performed By: #### 4 [id number] #### [facility] [address] [place] [address] Ketones Auto test strip Ql (U) Negative Normal Negative [facility] UA Auto SS Comment on above: Performed By: #### 4 [id number] #### [facility] [address] [place] [address] Nitrite Auto test strip Ql (U) Negative Normal Negative [facility] UA Auto SS Comment on above: Performed By: #### 4 [id number] #### [facility] [address] [place] [address] Protein Ql (U) Negative Normal Negative [facility] UA Auto SS Comment on above: Performed By: #### 4 [id number] #### [facility] [address] [place] [address] Urobilinogen (U) [Mass/Vol] Negative Normal Negative [facility] UA Auto SS Comment on above: Performed By: #### 4 [id number] #### [facility] [address] [place] [address] Urinalysis with Microon 01-21 Clarity (U) Clear Normal Clear [facility] Comment on above: Performed By: #### 4 [id number] #### [facility] [address] [place] [address] Color (U) Light-Yellow Normal Yellow [facility] Comment on above: Result Comment: Micr oscopic readings are only performed on those samples that meet specific criteria set forth by [facility]. Performed By: #### 4 [id number] #### [facility] [address] [place] [address] Epithelial cells.squamous Auto (Urine sed) [#/Area] 0-2 Invalid Interpretation Code [facility] Comment on above: Performed By: #### 4 [id number] #### [facility] [address] [place] [address] Leukocyte esterase Auto test strip Ql (U) 75 Flakita/uL Abnormal Negative [facility] Comment on above: Performed By: #### 4 [id number] #### [facility] [address] [place] [address] Mucus Auto Ql (U) Trace Normal Negative [facility] Comment on above: Performed By: #### 4 [id number] #### [facility] [address] [place] [address] pH (U) 6.5 [pH] Invalid Interpretation Code 5.0-9.0 [facility] Comment on above: Performed By: #### 4 [id number] #### [facility] [address] [place] [address] RBC Ql (U) 0-3 Normal 0-3 [facility] Comment on above: Performed By: #### 4 [id number] #### [facility] [address] [place] [address] Specific gravity (U) [Rel density] 1.012 Invalid Interpretation Code 1.005-1.03 0 [facility] Comment on above: Performed By: #### 4 [id number] #### [facility] [address] [place] [address] WBC Auto (Urine sed) [#/Area] 0-5 Normal 0-5 [facility] Comment on above: Performed By: #### 4 [id number] #### [facility] [address] [place] [address] Type of Urine collection method Clean Catch Normal [facility] Comment on above: Performed By: #### 4 [id number] #### [facility] [address] [place] [address] Vitamin D 25 Hydroxyon 01-31 25-hydroxyvitamin D3 [Mass/Vol] 18.6 ng/mL Low 30.0-100.0 [facility] Comment on above: Performed By: #### 5 [id number] #### [facility] [address] [place] [address] eGFRon 02-01-2024 eGFR 40 mL/min/1.73 m2 Low >=59 [facility] Comment on above: Order Comment: Order added by Discern Expert. Performed By: #### 1 [id number] #### [facility] [address] [place] [address] US Thyroidon 12-21-2023 US Thyroid Exam Date/Time: 12/19/2023 07:45 EDT Reason for Exam: E83.52 Report IMPRESSION: SMALL THYROID NODULES, NOTED. NO FNA OR ULTRASOUND FOLLOW-UP SUGGESTED. TR 4, Moderately Suspicious--FNA if greater than or equal to 1.5 cm and follow-up at 1, 3 and 5 years, if greater than or equal to 1 cm. TR 3, Mildly Suspicious--FNA if greater than or equal to 2.5 cm and follow-up at 1, 3 and 5 years, if greater than or equal to 1.5 cm. TR 1, Benign --No FNA or follow-up suggested. EXAM: US Thyroid DATE: 12/19/2023 7:21 AM CLINICAL HISTORY: E83.52. COMPARISON: None available. TECHNIQUE: Ultrasound of the thyroid was performed with a regional survey. Guidance on fine-needle aspiration (FNA) and follow-up for nodules using TI-RADS, based on 2017 ACR white paper. FINDINGS: The thyroid is normal in size, with expected vascularity. An approximately 0.9 x 0.9 x 0.7 cm predominantly solid isoechoic well-defined wider than tall nodule without echogenic foci (TR 3) is noted within the anterolateral mid right thyroid lobe. A solid hypoechoic ill-defined wider than tall nodule without echogenic foci (TR 4) within the inferior right thyroid lobe measures approximately 0.5 x 0.4 x 0.4 cm. A TR 1 cysts measuring approximately 0.6 x 0.4 x 0.3 cm is noted at the junction of the right lobe and isthmus. A mostly cystic hypoechoic well-defined wider than tall nodule without echogenic foci is noted within the inferior left lobe measuring approximately 0.4 x 0.4 x 0.3 cm. There is no lymphadenopathy or other findings of concern identified elsewhere. The right lobe measures 4.3 cm x 1.4 cm x 1.2 cm with a volume of 3.9 cm3. Report The left lobe measures 4.4 cm x 1.2 cm x 1.1 cm with a volume of 3.1 cm3. The isthmus measures 3 mm. Ordering Provider: Salvador Ahn FINAL REPORT Dictated: 12/21/2023 12:59 pm Lamin Grace MD Signed (Electronic Signature): 12/21/2023 12:59 pm Signed by: Lamin Grace MD Transcribed by: PAT Technologist: FREDERICK Manuel [facility] CHEMISTRYOrdered By: SYSTEM SYSTEM on 12-19-2023 Albumin [Mass/Vol] 3.7 g/dL Normal 3.3 - 5.0 gm/dL [facility] Anion gap [Moles/Vol] 12 mmol/L Normal 6 - 16 mEq/L [facility] Calcium [Mass/Vol] 10.9 mg/dL Normal 8.9 - 11. 1 mg/dL [facility] Chloride [Moles/Vol] 103 mmol/L Normal 101 - 1 11 mmol/L [facility] CO2 [Moles/Vol] 28 mmol/L Normal 21 - 31 mmol/L [facility] Creatinine [Mass/Vol] 1.3 mg/dL Normal 0.5 - 1.3 mg/dL [facility] eGFR 44 mL/min/1.73 m2 Low >=59mL/min /1.73 m2 [facility] Glucose [Mass/Vol] 117 mg/dL Normal 55 - 199 mg/dL [facility] Phosphate [Mass/Vol] 3.0 mg/dL Normal 1.9 - 4 .6 mg/dL [facility] Potassium [Moles/Vol] 3.5 mmol/L Normal 3.5 - 5.3 mmol/L [facility] Sodium [Moles/Vol] 139 mmol/L Normal 135 - 145 mmol/L [facility] Urea nitrogen [Mass/Vol] 17 mg/dL Normal 5 - 21 mg/dL [facility] Urea nitrogen/Creatinine [Mass ratio] 13 mg/mg Normal 10 - 20 [facility] Renal Panelon 12-19-2023 Phosphate [Mass/Vol] 3.0 mg/dL Normal 1.9-4.6 [facility] Comment on above: Performed By: #### 1 [id number] #### [facility] [address] [place] [address] Albumin [Mass/Vol] 3.7 g/dL Normal 3.3-5.0 [facility] Comment on above: Performed By: #### 1 [id number] #### [facility] [address] [place] [address] Anion gap [Moles/Vol] 12 mmol/L Normal 6-16 [facility] Comment on above: Performed By: #### 1 [id number] #### [facility] [address] [place] [address] Calcium [Mass/Vol] 10.9 mg/dL Normal 8.9-11.1 [facility] Comment on above: Performed By: #### 1 [id number] #### [facility] [address] [place] [address] Chloride [Moles/Vol] 103 mmol/L Normal 101-111 [facility] Comment on above: Performed By: #### 1 [id number] #### [facility] [address] [place] [address] CO2 [Moles/Vol] 28 mmol/L Normal 21-31 [facility] Comment on above: Performed By: #### 1 [id number] #### [facility] [address] [place] [address] Creatinine [Mass/Vol] 1.3 mg/dL Normal 0.5-1.3 [facility] Comment on above: Performed By: #### 1 [id number] #### [facility] [address] [place] [address] Glucose [Mass/Vol] 117 mg/dL Normal 55-199 [facility] Comment on above: Performed By: #### 1 [id number] #### [facility] [address] [place] [address] Potassium [Moles/Vol] 3.5 mmol/L Normal 3.5-5.3 [facility] Comment on above: Performed By: #### 1 [id number] #### [facility] [address] [place] [address] Sodium [Moles/Vol] 139 mmol/L Normal 135-145 [facility] Comment on above: Performed By: #### 1 [id number] #### [facility] [address] [place] [address] Urea nitrogen [Mass/Vol] 17 mg/dL Normal 5-21 [facility] Comment on above: Performed By: #### 1 [id number] #### [facility] [address] [place] [address] Urea nitrogen/Creatinine [Mass ratio] 13 No Units Normal 10-20 [facility] Comment on above: Performed By: #### 1 [id number] #### [facility] [address] [place] [address] eGFRon 12-19-2023 eGFR 44 mL/min/1.73 m2 Low >=59 [facility] Comment on above: Order Comment: Order added by Discern Expert. Performed By: #### 1 [id number] #### [facility] [address] [place] [address] C Urineon 11-28-2023 Bacteria identified Cx Nom (U) Microbiology PROCEDURE: Urine Culture [R1] SOURCE: U CleanCatch BODY SITE: COLLECTED DATE/TIME: 11/26/2023 05:12 EDT RECEIVED DATE/TIME: 11/26/2023 05:42 EDT START DATE/TIME: 11/26/2023 05:42 EDT FREE TEXT SOURCE: Xander Augustin DO, DO, Noah S. FINAL REPORTS Final Report [] Verified Date/Time: 11/28/2023 08:32 EDT <10,000 cfu/ml Mixed skin contaminants Performing Locations R1: This test was performed at: [facility], [address] [place] [address], [phone] , [place], Normal [facility] Comment on above: Performed By: #### 2 [id number] #### [facility] [address] [place] [address] BMPon 11-26-2023 Anion gap [Moles/Vol] 11 mmol/L Normal 6-16 [facility] Comment on above: Performed By: #### 2 [id number] #### [facility] [address] [place] [address] Calcium [Mass/Vol] 10.5 mg/dL Normal 8.9-11.1 [facility] Comment on above: Performed By: #### 2 [id number] #### [facility] [address] [place] [address] Chloride [Moles/Vol] 102 mmol/L Normal 101-111 [facility] Comment on above: Performed By: #### 2 [id number] #### [facility] [address] [place] [address] CO2 [Moles/Vol] 28 mmol/L Normal 21-31 [facility] Comment on above: Performed By: #### 2 [id number] #### [facility] [address] [place] [address] Creatinine [Mass/Vol] 1.8 mg/dL High 0.5-1.3 [facility] Comment on above: Performed By: #### 2 [id number] #### [facility] [address] [place] [address] Glucose [Mass/Vol] 132 mg/dL Normal 55-199 [facility] Comment on above: Performed By: #### 2 [id number] #### [facility] [address] [place] [address] Potassium [Moles/Vol] 3.0 mmol/L Low 3.5-5.3 [facility] Comment on above: Performed By: #### 2 [id number] #### [facility] [address] [place] [address] Sodium [Moles/Vol] 138 mmol/L Normal 135-145 [facility] Comment on above: Performed By: #### 2 [id number] #### [facility] [address] [place] [address] Urea nitrogen [Mass/Vol] 20 mg/dL Normal 5-21 [facility] Comment on above: Performed By: #### 2 [id number] #### [facility] [address] [place] [address] Urea nitrogen/Creatinine [Mass ratio] 11 No Units Normal 10-20 [facility] Comment on above: Performed By: #### 2 [id number] #### [facility] [address] [place] [address] CBC w/ Auto Diffon 4 Basophils/100 WBC (Bld) 0.9 % Normal 0.0-2.0 [facility] Comment on above: Performed By: #### 2 [id number] #### [facility] [address] [place] [address] Basophils/Leukocytes Auto (Bld) [Pure # fraction] 0.1 E9/L Normal 0.0-0.2 [facility] Comment on above: Performed By: #### 2 [id number] #### [facility] [address] [place] [address] Eosinophils (Bld) [#/Vol] 0.5 E9/L Normal 0.0-0.5 [facility] Comment on above: Performed By: #### 2 [id number] #### [facility] [address] [place] [address] Eosinophils/100 WBC (Bld) 5.8 % Normal 0.0-8.0 [facility] Comment on above: Performed By: #### 2 [id number] #### [facility] [address] [place] [address] Erythrocyte distribution width (RBC) [Ratio] 17.3 % High 10.9-14.2 [facility] Comment on above: Performed By: #### 2 [id number] #### [facility] [address] [place] [address] Hematocrit (Bld) [Volume fraction] 31.0 % Low 34.0-46.0 [facility] Comment on above: Performed By: #### 2 [id number] #### [facility] [address] [place] [address] Hemoglobin (Bld) [Mass/Vol] 11.0 g/dL Low 12.0-16.0 [facility] Comment on above: Performed By: #### 2 [id number] #### [facility] [address] [place] [address] Lymphocytes (Bld) [#/Vol] 1.1 E9/L Normal 1.0-4.0 [facility] Comment on above: Performed By: #### 2 [id number] #### [facility] [address] [place] [address] Lymphocytes/100 WBC (Bld) 12.7 % Low 14.0-50.0 [facility] Comment on above: Performed By: #### 2 [id number] #### [facility] [address] [place] [address] MCH (RBC) [Entitic mass] 29.4 pg Normal 27.0-34.0 [facility] Comment on above: Performed By: #### 2 [id number] #### [facility] [address] [place] [address] MCHC (RBC) [Mass/Vol] 35.7 g/dL Normal 31.4-36.0 [facility] Comment on above: Performed By: #### 2 [id number] #### [facility] [address] [place] [address] MCV (RBC) [Entitic vol] 82.5 fL Normal 80.0-100.0 [facility] Comment on above: Performed By: #### 2 [id number] #### [facility] [address] [place] [address] Monocytes (Bld) [#/Vol] 0.4 E9/L Normal 0.2-1.0 [facility] Comment on above: Performed By: #### 2 [id number] #### [facility] [address] [place] [address] Neutrophils (Bld) [#/Vol] 6.4 E9/L Normal 2.0-7.5 [facility] Comment on above: Performed By: #### 2 [id number] #### [facility] [address] [place] [address] Neutrophils/100 WBC (Bld) 75.7 % High 36.0-75.0 [facility] Comment on above: Performed By: #### 2 [id number] #### [facility] [address] [place] [address] Platelet 299.0 E9/L Normal 150.0-500. 0 [facility] Comment on above: Performed By: #### 2 [id number] #### [facility] [address] [place] [address] Platelet mean volume (Bld) [Entitic vol] 7.0 fL Normal 6.4-10.8 [facility] Comment on above: Performed By: #### 2 [id number] #### [facility] [address] [place] [address] RBC (Bld) [#/Vol] 3.8 E12/L Low 4.3-5.9 [facility] Comment on above: Performed By: #### 2 [id number] #### [facility] [address] [place] [address] WBC corrected for nucl RBC Auto (Bld) [#/Vol] 8.4 E9/L Normal 4.0-11.0 [facility] Comment on above: Performed By: #### 2 [id number] #### [facility] [address] [place] [address] CHEMISTRYOrdered By: SYSTEM SYSTEM on 11-26-2023 Albumin [Mass/Vol] 3.7 g/dL Normal 3.3 - 5.0 gm/dL [facility] Albumin/Globulin [Mass ratio] 1.2 {ratio} Normal 1.1 - 2.2 [facility] ALP [Catalytic activity/Vol] 113 [iU]/d High 21 - 98 Int._Unit/ L [facility] ALT No additional P-5'-P [Catalytic activity/Vol] 21 [iU]/d Normal 6 - 46 Int._Unit/ L [facility] Anion gap [Moles/Vol] 11 mmol/L Normal 6 - 16 mEq/L [facility] AST [Catalytic activity/Vol] 15 [iU]/d Normal 5 - 43 Int._Unit/ L [facility] Bilirubin [Mass/Vol] 0.3 mg/dL Normal 0.0 - 1 .1 mg/dL [facility] Bilirubin.direct [Mass/Vol] 0.1 mg/dL Normal 0.0 - 0.4 mg/dL [facility] Bilirubin.indirect [Mass or moles/Vol] 0.2 mg/dL Normal 0.1 - 0.9 mg/dL [facility] Calcium [Mass/Vol] 10.5 mg/dL Normal 8.9 - 11. 1 mg/dL [facility] Chloride [Moles/Vol] 102 mmol/L Normal 101 - 1 11 mmol/L [facility] CO2 [Moles/Vol] 28 mmol/L Normal 21 - 31 mmol/L [facility] Creatinine [Mass/Vol] 1.8 mg/dL High 0.5 - 1.3 mg/dL [facility] eGFR 30 mL/min/1.73 m2 Low >=59mL/min /1.73 m2 [facility] Globulin (S) [Mass/Vol] 3.1 g/dL Normal 1.4 - 4.0 gm/dL [facility] Glucose [Mass/Vol] 132 mg/dL Normal 55 - 199 mg/dL [facility] Lipase [Catalytic activity/Vol] 22 U/L Normal 13 - 58 unit/L [facility] Potassium [Moles/Vol] 3.0 mmol/L Low 3.5 - 5.3 mmol/L [facility] Protein [Mass/Vol] 6.8 g/dL Normal 6.0 - 7.8 gm/dL [facility] Sodium [Moles/Vol] 138 mmol/L Normal 135 - 145 mmol/L [facility] Urea nitrogen [Mass/Vol] 20 mg/dL Normal 5 - 21 mg/dL [facility] Urea nitrogen/Creatinine [Mass ratio] 11 mg/mg Normal 10 - [address] Abdomen/Pelvis w/o Contra ston 11-26-2023 CT Abdomen/Pelvis w/o Contrast Exam Date/Time: 11/26/2023 03:47 EDT Reason for Exam: ABDOMINAL PAIN, ACUTE, NONLOCALIZED;Other (please specify) Report IMPRESSION: MILDLY OBSTRUCTING PUNCTATE LEFT UVJ OR RECENTLY PASSED LEFT URETERAL CALCULUS. CLINICAL HISTORY: ABDOMINAL PAIN, ACUTE, NONLOCALIZED. COMPARISON: 04/28/2021. TECHNIQUE: Spiral unenhanced images were obtained of the abdomen and pelvis without contrast. All CT scans at this facility use dose modulation, iterative reconstruction, and/or weight based dosing when appropriate to reduce radiation dose to as low as reasonably achievable. Unless otherwise stated, incidental findings identified in this report do not require routine follow-up imaging. FINDINGS: Liver: No enlargement, significant fatty infiltration, or suspicious lesion identified without contrast. Biliary: A few small gallstones within an otherwise unremarkable-appearing gallbladder. No abnormal biliary ductal dilatation. Pancreas: No mass, organized fluid collection, or abnormal pancreatic ductal dilatation. Spleen: Not enlarged. No mass identified without contrast. Adrenals: Unremarkable. Kidneys: Mild left hydronephrosis and ill-defined surrounding inflammation. Punctate calculus within the intramural left UVJ versus urinary bladder (image 71 - axial series 2) and (image 34 - coronal series 4). A few punctate very small intrarenal calculi. GI tract: No abnormal dilation or wall thickening. Lymph nodes: No pathologically enlarged lymph nodes. Mesentery/peritoneum: No organized fluid collection, ascites, focal inflammatory changes, or mass. Retroperitoneum: No organized fluid collection or mass. Vasculature: No aneurysm. Minimal calcified atherosclerotic plaquing. Pelvis: The urinary bladder, uterus, and adnexa are unremarkable. No mass, organized fluid collection, or ascites. Bones/soft tissue: No acute osseous findings identified. Degenerative changes, predominantly of the lower lumbar spine. Lower thorax: Noncontributory. Report Ordering Provider: Xander Augustin FINAL REPORT Dictated: 11/26/2023 2:18 pm Lamni Grace MD Signed (Electronic Signature): 11/26/2023 2:18 pm Signed by: Lamin Grace MD Transcribed by: PAT Technologist: SUKI Technical Comments GFR (mL/min/1/73m2) 30 Contrast: None Contrast amount in ml's: 0 Normal [facility] ED Clinical Summaryon 2023 ED Clinical Summary ED Clinical Summary [place] [id number] ED Clinical Summary Person Information Name: DINORAH PEPE [facility] Age: 73 Years : 1950 Sex: Female Language: Greek PCP: Yuli Duckworth CNP Marital Status: Visit Id: Visit Reason: Abdominal pain; ABD PAIN Speciality: Acuity: 3 Enc Type: Emergency Med Service: Emergency Arrival: 11/26/2023 02:33:32 Discharge: 11/26/2023 05:51:35 LOS: 000 03:18 Checkin: 11/26/2023 02:33:32 Checkout: 11/26/2023 05:51:35 Dispo Type: Home (Routine DC) EVENTS: Event Name Event Status Request Date/Time Start Date/Time Complete Date/Time Arrive Complete 11/26/2023 02:33:32 11/26/2023 02:33:32 11/26/2023 02:33:32 Document Home Meds Request 11/26/2023 02:33:32 Triage Complete 11/26/2023 02:33:32 11/26/2023 02:41:54 11/26/2023 02:41:54 Registration Complete 11/26/2023 02:36:26 11/26/2023 02:36:26 11/26/2023 02:36:26 Reg Complete Request 11/26/2023 02:36:26 Reg Bed Request Complete 11/26/2023 02:36:26 11/26/2023 02:36:26 11/26/2023 02:36:26 Isolation Screening Request 11/26/2023 02:41:55 Dr Exam Complete 11/26/2023 02:42:50 11/26/2023 02:42:50 11/26/2023 02:42:50 Registration Start 11/26/2023 02:42:50 11/26/2023 02:44:16 Bed Assign Complete 11/26/2023 02:44:16 11/26/2023 02:44:16 11/26/2023 02:44:16 RN Exam Complete 11/26/2023 02:44:16 11/26/2023 03:16:40 11/26/2023 03:16:40 CT Cancel 11/26/2023 02:47:30 11/26/2023 03:29:54 Pending Labs Complete 11/26/2023 02:47:30 11/26/2023 05:32:08 Lab Complete 11/26/2023 02:47:30 11/26/2023 03:25:34 Meds Admin Complete 11/26/2023 02:47:30 11/26/2023 03:35:36 Patient Care Complete 11/26/2023 02:47:30 11/26/2023 02:58:33 Meds Admin Complete 11/26/2023 03:00:05 11/26/2023 03:07:25 Pending Labs Complete 11/26/2023 03:04:14 11/26/2023 03:04:14 11/26/2023 03:25:34 Lab Complete 11/26/2023 03:04:14 11/26/2023 03:04:14 11/26/2023 03:25:34 CT Complete 11/26/2023 03:29:53 11/26/2023 03:32:03 11/26/2023 03:47:23 Meds Admin Complete 11/26/2023 05:31:13 11/26/2023 05:45:56 Pending Labs Inlab 11/26/2023 05:32:09 11/26/2023 05:32:09 Lab Inlab 11/26/2023 05:32:09 11/26/2023 05:32:09 Meds Admin Complete 11/26/2023 05:33:10 11/26/2023 05:45:56 Discharge Complete 11/26/2023 05:33:43 11/26/2023 05:51:39 11/26/2023 05:51:39 Transfer Complete 11/26/2023 05:51:39 11/26/2023 05:51:39 11/26/2023 05:51:39 ADDRESS: [address] [facility] [id number] PHYS DOC NOTES: MEDICAL INFORMATION: Prescriptions Given: New Medications [id number], [address] [place], [place] [id number], [phone] cephalexin (Keflex 500 mg Cap) 1 Capsules By Mouth every 12 hours for 7 Days. Refills: 0. docusate (Colace 100 mg Cap) 1 Capsules By Mouth 2 times a day for 7 Days. Refills: 0. polyethylene glycol 3350 (polyethylene glycol 3350 Oral Pwdr for Recon) 17 Gram By Mouth every day. dissolve in water before taking. Refills: 0. tamsulosin (Flomax 0.4 mg Cap) 1 Capsules By Mouth every day. Refills: 0. Medications to Continue with No Changes Other Medications alendronate 70 Milligram By Mouth every week. gabapentin (gabapentin 300 mg Cap) 2 Capsules By Mouth at bedtime. lactobacillus acidophilus (Acidophilus) every day. saccharomyces boulardii lyo 250 Milligram By Mouth 2 times a day. venlafaxine (venlafaxine 150 mg Cap-ER) 1 Capsules By Mouth every day. PATIENT EDUCATION INFORMATION: Instructions: Kidney Stones Follow up: With: Address: When: Jenny Bah [address] [facility], [place] [address], [facility] [address] [place] [phone] Business (1) Comments: Call Dr for diagnosis based follow up With: Address: When: Yuli Duckworth [address] [facility], [address] [place] [address] Business (1) In 3 days DIAGNOSIS: Hypokalemia; Kidney stone Normal [facility] ED Note-Physicianon 11-26-19 24 ED Note-Physician ED Note-Physician Basic Information Time Seen: Xander Augustin DO 11/26/2023 02:42 Chief Complaint pt to ED with c/o LLQ pain. denies fevers or chills, denies n/v/d. denies constipation concerns. denies urinary concerns. History of Present Illness HPI: Patient is a 73-year-old female with past ministry of kidney stones who presents the ED for left lower quadrant abdominal pain. Patient states that for started around 2100 tonight has been constant since that time. The pain is in her left lower abdomen and does not radiate. She denies any nausea or vomiting. She denies any change in bowel movements. She denies any urinary symptoms. She denies any fever or chills. ROS: Pertinent review of systems conducted and is negative except as noted above. Physical exam: General: nontoxic appearing and in no distress HEENT: Mucous membranes moist Neuro: awake and alert Neck: supple, trachea midline Card: Heart regular rate and rhythm no murmur Resp: Lungs clear to auscultation no wheeze or rhonchi Abd: Soft and nondistended. Left lower quadrant tenderness without rebound or guarding. No CVA tenderness. Ext: No gross deformity or edema Physical Exam Vitals & Measurements T: 36.4 ?C(Oral) HR: 67(Peripheral) RR: 18 BP: 131/69 SpO2: 99% HT: 152 cm WT: 113.0 kg BMI: 48.91 Medical Decision Making MEDICAL DECISION MAKING Number and Complexity of Problems Differential Diagnosis: [] [facility] Data External documents reviewed: N/A My EKG interpretation: Noted in chart if applicable My CT interpretation: N/A My X-ray interpretation: Noted in chart if applicable My Ultrasound interpretation: N/A Decision rules/scores evaluated: N/A Discussed with: N/A Treatment and Disposition ED Course: [Patient is nontoxic-appearing in no distress. She has left lower quadrant tenderness without peritonitis. Will give her a dose of IV morphine for comfort as well as Zofran and obtain a CT of abdomen pelvis as well as blood work and urinalysis. Blood work is overall stable other than a potassium of 3.0 so we will give her oral replacement here in the ED. CT of the abdomen pelvis shows a mild left hydronephrosis with perinephric stranding secondary to 2 millimeter calculus at the left ureterovesicular junction. Urine does have some red but also some white blood cells but have some squamous epithelial cells. To cover for potential UTI we will start her on a course of oral Keflex. We discussed the diagnosis of kidney stone. We discussed the plan of placing her on Flomax as well as some MiraLAX and Colace for constipation. We we will give her urology locally for follow-up. Patient states understanding agreement this plan was discharged stable condition. Shared decision making: As above Code status: N/A Assessment/Plan Hypokalemia (E87.6: Hypokalemia) Kidney stone (N20.0: Calculus of kidney) Orders: acetaminophen, 650 mg = 2 tab(s), Tab, Oral, Once, Stop date 11/26/23 2:59:00 EDT, STAT, Start date 11/26/23 2:59:00 EDT, 11/26/23 2:59:00 EDT cephalexin, 500 mg = 1 cap(s), Cap, Oral, Once, Stop date 11/26/23 5:32:00 EDT, STAT, Start date 11/26/23 5:32:00 EDT, 11/26/23 5:32:00 EDT cephalexin, 500 mg = 1 cap(s), Oral, q12hr, X 7 day(s), # 14 cap(s), Refills(s) 0, Pharmacy: [id number], 152, cm, 11/26/23 2:41:00 EDT, Height/Length Dosing, 113, kg, 11/26/23 2:41:00 EDT, Weight Dosing docusate, 100 mg = 1 cap(s), Oral, BID, X 7 day(s), # 14 cap(s), Refills(s) 0, Pharmacy: [facility]/pharmacy #[id number], 152, cm, 11/26/23 2:41:00 EDT, Height/Length Dosing, 113, kg, 11/26/23 2:41:00 EDT, Weight Dosing ondansetron, 4 mg = 2 mL, Injection, IV Push, Once, Stop date 11/26/23 2:47:00 EDT, STAT, Start date 11/26/23 2:47:00 EDT, 11/26/23 2:47:00 EDT polyethylene glycol 3350, 17 gram, Oral, Daily, dissolve in water before taking, # 527 gram, Refills(s) 0, Pharmacy: [facility]/pharmacy #[id number], 152, cm, 11/26/23 2:41:00 EDT, Height/Length Dosing, 113, kg, 11/26/23 2:41:00 EDT, Weight Dosing potassium chloride, 40 mEq = 2 tab(s), Tab-ER, Oral, Once, Stop date 11/26/23 5:31:00 EDT, STAT, Start date 11/26/23 5:31:00 EDT, 11/26/23 5:31:00 EDT tamsulosin, 0.4 mg = 1 cap(s), Oral, Daily, # 10 cap(s), Refills(s) 0, Pharmacy: [facility]/pharmacy #[id number], 152, cm, 11/26/23 2:41:00 EDT, Height/Length Dosing, 113, kg, 11/26/23 2:41:00 EDT, Weight Dosing Basic Metabolic Panel CBC w/ Auto Diff CT Abdomen/Pelvis w/o Contrast eGFR Hepatic Function Panel Lipase Level Saline Lock Insert UA with Cult Rflx Urine Culture Medications Administered Given acetaminophen 325 mg Tab, 650 mg, Oral Disposition Plan Discharge Prescription List Prescriptions Colace 100 mg Cap, 100 mg= 1 cap(s), Oral, BID Flomax 0.4 mg Cap, 0.4 mg= 1 cap(s), Oral, Daily Keflex 500 mg Cap, 500 mg= 1 cap(s), Oral, q12hr polyethylene glycol 3350 Oral Pwdr for Recon, 17 gm, Oral, Daily Follow-up With When Contact Information Jenny Bah [address] [place] [address], [address] [address] [phone] (more content not included)... Normal [facility] Comment on above: Result Comment: Elec tronically Signed By: Xander Augustin DO\.br\Date and Time Signed: 11/26/23 05:34 EDT ED Patient Summaryon 024 ED Patient Summary ED Patient Summary [address] [place] [id number] Patient Discharge Instructions Person Information Name: DINORAH PEPE Age: 73 Years Arrival Date: 11/26/2023 02:33:32 Discharge Diagnosis: Hypokalemia; Kidney stone Primary Care Physician: Yuli Duckworth CNP Provider Information Primary Provider: Xander Augustin DO [employer] Professional:Tata The exam and treatment you received in the Emergency Department were for an urgent problem and are not intended as complete care. It is important that you follow up with a doctor, nurse practitioner, or physician?s geriatric assistant for ongoing care. If your symptoms become worse or you do not improve as expected and you are unable to reach your usual health care provider, you should return to the Emergency Department. We are available 24 hours a day. DINORAH PEPE has been given the following list of patient education materials, prescriptions and follow-up instructions: Follow-up Instructions: With: Address: When: Jenny Bah [address] [place] [address] [address] [place] [phone] Business (1) Comments: Call Dr for diagnosis based follow up With: Address: When: Yuli Duckworth [address] [facility], [address] [place] [address] Business (1) In 3 days In the event that this physician does not participate in your insurance network, please consult with your insurance company to find a nearby participating provider. Patient Education Materials: Kidney Stones A MESSAGE TO ALL PATIENTS REGARDING OPIOIDS PRESCRIPTION OPIOIDS: WHAT YOU NEED TO KNOW Prescription opioids can be used to help relieve qxpbksuq-jz-nkcvss pain and are often prescribed following a surgery or injury, or for certain health conditions. These medications can be an important part of the treatment but also come with serious risks. It is important to work with your healthcare provider to make sure you are getting the safest, most effective care. WHAT ARE THE RISKS AND SIDE EFFECTS OF OPIOID USE? Prescription opioids carry serious risks of addiction and overdose, especially with prolonged use. An opioid overdose, often marked by slowed breathing, can cause sudden . The use of prescription opioids can have a number of side effects as well, even when taken as directed: ? Tolerance?meaning you might need to take more of the medication for the same pain relief ? Physical dependence?meaning you have symptoms of withdrawal when a medication is stopped ? Increased sensitivity to pain ? Constipation ? Nausea, vomiting, and dry mouth ? Sleepiness and dizziness ? Confusion ? Depression ? Low levels of testosterone that can result in lower sex drive, energy, and strength ? Itching and sweating RISKS ARE GREATER WITH: ? History of drug misuse, substance use disorder, or overdose ? Mental health conditions (such as depression or anxiety) ? Sleep apnea ? Older age (65 years and older) ? Avoid alcohol while taking prescription opioids. Also, unless specifically advised by your health care provider, medications to avoid include: ? Benzodiazepines (such as Xanax or Valium) ? Muscle relaxants (such as Soma or Flexeril) ? Hypnotics (such as Ambien or Lunesta) ? Other prescription opioids KNOW YOUR OPTIONS Talk to your health care provider about ways to manage your pain that don?t involve prescription opioids. Some of these options may actually work better and have fewer risks and side effects. Options may include: ? Pain relievers such as acetaminophen, ibuprofen, and naproxen ? Some medication that are also used for depression or seizures ? Physical therapy and exercise ? Cognitive behavioral therapy, a psychological, goal-directed approach, in which patients learn how to modify physical, behavioral, and emotional triggers of pain and stress. IF YOU ARE PRESCRIBED OPIOIDS FOR PAIN: ? Never take opioids in greater amounts or more often than prescribed. ? Follow up with your primary health care provider. o Work together to create a plan on how to manage your pain. o Talk about ways to help manage your pain that don?t involve prescription opioids. o Talk about any and all concerns and side effects. ? Help prevent misuse and abuse o Never sell or share prescription opioids. o Never use another person?s prescription opioids. ? Store prescription opioids in a secure place and out of reach of others (this may include visitors, children, friends, and family). ? Safely dispose of unused prescription opioids: Find your community drug take-back program or your pharmacy mail-back program, or flush them down the toilet, following guidance from the Food and Drug Administration (www.fda.gov/Drugs/Resourc esForYou). ? Visit www.cdc.gov/drugoverdose to learn about the risks of opioids abuse and overdose. ? If you (more content not included)... [facility] HEMATOLOGYOrdered By: SYSTEM SYSTEM on 11-26-2023 Basophils/100 WBC (Bld) 0.9 % Normal 0.0 - 2.0 % Remisol Heme Basophils/Leukocytes Auto (Bld) [Pure # fraction] 0.1 E9/L Normal 0.0 - 0.2 E9/L [facility]e Eosinophils (Bld) [#/Vol] 0.5 E9/L Normal 0.0 - 0.5 E9/L [facility] Eosinophils/100 WBC (Bld) 5.8 % Normal 0.0 - 8.0 % [facility] Erythrocyte distribution width (RBC) [Ratio] 17.3 % High 10.9 - 14.2 % [facility] Hematocrit (Bld) [Volume fraction] 31.0 % Low 34.0 - 46.0 % [facility] Hemoglobin (Bld) [Mass/Vol] 11.0 g/dL Low 12.0 - 16.0 gm/dL [facility] Lymphocytes (Bld) [#/Vol] 1.1 E9/L Normal 1.0 - 4.0 E9/L [facility] Lymphocytes/100 WBC (Bld) 12.7 % Low 14.0 - 50.0 % [facility] MCH (RBC) [Entitic mass] 29.4 pg Normal 27.0 - 34.0 pg [facility]e MCHC (RBC) [Mass/Vol] 35.7 g/dL Normal 31.4 - 36.0 gm/dL [facility] MCV (RBC) [Entitic vol] 82.5 fL Normal 80.0 - 100.0 fL [facility] Monocytes (Bld) [#/Vol] 0.4 E9/L Normal 0.2 - 1.0 E9/L [facility] Monocytes/100 WBC (Bld) 4.9 % Normal 4.0 - 14.0 % [facility] Neutrophils (Bld) [#/Vol] 6.4 E9/L Normal 2.0 - 7.5 E9/L [facility] Neutrophils/100 WBC (Bld) 75.7 % High 36.0 - 75.0 % [facility] Platelet 299.0 E9/L Normal 150.0 - 500.0 E9/L [facility] Platelet mean volume (Bld) [Entitic vol] 7.0 fL Normal 6.4 - 10.8 fL [facility] RBC (Bld) [#/Vol] 3.8 E12/L Low 4.3 - 5.9 E12/L [facility] WBC corrected for nucl RBC Auto (Bld) [#/Vol] 8.4 E9/L Normal 4.0 - 11.0 E9/L [facility] Hep Func Panelon 11-26-2023 Albumin [Mass/Vol] 3.7 g/dL Normal 3.3-5.0 [facility] Comment on above: Performed By: #### 2 [id number] #### [facility] [address] [place] [address] Albumin/Globulin (S) [Mass conc ratio] 1.2 Normal 1.1-2.2 [facility] Comment on above: Performed By: #### 2 [id number] #### [facility] [address] [place] [address] ALP [Catalytic activity/Vol] 113 Int._Unit/L High 21-98 [facility] Comment on above: Performed By: #### 2 [id number] #### [facility] [address] [place] [address] ALT No additional P-5'-P [Catalytic activity/Vol] 21 Int._Unit/L Normal 6-46 [facility] Comment on above: Performed By: #### 2 [id number] #### [facility] [address] [place] [address] AST [Catalytic activity/Vol] 15 Int._Unit/L Normal 5-43 [facility] Comment on above: Performed By: #### 2 [id number] #### [facility] [address] [place] [address] Bilirubin [Mass/Vol] 0.3 mg/dL Normal 0.0-1.1 [facility] Comment on above: Performed By: #### 2 [id number] #### [facility] [address] [place] [address] Bilirubin.direct [Mass/Vol] 0.1 mg/dL Normal 0.0-0.4 [facility] Comment on above: Performed By: #### 2 [id number] #### [facility] [address] [place] [address] Bilirubin.indirect [Mass or moles/Vol] 0.2 mg/dL Normal 0.1-0.9 [facility] Comment on above: Performed By: #### 2 [id number] #### [facility] [address] [place] [address] Globulin (S) [Mass/Vol] 3.1 g/dL Normal 1.4-4.0 [facility] Comment on above: Performed By: #### 2 [id number] #### [facility] [address] [place] [address] Protein [Mass/Vol] 6.8 g/dL Normal 6.0-7.8 [facility] Comment on above: Performed By: #### 2 [id number] #### [facility] [address] [place] [address] Lipase Levelon 11-26-2023 Lipase [Catalytic activity/Vol] 22 U/L Normal 13-58 [facility] Comment on above: Performed By: #### 2 [id number] #### [facility] [address] [place], [place] [id number] UA with Cult Rflxon 11-26-19 24 Bilirubin Ql (U) Negative Normal Negative [facility] Comment on above: Performed By: #### 4 [id number] #### [facility] [address] [place] [address] Clarity (U) Clear Normal Clear [facility] Comment on above: Performed By: #### 4 [id number] #### [facility] [address] [place] [address] Color (U) Light-Yellow Normal Yellow [facility] Comment on above: Result Comment: Micr oscopic readings are only performed on those samples that meet specific criteria set forth by [facility]. Performed By: #### 4 [id number] #### [facility] [address] [place] [address] Epithelial cells.squamous Auto (Urine sed) [#/Area] 3-4 Invalid Interpretation Code [facility] Comment on above: Performed By: #### 4 [id number] #### [facility] [address] [place] [address] Glucose Ql (U) Negative Normal Negative [facility] Comment on above: Performed By: #### 4 [id number] #### [facility] [address] [place] [address] Hemoglobin Auto test strip (U) [Mass/Vol] 2+ mg/dL Abnormal Negative [facility] Comment on above: Performed By: #### 4 [id number] #### [facility] [address] [place] [address] Ketones Auto test strip Ql (U) Negative Normal Negative [facility] Comment on above: Performed By: #### 4 [id number] #### [facility] [address] [place] [address] Leukocyte esterase Auto test strip Ql (U) 250 Flakita/uL Abnormal Negative [facility] Comment on above: Performed By: #### 4 [id number] #### [facility] [address] [place] [address] Mucus Auto Ql (U) Negative Normal Negative [facility] Comment on above: Performed By: #### 4 [id number] #### [facility] [address] [place] [address] Nitrite Auto test strip Ql (U) Negative Normal Negative [facility] Comment on above: Performed By: #### 4 [id number] #### [facility] [address] [place] [address] pH (U) 6.0 [pH] Invalid Interpretation Code 5.0-9.0 [facility] Comment on above: Performed By: #### 4 [id number] #### [facility] [address] [place] [address] Protein Ql (U) Negative Normal Negative [facility] Comment on above: Performed By: #### 4 [id number] #### [facility] [address] [place] [address] RBC Ql (U) 21-30 Abnormal 0-3 [facility] Comment on above: Performed By: #### 4 [id number] #### [facility] [address] [place] [address] Specific gravity (U) [Rel density] 1.019 Invalid Interpretation Code 1.005-1.03 0 [facility] Comment on above: Performed By: #### 4 [id number] #### [facility] [address] [id number] Urobilinogen (U) [Mass/Vol] Negative Normal Negative [facility] Comment on above: Performed By: #### 4 [id number] #### [facility] [address] [place] [address] WBC Auto (Urine sed) [#/Area] 6-15 Abnormal 0-5 [facility] Comment on above: Performed By: #### 4 [id number] #### [facility] [address] [place] [address] Type of Urine collection method Clean Catch Normal [facility] Comment on above: Performed By: #### 4 [id number] #### [facility] [address] [place] [address] URINALYSISOrdered By: SYSTEM SYSTEM on 11-26-2023 Bilirubin Ql (U) Negative Normal Negativemg /dL [facility] UA Auto SS Clarity (U) Clear (11/26/23 5:12 AM) Normal Clear [facility] UA Auto SS Color (U) Light-Yellow 1 (11/26/23 5:12 AM) Normal Yellow [facility] UA Auto SS Comment on above: Interpretive Data: M icroscopic readings are only performed on those samples that meet specific criteria set forth by [facility]. Epithelial cells.squamous Auto (Urine sed) [#/Area] 3-4 graded/HPF Invalid Interpretation Code [facility] UA Auto SS Glucose Ql (U) Negative Normal Negativemg /dL [facility] Auto SS Hemoglobin Auto test strip (U) [Mass/Vol] 2+ mg/dL Invalid Interpretation Code Negativemg /dL [facility] UA Auto SS Ketones Auto test strip Ql (U) Negative Normal Negativemg /dL [facility] UA Auto SS Leukocyte esterase Auto test strip Ql (U) 250 Flakita/uL Flakita/uL Invalid Interpretation Code NegativeLe u/uL [facility] UA Auto SS Mucus Auto Ql (U) Negative Normal Negativegr aded/LPF [facility] UA Auto SS Nitrite Auto test strip Ql (U) Negative Normal Negativemg /dL [facility] UA Auto SS pH (U) 6.0 *NA* (11/26/23 5:12 AM) Invalid Interpretation Code 5.0 - 9.0 [facility] UA Auto SS Protein Ql (U) Negative Normal Negativemg /dL [facility] UA Auto SS RBC Ql (U) 21-30 graded/HPF Invalid Interpretation Code 0-3graded/ HPF [facility] UA Auto SS Specific gravity (U) [Rel density] 1.019 *NA* (11/26/23 5:12 AM) Invalid Interpretation Code 1.005 - 1.030 [facility] UA Auto SS Urobilinogen (U) [Mass/Vol] Negative Normal Negativemg /dL [facility] UA Auto SS WBC Auto (Urine sed) [#/Area] 6-15 graded/HPF Invalid Interpretation Code 0-5graded/ HPF [facility] UA Auto SS URINALYSISOrdered By: Xander dolan on 11-26-2023 UA Spec Desc Clean Catch (11/26/23 5:12 AM) Normal [facility] UA Auto SS Work Phone: eGFRon 11-26-2023 eGFR 30 mL/min/1.73 m2 Low >=59 [facility] Comment on above: Order Comment: Order added by Discern Expert. Performed By: #### 1 [id number] #### [facility] [address] [place] [address] Coding Summary.on 11-10-2023 Coding Summary. XSYZBriy37MTg0uOn+PG hlYWQ+ OO1CCLSwL79trSHnvT7wZ8SKVI cXStbtSQNPFEsEVbCgblFvKU9c aXNjZXJu IC8+CW2oIATpSzwdvNTde8T2qT V8K35amk1rFGrgwZZ1VIOfQxEm njuao9ypsIk6HQdbHffbDnPp GKLipD38CBR0iK96Hs37lNWdyB Qwg4wqtUv1GjEkAIPyMKL7sVob HLlvu3QvQFAgO83quTJxg6J5 WADmrOlgzZVgXwHyjWQ6zP3lUF elacudk5tvpjbjSfv4hr37wOQy m4A9uDY2J7VslbC6JDPluJKy TuckySSUcS8tymwsg4kqatkmLx MhXKSbRVu2OTu4CBOucErrFmTi NQ60RHK3YGUvowGrP3AkEEHb zJhwYiT7v3U6Qr1FC9WLYmwsA1 VNTUFSWTwvdGQ+VS15sl94B7Dr GbwjBuz1VJIxRAU6oEC3xO1t EXUuJJgds9P5tZY4M0TmhoNaza 3zf0lzZMBtELrdR53twXTbk4X1 GQYazYF7XZQokJzkPnRcjU32 Oyc+GYTfgBmbx3VuCbxtz5nnn7 jonZc0IwehCGZyxpIjrHgsACW2 p1OhJx0hUUJeoZF5pYQ5oJ8q ZpKeKpG5XBgyF676YbWgpVPvLh nuK85iI8PkrXI+CKMiRso1SSIf rPqnHN0bM7IqZMLhjewaeFQi mMhbQZ9bLYBvwnapMUDjzJ5wZK BqJ6m1FmAqBkX8EYpoN3EjTFJf zwxxXv88wI1fZlUbRbX5ULbf Z9LwgfX1UIRheTLiAQocLUG3X7 6cr0L8AJWwGJOjLRX6vNI9dA5v bGlnbjogbGVmdDsgdmVydGlj NNlgXErrT944GOTodLprGgNfDW luZyBEYXRlOiAgMDYvMjAvMjAy NDwvdGQ+WOZhLEX4xGhuQARw fZLzNFaxBy1btEvuzZmwCM6iKK AhsssqETHfrZ0wWFOuaCGxeFuv LA5bKBKdtpmpe732YuFxEZL4 GWOwpAUsH1WvbT5fMzGrDBBxEQ IsO3YguISuSIuxG174HBtfEpZ9 TSDsldOsT4JwYYAtpKuyUdS9 d0U6Gw6Mm9KootzkG9MbmWUlLb HrGsajNEd8L1OgVunayKI+PC90 OIRxZT38XRx0QVU1dYycXWtb WVLdA2YglJ3xLzJmVCCmPCKeAv c+PHRhYmxlIHdpZHRoPScxMDAl LpDipRvdBN7gSq0nFRIpNBCb jNbdkDDlNvIde9toZNKoRKnvIJ 7tvGkzE5QaiTB5WDBom3b8Zz40 V85tY1IzrOI+WGIhcMJ8fDL7 uK1oSkUiTrK3ECduJ433ApJvmQ EqXgesq2ezy0rbuCp2HwC7MKHt elNwhHokSUH9w6PzJw10O85t IHdpZHRoPSIxNSUiIHZhbGlnbj 3wkJ5yZy2+GPPjkVA0xUG9kL9o WoPxHqG5GDgjJ705NyDkcQIa Rlnvh4qcb4hyeHn4GsOsEHHumz NsiOeqDUS5o1MoWi26W0AbjRml x6EtHfd7ex68eUCpr2G0mVA8 I7DqNQNhuliymMDlkJnfHA2sTF QrjkdfEUPapI5dAMInZ1p8FxVa CbD7EIhfM7HdbwV2VXRuvPPd VLCnlHYNoX4gettms1hgjattJr YuVASrGFr7QYw3TOVxlYjuSqIw YII8EyB4QQD8mLKkyI2qtRsv llfezS8fLjn+CBB5gHBavUWWUE 1lOjwvdGQ+FLRpHYN6tSioMRhk THCsdC3cZKDpD8l7XzUbCwY2 GUbqC3QdibN1RZKzyWObXRTnnT NQwP7pziazo1gmoxtuTrKmDAIx LXu9CDg1YUXbmJjpDlKvWOT5 JwJ6VAA1iOTpnZ1mbXgnlmgrcD 9wOyc+DoruxBfeAQP5AOx7B2Ag Xiq6YPZjuErnSI0dbBEoQTmv Jt7meUznzZzmER4pGAEotyzca2 17BaRar4taYGDcoAMlFImvBJP3 Q83cu2U3ZYCcTUMsCUE9yTW4 kM3anJlxxrutlJHpwEnazqAreH raDJsdORntW068UFDaeNxkAiXv TSv1G8LzGzw6WDBspOmcUI2e jVOiRDgcYe7oiHxfpVkwGP4nNE Exgyrwa354EjTxa4rdPDTkuNVr YOtwDVU9Z21wq4R5DWZsVQCh LQG3dZV0gE9xgKpldocwsCCrbU tyouHxnYzzVRlgNQxnI458QZHo pHnmWgTquWb0V1NlBal9ULNx ePanBB0oxFCuNKyvBn1wqHlhrR zsGN5sBKSwxdbim385NrGur2ez FPNiiPAuFHpqBUE2V03dd7A8 SGWaQWItXNE1oAL1yN4jzQljgl ogbGVmdDsgdmVydGljYWwtYWxp T215FLJgkRykRqVmcQsxrcSb MXcmWFc6R6DpCiccfBI+PC90YW IjDE97sBTbfALsb4nydCb7LxHm KQZcWDC9lVfcTWqds7FxGHIu B53tpGGzf0M6AFSlqGdvrFZdNe AggOV8cI7oASkdwsnng3qgxhgi Chjid7fruv54uE72N43hXUpt VTTwSXBiDOClWQCctJfqem6tbH 9wIi8+RFQfjBT9iHJ1sL4eYRMh SoM8TEbqT477OuRtbXUiFtcx i3czg2pxzOg9JfX5JTVckpMswR ysUZQ3d9UsMk31Q59cFVsuOQDk XRRxWZEcJNDfrLnfqw2qtX0c Ii8+OJGmfQS1kPP9mM2iFfZaOx U7MZysC840HoIwxKHjRbesH90f M5YadSH+JPAiXcf6JLXtbEmp ZJ8ztIAjHGacNl6bEBB9YpZvUb UeZEtmQ2OcGTMlzrvxxkinpBX6 ZGEsNUOvvN29Np1ckDupCPCj lMGTsJ9efiihz7bpqyusAfCwNL TgGTc5DIr1WQDlpIyhOwCrPCH1 CcN4UDC7dSTnyN9cwZeddbmi wV6pY8DlGDHvkvitLm51pH2hSw AdKvR9JKfbHhu+SEFMRVMsIExJ MgGZVYh3A7WgZwm7FGHjrRve SX3jsZSwIXbrRp5maAaohWajMM 1lCNPxjezbTYLjpU3hOHYcvDLt iQhkVZ1nOUXhnsozb904FiMl YYZ1NRVfrQKvG5QmpO6wTbGuOX ShVJVjM9AsfWDwCTxoN024HDjl PxW1KDVpkwJvY5MiIYNxoGen XeG1k7W0Ph7aKW9yAv6kUSMxVD 65QA60sVJxb5Q0fBE1R1HkQFMi ibasrlkewTO2YCPcVUPdyV28 xVAeZLjjFk8zf3O7z270QJEjVK MgyQ11Rs2ikJgoQFYwfTNDfV7t dglti5ukblsgLpTcCHCsJYk7 FPj2RWFzbEdeGzGnAKJ2TbG0ZC N6yNCqaO3gxBcufrhhdY2sAxt+ KsDaVJAowyG8J9WiZrq1QWVa xTygIT2jcDPjYOwjFe1xgHbxtU lhLC5pUBQrkhdcWKEvtP8sIHSi zMTmdYabQE9wFYSrsrkgl180 PhOiICJ9GZYoeNHsV9VugG0cGw VgZNIsBLLaZ1TiuXQoNSlqM583 LMkdAuD7CQYugsGeK2NeBMMm cXqvLrY6w7T8Sh0TTV3btPO5A8 AfOxj4YDPizVhfLJ9lsPDjSHow Lg9urElmxCuxBY5nNMGqcfrx COSbfV6eQYGqaITyyHuhNY5sRD Htmlzti558InOuEPZ0GEPpwHPr P2GluA6kMnYiTAKkSPEbL5Ml wTMaTOxbV496EIthKlF2JKIjyw RyX2VdBRNnsOqoYhK5q2G3Mq0N uVPyFPDnLJ12YA60RB55Z3Gl PjwvdGFibGU+PHRhYmxlIHdpZH JeKIyuBBQpPzWkgLzaAL6yJh6r WWNjGWJzuDcxqYCaCrTus6ll IRRyINueMP0blCcfT8ZagSJ1HS Qve6v7Pf57B79oD9XzyDG+PGNv dSM9mFY4eL7zXbZvZqS2GYog M361DwMlbCTrYfndw5fyd8huaQ x3TcSlBJWqjtDffRsdEOG2d4Np Fr38L30iQJoyHMZnKSUmNOKe NBWznXijxy9dxZ4fRo4+PGNvbC A6cWG4mB5kPfCeRhX3LGoxT001 KnAgtGZqTjnfH08xS8PcpEI+ QAWuQga1CXGnsRpyWI3cdOXkRO zuTl5vVCB6IuZxJlCsAXioM0Em TUQxrkppcflsxXL7PHGjWDHb gG07Hi5cqAtnJc0cMBAaVGP0QP LhqPPdD0DbnZ5gJhRwCQAvAWNu J8RdwOTeMAfnK380NCwaBxW5 XJMqwsSyX5FtZGRehMogMrW9m2 V5Gb3ZgHrdnEZnCE6aQaZlXEg0 X9RnCkh2LLJunRjyCU9xwUTn TErzLz3gpVokpYloKY2rATSyiv oje360LzCuh9jkMFItoNVrQNag KYM7T16vm0C3HNXkNDXwOFU7 eUD8sY7jnTlwmisljBGjvNroiy KizEpdRIlmADzaJ368QAGegAsu RiVORqx0F3PnJxb2IUOejUcb AK2stUFjXKfjLa5ggWufgYtkQF 8qNACuzjztc630TnSex1yjBOFw eYGbRRidSQG2D83hp0X7FMYw ULFmEAD9xXT1iK0lfIycbvyolB KgqNwfwrEnrCyzTMrxBKhmQ873 LBUykWzsTf3EBhv8G5RxQaw8 WNKnhBkqAV2ffGScUGokAp2nyF rkwLusJB9mHDVdlxoki822RmJn s5ssHCEqcGLrFAzdETZ5F42j e5J1GHIaBBQeGHW5rBL6rU4afA lnbjogbGVmdDsgdmVydGljYWwt FNiyN552XRYedMchQeGhqYMz OjwvdGQ+WR34ya15Q0LiBjtcHu y4DRLcYDT1vZG6gE1yPCAlWBtn q3B7gHV2U8JiwwGxub7na8nf KORqBAkkG12fl (more content not included)... Normal [facility] Consent for Treatmenton 06- Consent for Treatment [id number] Normal [facility] MA Mamm Diag w/CAD if perf a nd 3D Bilon 11-07-2023 MA Mamm Diag w/CAD if perf and 3D Cabrera Exam Date/Time: 11/07/2023 09:08 EDT Reason for Exam: R92.8;Other (please specify) Report IMPRESSION: BIRADS 2 BENIGN FINDINGS, NORMAL INTERVAL FOLLOW-UP.12 MONTH RECALL. CLINICAL HISTORY: R92.8. COMPARISON: 05/27/2023 and 10/29/2022. COMMENT: Routine views and tomosynthesis views of both breasts were obtained. There are scattered areas of fibroglandular density. There is mild asymmetry with denser fibroglandular tissue in the anterior right breast, but without significant interval change. There is a small metallic biopsy clip in the upper outer left breast anteriorly. On CC views, this is located at the posterior aspect of a small nodular density, smaller in size than on the prior study. A nodular density in the posterior left breast is stable in appearance. No dominant breast mass is noted in the right breast. There is benign calcification in the right breast. No neoplastic calcifications are identified in either breast. The examination was reviewed with Computer Aided Detection. An ultrasound was obtained at all clock face positions and in the central/ retroareolar region of the right breast. No mass, no cyst, nor suspicious lesion is noted. The retroareolar right breast is unremarkable in appearance on this ultrasound exam. Breast Density: No Mammography is very important to your health. The current [employer] and National [employer] guidelines recommends annual mammography beginning at age 40. This facility utilizes a reminder system to ensure all patients receive reminder notifications at the appropriate time based on the recommendations of this exam. Board Certified Radiologists. Accredited by the ACR and FDA. Report Ordering Provider: Angel Page FINAL REPORT Dictated: 11/07/2023 3:52 pm Vin Joy M.D. Signed (Electronic Signature): 11/07/2023 3:52 pm Signed by: Vin Joy M.D. Transcribed by: PAT Technologist: BELINDA Assessment: BI-RADS Category 2-Benign finding Recommendation: Normal interval follow-up [facility] US Breast Unilateral Rt Comp leteon 11-07-2023 US Breast Unilateral Rt Complete Exam Date/Time: 11/07/2023 09:33 EDT Reason for Exam: R92.8 Report PLEASE REFER TO THE MAMMOGRAM REPORT. Ordering Provider: Angel Page FINAL REPORT Dictated: 11/07/2023 4:29 pm Vin Joy M.D. Signed (Electronic Signature): 11/07/2023 4:29 pm Signed by: Vin Joy M.D. Transcribed by: PAT Technologist: SUGEY [facility] Physician Orderon 10-14-2023 Physician Order [id number] [facility] Progress Note-Physicianon Progress Note-Physician Patient: DINORAH PEPE Age: 73 years Sex: Female : 1950 Associated Diagnoses: None Author: Madison Alvarez CNP Basic Information Requesting Provider: Hospitalist Reason For Request: IRINA management Review of Systems No overnight events. She is planning to be discharged today. Will follow-up with her cell biologist. Health Status Allergies: Allergic Reactions (Selected) Severity [...] Mother Cardiac arrhythmia Sister Procedure history: Colonoscopy ([id number]) on 08/07/2021 at 71 Years. t tka compounded by obesity BMI>58 on 09/09/2015 at 65 Years. Knee arthroplasty ([id number]). Comments: 08/25/2015 10:57 DIMITRIOS Allen RN, Linda colindres Social History Social & Psychosocial [...] Test Name Light Free Av Test Code [id number] 09/06/2023 12:21 EDT Glucose Cap 100 mg/dL HI POC Device SN [id number] POC User ID [id number] POC Username ARLENE MARROQUINCIE 09/06/2023 10:05 EDT Glucose Cap 88 mg/dL POC Device SN [id number] POC User ID [id number] POC Username MARROQUIN TITA 09/06/2023 9:22 EDT Glucose Cap 70 mg/dL POC Device SN [id number] POC User ID [id number] POC Username SHELBYABIDA 09/06/2023 5:07 EDT WBC 5.4 E9/L RBC [...] Glucose Cap 86 mg/dL POC Device SN [id number] POC User ID [id number] POC Username TRENTON CHURCH 09/05/2023 16:01 EDT Glucose Cap 75 mg/dL POC Device SN [id number] POC User ID [id number] POC Username POC Username 09/05/2023 11:55 EDT Glucose Cap 100 mg/dL HI POC Device SN [id number] POC User ID [id number] POC Username MATTHEW DINERO 09/05/2023 8:32 EDT Glucose Cap 78 mg/dL POC Device SN [id number] POC User ID [id number] POC Username MATTHEW DINERO 09/05/2023 6:15 EDT WBC 4.5 (more content not included)... Normal [facility] Comment on above: Result Comment: Elec [...] for Treatmenton 09-20 Consent for Treatment [id number] Normal [facility] Physician Orderon 10-03-2023 Physician Order [id number] Normal [facility] Renal Panelon 10-03-2023 Albumin [Mass/Vol] 3.8 g/dL Normal 3.3-5.0 [facility] Comment on above: Performed By: #### 2 [id number] #### [facility] [address] [place] [address] Anion gap [Moles/Vol] 11 mmol/L Normal 6-16 [facility] Comment on above: Performed By: #### 2 [id number] #### [facility] [address] [place] [address] Calcium [Mass/Vol] 10.4 mg/dL Normal 8.9-11.1 [facility] Comment on above: Performed By: #### 2 [id number] #### [facility] [address] [place] [address] Chloride [Moles/Vol] 101 mmol/L Normal 101-111 [facility] Comment on above: Performed By: #### 2 [id number] #### [facility] [address] [place] [address] CO2 [Moles/Vol] 30 mmol/L Normal 21-31 [facility] Comment on above: Performed By: #### 2 [id number] #### [facility] [address] [place] [address] Creatinine [Mass/Vol] 1.4 mg/dL High 0.5-1.3 [facility] Comment on above: Performed By: #### 2 [id number] #### [facility] [address] [place] [address] Glucose [Mass/Vol] 118 mg/dL Normal 55-199 [facility] Comment on above: Performed By: #### 2 [id number] #### [facility] [address] [place] [address] Phosphate [Mass/Vol] 2.4 mg/dL Normal 1.9-4.6 [facility] Comment on above: Performed By: #### 2 [id number] #### [facility] [address] [place] [address] Potassium [Moles/Vol] 3.1 mmol/L Low 3.5-5.3 [facility] Comment on above: Performed By: #### 2 [id number] #### [facility] [address] [place] [address] Sodium [Moles/Vol] 139 mmol/L Normal 135-145 [facility] Comment on above: Performed By: #### 2 [id number] #### [facility] [address] [place] [address] Urea nitrogen [Mass/Vol] 14 mg/dL Normal 5-21 [facility] Comment on above: Performed By: #### 2 [id number] #### [facility] [address] [place] [address] Urea nitrogen/Creatinine [Mass ratio] 10 No Units Normal 10-20 [facility] Comment on above: Performed By: #### 2 [id number] #### [facility] [address] [place] [address] U Protein/Creat Ratioon 09-20 Protein/Creatinine (U) [Ratio] 20.40 mg/gm Cr Normal .00-200.00 [facility] Comment on above: Performed By: #### 1 [id number] #### [facility] [address] [place] [address] U Creatinine 133.4 mg/dL Invalid Interpretation Code [facility] Comment on above: Performed By: #### 1 [id number] #### [facility] [address] [place] [address] Ur Total Protein 27.2 mg/dL Invalid Interpretation Code [facility] Comment on above: Performed By: #### 1 [id number] #### [facility] [address] [place] [address] URINALYSISOrdered By: SYSTEM SYSTEM on 10-03-2023 Bacteria Auto Ql (U) Trace /HPF Normal Trace/HPF [facility] UA Auto SS Bilirubin Ql (U) Negative Normal Negativemg /dL [facility] UA Auto SS Clarity (U) Turbid *ABN* (10/03/23 9:15 AM) Invalid Interpretation Code Clear [facility] UA Auto SS Color (U) Yellow 1 (10/03/23 9:15 AM) Normal Yellow [facility] UA Auto SS Comment on above: Interpretive Data: M icroscopic readings are only performed on those samples that meet specific criteria set forth by [facility]. Epithelial cells.squamous Auto (Urine sed) [#/Area] >10 graded/HPF Invalid Interpretation Code 0-2graded/ HPF [facility] UA Auto SS Glucose Ql (U) Negative Normal Negativemg /dL [facility] UA Auto SS Hemoglobin Auto test strip [...] AM) Invalid Interpretation Code 5.0 - 9.0 [employer] [employer] UA Auto SS Protein Ql (U) Trace mg/dL Invalid Interpretation Code Negativemg /dL [employer] [facility] [employer] UA Auto SS RBC Ql (U) 4-20 graded/HPF Invalid Interpretation Code 0-3graded/ HPF [employer] [employer] UA Auto SS Specific gravity (U) [Rel density] 1.017 *NA* (10/03/23 9:15 AM) Invalid Interpretation Code 1.005 - 1.030 [employer] [employer] UA Auto SS Urobilinogen (U) [Mass/Vol] Negative Normal Negativemg /dL [employer] [employer] UA Auto SS WBC Auto (Urine sed) [#/Area] 31-75 graded/HPF Invalid Interpretation Code 0-5graded/ HPF [employer] [employer] UA Auto SS URINALYSISOrdered By: Genny Nava on 10-03-2023 UA Spec Desc Clean Catch (10/03/23 9:15 AM) Normal [employer] [employer] UA Auto SS Urinalysis with Microon 09-20 Bacteria Auto Ql (U) Trace Normal Trace [facility] Comment on above: Performed By: #### 1 [id number] #### [facility] [address] [place] [address] Bilirubin Ql (U) Negative Normal Negative [facility] Comment on above: Performed By: #### 1 [id number] #### [facility] [address] [place] [address] Clarity (U) Turbid Abnormal Clear [facility] Comment on above: Performed By: #### 1 [id number] #### [facility] [address] [place] [address] Color (U) Yellow Normal Yellow [facility] Comment on above: Result Comment: Micr oscopic readings are only performed on those samples that meet specific criteria set forth by [facility]. Performed By: #### 1 [id number] #### [facility] [address] [place] [address] Epithelial cells.squamous Auto (Urine sed) [#/Area] >10 Abnormal 0-2 [facility] Comment on above: Performed By: #### 1 [id number] #### [facility] [address] [place] [address] Glucose Ql (U) Negative Normal Negative [facility] Comment on above: Performed By: #### 1 [id number] #### [facility] [address] [place] [address] Hemoglobin Auto test strip (U) [Mass/Vol] Negative Normal Negative [facility] Comment on above: Performed By: #### 1 [id number] #### [facility] [address] [place] [address] Ketones Auto test strip Ql (U) Negative Normal Negative [facility] Comment on above: Performed By: #### 1 [id number] #### [facility] [address] [place] [address] Leukocyte esterase Auto test strip Ql (U) 500 Flakita/uL Abnormal Negative [facility] Comment on above: Performed By: #### 1 [id number] #### [facility] [address] [place] [address] Mucus Auto Ql (U) Trace Normal Negative [facility] Comment on above: Performed By: #### 1 [id number] #### [facility] [address] [place] [address] Nitrite Auto test strip Ql (U) Negative Normal Negative [facility] Comment on above: Performed By: #### 1 [id number] #### [facility] [address] [place] [address] pH (U) 6.5 [pH] Invalid Interpretation Code 5.0-9.0 [facility] Comment on above: Performed By: #### 1 [id number] #### [facility] [address] [place] [address] Protein Ql (U) Trace Abnormal Negative [facility] Comment on above: Performed By: #### 1 [id number] #### [facility] [address] [place] [address] RBC Ql (U) 4-20 Abnormal 0-3 [facility] Comment on above: Performed By: #### 1 [id number] #### [facility] [address] [place] [address] Specific gravity (U) [Rel density] 1.017 Invalid Interpretation Code 1.005-1.03 0 [facility] Comment on above: Performed By: #### 1 [id number] #### [facility] [address] [place] [address] Urobilinogen (U) [Mass/Vol] Negative Normal Negative [facility] Comment on above: Performed By: #### 1 [id number] #### [facility] [address] [place] [address] WBC Auto (Urine sed) [#/Area] 31-75 Abnormal 0-5 [facility] Comment on above: Performed By: #### 1 [id number] #### [facility] [address] [place] [address] Type of Urine collection method Clean Catch Normal [facility] Comment on above: Performed By: #### 1 [id number] #### [facility] [address] [place] [address] eGFRon 10-03-2023 eGFR 40 mL/min/1.73 m2 Low >=59 [facility] Comment on above: Order Comment: Order added by Discern Expert. Performed By: #### 2 [id number] #### [facility] [address] [place] [address] Inpatient Clinical Summaryon 09-20-2023 Inpatient Clinical Summary [address] [address] Clinical Summary Person Information: Name: DINORAH PEPE Age: 73 Years : 1950 Sex: Female PCP: Yuli Duckworth CNP Marital Status: Race: White Ethnicity: Non- or Language: Greek MRN: Visit Id: Visit Reason: Nausea; Weakness or fatigue; Vision changes; FEELING OFF BALANCE Speciality: Acuity: Enc Type: Inpatient Med Service: Medical Arrival: 09/03/2023 17:22:54 Discharge: 09/06/2023 16:56:26 Dispo Type: Home (Routine DC) Address: [place] [id number] Provider Notes: Diagnosis: 1:Weakness; 2:Balance problems; 3:Acute [...] Attending Physician: Gunner Remy DO Consulting Physician: Salvador Ahn MD Referring Physician: Follow up: With: Address: When: Salvador Ahn [facility], [address] [place] [address] Business (1) Comments: Call for followup appointment With: Address: When: Follow-up with cell biologist; call for appointment With: Address: When: Yuli Duckworth [address] [facility], [address] [place] [address] Business (1) Comments: Call for followup appointment Type Location Start [facility] Diagnostic (FT) FT.MAMMOGRAM 11/07/2023 8:45 AM 11/07/2023 9:15 AM Confirmed US Breast (FT) FT.ULTRASOUND 11/07/2023 9:30 AM 11/07/2023 10:30 AM Confirmed Patient Education Information: Hypotension, Gplm-yt-Bymp Normal [facility] Inpatient Patient Summaryon 09-20-2023 Inpatient Patient Summary [facility] [address] [place], [place] [address] Patient Discharge Instructions PERSON INFORMATION [...] Follow up: With: Address: When: Salvador Ahn [facility], [address] [place] [address] Business (1) Comments: Call for followup appointment With: Address: When: Follow-up with cell biologist; call for appointment With: Address: When: Yuli Duckworth [address] [facility] [address] [place] [address] Business (1) Comments: Call for followup appointment In the event that this physician does not participate in your insurance network, please consult with your insurance company to find a nearby participating provider. Type Location [facility] Diagnostic (FT) FT.MAMMOGRAM 11/07/2023 8:45 AM [...] Capsules By Mouth every day. Pharmacy Information: [facility] , Mail Order Comment: PATIENT EDUCATION INFORMATION Instructions: Hypotension As your heart beats, it forces blood through your body. This force is called blood pressure. If you have hypotension, you have low blood pressure. When your blood pressure is too low, you may not get enough blood to your brain or ot (more content not included)... Normal [facility] Vit D 1,25on 09-12-2023 1,25-dihydroxyvitamin D [Mass/Vol] 25.8 pg/mL Invalid Interpretation Code 24.8-81.5 [facility] Comment on above: Result Comment: Perf ormed at: [facility] [address], [place] [id number] MD Audi Vega Performed By: #### 1 [id number] #### [facility] [address] [place] [address] Lab Miscellaneous-on 09-08 Lab Miscellaneous COMMENT Invalid Interpretation Code [facility] Comment on above: Order Comment: urine Result Comment: Test Ordered: [id number] Immunofixation, Urine CHRIS Interpretation:U Comment CB No monoclonality detected. Performed at: [address] [id number] PhD Jessica Ferris Performed By: #### 1 [id number] ####[facility] [address] [place] [address] Discharge Instructionson Discharge Instructions [id number]#[id number] Normal [facility] Lab Miscellaneous-LCon 09-07 Lab Miscellaneous COMMENT Invalid Interpretation Code [facility] Comment on above: Result Comment: Test Ordered: [id number] Free K+L Lt Chains,Qn,S Free [place] Lt Chains,S 37.8 [H ] mg/L CB Reference Range: 3.3-19.4 Free Lambda Lt Chains,S 32.8 [H ] mg/L CB Reference Range: 5.7-26.3 [place]/Lambda Ratio,S 1.15 CB Reference Range: 0.26-1.65 Performed at: [address] [id number] PhD Jessica Ferris Performed By: #### 2 [id number] #### [facility] [address] [place] [address] Message from Medicareon 08-21 Message from Medicare [id number]#[id number] Normal [facility] Immunofixation Serumon 09-06 IgA [Mass/Vol] 294 mg/dL Invalid Interpretation Code 64422 [facility] Comment on above: Performed By: #### 5 [id number], [id number], 46536785, 6292992, 2205771 #### [facility] [address] [place] [address] IgG [Mass/Vol] 795 mg/dL Invalid Interpretation Code 048-6059 [facility] Comment on above: Performed By: #### 5 [id number], [id number], 48790858, 3715644, 4938173 #### [facility] [address] [place] [address] IgM [Mass/Vol] 33 mg/dL Invalid Interpretation Code 26217 [facility] Comment on above: Result Comment: Perf ormed at: [facility] [address], [place] [id number] PhD Jessica Ferris Performed By: #### 5 [id number], [id number], [id number], 6396513, 8172353 #### [facility] [address] [place] [address] Protein Fractions [Interp] Comment Invalid Interpretation Code [facility] Comment on above: Result Comment: No m onoclonality detected. Performed By: #### 5 [id number], [id number], 25028875, 0531192, 7648231 #### [facility] [address] [place] [address] PTH Intacton 09-07-2023 Parathyrin.intact [Mass/Vol] 207 pg/mL High 15-65 [facility] Comment on above: Result Comment: Perf ormed at: [facility] [address], [place] [id number] PhD Jessica Ferris Performed By: #### 2 [id number] #### [facility] [address] [place] [address] BMPon 09-06-2023 Anion gap [Moles/Vol] 12 mmol/L Normal 6-16 [facility] Comment on above: Performed By: #### 5 [id number], 54820811, 21034625, 7315197, 0892298 #### [facility] [address] [place] [address] Calcium [Mass/Vol] 10.0 mg/dL Normal 8.9-11.1 [facility] Comment on above: Performed By: #### 5 [id number], 53674085, 33485990, 3617186, 0687598 #### [facility] [address] [place] [address] Chloride [Moles/Vol] 112 mmol/L High 101-111 [facility] Comment on above: Performed By: #### 5 [id number], 71424110, 32617042, 0439678, 3985236 #### [facility] [address] [place] [address] CO2 [Moles/Vol] 20 mmol/L Low 21-31 [facility] Comment on above: Performed By: #### 5 [id number], 48726236, 59502729, 7355840, 2835324 #### [facility] [address] [place] [address] Creatinine [Mass/Vol] 2.1 mg/dL High 0.5-1.3 [facility] Comment on above: Performed By: #### 5 [id number], 23332105, 00129092, 8079413, 2020049 #### [facility] [address] [place] [address] Glucose [Mass/Vol] 76 mg/dL Normal 55-199 [facility] Comment on above: Performed By: #### 5 [id number], 17875265, 37503782, 0660215, 9666422 #### [facility] [address] [place] [address] Potassium [Moles/Vol] 3.5 mmol/L Normal 3.5-5.3 [facility] Comment on above: Performed By: #### 5 [id number], 55520991, 48763276, 1452912, 8174985 #### [facility] [address] [place] [address] Sodium [Moles/Vol] 140 mmol/L Normal 135-145 [facility] Comment on above: Performed By: #### 5 [id number], 11758980, 90000731, 4384299, 7486798 #### [facility] [address] [place] [address] Urea nitrogen [Mass/Vol] 23 mg/dL High 5-21 [facility] Comment on above: Performed By: #### 5 [id number], 08887050, 78755066, 7584333, 6568809 #### [facility] [address] [place] [address] Urea nitrogen/Creatinine [Mass ratio] 11 No Units Normal 10-20 [facility] Comment on above: Performed By: #### 5 [id number], 98597854, 69216040, 8289603, 8554163 #### [facility] [address] [place] [address] CBC w/Indiceson 09-06-2023 Erythrocyte distribution width (RBC) [Ratio] 20.3 % High 10.9-14.2 [facility] Comment on above: Performed By: #### 5 [id number], 72503219, 05753362, 7747602, 5247616 #### [facility] [address] [place] [address] Hematocrit (Bld) [Volume fraction] 27.6 % Low 34.0-46.0 [facility] Comment on above: Performed By: #### 5 [id number], 53816674, 66243298, 6392764, 0440419 #### [facility] [address] [place] [address] Hemoglobin (Bld) [Mass/Vol] 8.9 g/dL Low 12.0-16.0 [facility] Comment on above: Performed By: #### 5 [id number], 90738883, 97188836, 6470539, 2574363 #### [facility] [address] [place] [address] MCH (RBC) [Entitic mass] 26.4 pg Low 27.0-34.0 [facility] Comment on above: Performed By: #### 5 [id number], 76489214, 21243292, 6896841, 0928830 #### [facility] [address] [place] [address] MCHC (RBC) [Mass/Vol] 32.3 g/dL Normal 31.4-36.0 [facility] Comment on above: Performed By: #### 5 54992854, 88364088, 92921163, 3950703, 3520570 #### [facility] [address] [place] [address] MCV (RBC) [Entitic vol] 81.9 fL Normal 80.0-100.0 [facility] Comment on above: Performed By: #### 5 [id number], 61721687, 34538648, 8143667, 1438430 #### [facility] [address] [place] [address] Platelet mean volume (Bld) [Entitic vol] 7.5 fL Normal 6.4-10.8 [facility] Comment on above: Performed By: #### 5 [id number], 05579789, 49375632, 9241854, 8858464 #### [facility] [address] [place] [address] Platelets (Bld) [#/Vol] 212.0 E9/L Normal 150.0-500. 0 [facility] Comment on above: Performed By: #### 5 [id number], 59807863, 27888254, 1076335, 2010002 #### [facility] [address] [place] [address] RBC (Bld) [#/Vol] 3.4 E12/L Low 4.3-5.9 [facility] Comment on above: Performed By: #### 5 47393763, 73179442, 85869726, 7705875, 6759449 #### [facility] [address] [place] [address] RBC size Nom (Bld) NORMAL Invalid Interpretation Code [facility] Comment on above: Performed By: #### 5 47576547, 02712610, 92356467, 0465664, 6716355 #### [facility] [address] [place] [address] WBC corrected for nucl RBC Auto (Bld) [#/Vol] 5.4 E9/L Normal 4.0-11.0 [facility] Comment on above: Performed By: #### 5 [id number], 63728385, 57698369, 2801442, 2974296 #### [facility] [address] [place] [address] CHEMISTRYOrdered By: Truong ROCK User on 09-06-2023 POC Device SN [id number] 1 Invalid Interpretation Code [facility] POC Subsection POC User ID [id number] 1 Invalid Interpretation Code [facility] POC Subsection POC Username TITA MARROQUIN Invalid Interpretation Code [facility] POC Subsection Glucose [Mass/Vol] 88 mg/dL Normal 55 - 99 mg/dL FT POC Subsection Comment on above: Result Comment: Katina esparza RN/MD POC Device SN [id number] 1 Invalid Interpretation Code [facility] POC Subsection POC User ID [id number] 1 Invalid Interpretation Code [facility] POC Subsection POC Username TITA MARROQUIN Invalid Interpretation Code [facility] POC Subsection Glucose [Mass/Vol] 70 mg/dL Normal 55 - 99 mg/dL [facility] POC Subsection Comment on above: Result Comment: María mercedes Meter POC Device SN [id number] 1 Invalid Interpretation Code [facility] POC Subsection POC User ID [id number] 1 Invalid Interpretation Code [facility] POC Subsection POC Username ABIDA RYAN Invalid Interpretation Code [facility] POC Subsection CHEMISTRYOrdered By: SYSTEM SYSTEM on [...] 10 - 20 Remisol Chem Capillary Glucose POCOrdered By: Lab ROPUser on 09-06-2023 Glucose [Mass/Vol] 100 mg/dL High 55-99 [facility] [employer] P OC Subsection Comment on above: Result Comment: Katina AYALA Performed By: #### 2 [id number] #### [facility] [address] [place] [address] Capillary Glucose POCon 08-21 Glucose [Mass/Vol] 88 mg/dL Normal 55-99 [facility] Comment on above: Result Comment: Katina AYALA Performed By: #### 2 [id number] ####[facility] [address] [place] [address] Glucose [Mass/Vol] 70 mg/dL Normal 55-99 [facility] Comment on above: Result Comment: María mercedes Meter Performed By: #### 1 [id number] #### [facility] [address] [id number] HEMATOLOGYOrdered By: SYSTEM SYSTEM on 09-06-2023 Erythrocyte [...] Calorie Controlled- 1800 Calorie Diet Pharmacy Information [facility] , Mail Order Discharge Instructions STOP -Ozempic, indomethacin, lisinopril, metoprolol aand HCTZ-triamtereneNeed thyroid function studies in 6 weeks Previously Scheduled Follow-Up Appointments Tuesday 8:45 AM EDT Where: [facility] Tuesday 9:30 AM EDT Where: [facility] New Follow Up Appointments after Discharge Follow Up with Salvador Ahn When: Comments: Call for followup appointment Where: [address] [address]- Business (1) Follow Up with Follow-up with cell biologist; call for appointment When: Follow Up with Yuli Duckworth When: Comments: Call for followup appointment Where: [address] [place] [address], [address] [place] [id number] Kromatid (1) Medications What How Much When Instructions [...] - A (more content not included)... Normal [facility] Interdisciplinary Note - Alan e Manageron 09-06-2023 Interdisciplinary Note - Machine Feed Operator CRM to room to discuss DC planning. [...] rights. CRM following Possible DC today Normal [facility] Comment on above: Result Comment: Elec tronically Signed By: Ngozi Farfan\.br\Date and Time Signed: 09/06/23 12:44 EDT Lab Miscellaneous-LCon 09-05 Source Serum Invalid Interpretation Code [facility] Comment on above: Performed By: #### 2 [id number] #### [facility] [address] [place] [address] Test Code 054673 Invalid Interpretation Code [facility] Comment on above: Performed By: #### 2 [id number] #### [facility] [address] [place] [address] Test Name Light Free Av Invalid Interpretation Code [facility] Comment on above: Performed By: #### 2 [id number] #### [facility] [address] [place] [address] Source Urine Invalid Interpretation Code [facility] Comment on above: Order Comment: urine Performed By: #### 1 [id number] ####[facility] [address] [place] [address] Test Code 874665 Invalid Interpretation Code [facility] Comment on above: Order Comment: urine Performed By: #### 1 [id number] ####[facility] [address] [place] [address] Test Name Immunofixation Invalid Interpretation Code [facility] Comment on above: Order Comment: urine Performed By: #### 1 [id number] ####[facility] [address] [place] [address] Message from Medicareon 08-21 Message from Medicare [id number]#1.00TIFF Normal [facility] Monitor Recordon 09-06-2023 Monitor Record [id number]#1.00TIFF Normal [facility] Monitor Record [id number]#1.00TIFF Normal [facility] Progress Note-Nurseon 2023 Progress Note-Nurse pt blood sugar this AM is 70. I gave patient 2 fruit juices and ordered her breakfast. Normal [facility] Reference Laboratory Testing Ordered By: Madison Alvarez on 09-06-2023 Test Code 381176 1 Invalid Interpretation Code [employer] [facility] [employer] Work Phone: Test Name Immunofixation Invalid Interpretation Code [employer] [facility] [employer] Work Phone: Test Code 463124 [id number] Invalid Interpretation Code [employer] [employer] Work Phone: Test Name Light Free Av Invalid Interpretation Code [employer] [employer] Work Phone: URINALYSISOrdered By: SYSTEM SYSTEM on 09-06-2023 Bacteria Auto Ql (U) Trace graded/HPF Normal Tra cegrade d/HPF [facility] UA Auto SS Bilirubin Ql (U) Negative Normal Negativemg /dL [facility] UA Auto SS Clarity (U) Turbid *ABN* (09/06/23 4:31 PM) Invalid Interpretation Code Clear [facility] UA Auto SS Color (U) Light-Yellow 1 (09/06/23 4:31 PM) Normal Yellow [facility] UA Auto SS Comment on above: Interpretive Data: M icroscopic readings are only performed on those samples that meet specific criteria set forth by [facility]. Crystals.amorphous Computer assisted Ql (U) Present [...] 5-8 graded/HPF Invalid Interpretation Code 0-2graded/ HPF [employer] [employer] UA Auto SS Urobilinogen (U) [Mass/Vol] Negative Normal Negativemg /dL [employer] [facility] [employer] UA Auto SS WBC Auto (Urine sed) [#/Area] 16-25 graded/HPF Invalid Interpretation Code 0-5graded/ HPF [employer] [facility] [employer] UA Auto SS URINALYSISOrdered By: Erin Lucero on 09-06-2023 UA Spec Desc Random Urine (09/06/23 4:31 PM) Normal [employer] [facility] [employer] UA Auto SS Work Phone: Urinalysis with Microon 08-21 Bacteria Auto Ql (U) Trace Normal Trace [facility] Comment on above: Performed By: #### 1 [id number] #### [facility] [address] [place] [address] Bilirubin Ql (U) Negative Normal Negative [facility] Comment on above: Performed By: #### 1 [id number] #### [facility] [address] [place] [address] Clarity (U) Turbid Abnormal Clear [facility] Comment on above: Performed By: #### 1 [id number] #### [facility] [address] [place] [address] Color (U) Light-Yellow Normal Yellow [facility] Comment on above: Result Comment: Micr oscopic readings are only performed on those samples that meet specific criteria set forth by [facility]. Performed By: #### 1 [id number] #### [facility] [address] [place] [address] Crystals.amorphous Computer assisted Ql (U) Present Abnormal [facility] Comment on above: Performed By: #### 1 [id number] #### [facility] [address] [place] [address] Epithelial cells.renal Computer assisted Ql (U) 0-2 Normal 0-2 [facility] Comment on above: Performed By: #### 1 [id number] #### [facility] [address] [place] [address] Epithelial cells.squamous Auto (Urine sed) [#/Area] >10 Abnormal 0-2 [facility] Comment on above: Performed By: #### 1 [id number] #### [facility] [address] [place] [address] Glucose Ql (U) Negative Normal Negative [facility] Comment on above: Performed By: #### 1 [id number] #### [facility] [address] [place] [address] Hemoglobin Auto test strip (U) [Mass/Vol] 3+ mg/dL Abnormal Negative [facility] Comment on above: Performed By: #### 1 [id number] #### [facility] [address] [place] [address] Ketones Auto test strip Ql (U) Negative Normal Negative [facility] Comment on above: Performed By: #### 1 [id number] #### [facility] [address] [place] [address] Leukocyte esterase Auto test strip Ql (U) 500 Flakita/uL Abnormal Negative [facility] Comment on above: Performed By: #### 1 [id number] #### [facility] [address] [place] [address] Mucus Auto Ql (U) Trace Normal Negative [facility] Comment on above: Performed By: #### 1 [id number] #### [facility] [address] [place] [address] Nitrite Auto test strip Ql (U) Negative Normal Negative [facility] Comment on above: Performed By: #### 1 [id number] #### [facility] [address] [place] [address] pH (U) 5.5 [pH] Invalid Interpretation Code 5.0-9.0 [facility] Comment on above: Performed By: #### 1 [id number] #### [facility] [address] [place] [address] Protein Ql (U) Trace Abnormal Negative [facility] Comment on above: Performed By: #### 1 [id number] #### [facility] [address] [place] [address] RBC Ql (U) 4-20 Abnormal 0-3 [facility] Comment on above: Performed By: #### 1 [id number] #### [facility] [address] [place] [address] Specific gravity (U) [Rel density] 1.014 Invalid Interpretation Code 1.005-1.03 0 [facility] Comment on above: Performed By: #### 1 [id number] #### [facility] [address] [place] [address] Transitional cells Computer assisted (U) [#/Area] 5-8 Abnormal 0-2 [facility] Comment on above: Performed By: #### 1 [id number] #### [facility] [address] [place] [address] Urobilinogen (U) [Mass/Vol] Negative Normal Negative [facility] Comment on above: Performed By: #### 1 [id number] #### [facility] [address] [place] [address] WBC Auto (Urine sed) [#/Area] 16-25 Abnormal 0-5 [facility] Comment on above: Performed By: #### 1 [id number] #### [facility] [address] [place] [address] Vitamin D 25 Hydroxyon 09-05 25-hydroxyvitamin D3 [Mass/Vol] 24.0 ng/mL Low 30.0-100.0 [facility] Comment on above: Performed By: #### 5 [id number], [id number], 15571681, 0265936, 7911033 #### [facility] [address] [place] [address] eGFRon 09-06-2023 eGFR 25 mL/min/1.73 m2 Low >=59 [facility] Comment on above: Order Comment: Order added by Discern Expert. Performed By: #### 5 19603888, 12364219, 54829886, 6094220, 6074464 #### [facility] [address] [place] [address] BMPon 09-05-2023 Anion gap [Moles/Vol] 9 mmol/L Normal 6-16 [facility] Comment on above: Performed By: #### 2 845958, 30772581, 1368416 ####[facility] [address] [place] [address] Calcium [Mass/Vol] 9.9 mg/dL Normal 8.9-11.1 [facility] Comment on above: Performed By: #### 2 393158, 77760110, 1611662 ####[facility] [address] [place] [address] Chloride [Moles/Vol] 112 mmol/L High 101-111 [facility] Comment on above: Performed By: #### 2 792739, 71545649, 9210641 ####[facility] [address] [place] [address] CO2 [Moles/Vol] 23 mmol/L Normal 21-31 [facility] Comment on above: Performed By: #### 2 467910, 24624264, 3312305 ####[facility] [address] [place] [address] Creatinine [Mass/Vol] 2.6 mg/dL High 0.5-1.3 [facility] Comment on above: Performed By: #### 2 010907, 25735759, 6731881 ####[facility] [address] [place] [address] Glucose [Mass/Vol] 87 mg/dL Normal 55-199 [facility] Comment on above: Performed By: #### 2 366028, 83478345, 6223130 ####[facility] [address] [place] [address] Potassium [Moles/Vol] 4.0 mmol/L Normal 3.5-5.3 [facility] Comment on above: Performed By: #### 2 102631, 34351688, 4434716 ####[facility] [address] [place] [address] Sodium [Moles/Vol] 140 mmol/L Normal 135-145 [facility] Comment on above: Performed By: #### 2 563182, 28115650, 6972255 ####[address] [place] [address] Urea nitrogen [Mass/Vol] 33 mg/dL High 5-21 [facility] Comment on above: Performed By: #### 2 158694, 23799721, 1682552 ####[address] [address] Urea nitrogen/Creatinine [Mass ratio] 13 No Units Normal 10-20 [facility] Comment on above: Performed By: #### 2 374405, 19242763, 0629668 ####[address] [address] CBC w/ Auto Diffon 4 Basophils/100 WBC (Bld) 0.6 % Normal 0.0-2.0 [facility] Comment on above: Performed By: #### 2 196326, 68378927, 2982007 ####[address] [address] Basophils/Leukocytes Auto (Bld) [Pure # fraction] 0.0 E9/L Normal 0.0-0.2 [facility] Comment on above: Performed By: #### 2 026499, 49733115, 8422896 ####[address] [address] Eosinophils (Bld) [#/Vol] 0.2 E9/L Normal 0.0-0.5 [facility] Comment on above: Performed By: #### 2 783550, 93410225, 3346238 ####[address] [address] Eosinophils/100 WBC (Bld) 5.3 % Normal 0.0-8.0 [facility] Comment on above: Performed By: #### 2 544314, 24042482, 4485784 ####[address] [place] [address] Erythrocyte distribution width (RBC) [Ratio] 20.4 % High 10.9-14.2 [facility] Comment on above: Performed By: #### 2 455160, 92811467, 7824195 ####[address] [address] Hematocrit (Bld) [Volume fraction] 27.5 % Low 34.0-46.0 [facility] Comment on above: Performed By: #### 2 245950, 92521689, 5467494 ####[address] [address] Hemoglobin (Bld) [Mass/Vol] 8.8 g/dL Low 12.0-16.0 [facility] Comment on above: Performed By: #### 2 941455, 41765358, 2386556 ####[place] [address] Lymphocytes (Bld) [#/Vol] 0.6 E9/L Low 1.0-4.0 [facility] Comment on above: Performed By: #### 2 849839, 20815438, 4772440 ####[address] [address] Lymphocytes/100 WBC (Bld) 14.2 % Normal 14.0-50.0 [facility] Comment on above: Performed By: #### 2 338195, 43940823, 8216680 ####[address] [address] MCH (RBC) [Entitic mass] 26.3 pg Low 27.0-34.0 [facility] Comment on above: Performed By: #### 2 946211, 53080750, 8307206 ####[address] [address] MCHC (RBC) [Mass/Vol] 31.9 g/dL Normal 31.4-36.0 [facility] Comment on above: Performed By: #### 2 368060, 52552349, 1034804 ####[facility] [address] [place] [address] MCV (RBC) [Entitic vol] 82.4 fL Normal 80.0-100.0 [facility] Comment on above: Performed By: #### 2 116307, 11503139, 0084568 ####[address] [address] Monocytes (Bld) [#/Vol] 0.3 E9/L Normal 0.2-1.0 [facility] Comment on above: Performed By: #### 2 826531, 46984307, 5666091 ####[address] [address] Neutrophils (Bld) [#/Vol] 3.3 E9/L Normal 2.0-7.5 [facility] Comment on above: Performed By: #### 2 069403, 49838672, 4044990 ####[address] [address] Neutrophils/100 WBC (Bld) 74.2 % Normal 36.0-75.0 [facility] Comment on above: Performed By: #### 2 436090, 10734760, 8323374 ####[address] [address] Platelet mean volume (Bld) [Entitic vol] 7.6 fL Normal 6.4-10.8 [facility] Comment on above: Performed By: #### 2 595748, 44118083, 5555048 ####[address] [address] Platelets (Bld) [#/Vol] 190.0 E9/L Normal 150.0-500. 0 [facility] Comment on above: Performed By: #### 2 590642, 43703114, 7154786 ####[address] [address] RBC (Bld) [#/Vol] 3.3 E12/L Low 4.3-5.9 [facility] Comment on above: Performed By: #### 2 129616, 57627850, 1394645 ####[facility] [address] [place] [address] WBC corrected for nucl RBC Auto (Bld) [#/Vol] 4.5 E9/L Normal 4.0-11.0 [facility] Comment on above: Performed By: #### 2 126795, 49885331, 1137260 ####[facility] [address] [place] [address] CHEMISTRYOrdered By: SYSTEM SYSTEM on 09-05-2023 Anion [...] 08-21 Glucose [Mass/Vol] 86 mg/dL Normal 55-99 [facility] Comment on above: Result Comment: Katina esparza RN/ Performed By: #### 2 [id number] ####[facility] [address] [place] [address] Glucose [Mass/Vol] 75 mg/dL Normal 55-99 [facility] Comment on above: Result Comment: Katina esparza RN/ Performed By: #### 2 [id number] ####[facility] [address] [place] [address] Glucose [Mass/Vol] 100 mg/dL High 55-99 [facility] Comment on above: Result Comment: Katina AYALA Performed By: #### 2 [id number] ####[facility] [address] [place] [address] Glucose [Mass/Vol] 78 mg/dL Normal 55-99 [facility] Comment on above: Result Comment: Katina esparza RN/ Performed By: #### 1 0778982 #### [facility] [address] [place] [address] Consultation Noteon 09-05-19 24 Consultation Note Patient: MANISHA PEPE Age: 73 years Sex: Female : 1950 Associated Diagnoses: None Author: Anabelle GELLER, [facility] Interval History 73-year-old female with hypertension presents [...] 2 ca (more content not included)... Normal [facility] Comment on above: Result Comment: Elec [...] Alan e Manageron 09-05-2023 Interdisciplinary Note - Machine Feed Operator CRM spoke with patients spouse in room. [...] him a copy of signed form. Normal [facility] Comment on above: Result Comment: Elec [...] PAT Technologist: LEYDI Technical Comments None Normal [facility] Monitor Recordon 09-05-2023 Monitor Record [id number]#1.00TIFF Normal [facility] Monitor Record [id number]#1.00TIFF Normal [facility] Monitor Record [id number]#1.00TIFF Normal [facility] Monitor Record [id number]#1.00TIFF Normal [facility] Monitor Record [id number]#1.00TIFF Normal [facility] Progress Note-Physicianon Progress Note-Physician Subjective Patient seen [...] 06:15:00) Lymph Auto: 14.2 % (09/05/23 06:15:00) [place] Auto: 5.7 % (09/05/23 06:15:00) Eos Auto: 5.3 % (09/05/23 06:15:00) Basophil Auto: 0.6 % (09/05/23 06:15:00) Neutro Absolute: 3.3 E9/L (09/05/23 06:15:00) Lymph Absolute: 0.6 E9/L Low (09/05/23 06:15:00) [place] Absolute: 0.3 E9/L (09/05/23 06:15:00) Eos Absolute: [...] 78 mg/dL (09/05/23 08:32:00) POC Device SN: [id number] (09/05/23 08:32:00) POC User ID: [id number] (09/05/23 08:32:00) POC Username: [email or web address] (09/05/23 08:32:00) Assessment/Plan 73-year-old female admitted for [...] her hydrochl (more content not included)... Normal [facility] Comment on above: Result Comment: Elec tronically Signed By: Gunner Remy DObr\Date and Time Signed: 09/05/23 11:29 EDT RAD - MRI Screening Formon 0 09-05-2023 RAD - MRI Screening Form [id number]#1.00TIFF Normal [facility] Urinalysis with Microon 08-21 Type of Urine collection method Random Urine Normal [facility] Comment on above: Performed By: #### 1 [id number] #### [facility] [address] [place] [address] eGFRon 09-05-2023 eGFR 19 mL/min/1.73 m2 Low >=59 [facility] Comment on above: Order Comment: Order added by Discern Expert. Performed By: #### 2 290770, 50122508, 7286387 ####[facility] [address] [place] [address] BMPon 09-04-2023 Anion gap [Moles/Vol] 11 mmol/L Normal 6-16 [facility] Comment on above: Performed By: #### 2 699149, 66311919, 5314482, 954347615 ####[facility] [address] [place] [address] Calcium [Mass/Vol] 10.4 mg/dL Normal 8.9-11.1 [facility] Comment on above: Performed By: #### 2 625837, 74971151, 3397239, 497075825 ####[facility] [address] [place] [address] Chloride [Moles/Vol] 109 mmol/L Normal 101-111 [facility] Comment on above: Performed By: #### 2 014322, 45130404, 0766614, 919866577 ####[facility] [address] [place] [address] CO2 [Moles/Vol] 22 mmol/L Normal 21-31 [facility] Comment on above: Performed By: #### 2 930501, 06337004, 4575225, 960804092 ####[facility] [address] [place] [address] Creatinine [Mass/Vol] 3.6 mg/dL High 0.5-1.3 [facility] Comment on above: Performed By: #### 2 385608, 52593599, 9260153, 689356927 ####[facility] [address] [address] Glucose [Mass/Vol] 78 mg/dL Normal 55-199 [facility] Comment on above: Performed By: #### 2 165382, 65774923, 1150880, 865986175 ####[facility] [address] [place] [address] Potassium [Moles/Vol] 4.1 mmol/L Normal 3.5-5.3 [facility] Comment on above: Performed By: #### 2 611239, 89371300, 3875816, 898864036 ####[facility] [address] [place] [address] Sodium [Moles/Vol] 138 mmol/L Normal 135-145 [facility] Comment on above: Performed By: #### 2 865448, 90518874, 8198702, 149194612 ####[facility] [address] [place] [address] Urea nitrogen [Mass/Vol] 49 mg/dL High 5-21 [facility] Comment on above: Performed By: #### 2 967104, 29957858, 0001852, 837912159 ####[address] [address] Urea nitrogen/Creatinine [Mass ratio] 14 No Units Normal 10-20 [facility] Comment on above: Performed By: #### 2 739299, 43761046, 6674974, 973781474 ####[address] [address] CBC w/ Auto Diffon 4 Basophils/100 WBC (Bld) 0.6 % Normal 0.0-2.0 [facility] Comment on above: Performed By: #### 2 034946, 97178918, 1608814, 661783227 ####[address] [address] Basophils/Leukocytes Auto (Bld) [Pure # fraction] 0.0 E9/L Normal 0.0-0.2 [facility] Comment on above: Performed By: #### 2 440677, 06209838, 5595909, 698458941 ####[address] [address] Eosinophils (Bld) [#/Vol] 0.3 E9/L Normal 0.0-0.5 [facility] Comment on above: Performed By: #### 2 985785, 16223494, 5210459, 692272817 ####[address] [address] Eosinophils/100 WBC (Bld) 4.7 % Normal 0.0-8.0 [facility] Comment on above: Performed By: #### 2 573314, 41668709, 7652022, 715304141 ####[address] [address] Erythrocyte distribution width (RBC) [Ratio] 20.0 % High 10.9-14.2 [facility] Comment on above: Performed By: #### 2 064804, 29082277, 5826786, 314605889 ####[address] [address] Hematocrit (Bld) [Volume fraction] 29.5 % Low 34.0-46.0 [facility] Comment on above: Performed By: #### 2 008138, 34649543, 1438272, 827454329 ####[address] [address] Hemoglobin (Bld) [Mass/Vol] 9.4 g/dL Low 12.0-16.0 [facility] Comment on above: Performed By: #### 2 985499, 17405989, 6114077, 723105595 ####[address] [address] Lymphocytes (Bld) [#/Vol] 1.1 E9/L Normal 1.0-4.0 [facility] Comment on above: Performed By: #### 2 370975, 29155168, 3750855, 895001398 ####[address] [address] Lymphocytes/100 WBC (Bld) 16.2 % Normal 14.0-50.0 [facility] Comment on above: Performed By: #### 2 327941, 65108258, 0564791, 431268908 ####[address] [address] MCH (RBC) [Entitic mass] 26.2 pg Low 27.0-34.0 [facility] Comment on above: Performed By: #### 2 578304, 85143547, 0531874, 971366914 ####[address] [address] MCHC (RBC) [Mass/Vol] 31.9 g/dL Normal 31.4-36.0 [facility] Comment on above: Performed By: #### 2 573944, 63763599, 2454402, 470141847 ####[address] [place] [address] MCV (RBC) [Entitic vol] 82.2 fL Normal 80.0-100.0 [facility] Comment on above: Performed By: #### 2 710420, 72309704, 9418833, 684815463 ####[address] [address] Monocytes (Bld) [#/Vol] 0.4 E9/L Normal 0.2-1.0 [facility] Comment on above: Performed By: #### 2 192298, 18003221, 9611819, 468046002 ####[address] [address] Neutrophils (Bld) [#/Vol] 4.7 E9/L Normal 2.0-7.5 [facility] Comment on above: Performed By: #### 2 747971, 08859240, 1729621, 849276168 ####[address] [address] Neutrophils/100 WBC (Bld) 72.3 % Normal 36.0-75.0 [facility] Comment on above: Performed By: #### 2 902420, 68379062, 3705929, 273519942 ####[address] [address] Platelet 194.0 E9/L Normal 150.0-500. 0 [facility] Comment on above: Performed By: #### 2 877681, 27746984, 2948279, 517147784 ####[address] [address] Platelet mean volume (Bld) [Entitic vol] 7.5 fL Normal 6.4-10.8 [facility] Comment on above: Performed By: #### 2 807989, 94487562, 0304995, 175951577 ####[address] [address] RBC (Bld) [#/Vol] 3.6 E12/L Low 4.3-5.9 [facility] Comment on above: Performed By: #### 2 248525, 85257601, 1051455, 549229406 ####[facility] [address] [place] [address] WBC corrected for nucl RBC Auto (Bld) [#/Vol] 6.5 E9/L Normal 4.0-11.0 [facility] Comment on above: Performed By: #### 2 580132, 52317632, 9586633, 475389907 ####[facility] [address] [place] [address] CHEMISTRYOrdered By: SYSTEM SYSTEM on 09-04-2023 Anion [...] Sensitivity Troponin I Instructions For Use, Rubens Teofilo, December 2017) CHEMISTRYOrdered By: Kenyatta Avila on 09-04-2023 HbA1c (Bld) [Mass fraction] 6.0 % High <=5.9% [employer] [facility] ChemAutoSS CT Head or Brain w/o [place]ras [...] MD Transcribed by: PAT Technologist: LISA Normal [facility] Capillary Glucose POCon 08-21 Glucose [Mass/Vol] 83 mg/dL Normal 55-99 [facility] Comment on above: Result Comment: Katina esparza RN/ Performed By: #### 2 [id number] ####[facility] [address] [place] [address] Glucose [Mass/Vol] 104 mg/dL High 55-99 [facility] Comment on above: Result Comment: María mercedes Meter Performed By: #### 2 46696440 #### [facility] [address] [place] [address] Glucose [Mass/Vol] 63 mg/dL Normal 55-99 [facility] Comment on above: Result Comment: Katina esaprza RN/ Performed By: #### 2 24570887 ####[facility] [address] [place] [address] Glucose [Mass/Vol] 81 mg/dL Normal 55-99 [facility] Comment on above: Result Comment: Katina esparza RN/ Performed By: #### 1 7626449 #### [facility] [address] [place] [address] Glucose [Mass/Vol] 79 mg/dL Normal 55-99 [facility] Comment on above: Result Comment: Katina esparza RN/ Performed By: #### 1 9401196 #### [facility] [address] [place] [address] HEMATOLOGYOrdered By: SYSTEM SYSTEM on 09-04-2023 Basophils/100 [...] Normal 4.0 - 11.0 E9/L Remisol Heme [id number] 09-04-2023 HbA1c (Bld) [Mass fraction] 6.0 % High <=5.9 [facility] Comment on above: Performed By: #### 2 632773, 15826649, 2387072, 946329635 ####[facility] [address] [place], [place] [address] Interdisciplinary Note - PTo n 09-04-2023 Interdisciplinary Note - PT Pt to be seen daily for transfers, gait, balance training. No device No needs anticipated upon discharge.home. AM-PAC Normal [facility] Progress Note-Physicianon Progress Note-Physician Subjective Patient seen [...] 06:07:00) Lymph Auto: 16.2 % (09/04/23 06:07:00) [place] Auto: 6.2 % (09/04/23 06:07:00) Eos Auto: 4.7 % (09/04/23 06:07:00) Basophil Auto: 0.6 % (09/04/23 06:07:00) Neutro Absolute: 4.7 E9/L (09/04/23 06:07:00) Lymph Absolute: 1.1 E9/L (09/04/23 06:07:00) [place] Absolute: 0.4 E9/L (09/04/23 06:07:00) Eos Absolute: [...] 3 gm/dL (09/03/23 17:58:00) A/G Ratio: 1.3 (09/03/23:58:00) Bili Total: 0.4 mg/dL (09/03/23 17:58:00) Bili Direct: 0.1 mg/dL (09/03/23:58:00) Bili Indirect: 0.3 mg/dL (09/03/23:58:00) Magnesium: 2.1 mg/dL (09/03/23 17:58:00) TSH: 7.43 mcIU/mL High (09/03/23 17:58:00) T4 Free: 0.79 ng/dL (09/03/23 17:58:00) Troponin: 3.4 pg/mL Low (09/04/23 03:13:00) Glucose Cap: 79 mg/dL (09/04/23 09:02:00) POC Device SN: [id number] (09/04/23 09:02:00) POC User ID: [id number] (09/04/23 09:02:00) POC Username: PRETTY CASTRO (09/04/23 [...] consulted C (more content not included)... Normal [facility] Comment on above: Result Comment: Elec tronically Signed By: Gunner Remy DO\.br\Date and Time Signed: 09/04/23 10:33 EDT RAD - Preliminary Cat Scan R eporton 09-04-2023 RAD - Preliminary Cat Scan Report [id number] Normal [facility] Troponin 6 Hr.on 09-04-2023 Troponin 3.90 pg/mL Low 10.10-27.1 0 [facility] Comment on above: Result Comment: The 95% CI (Confidence Interval) PPV (Positive Predictive Value) for myocardial infarction in females is 38 pg/mL, in males 51 pg/mL. The results should be used in conjunction with clinical conditions of myocardial infarction. (Access High Sensitivity Troponin I Instructions For Use, [employer], December 2017) Performed By: #### 5 [id number], [id number], 04284608, 0673417, [id number] #### [facility] [address] [place] [address] Troponin 9 Hr.on 09-04-2023 Troponin 3.40 pg/mL Low 10.10-27.1 0 [facility] Comment on above: Result Comment: The 95% CI (Confidence Interval) PPV (Positive Predictive Value) for myocardial infarction in females is 38 pg/mL, in males 51 pg/mL. The results should be used in conjunction with clinical conditions of myocardial infarction. (Access High Sensitivity Troponin I Instructions For Use, [employer], December 2017) Performed By: #### 5 [id number], [id number], 30496335, 9496222, 4611590 #### [facility] [address] [place] [address] XR Chest Single Viewon 09-03 XR Chest Single View Exam Date/Time: 09/03/2023 18:16 EDT Reason for Exam: Shortness of breath (SOB) Report IMPRESSION: NO ACUTE CARDIOPULMONARY DISEASE. CLINICAL HISTORY: Shortness of breath (SOB) COMPARISON: August 25, 2015 FINDINGS: Osseous structures are intact. Cardiopericardial silhouette is normal. Aorta calcified. Pulmonary vasculature is normal. Lungs are clear. Ordering Provider: Usha Ramirez FINAL REPORT Dictated: 09/04/2023 7:31 am Dylan Ashby MD Signed (Electronic Signature): 09/04/2023 7:31 am Signed by: Dylan Ashby MD Transcribed by: PAT Technologist: LISA Technical Comments Radiation Dose: Ka,r in mGy = na DAP = na Normal [facility] eGFRon 09-04-2023 eGFR 13 mL/min/1.73 m2 Low >=59 [facility] Comment on above: Order Comment: Order added by Discern Expert. Performed By: #### 2 [id number], [id number], 8852036, [id number] ####[facility] [address] [place] [address] BMPon 09-03-2023 Anion gap [Moles/Vol] 14 mmol/L Normal 6-16 [facility] Comment on above: Performed By: #### 5 [id number], 64384295, 97828263, 9469845, 5146732 #### [facility] [address] [place] [address] Calcium [Mass/Vol] 12.2 mg/dL High 8.9-11.1 [facility] Comment on above: Performed By: #### 5 [id number], 86008928, 72215279, 7263354, 3054989 #### [facility] [address] [place] [address] Chloride [Moles/Vol] 101 mmol/L Normal 101-111 [facility] Comment on above: Performed By: #### 5 [id number], 48456652, 27056549, 9254252, 6797827 #### [facility] [address] [place] [address] CO2 [Moles/Vol] 25 mmol/L Normal 21-31 [facility] Comment on above: Performed By: #### 5 [id number], 96783629, 81583691, 5438380, 1896050 #### [facility] [address] [place] [address] Creatinine [Mass/Vol] 4.5 mg/dL High 0.5-1.3 [facility] Comment on above: Performed By: #### 5 [id number], 73985517, 06332013, 2892822, 8526280 #### [facility] [address] [place] [address] Glucose [Mass/Vol] 96 mg/dL Normal 55-199 [facility] Comment on above: Performed By: #### 5 [id number], 04386294, 83392656, 5749403, 2199931 #### [facility] [address] [place] [address] Potassium [Moles/Vol] 4.8 mmol/L Normal 3.5-5.3 [facility] Comment on above: Performed By: #### 5 27500990, 24778673, 70400317, 3527778, 1598060 #### [facility] [address] [place] [address] Sodium [Moles/Vol] 135 mmol/L Normal 135-145 [facility] Comment on above: Performed By: #### 5 59429292, 39528358, 02091494, 8470570, 8979492 #### [facility] [address] [place] [address] Urea nitrogen [Mass/Vol] 57 mg/dL High 5-21 [facility] Comment on above: Performed By: #### 5 [id number], 03205973, 91225351, 9416924, 3028955 #### [facility] [address] [place] [address] Urea nitrogen/Creatinine [Mass ratio] 13 No Units Normal 10-20 [facility] Comment on above: Performed By: #### 5 [id number], 28929803, 66891957, 8125108, 3750697 #### [facility] [address] [place] [address] CBC w/ Auto Diffon 4 Basophils/100 WBC (Bld) 0.4 % Normal 0.0-2.0 [facility] Comment on above: Performed By: #### 5 06678278, 36266541, 53249699, 8469011, 5927664 #### [facility] [address] [place] [address] Basophils/Leukocytes Auto (Bld) [Pure # fraction] 0.0 E9/L Normal 0.0-0.2 [facility] Comment on above: Performed By: #### 5 [id number], 62953779, 90518821, 4011204, 2633975 #### [facility] [address] [place] [address] Eosinophils (Bld) [#/Vol] 0.3 E9/L Normal 0.0-0.5 [facility] Comment on above: Performed By: #### 5 [id number], 06072435, 02242292, 9968971, 3558568 #### [facility] [address] [place] [address] Eosinophils/100 WBC (Bld) 3.1 % Normal 0.0-8.0 [facility] Comment on above: Performed By: #### 5 35474351, 11737093, 53665825, 5464643, 1671010 #### [facility] [address] [place] [address] Erythrocyte distribution width (RBC) [Ratio] 20.2 % High 10.9-14.2 [facility] Comment on above: Performed By: #### 5 [id number], 44699613, 65218307, 1243305, 0238292 #### [facility] [address] [place] [address] Hematocrit (Bld) [Volume fraction] 33.1 % Low 34.0-46.0 [facility] Comment on above: Performed By: #### 5 27935105, 00538841, 34319318, 6844040, 8707097 #### [facility] [address] [address] Hemoglobin (Bld) [Mass/Vol] 10.7 g/dL Low 12.0-16.0 [facility] Comment on above: Performed By: #### 5 11246204, 07871879, 24804226, 0072093, 7226211 #### [facility] [address] [place], [place] [address] Lymphocytes (Bld) [#/Vol] 1.0 E9/L Normal 1.0-4.0 [facility] Comment on above: Performed By: #### 5 27224399, 96239794, 80079394, 9758197, 1258994 #### [facility] [address] [place], [place] [address] Lymphocytes/100 WBC (Bld) 10.9 % Low 14.0-50.0 [facility] Comment on above: Performed By: #### 5 38059806, 22328468, 90391170, 5158990, 2783289 #### [facility] [address] [place] [address] MCH (RBC) [Entitic mass] 26.2 pg Low 27.0-34.0 [facility] Comment on above: Performed By: #### 5 66259043, 73458329, 90812584, 4136843, 4330939 #### [facility] [address] [place] [address] MCHC (RBC) [Mass/Vol] 32.2 g/dL Normal 31.4-36.0 [facility] Comment on above: Performed By: #### 5 19600557, 75466910, 67663448, 7603792, 4579911 #### [facility] [address] [place] [address] MCV (RBC) [Entitic vol] 81.2 fL Normal 80.0-100.0 [facility] Comment on above: Performed By: #### 5 16849611, 96437749, 24179775, 6656132, 9201063 #### [facility] [address] [place] [address] Monocytes (Bld) [#/Vol] 0.5 E9/L Normal 0.2-1.0 [facility] Comment on above: Performed By: #### 5 40004132, 01001721, 54977865, 9968320, 2870035 #### [facility] [address] [place] [address] Neutrophils (Bld) [#/Vol] 7.0 E9/L Normal 2.0-7.5 [facility] Comment on above: Performed By: #### 5 14702190, 76286628, 40240819, 3431199, 2455023 #### [facility] [address] [place] [address] Neutrophils/100 WBC (Bld) 79.5 % High 36.0-75.0 [facility] Comment on above: Performed By: #### 5 38890263, 11745379, 18119541, 3024186, 9511613 #### [facility] [address] [place] [address] Platelet 229.0 E9/L Normal 150.0-500. 0 [facility] Comment on above: Performed By: #### 5 55036103, 88646429, 73202864, 2139009, 7204370 #### [facility] [address] [place] [address] Platelet mean volume (Bld) [Entitic vol] 7.6 fL Normal 6.4-10.8 [facility] Comment on above: Performed By: #### 5 88713684, 01163016, 97657123, 4964407, 7144109 #### [facility] [address] [place] [address] RBC (Bld) [#/Vol] 4.1 E12/L Low 4.3-5.9 [facility] Comment on above: Performed By: #### 5 05002085, 46894377, 84712556, 9868689, 9223922 #### [facility] [address] [place] [address] WBC corrected for nucl RBC Auto (Bld) [#/Vol] 8.8 E9/L Normal 4.0-11.0 [facility] Comment on above: Performed By: #### 5 17232971, 59462024, 72262622, 1791719, 6819474 #### [facility] [address] [place] [address] CHEMISTRYOrdered By: SYSTEM SYSTEM on 09-03-2023 Troponin [...] High Sensitivity Troponin I Instructions For Use, [employer], December 2017) Troponin 3.40 pg/mL Low 10.10 - 27.10 pg/mL [facility] Comment on above: Interpretive Data: T he 95% CI (Confidence Interval) PPV (Positive Predictive Value) for myocardial infarction in females is 38 pg/mL, in males 51 pg/mL. The results should be used in conjunction with clinical conditions of myocardial infarction. (Access High Sensitivity Troponin I Instructions For Use, [employer], December 2017) Albumin [Mass/Vol] 4.0 g/dL Normal [...] 36.4 s Normal 25.1 - 36.5 second(s) [employer] Auto Coag Comment on above: Interpretive Data: [...] the same coagulation reagent and instrumentation as [employer]. Currently there are no coagulation studies available worldwide for children to 14 days, and no normal ranges. Heparin therapeutic range (represented by Anti-Factor Xa activity of 0.2 - 0.4 U/mL) corresponds to PTT of 56.6 - 109.0 sec. INR Coag (PPP) [Relative time] 1.06 {INR} Invalid Interpretation Code [employer] [facility] [employer] Auto Coag Comment on above: Interpretive Data: I NR results are specifically intended to assess patients stabilized on long-term Anticoagulation therapy suggested INR s Less Intensive Anticoagulation 2.0 3.0 Conventional Range 3.0 4.5 PT Coag (PPP) [Time] 11.9 s Normal 9.4 - 1 2.5 second(s) [employer] [facility] Auto Coag Comment on above: Interpretive Data: [...] the same coagulation reagent and instrumentation as [employer]. Currently there are no coagulation studies available worldwide for children to 14 days, and no normal ranges. Capillary Glucose POCon 08-21 Glucose [Mass/Vol] 76 mg/dL Normal 55-99 [facility] Comment on above: Result Comment: Katina esparza RN/ Performed By: #### 5 [id number], 51367516, 26057969, 0162113, 4690487 #### [facility] [address] [place] [address] Consent for Treatmenton 08-21 Consent for Treatment [id number] Normal [facility] ED Note-Physicianon 09-03-19 24 ED Note-Physician Patient [...] who agreed to admit the patient. Normal [facility] Comment on above: Result Comment: Elec [...] to the emergency room with her and [id number] for being off balance. The patient states [...] and Complexity of Problems Differential Diagnosis: [] [facility] Data External documents reviewed: [] My EKG [...] TID M (more content not included)... Normal [facility] Comment on above: Result Comment: Elec tronically Signed By: James Coates, Usha H\.br\Date and Time Signed: 09/03/23 19:10 EDT Free T4on 09-03-2023 Free T4 [Mass/Vol] 0.79 ng/dL Normal 0.58-1.64 [facility] Comment on above: Performed By: #### 5 [id number], 50352417, 43493631, 9697064, 5286428 #### [facility] [address] [place] [address] HEMATOLOGYOrdered By: SYSTEM SYSTEM on 09-03-2023 Basophils/100 [...] 09-03-2023 Albumin [Mass/Vol] 4.0 g/dL Normal 3.3-5.0 [facility] Comment on above: Performed By: #### 5 [id number], 34173631, 02926145, 8574275, 4381968 #### [facility] [address] [place] [address] Albumin/Globulin (S) [Mass conc ratio] 1.3 Normal 1.1-2.2 [facility] Comment on above: Performed By: #### 5 38821825, 57879360, 79933007, 9013078, 8697579 #### [facility] [address] [place] [address] ALP [Catalytic activity/Vol] 87 Int._Unit/L Normal 21-98 [facility] Comment on above: Performed By: #### 5 78059280, 37153373, 25374271, 7977913, 2688474 #### [facility] [address] [place] [address] ALT No additional P-5'-P [Catalytic activity/Vol] 20 Int._Unit/L Normal 6-46 [facility] Comment on above: Performed By: #### 5 76855644, 98750693, 37774216, 5780117, 0359638 #### [facility] [address] [address] AST [Catalytic activity/Vol] 13 Int._Unit/L Normal 5-43 [facility] Comment on above: Performed By: #### 5 29826405, 42649446, 35470793, 2278633, 5488032 #### [facility] [address] [place] [address] Bilirubin [Mass/Vol] 0.4 mg/dL Normal 0.0-1.1 [facility] Comment on above: Performed By: #### 5 61224589, 44393530, 24711509, 0880277, 2598757 #### [facility] [address] [place], [place] [address] Bilirubin.direct [Mass/Vol] 0.1 mg/dL Normal 0.0-0.4 [facility] Comment on above: Performed By: #### 5 06115128, 07043154, 61083100, 8847589, 4309061 #### [facility] [address] [place], [place] [address] Bilirubin.indirect [Mass or moles/Vol] 0.3 mg/dL Normal 0.1-0.9 [facility] Comment on above: Performed By: #### 5 26902350, 11600317, 96512094, 0342135, 3491533 #### [facility] [address] [place] [address] Globulin (S) [Mass/Vol] 3.0 g/dL Normal 1.4-4.0 [facility] Comment on above: Performed By: #### 5 62585886, 71788429, 82910029, 2948166, 0943820 #### [facility] [address] [place] [address] Protein [Mass/Vol] 7.0 g/dL Normal 6.0-7.8 [facility] Comment on above: Performed By: #### 5 58559509, 02642806, 92363808, 5007070, 5355769 #### [facility] [address] [place] [address] Magnesiumon 09-03-2023 Magnesium [Mass/Vol] 2.1 mg/dL Normal 1.3-2.4 [facility] Comment on above: Performed By: #### 5 61879416, 04679986, 71207853, 4607555, 4993969 #### [facility] [address] [place] [address] Monitor Recordon 09-03-2023 Monitor Record [id number] Normal [facility] PT & PTTon 09-03-2023 aPTT Coag (PPP) [Time] 36.4 second(s) Normal 25.1-36.5 [facility] Comment on above: Result Comment: Para meter [...] the same coagulation reagent and instrumentation as [employer] [facility]. Currently there are no coagulation studies available worldwide for children to 14 days, and no normal ranges. Heparin therapeutic range (represented by Anti-Factor Xa activity of 0.2 - 0.4 U/mL) corresponds to PTT of 56.6 - 109.0 sec. Performed By: #### 5 [id number], 77300243, 20368293, 6917862, 7361278 #### [facility] [address] [place] [address] INR Coag (PPP) [Relative time] 1.06 {INR} Invalid Interpretation Code [facility] Comment on above: Result Comment: INR results are specifically intended to assess patients stabilized on long-term Anticoagulation therapy suggested INR?s ?Less Intensive Anticoagulation? 2.0 ? 3.0 Conventional Range 3.0 ? 4.5 Performed By: #### 5 [id number], 57341236, 30025393, 1925294, 5875943 #### [facility] [address] [place] [address] PT Coag (PPP) [Time] 11.9 second(s) Normal 9.4-12.5 [facility] Comment on above: Result Comment: 15 d [...] the same coagulation reagent and instrumentation as [employer] [facility]. Currently there are no coagulation studies available worldwide for children to 14 days, and no normal ranges. Performed By: #### 5 84552547, 59443419, 12001713, 2809609, 1233994 #### [facility] [address] [place] [address] TSH With T4fr Reflexon 09-02 TSH Qn 7.43 m[IU]/L High 0.34-5.60 [facility] Comment on above: Performed By: #### 5 35046590, 38723987, 42483384, 8527271, 8081330 #### [facility] [address] [place] [address] Troponin 0 Hr.on 09-03-2023 Troponin 3.80 pg/mL Low 10.10-27.1 0 [facility] Comment on above: Result Comment: The 95% CI (Confidence Interval) PPV (Positive Predictive Value) for myocardial infarction in females is 38 pg/mL, in males 51 pg/mL. The results should be used in conjunction with clinical conditions of myocardial infarction. (Access High Sensitivity Troponin I Instructions For Use, [employer], December 2017) Performed By: #### 5 [id number], 71769187, 45659331, 7188544, 2220566 #### [facility] [address] [place] [address] Troponin 3 Hr.on 09-03-2023 Troponin 3.40 pg/mL Low 10.10-27.1 0 [facility] Comment on above: Result Comment: The 95% CI (Confidence Interval) PPV (Positive Predictive Value) for myocardial infarction in females is 38 pg/mL, in males 51 pg/mL. The results should be used in conjunction with clinical conditions of myocardial infarction. (Access High Sensitivity Troponin I Instructions For Use, [employer], December 2017) Performed By: #### 1 [id number] ####[facility] [address] [place] [address] eGFRon 09-03-2023 eGFR 10 mL/min/1.73 m2 Low >=59 [facility] Comment on above: Order Comment: Order added by Discern Expert. Performed By: #### 5 [id number], 05398681, 29479890, 5818020, 4866521 #### [facility] [address] [place] [address] Lab Miscellaneous-LCon 08-11 Lab Miscellaneous COMMENT Invalid Interpretation Code [facility] Comment on above: Result Comment: Test Ordered: [id number] PTHrP (PTH-Related Peptide) PTHrP (PTH-Related Peptide) <2.0 pmol/L ES This test was developed and its performance characteristics determined by [email or web address]. It has not been cleared or approved [...] discordant, please contact the laboratory. Performed at: [facility] [address] [place] [address] [phone] [id number] PhD Jessica Ferris Performed By: #### 1 [id number] #### [facility] [address] [place] [address] Free K+L Lt Chains,Qn,Son Immunoglobulin light chains.kappa.free (S) [Mass/Vol] 51.4 mg/L High 3.3-19.4 [facility] Comment on above: Performed By: #### 5 [id number], 26369868, 95755479, 0924481, 4661298 #### [facility] [address] [place] [address] Immunoglobulin light chains.kappa.free/Immu noglobulin light chains.lambda.free (S) [Mass ratio] 1.29 Invalid Interpretation Code 0.26-1.65 [facility] Comment on above: Result Comment: Perf ormed at: [facility] [address] [place] [address] [id number] PhD Jessica Ferris Performed By: #### 5 [id number], 09264868, 82163763, 9284724, 2999667 #### [facility] [address] [place] [address] Immunoglobulin light chains.lambda.free [Mass/Vol] 39.7 mg/L High 5.7-26.3 [facility] Comment on above: Performed By: #### 5 [id number], 50196150, 56499836, 2933226, 3499297 #### [facility] [address] [place] [address] CHRIS and PE, Serumon 08-10-19 Albumin [Mass/Vol] 3.6 g/dL Invalid Interpretation Code 2.9-4.4 [facility] Comment on above: Performed By: #### 5 74192387, 70538514, 44129372, 2011231, 0844375 #### [facility] [address] [place] [address] Albumin/Globulin [Mass ratio] 1.1 {ratio} Invalid Interpretation Code 0.7-1.7 [facility] Comment on above: Performed By: #### 5 45224543, 37545506, 08276093, 5049146, 9018480 #### [facility] [address] [place] [address] 00022 Alpha 1 globulin Elph [Mass/Vol] 0.3 g/dL Invalid Interpretation Code 0.0-0.4 [facility] Comment on above: Performed By: #### 5 68919553, 32548499, 54344978, 8177932, 3007570 #### [facility] [address] [place] [address] 50772 Alpha 2 globulin Elph [Mass/Vol] 0.8 g/dL Invalid Interpretation Code 0.4-1.0 [facility] Comment on above: Performed By: #### 5 [id number], 80440497, 64847995, 1204100, 8474491 #### [facility] [address] [place] [address]26[address] Beta globulin Elph [Mass/Vol] 1.2 g/dL Invalid Interpretation Code 0.7-1.3 [facility] Comment on above: Performed By: #### 5 53755600, 89621722, 31051084, 3148421, 8751916 #### [facility] [address] [place] [address] Gamma globulin Elph [Mass/Vol] 1.0 g/dL Invalid Interpretation Code 0.4-1.8 [facility] Comment on above: Performed By: #### 5 59892914, 26012720, 61277138, 2747494, 0519594 #### [facility] [address] [place] [address] Globulin (S) [Mass/Vol] 3.3 g/dL Invalid Interpretation Code 2.2-3.9 [facility] Comment on above: Performed By: #### 5 53149754, 77825253, 32506179, 9854890, 2472574 #### [facility] [address] [place] [address] IgA [Mass/Vol] 377 mg/dL Invalid Interpretation Code 64-422 [facility] Comment on above: Performed By: #### 5 [id number], 93717448, 68776923, 2379299, 4912016 #### [facility] [address] [place] [address] IgG [Mass/Vol] 987 mg/dL Invalid Interpretation Code 5861602 [facility] Comment on above: Performed By: #### 5 [id number], 71093203, 49990016, 1698585, 8349114 #### [facility] [address] [place] [address] IgM [Mass/Vol] 45 mg/dL Invalid Interpretation Code 26217 [facility] Comment on above: Performed By: #### 5 [id number], 05498967, 37584341, 1882828, 4342510 #### [facility] [address] [place] [address] Interpretation IEP [Interp] Comment Invalid Interpretation Code [facility] Comment on above: Result Comment: No m onoclonality detected. Performed By: #### 5 [id number], 46726712, 88420794, 5043527, 1845812 #### [facility] [address] [place] [address] Laboratory comment Jacob (Report) Comment Invalid Interpretation Code [facility] Comment on above: Result Comment: Prot ein electrophoresis scan will follow via computer, mail, or dinner cook delivery. Performed at: [address] [id number] PhD Jessica Ferris Performed By: #### 5 [id number], 32488297, 77890142, 4413683, 1822924 #### [facility] [address] [place] [address] Protein [Mass/Vol] 6.9 g/dL Invalid Interpretation Code 6.0-8.5 [facility] Comment on above: Performed By: #### 5 [id number], 78675790, 21067372, 7794716, 4423465 #### [facility] [address] [place] [address] Protein.monoclonal Elph [Mass/Vol] Not Observed Invalid Interpretation Code Not Observed [facility] Comment on above: Performed By: #### 5 [id number], 69484843, 70253098, 7803115, 6142289 #### [facility] [address] [place] [address] Lab Miscellaneous-LCon 08-09 Lab Miscellaneous COMMENT Invalid Interpretation Code [facility] Comment on above: Result Comment: Test Ordered: [id number] Immunofixation, Urine CHRIS Interpretation:U Comment CB No monoclonality detected. Performed at: [facility] [address] [id number] PhD Jessica Ferris Performed By: #### 5 [id number], 78394712, 26478138, 2782029, 8410212 #### [facility] [address] [place] [address] Vit D 1,25on 08-10-2023 1,25-dihydroxyvitamin D [Mass/Vol] 38.7 pg/mL Invalid Interpretation Code 24.8-81.5 [facility] Comment on above: Result Comment: Perf ormed at: BN [facility] [address] [id number] MD Audi Vega Performed By: #### 5 [id number], 75829663, 32945821, 7661874, 4161869 #### [facility] [address] [place] [address] NM*parathyroid SPECT*on 07-21 NM*parathyroid SPECT* [facility] [place] [address] [place], [place] [id number] Nuclear Medicine Report Signed Patient: Dinorah Pepe MR#: [id number] 9 : 1950 Acct:[id number] Age/Sex: 73 / F ADM Date: 08/09/23 Loc: OR Room: Type: [facility] Attending Dr: Heath Davis MD Copies to: [...] Yulissa Torres M.D.08/09/2023 2:59 PM Dictation Location: [place] [address] Transcribed By: [facility] 08/09/23 1459 Dictated By: Yulissa Torres MD 08/09/23 145 Signed By: 08/09/23 1459 [facility] Consent for Treatmenton 07-21 Consent for Treatment [id number] Normal [facility] Lab Miscellaneous-LCon 08-07 Test Code 221279 Invalid Interpretation Code [facility] Comment on above: Performed By: #### 1 [id number] #### [facility] [address] [place] [address] Test Code 203290 Invalid Interpretation Code [facility] Comment on above: Performed By: #### 5 [id number], 90040890, 68588892, 8083383, 7306471 #### [facility] [address] [place] [address] Test Name PTH REL PEPTIDE Invalid Interpretation Code [facility] Comment on above: Performed By: #### 1 [id number] #### [facility] [address] [place] [address] Test Name IMMUNOFIX UR Invalid Interpretation Code [facility] Comment on above: Performed By: #### 5 [id number], 47779483, 90980315, 9697307, 5641465 #### [facility] [address] [place] [address] Physician Orderon 08-08-2023 Physician Order [id number]#1.00TIFF Normal [facility] Reference Laboratory Testing Ordered By: Genny Nava on 08-08-2023 Test Code 045524 1 Invalid Interpretation Code [facility] [employer] Test Code 973289 1 Invalid Interpretation Code [facility] [employer] Test Name PTH REL PEPTIDE Invalid Interpretation Code [facility] [employer] Test Name IMMUNOFIX UR Invalid Interpretation Code [facility] [employer] PTH Intacton 07-26-2023 Parathyrin.intact [Mass/Vol] 96 pg/mL High 15-65 [facility] Comment on above: Result Comment: Perf ormed at: [facility] [address] [id number] PhD Jessica Ferris Performed By: #### 2 [id number] #### [facility] [address] [place] [address] CBC w/Indiceson 07-25-2023 RBC size Nom (Bld) NORMAL Invalid Interpretation Code [facility] Comment on above: Performed By: #### 2 097888, 47049351, 5022127, 1055763, 3653804 ####[place] [address] [place] [address] Erythrocyte distribution width (RBC) [Ratio] 17.2 % High 10.9-14.2 [facility] Comment on above: Performed By: #### 2 648703, 91288011, 5602988, 7192912, 5058595 ####[place] [address] [place] [address] Hematocrit (Bld) [Volume fraction] 36.6 % Normal 34.0-46.0 [facility] Comment on above: Performed By: #### 2 559695, 54272545, 7093252, 2654337, 5888018 ####[address] [address] Hemoglobin (Bld) [Mass/Vol] 11.5 g/dL Low 12.0-16.0 [facility] Comment on above: Performed By: #### 2 357243, 79256762, 4782201, 1975844, 9001074 ####[address] [address] MCH (RBC) [Entitic mass] 24.7 pg Low 27.0-34.0 [facility] Comment on above: Performed By: #### 2 521699, 98618301, 7207856, 7443557, 7365236 ####[address] [address] MCHC (RBC) [Mass/Vol] 31.4 g/dL Normal 31.4-36.0 [facility] Comment on above: Performed By: #### 2 982691, 56248515, 3036551, 5869023, 7097221 ####[address] [address] MCV (RBC) [Entitic vol] 78.6 fL Low 80.0-100.0 [facility] Comment on above: Performed By: #### 2 653044, 91447587, 7095995, 8060132, 2950581 ####[facility] [address] [place] [address] Platelet mean volume (Bld) [Entitic vol] 7.8 fL Normal 6.4-10.8 [facility] Comment on above: Performed By: #### 2 678396, 11842282, 5264761, 6132814, 0546710 ####[place] [place] [address] Platelets (Bld) [#/Vol] 373.0 E9/L Normal 150.0-500. 0 [facility] Comment on above: Performed By: #### 2 298397, 04980403, 2719817, 9999915, 2664633 ####[place] [place] [address] RBC (Bld) [#/Vol] 4.7 E12/L Normal 4.3-5.9 [facility] Comment on above: Performed By: #### 2 086772, 84587914, 1844207, 6830960, 0546152 ####[facility] [address] [place] [address] WBC corrected for nucl RBC Auto (Bld) [#/Vol] 8.7 E9/L Normal 4.0-11.0 [facility] Comment on above: Performed By: #### 2 929871, 65329286, 3131507, 0725783, 6470796 ####[address] [address] CHEMISTRYOrdered By: SYSTEM SYSTEM on 07-25-2023 25-hydroxyvitamin [...] Consent for Treatmenton Consent for Treatment [id number]#1.00TIFF Normal [facility] Erythrocyte distribution wid th [Ratio] by Automated [...] (S/P/Bld) [Vol rate/Area] 32 mL/min/1.73 m2 >=59 [facility] Ferritinon 07-25-2023 Ferritin [Mass/Vol] 9 ng/mL Low 11-307 [facility] Comment on above: Performed By: #### 2 573732, 96607904, 0520611, 4245419, 1031219 ####[facility] [address] [place] [address] Folateon 07-25-2023 Folate [Mass/Vol] 9.9 ng/mL Normal >=6.7 [facility] Comment on above: Performed By: #### 2 46667233 #### [facility] [address] [place] [address] HEMATOLOGYOrdered By: Geno Olson on 07-25-2023 RBC [...] Iron [Mass/Vol] 36 microgram/dL Normal 35-153 [facility] Comment on above: Performed By: #### 2 172227, 14543636, 6955845, 8251388, 6125283 ####[facility] [address] [place] [address] Iron binding capacity [Mass/ volume] in Serum or Plasmaon 07-25-2023 Iron binding capacity [Mass/Vol] 421 microgram/dL 250-400 [facility] Laboratory - Chemistry and C hemistry [...] - Urinalysison Protein (U) [Mass/Vol] 10.3 mg/dL [facility] Leukocytes [#/volume] correc jorge for nucleated [...] 07-25-2023 Magnesium [Mass/Vol] 2.0 mg/dL Normal 1.3-2.4 [facility] Comment on above: Performed By: #### 2 189054, 89088698, 9389888, 7147310, 7722445 ####[facility] [address] [place] [address]857 No Panel Informationon 07-24 25-Hydroxy Vitamin D Total 39.2 ng/mL 30.0-100.0 [facility] BUN/Creatinine Ratio 14 No Units 10-20 [facility] Folate 9.9 ng/mL >=6.7 [facility] Iron Level 36 microgram/dL 35-153 [facility] Parathyroid Hormone (Intact) 96 pg/mL 15-65 [facility] Phosphorus Level 2.8 mg/dL 1.9-4.6 [facility] RBC Size NORMAL [facility] Urine Citric Acid 10.4 mg/dL 2.2-7.4 [facility] Urine Random Creatinine 140.6 mg/dL [facility] Physician Orderon 07-25-2023 Physician Order [id number]#1.00TIFF Normal [facility] Platelet mean volume [Entiti c volume] in Blood by Automated countOrdered By: SYSTEM SYSTEM on 07-25-2023 Platelet mean volume (Bld) [Entitic vol] 7.8 fL 6.4-10.8 [facility] Platelets [#/volume] in Bloo d by Automated countOrdered By: SYSTEM SYSTEM on 07-25-2023 Platelets (Bld) [#/Vol] 373.0 E9/L 150.0-500. 0 [facility] Heme Renal Panelon 07-25-2023 Albumin [Mass/Vol] 4.3 g/dL Normal 3.3-5.0 [facility] Comment on above: Performed By: #### 2 [id number] #### [facility] [address] [place] [address] Anion gap [Moles/Vol] 13 mmol/L Normal 6-16 [facility] Comment on above: Performed By: #### 2 92579476 #### [facility] [address] [place] [address] Calcium [Mass/Vol] 12.2 mg/dL High 8.9-11.1 [facility] Comment on above: Performed By: #### 2 [id number] #### [facility] [address] [place] [address] Chloride [Moles/Vol] 99 mmol/L Low 101-111 [facility] Comment on above: Performed By: #### 2 97678789 #### [facility] [address] [place] [address] CO2 [Moles/Vol] 29 mmol/L Normal 21-31 [facility] Comment on above: Performed By: #### 2 15589807 #### [facility] [address] [place] [address] Creatinine [Mass/Vol] 1.7 mg/dL High 0.5-1.3 [facility] Comment on above: Performed By: #### 2 [id number] #### [facility] [address] [place] [address] Glucose [Mass/Vol] 108 mg/dL Normal 55-199 [facility] Comment on above: Performed By: #### 2 54395865 #### [facility] [address] [place] [address] Phosphate [Mass/Vol] 2.8 mg/dL Normal 1.9-4.6 [facility] Comment on above: Performed By: #### 2 37186062 #### [facility] [address] [place] [address] Potassium [Moles/Vol] 3.8 mmol/L Normal 3.5-5.3 [facility] Comment on above: Performed By: #### 2 59747357 #### [facility] [address] [place] [address] Sodium [Moles/Vol] 137 mmol/L Normal 135-145 [facility] Comment on above: Performed By: #### 2 82724647 #### [facility] [address] [place] [address] Urea nitrogen [Mass/Vol] 24 mg/dL High 5-21 [facility] Comment on above: Performed By: #### 2 98048531 #### [facility] [address] [place] [address] Urea nitrogen/Creatinine [Mass ratio] 14 No Units Normal 10-20 [facility] Comment on above: Performed By: #### 2 70769911 #### [facility] [address] [place] [address] Serum or plasma anion gap de terminationOrdered By: SYSTEM SYSTEM on 07-25-2023 Anion gap [Moles/Vol] 13 mmol/L 6-16 Rem isol Chem TIBC Calculatedon 07-25-2023 Iron binding capacity [Mass/Vol] 421 microgram/dL High 250-400 [facility] Comment on above: Performed By: #### 2 252514, 14499833, 9096574, 3180838, 2104738 ####[facility] [address] [place] [address] Transferrin [Mass/Vol] 301 mg/dL Normal 200-370 [facility] Comment on above: Performed By: #### 2 901424, 84957330, 9103189, 0269787, 2129237 ####[facility] [address] [place] [address] U Protein/Creat Ratioon Protein/Creatinine (U) [Ratio] 7.30 mg/gm Cr Normal .00-200.00 [facility] Comment on above: Performed By: #### 1 [id number] ####[facility] [address] [place] [address] U Creatinine 140.6 mg/dL Invalid Interpretation Code [facility] Comment on above: Performed By: #### 1 [id number] ####[facility] [address] [place] [address] Ur Total Protein 10.3 mg/dL Invalid Interpretation Code [facility] Comment on above: Performed By: #### 1 [id number] ####[facility] [address] [place] [address] URINALYSISOrdered By: Deborah Rice on 07-25-2023 Bacteria LM Ql (Urine sed) Trace /HPF Normal Trace/HPF [facility] UA Auto SS Bilirubin Ql (U) Negative (07/25/23 10:50 AM) Normal Negative [facility] UA Auto SS Clarity (U) SL CLOUDY Invalid Interpretation Code [facility] UA Auto SS Color (U) Yellow (07/25/23 10:50 AM) Normal Yellow [facility] UA Auto SS Epithelial cells.squamous LM.HPF (Urine sed) [#/Area] 0-2 /HPF Normal 0-2/HPF [facility] UA Auto SS Glucose Test strip (U) [Mass/Vol] Negative (07/25/23 10:50 AM) Normal Negative [facility] UA Auto SS Hemoglobin Ql (U) Negative (07/25/23 10:50 AM) Normal Negative [facility] UA Auto SS Ketones (U) [Mass/Vol] Negative (07/25/23 10:50 AM) Normal Negative [facility] UA Auto SS [place].plasma/[place] .RBC (Bld) [Mass ratio] 0-3 /HPF Normal 0-3/HPF [facility] UA Auto SS Mucus Ql (Urine sed) Trace (07/25/23 10:50 AM) Normal [facility] UA Auto SS Nitrite Ql (U) Negative (07/25/23 10:50 AM) Normal Negative [facility] UA Auto SS pH (U) 6.0 *NA* (07/25/23 10:50 AM) Invalid Interpretation Code 5.0 - 9.0 [facility] UA Auto SS Protein (U) [Mass/Vol] Negative (07/25/23 10:50 AM) Normal Negative [facility] UA Auto SS Specific gravity (U) [Rel density] 1.020 *NA* (07/25/23 10:50 AM) Invalid Interpretation Code 1.005 - 1.030 [facility] UA Auto SS UA Spec Desc Clean Catch (07/25/23 10:50 AM) Normal [facility] UA Auto SS Urobilinogen Qn (U) 0.6223805 {Vitaliy'U}/dL Normal 0.0 - 1.0 EU/dL [facility] UA Auto SS WBC Auto Ql (U) 1+ *ABN* (07/25/23 10:50 AM) Invalid Interpretation Code Negative [facility] UA Auto SS WBC casts LM.LPF (Urine sed) [#/Area] 0-3 (07/25/23 10:50 AM) Normal [facility] UA Auto SS WBC LM.HPF (Urine sed) [#/Area] 6-15 /HPF Invalid Interpretation Code 0-5/HPF [facility] UA Auto SS Uric Acidon 07-25-2023 Urate (U) [Mass/Vol] 10.4 mg/dL High 2.2-7.4 [facility] Comment on above: Performed By: #### 2 [id number] #### [facility] [address] [place] [address] Urinalysison 07-25-2023 Bacteria LM Ql (Urine sed) TRACE Normal Trace [facility] Comment on above: Performed By: #### 5 63681513, 81116278, 94232272, 8040906, 5700269 #### [facility] [address] [place] [address] Bilirubin Ql (U) Negative Normal Negative [facility] Comment on above: Performed By: #### 5 86656272, 01095838, 96558129, 0409922, 9893996 #### [facility] [address] [place] [address] Clarity (U) SL CLOUDY Invalid Interpretation Code [facility] Comment on above: Performed By: #### 5 48851626, 86774864, 90491079, 3254272, 4068713 #### [facility] [address] [place] [address] Color (U) YELLOW Normal Yellow [facility] Comment on above: Performed By: #### 5 68312896, 89287843, 50217031, 9236935, 7521573 #### [facility] [address] [place] [address] Epithelial cells.squamous LM.HPF (Urine sed) [#/Area] 0-2 Normal 0-2 [facility] Comment on above: Performed By: #### 5 03032319, 65917494, 36734822, 4345873, 7897996 #### [facility] [address] [place] [address] Glucose Test strip (U) [Mass/Vol] Negative Normal Negative [facility] Comment on above: Performed By: #### 5 76279517, 91656262, 99813232, 6743077, 6343725 #### [facility] [address] [place] [address] Hemoglobin Ql (U) Negative Normal Negative [facility] Comment on above: Performed By: #### 5 04555628, 78100149, 83933736, 3572288, 7696662 #### [facility] [address] [place] [address] Ketones (U) [Mass/Vol] Negative Normal Negative [facility] Comment on above: Performed By: #### 5 02742812, 17634593, 38648187, 8899921, 4325778 #### [facility] [address] [place] [address] [place].plasma/[place] .RBC (Bld) [Mass ratio] 0-3 Normal 0-3 [facility] Comment on above: Performed By: #### 5 95661111, 85517086, 69412560, 0000360, 8625858 #### [facility] [address] [place] [address] Mucus Ql (Urine sed) TRACE Normal [facility] Comment on above: Performed By: #### 5 18848428, 37275639, 70864488, 2823239, 2294467 #### [facility] [address] [place] [address] Nitrite Ql (U) Negative Normal Negative [facility] Comment on above: Performed By: #### 5 73029854, 61870255, 13220819, 8348176, 6896815 #### [facility] [address] [place] [address] pH (U) 6.0 [pH] Invalid Interpretation Code 5.0-9.0 [facility] Comment on above: Performed By: #### 5 76069524, 04891483, 64990105, 1088028, 0686221 #### [facility] [address] [place] [address] Protein (U) [Mass/Vol] Negative Normal Negative [facility] Comment on above: Performed By: #### 5 79780042, 35701545, 24786712, 4643109, 8392235 #### [facility] [address] [place] [address] Specific gravity (U) [Rel density] 1.020 Invalid Interpretation Code 1.005-1.03 0 [facility] Comment on above: Performed By: #### 5 83482440, 63514541, 78260970, 3503530, 6167581 #### [facility] [address] [place] [address] Type of Urine collection method Clean Catch Normal [facility] Comment on above: Performed By: #### 5 35625631, 88501952, 68933705, 6344117, 8323615 #### [facility] [address] [place] [address] Urobilinogen Qn (U) 0.2 {Vitaliy'U}/dL Normal 0.0-1.0 [facility] Comment on above: Performed By: #### 5 31399656, 84369585, 72514245, 9318053, 7637448 #### [facility] [address] [place] [address] WBC Auto Ql (U) 1+ Abnormal Negative [facility] Comment on above: Performed By: #### 5 62306305, 15751270, 02039494, 7896468, 9256106 #### [facility] [address] [place] [address] WBC casts LM.LPF (Urine sed) [#/Area] 0-3 Normal [facility] Comment on above: Performed By: #### 5 37339339, 95505175, 52467493, 9999386, 3417617 #### [facility] [address] [place] [address] WBC LM.HPF (Urine sed) [#/Area] 6-15 Abnormal 0-5 [facility] Comment on above: Performed By: #### 5 34972567, 99827204, 16319566, 0085107, 0563272 #### [facility] [address] [place] [address] Urine protein/creatinine rat ioOrdered By: SYSTEM SYSTEM on 07-25-2023 Protein/Creatinine (U) [Ratio] 7.30 mg/gm Cr .00-200.00 Remisol Chem Vit B12on 07-25-2023 Cobalamin (Vitamin B12) [Mass/Vol] 138 pg/mL Normal 50-1500 [facility] Comment on above: Performed By: #### 2 96792501 #### [facility] [address] [place] [address] Vitamin D 25 Hydroxyon 07-24 25-hydroxyvitamin D3 [Mass/Vol] 39.2 ng/mL Normal 30.0-100.0 [facility] Comment on above: Performed By: #### 2 40350296 #### [facility] [address] [place] [address] eGFRon 07-25-2023 eGFR 32 mL/min/1.73 m2 Low >=59 [facility] Comment on above: Order Comment: Order added by Discern Expert. Performed By: #### 2 [id number] #### [facility] [address] [place] [address] MA Mamm Diag w/CAD if perfor med [...] VERY IMPORTANT TO YOUR HEALTH. THE CURRENT [employer] [...] interval follow-up Recommendation: Follow-up at short interval [facility] US Breast biopsy Vac Asst, F irst [...] were used to place a 9 [facility]assisted biopsy needle directly adjacent to the suspicious nodule within the 12 o'clock position of the left breast. Numerous core samples were obtained in the usual fashion. A [employer] mini cork-shaped marking clip was then deployed. [...] last revised on 06/10/2023 16:43 EST by Lamin Grace MD [facility] General Surgery Office/Clini c Noteon 06-03-2023 General [...] with voice recognition artificial intelligence software, specifically [employer], [employer]) and or [employer]. Substitutions may have occurred voice recognition and artificial intelligence software. ATTESTATION: Documentation services were performed after patient or guardian consented to allow [employer] to record this visit. KARTHIK clinical informatics specialist and provider reviewed before signing. KARTHIK: [...] virus vaccine, inactivated 04/07/2022 Recorded SARS-CoV-2 (COVID-19) [id number] 04/07/2022 Recorded zoster vaccine, inactivated 09/07/2021 Recorded [...] inactivated 03/03/2020 Re (more content not included)... [facility] Comment on above: Result Comment: Elec tronically Signed By: Angel Page MD\.br\Date and Time Signed: 06/03/23 10:48 EST\.br\Electronically Co-Signed By: Gloria Eden\.br\Date and Time Co-Signed: 06/03/23 10:47 EST Consent for Treatmenton Consent for Treatment [id number]#1.00TIFF [facility] RAD - Consent to Procedureon 05-27-2023 RAD - Consent to Procedure [id number]#1.00TIFF Normal [facility] RAD - MISCon 05-27-2023 RAD - MISC [id number]#1.00TIFF Normal [facility] Consent for Treatmenton Consent for Treatment [id number] Normal [facility] Creatinineon 05-24-2023 Creatinine [Mass/Vol] 1.8 mg/dL High 0.5-1.3 [facility] Comment on above: Performed By: #### 1 [id number] #### [facility] [address] [place] [address] RAD - MRI Screening Formon 0 05-24-2023 RAD - MRI Screening Form [id number] Normal [facility] eGFRon 05-24-2023 eGFR 30 mL/min/1.73 m2 Low >=59 [facility] Comment on above: Order Comment: Order added by Discern Expert. Performed By: #### 1 [id number] #### [facility] [address] [place] [address] Physician Orderon 05-20-2023 Physician Order [id number]#[id number] [facility] Ambulatory Visit Summaryon 1 07-19-2022 Ambulatory Visit Summary DINORAH PEPE Ze :1950 Visit Date:05/17/2023 Ambulatory Visit Instructions Your [...] AM EST With: Angel Page MD Where: [facility] General Surgery [place] Normal [facility] General Surgery Office/Clini c Noteon 05-17-2023 General Surgery Office/Clinic Note Chief Complaint WINDLASSER Abnormal mammogram HPI Staff WINDLASSER Dinorah is a 73 y.o. female here [...] with voice recognition artificial intelligence software, specifically [employer], [employer]) and or [employer]. Substitutions may have occurred voice recognition and artificial intelligence software. ATTESTATION: Documentation services were performed after patient or guardian consented to allow [employer] to record this visit. KARTHIK clinical informatics specialist and provider reviewed before signing. KARTHIK: [...] Allergies penicillins (more content not included)... Normal [facility] Comment on above: Result Comment: Elec [...] ovarian syndrome (PCOS). ? Binge-eating disorder. ? Granby syndrome. ? Taking certain medicines, such as [...] food choices, such as grocery stores and [employer] markets. What are the signs or symptoms? [...] you have to (more content not included)... Normal [facility] Physician Referralon 023 Physician Referral [id number] Normal [facility] Consent for Treatmenton 04-22 Consent for Treatment [id number]#[id number] Normal [facility] MA Mamm Diag w/CAD if perf [...] very important to your health. The current [employer] and National Comprehensive Cancer [...] considered Recommendation: Biopsy should be considered Normal [facility] US Breast Unilateral Lt Comp leteon 05-06-2023 [...] M.D. Transcribed by: PAT Technologist: FREDERICK Normal [facility] Troponin I High Sensitivityo n 04-20-2023 Troponin I High Sensitivity 3.6 pg/mL Normal 0.0-15.0 [facility] Comment on above: Result Comment: PERF ORMED BY: [place] [address] PATHOLOGIST OPERATIONS REPRESENTATIVE ARSENIO GARCIA M.D. Performed By: #### C BC, PTT, LIPASE, HEPATIC, BNP, BMP, PT, HS TROP, CK #### [address] Activated partial thrombopla stin time (aPTT) in platelet poor plasma by coagulation aOrdered By: Chris Walden on 04-19-2023 aPTT Coag (PPP) [Time] 32.1 s 25.1-36.5 [facility] Comment on above: A hematocrit value g reater than 55% may lead to inaccurate results in coagulation testing. Patients having hematocrit values >55% require a special collection tube for coagulation studies. Please contact the laboratory at [phone] for redraw instructions. Alanine aminotransferase [En zymatic activity/volume] in Serum or PlasmaOrdered By: Chris Walden on 04-19-2023 ALT [Catalytic activity/Vol] 19 U/L 7-52 [facility] Albumin [Mass/volume] in Ser um or Plasma by Bromocresol green (BCG) dye binding methoOrdered By: Chris Walden on 04-19-2023 Albumin BCG dye [Mass/Vol] 4.1 g/dL 3.5-5.7 [facility] Alkaline phosphatase [Enzyma tic activity/volume] in Serum or PlasmaOrdered By: Chris Walden on 04-19-2023 ALP [Catalytic activity/Vol] 108 U/L 34-104 [facility] Aspartate aminotransferase [ Enzymatic activity/volume] in Serum or PlasmaOrdered By: Chris Walden on 04-19-2023 AST [Catalytic activity/Vol] 14 U/L 13-39 [facility] B-Type Natriuretic Peptideon 04-19-2023 Natriuretic peptide B (Bld) [Mass/Vol] 102.0 pg/mL High 5-100 [facility] Comment on above: Result Comment: PERF ORMED BY: [place] [address] PATHOLOGIST OPERATIONS REPRESENTATIVE ARSENIO GARCIA M.D. Performed By: #### C BC, PTT, LIPASE, HEPATIC, BNP, BMP, PT, HS TROP, CK #### [address] Basic Metabolic Panelon -2 Anion gap [Moles/Vol] 10.7 mmol/L Normal 6.0-15.0 [facility] Comment on above: Performed By: #### C BC, PTT, LIPASE, HEPATIC, BNP, BMP, PT, HS TROP, CK #### [facility] [address] Calcium [Mass/Vol] 11.4 mg/dL High 8.6-10.3 [facility] Comment on above: Performed By: #### C BC, PTT, LIPASE, HEPATIC, BNP, BMP, PT, HS TROP, CK #### [facility] [address] Chloride [Moles/Vol] 102 mmol/L Normal 98-107 [facility] Comment on above: Performed By: #### C BC, PTT, LIPASE, HEPATIC, BNP, BMP, PT, HS TROP, CK #### [facility] [address] CO2 [Moles/Vol] 27.6 mmol/L Normal 21.0-31.0 [facility] Comment on above: Performed By: #### C BC, PTT, LIPASE, HEPATIC, BNP, BMP, PT, HS TROP, CK #### [facility] [address] Creatinine [Mass/Vol] 1.76 mg/dL High 0.60-1.20 [facility] Comment on above: Performed By: #### C BC, PTT, LIPASE, HEPATIC, BNP, BMP, PT, HS TROP, CK #### [facility] [address] Creatinine Clr Calc Pharmacy 35.34 [facility] Comment on above: Performed By: #### C BC, PTT, LIPASE, HEPATIC, BNP, BMP, PT, HS TROP, CK #### [facility] [address] [place] [address] [place] GFR/1.73 sq M.predicted MDRD (S/P/Bld) [Vol rate/Area] 30.563 mL/min/{1.73_m2} [facility] Comment on above: Performed By: #### C BC, PTT, LIPASE, HEPATIC, BNP, BMP, PT, HS TROP, CK #### [facility] [address] Glucose [Mass/Vol] 126 mg/dL High 70-100 [facility] Comment on above: Result Comment: [place] Glucose Reference Range is dependent on time and content of last meal. Glucose of more than 200 mg/dL in a nonstressed, ambulatory subject supports the diagnosis of Diabetes Mellitus. ADA recommended reference range Performed By: #### C BC, PTT, LIPASE, HEPATIC, BNP, BMP, PT, HS TROP, CK #### [facility] [address] Potassium [Moles/Vol] 3.3 mmol/L Low 3.5-5.1 [facility] Comment on above: Performed By: #### C BC, PTT, LIPASE, HEPATIC, BNP, BMP, PT, HS TROP, CK #### [facility] [address] Sodium [Moles/Vol] 137 mmol/L Normal 136-145 [facility] Comment on above: Performed By: #### C BC, PTT, LIPASE, HEPATIC, BNP, BMP, PT, HS TROP, CK #### [facility] [address] Urea nitrogen [Mass/Vol] 24 mg/dL Normal 7-25 [facility] Comment on above: Performed By: #### C BC, PTT, LIPASE, HEPATIC, BNP, BMP, PT, HS TROP, CK #### [facility] [address] Basophils Auto (Bld) [#/Vol] Ordered By: Chris Walden on 04-19-2023 Basophils (Bld) [#/Vol] 0.1 10*3/uL 0.0-0.2 [facility] Basophils/100 WBC Auto (Bld) Ordered By: Chris Walden on 04-19-2023 Basophils/100 WBC (Bld) 1.0 % . [facility] Bilirubin.direct [Mass/volum e] in Serum or PlasmaOrdered By: Chris Walden on 04-19-2023 Bilirubin.direct [Mass/Vol] 0.10 mg/dL 0.03-0.18 [facility] Bilirubin.total [Mass/volume ] in Serum or PlasmaOrdered By: Chris Walden on 04-19-2023 Bilirubin [Mass/Vol] 0.3 mg/dL 0.3-1.0 [facility] Calcium [Mass/volume] in Ser um or PlasmaOrdered By: Chris Walden on 04-19-2023 Calcium [Mass/Vol] 11.4 mg/dL 8.6-10.3 [facility] Carbon dioxide, total [Moles /volume] in Serum or PlasmaOrdered By: Chris Walden on 04-19-2023 CO2 [Moles/Vol] 27.6 mmol/L 21.0-31.0 [facility] Chloride [Moles/volume] in [place] or PlasmaOrdered By: Chris Walden on 04-19-2023 Chloride [Moles/Vol] 102 mmol/L 98-107 [facility] Complete Blood Count Auto Di ffon 04-19-2023 Basophils (Bld) [#/Vol] 0.1 10*3/uL Normal 0.0-0.2 [facility] Comment on above: Result Comment: PERF ORMED BY: [place] [address] PATHOLOGIST OPERATIONS REPRESENTATIVE ARSENIO GARCIA M.D. Performed By: #### C BC, PTT, LIPASE, HEPATIC, BNP, BMP, PT, HS TROP, CK #### [address] Basophils/100 WBC (Bld) 1.0 % Normal . [facility] Comment on above: Performed By: #### C BC, PTT, LIPASE, HEPATIC, BNP, BMP, PT, HS TROP, CK #### [facility] [address] Eosinophils (Bld) [#/Vol] 0.4 10*3/uL Normal 0.0-0.45 [facility] Comment on above: Performed By: #### C BC, PTT, LIPASE, HEPATIC, BNP, BMP, PT, HS TROP, CK #### [place] [address] [place] Eosinophils/100 WBC (Bld) 3.5 % Normal . [facility] Comment on above: Performed By: #### C BC, PTT, LIPASE, HEPATIC, BNP, BMP, PT, HS TROP, CK #### [address] Erythrocyte distribution width (RBC) [Ratio] 18.2 % High 11.9-15.3 [facility] Comment on above: Performed By: #### C BC, PTT, LIPASE, HEPATIC, BNP, BMP, PT, HS TROP, CK #### [address] Hematocrit (Bld) [Volume fraction] 33.9 % Low 34.0-46.4 [facility] Comment on above: Performed By: #### C BC, PTT, LIPASE, HEPATIC, BNP, BMP, PT, HS TROP, CK #### [address] Hemoglobin (Bld) [Mass/Vol] 11.2 g/dL Low 11.8-15.4 [facility] Comment on above: Performed By: #### C BC, PTT, LIPASE, HEPATIC, BNP, BMP, PT, HS TROP, CK #### [address] Lymphocytes (Bld) [#/Vol] 1.3 10*3/uL Normal 1.00-4.8 [facility] Comment on above: Performed By: #### C BC, PTT, LIPASE, HEPATIC, BNP, BMP, PT, HS TROP, CK #### [address] Lymphocytes/100 WBC (Bld) 12.3 % Normal . [facility] Comment on above: Performed By: #### C BC, PTT, LIPASE, HEPATIC, BNP, BMP, PT, HS TROP, CK #### [address] MCH (RBC) [Entitic mass] 25.6 pg Normal 24.7-34.3 [facility] Comment on above: Performed By: #### C BC, PTT, LIPASE, HEPATIC, BNP, BMP, PT, HS TROP, CK #### [address] MCV (RBC) [Entitic vol] 77.7 fL Low 80-100 [facility] Comment on above: Performed By: #### C BC, PTT, LIPASE, HEPATIC, BNP, BMP, PT, HS TROP, CK #### [address] Mean Corpuscular HGB Conc 32.9 g/dL Normal 32.0-35.0 [facility] Comment on above: Performed By: #### C BC, PTT, LIPASE, HEPATIC, BNP, BMP, PT, HS TROP, CK #### [address] Monocytes (Bld) [#/Vol] 0.5 10*3/uL Normal 0.0-0.8 [facility] Comment on above: Performed By: #### C BC, PTT, LIPASE, HEPATIC, BNP, BMP, PT, HS TROP, CK #### [address] Monocytes/100 WBC (Bld) 21.44 % High 0.00-20.00 [facility] Comment on above: Result Comment: For adults in ED, MDW > 20.0 may be associated with a higher risk of sepsis during the first 12 hrs of hospital admission Performed By: #### C BC, PTT, LIPASE, HEPATIC, BNP, BMP, PT, HS TROP, CK #### [address] Monocytes/100 WBC (Bld) 5.2 % Normal . [facility] Comment on above: Performed By: #### C BC, PTT, LIPASE, HEPATIC, BNP, BMP, PT, HS TROP, CK #### [address] Neutrophils (Bld) [#/Vol] 8.1 10*3/uL High 1.8-7.7 [facility] Comment on above: Performed By: #### C BC, PTT, LIPASE, HEPATIC, BNP, BMP, PT, HS TROP, CK #### [address] Neutrophils/100 WBC (Bld) 78.0 % Normal . [facility] Comment on above: Performed By: #### C BC, PTT, LIPASE, HEPATIC, BNP, BMP, PT, HS TROP, CK #### [address] NRBC% 0.1 /100{WBC} Normal 0-0.5 [facility] Comment on above: Performed By: #### C BC, PTT, LIPASE, HEPATIC, BNP, BMP, PT, HS TROP, CK #### [address] Platelet mean volume (Bld) [Entitic vol] 7.8 fL Normal 6.3-10.7 [facility] Comment on above: Performed By: #### C BC, PTT, LIPASE, HEPATIC, BNP, BMP, PT, HS TROP, CK #### [address] Platelets (Bld) [#/Vol] 309 10*3/uL Normal 150-450 [facility] Comment on above: Performed By: #### C BC, PTT, LIPASE, HEPATIC, BNP, BMP, PT, HS TROP, CK #### [address] RBC (Bld) [#/Vol] 4.36 10*6/uL Normal 3.60-5.00 [facility] Comment on above: Performed By: #### C BC, PTT, LIPASE, HEPATIC, BNP, BMP, PT, HS TROP, CK #### [address] WBC (Bld) [#/Vol] 10.4 10*3/uL Normal 3.8-11.6 [facility] Comment on above: Performed By: #### C BC, PTT, LIPASE, HEPATIC, BNP, BMP, PT, HS TROP, CK #### [address] Creatine Kinaseon 04-19-2023 CK [Catalytic activity/Vol] 23 U/L Low 30-223 [facility] Comment on above: Performed By: #### C BC, PTT, LIPASE, HEPATIC, BNP, BMP, PT, HS TROP, CK #### [facility] [address] [place] [id number] [facility] Creatine kinase [Enzymatic a ctivity/volume] in Serum or PlasmaOrdered By: Chris Walden on 04-19-2023 CK [Catalytic activity/Vol] 23 U/L 30-223 [facility] Creatinine [Mass/volume] in Serum or PlasmaOrdered By: Chris Walden on 04-19-2023 Creatinine [Mass/Vol] 1.76 mg/dL 0.60-1.20 [facility] ECG 12 lead ECGon 04-19-2023 ECG 12 lead ECG [facility] [address] [place] [address] [place] [address] Electrocardiograph Report Signed Patient: Dinorah Pepe MR#: [id number] 9 : 1950 Acct:[id number] Age/Sex: 73 / F ADM Date: 04/19/23 Loc: ER Room: Type: [facility] ER Attending Dr: Ordering Provider: Chris [...] Signed By Angel Samson MD 04/19/232058 Normal [facility] Eosinophils Auto (Bld) [#/Vo l]Ordered By: Chris Walden on 04-19-2023 Eosinophils (Bld) [#/Vol] 0.4 10*3/uL 0.0-0.45 [facility] Eosinophils/100 WBC Auto (Bl d)Ordered By: Chris Walden on 04-19-2023 Eosinophils/100 WBC (Bld) 3.5 % . [facility] Erythrocyte distribution wid th Auto (RBC) [Ratio]Ordered By: Chris Walden on 04-19-2023 Erythrocyte distribution width (RBC) [Ratio] 18.2 % 11.9-15.3 [facility] Globulin Calc (S) [Mass/Vol] Ordered By: Chris Walden on 04-19-2023 Globulin (S) [Mass/Vol] 3.2 g/dL [facility] Glucose [Mass/volume] in Ser um or PlasmaOrdered By: Chris Walden on 04-19-2023 Glucose [Mass/Vol] 126 mg/dL 70-100 [facility] Comment on above: ADA recommended refe rence rangeRandom Glucose Reference Range is dependent on time and content of last meal. Glucose of more than 200 mg/dL in a nonstressed, ambulatory subject supports the diagnosis of Diabetes Mellitus. Hematocrit Auto (Bld) [Volum e fraction]Ordered By: Chris Walden on 04-19-2023 Hematocrit (Bld) [Volume fraction] 33.9 % 34.0-46.4 [facility] Hemoglobin [Mass/volume] in BloodOrdered By: Chris Walden on 04-19-2023 Hemoglobin (Bld) [Mass/Vol] 11.2 g/dL 11.8-15.4 [facility] Hepatic Panelon 04-19-2023 Albumin [Mass/Vol] 4.1 g/dL Normal 3.5-5.7 [facility] Comment on above: Performed By: #### C BC, PTT, LIPASE, HEPATIC, BNP, BMP, PT, HS TROP, CK #### [facility] [address] [place] [address] [place] Albumin/Globulin [Mass ratio] 1.3 {ratio} Normal [facility] Comment on above: Performed By: #### C BC, PTT, LIPASE, HEPATIC, BNP, BMP, PT, HS TROP, CK #### [facility] [address] ALP [Catalytic activity/Vol] 108 U/L High 34-104 [facility] Comment on above: Performed By: #### C BC, PTT, LIPASE, HEPATIC, BNP, BMP, PT, HS TROP, CK #### [facility] [address] ALT [Catalytic activity/Vol] 19 U/L Normal 7-52 [facility] Comment on above: Performed By: #### C BC, PTT, LIPASE, HEPATIC, BNP, BMP, PT, HS TROP, CK #### [facility] [address] AST [Catalytic activity/Vol] 14 U/L Normal 13-39 [facility] Comment on above: Performed By: #### C BC, PTT, LIPASE, HEPATIC, BNP, BMP, PT, HS TROP, CK #### [address] Bilirubin [Mass/Vol] 0.3 mg/dL Normal 0.3-1.0 [facility] Comment on above: Performed By: #### C BC, PTT, LIPASE, HEPATIC, BNP, BMP, PT, HS TROP, CK #### [address] Bilirubin,Indirect 0.2 mg/dL Normal [facility] Comment on above: Performed By: #### C BC, PTT, LIPASE, HEPATIC, BNP, BMP, PT, HS TROP, CK #### [address] Bilirubin.indirect [Mass/Vol] 0.10 mg/dL Normal 0.03-0.18 [facility] Comment on above: Performed By: #### C BC, PTT, LIPASE, HEPATIC, BNP, BMP, PT, HS TROP, CK #### [address] Globulin (S) [Mass/Vol] 3.2 g/dL Normal [facility] Comment on above: Performed By: #### C BC, PTT, LIPASE, HEPATIC, BNP, BMP, PT, HS TROP, CK #### [address] Protein [Mass/Vol] 7.3 g/dL Normal 6.4-8.9 [facility] Comment on above: Performed By: #### C BC, PTT, LIPASE, HEPATIC, BNP, BMP, PT, HS TROP, CK #### [facility] [address] INR in Platelet poor plasma by Coagulation assayOrdered By: Chris Walden on 04-19-2023 INR Coag (PPP) [Relative time] 1.0 {INR} [facility] Comment on above: INR Therapeutic Rang [...] RBC Auto (Bld) [#/Vol] 10.4 10*3/uL 3.8-11.6 [facility] Lipaseon 04-19-2023 Lipase [Catalytic activity/Vol] 19.0 U/L Normal 11.0-82.0 [facility] Comment on above: Result Comment: PERF ORMED BY: [place] [address] PATHOLOGIST OPERATIONS REPRESENTATIVE ARSENIO GARCIA M.D. Performed By: #### C BC, PTT, LIPASE, HEPATIC, BNP, BMP, PT, HS TROP, CK #### [facility] [address] Lipase [Enzymatic activity/v olume] in Serum or PlasmaOrdered By: Chris Walden on 04-19-2023 Lipase [Catalytic activity/Vol] 19.0 U/L 11.0-82.0 [facility] Lymphocytes Auto (Bld) [#/Vo l]Ordered By: Chris Walden on 04-19-2023 Lymphocytes (Bld) [#/Vol] 1.3 10*3/uL 1.00-4.8 [facility] Lymphocytes/100 WBC Auto (Bl d)Ordered By: Chris Walden on 04-19-2023 Lymphocytes/100 WBC (Bld) 12.3 % . [facility] MCH Auto (RBC) [Entitic mass ]Ordered By: Chris Walden on 04-19-2023 MCH (RBC) [Entitic mass] 25.6 pg 24.7-34.3 [facility] MCHC Auto (RBC) [Mass/Vol]Or dered By: Chris Walden on 04-19-2023 MCHC (RBC) [Mass/Vol] 32.9 g/dL 32.0-35.0 [facility] MCV Auto (RBC) [Entitic vol] Ordered By: Chris Walden on 04-19-2023 MCV (RBC) [Entitic vol] 77.7 fL 80-100 [facility] Monocyte distribution width [Entitic volume] in Blood by AutomatedOrdered By: Chris Walden on 04-19-2023 Monocyte distribution width Auto (Bld) [Entitic vol] 21.44 % 0.00-20.00 [facility] Comment on above: For adults in ED, MD W > 20.0 may be associated with a higher risk of sepsis during the first 12 hrs of hospital admission Monocytes Auto (Bld) [#/Vol] Ordered By: Chris Walden on 04-19-2023 Monocytes (Bld) [#/Vol] 0.5 10*3/uL 0.0-0.8 [facility] Monocytes/100 WBC Auto (Bld) Ordered By: Chris Walden on 04-19-2023 Monocytes/100 WBC (Bld) 5.2 % . [facility] Natriuretic peptide B [Mass/ Vol]Ordered By: Chris Walden on 04-19-2023 Natriuretic peptide B (Bld) [Mass/Vol] 102.0 pg/mL 5-100 [facility] Neutrophils Auto (Bld) [#/Vo l]Ordered By: Chris Walden on 04-19-2023 Neutrophils (Bld) [#/Vol] 8.1 10*3/uL 1.8-7.7 [facility] Neutrophils/100 WBC Auto (Bl d)Ordered By: Chris Walden on 04-19-2023 Neutrophils/100 WBC (Bld) 78.0 % . [facility] No Panel InformationOrdered By: Chris Walden on 04-19-2023 Estimated GFR (CKD-EPI) 30.563 mL/Min [facility] Creatinine Clearance (Chem 35.34 [facility] Nucleated erythrocytes [Pres ence] in Blood by Automated countOrdered By: Chris Walden on 04-19-2023 Nucleated RBC Auto Ql (Bld) 0.1 /100{WBC} 0-0.5 [facility] Partial Thromboplastin Timeo n 04-19-2023 aPTT Coag (Bld) [Time] 32.1 s Normal 25.1-36.5 [facility] Comment on above: Result Comment: A he matocrit value greater than 55% may lead to inaccurate results in coagulation testing. Patients having hematocrit values >55% require a special collection tube for coagulation studies. Please contact the laboratory at [phone] for redraw instructions. PERFORMED BY: [place] [address] PATHOLOGIST OPERATIONS REPRESENTATIVE ARSENIO GARCIA M.D. Performed By: #### C BC, PTT, LIPASE, HEPATIC, BNP, BMP, PT, HS TROP, CK #### [facility] [address] [place] [address] Platelet mean volume Auto (B ld) [Entitic vol]Ordered By: Chris Walden on 04-19-2023 Platelet mean volume (Bld) [Entitic vol] 7.8 fL 6.3-10.7 [facility] Platelets Auto (Bld) [#/Vol] Ordered By: Chris Walden on 04-19-2023 Platelets (Bld) [#/Vol] 309 10*3/uL 150-450 [facility] Potassium [Moles/volume] in Serum or PlasmaOrdered By: Chris Walden on 04-19-2023 Potassium [Moles/Vol] 3.3 mmol/L 3.5-5.1 [facility] Protein [Mass/volume] in Ser um or PlasmaOrdered By: Chris Walden on 04-19-2023 Protein [Mass/Vol] 7.3 g/dL 6.4-8.9 [facility] Prothrombin Time INRon 04-19 INR Coag (PPP) [Relative time] 1.0 {INR} Normal [facility] Comment on above: Result Comment: INR [...] BNP, BMP, PT, HS TROP, CK #### [facility] [address] [place] [id number] [facility] PT Coag (PPP) [Time] 12.0 s Normal 9.0-12.9 [facility] Comment on above: Result Comment: A he matocrit value greater than 55% may lead to inaccurate results in coagulation testing. Patients having hematocrit values >55% require a special collection tube for coagulation studies. Please contact the laboratory at [phone] for redraw instructions. Performed By: #### C BC, PTT, LIPASE, HEPATIC, BNP, BMP, PT, HS TROP, CK #### [facility] [address] [place] [id number] [facility] Prothrombin time (PT)Ordered By: Chris Walden on 04-19-2023 PT Coag (PPP) [Time] 12.0 s 9.0-12.9 [facility] Comment on above: A hematocrit value g reater than 55% may lead to inaccurate results in coagulation testing. Patients having hematocrit values >55% require a special collection tube for coagulation studies. Please contact the laboratory at [phone] for redraw instructions. RBC Auto (Bld) [#/Vol]Ordere d By: Chris Walden on 04-19-2023 RBC (Bld) [#/Vol] 4.36 10*6/uL 3.60-5.00 [facility] Serum or plasma albumin/glob ulin mass ratioOrdered By: Chris Walden on 04-19-2023 Albumin/Globulin [Mass ratio] 1.3 {ratio} [facility] Serum or plasma anion gap de terminationOrdered By: Chris Walden on 04-19-2023 Anion gap [Moles/Vol] 10.7 mmol/L 6.0-15.0 [facility] Serum or plasma non-glucuron idated bilirubin measurement (mass/volume)Ordered By: Chris Walden on 04-19-2023 Bilirubin.indirect [Mass/Vol] 0.2 mg/dL [facility] Sodium [Moles/volume] in Ser um or PlasmaOrdered By: Chris Walden on 04-19-2023 Sodium [Moles/Vol] 137 mmol/L 136-145 [facility] Troponin I High Sensitivityo n 04-19-2023 Troponin I High Sensitivity 3.6 pg/mL Normal 0.0-15.0 [facility] Comment on above: Result Comment: PERF ORMED BY: [place] [address] PATHOLOGIST OPERATIONS REPRESENTATIVE ARSENIO GARCIA M.D. Performed By: #### C BC, PTT, LIPASE, HEPATIC, BNP, BMP, PT, HS TROP, CK #### [address] Troponin I.cardiac [Mass/vol ume] in Serum or Plasma by Detection limit <= 0.01 ng/Ordered By: Chris Walden on 04-19-2023 Troponin I.cardiac DL <= 0.01 ng/mL [Mass/Vol] 3.6 pg/mL 0.0-15.0 [facility] Urea nitrogen [Mass/volume] in Serum or PlasmaOrdered By: Chris Walden on 04-19-2023 Urea nitrogen [Mass/Vol] 24 mg/dL 7-25 [facility] WBC Auto (Bld) [#/Vol]Ordere d By: Chris Walden on 04-19-2023 WBC (Bld) [#/Vol] 10.4 10*3/uL 3.8-11.6 [facility] XR chest 2V*on 04-19-2023 XR chest 2V* [facility] Main [place] [address] [place] [address] XRay Report Signed Patient: Dinorah Pepe MR#: [id number] 9 : 1950 Acct:[id number] Age/Sex: 73 / F ADM Date: 04/19/23 Loc: ER Room: Type: [facility] ER Attending Dr: Copies to: Chris [...] Stephen Andujar M.D.04/19/2023 8:53 PM Dictation Location: [place] [address] Transcribed By: [facility] 04/19/232052 Dictated By: Stephen Andujar DO 04/19/232052 Signed By: 04/19/232052 [facility] Lab Miscellaneous-LCon 03-14 Lab Miscellaneous See ref report Invalid Interpretation Code [facility] Comment on above: Result Comment: Perf ormed at: Lab[address] [id number] PhD Jessica Ferris Test results were corrected to add comment see reference report Performed at: [address] [id number] PhD Jessica Ferris Performed By: #### 5 [id number], 18716333, 17708777, 1582003, 2242699 #### [facility] Laboratory [address] [place] [address] Reference Lab Reporton 03-14 Reference Lab Report [id number]#[id number] Normal [facility] Free K+L Lt Chains,Qn,Son Immunoglobulin light chains.kappa.free (S) [Mass/Vol] 48.9 mg/L High 3.3-19.4 [facility] Comment on above: Performed By: #### 2 206763, 7435212, 48343372, 806676176, 41704554, 000113587, 24781010 ####[facility] [address] [place] [address] Immunoglobulin light chains.kappa.free/Immu noglobulin light chains.lambda.free (S) [Mass ratio] 1.31 Invalid Interpretation Code 0.26-1.65 [facility] Comment on above: Result Comment: Perf ormed at: [facility] [address] [id number] PhD Jessica Ferris Performed By: #### 2 739108, 8923446, 44768463, 118184422, 82343851, 687510382, 38231317 ####[facility] [address] [place] [address] Immunoglobulin light chains.lambda.free [Mass/Vol] 37.2 mg/L High 5.7-26.3 [facility] Comment on above: Performed By: #### 2 057623, 2099713, 97582730, 334696761, 94507165, 199947609, 15922937 ####[facility] [address] [place] [address] Immunofixation Serumon 03-10 IgA [Mass/Vol] 386 mg/dL High 87-352 [facility] Comment on above: Performed By: #### 2 250573, 7921066, 46658007, 027497373, 41328017, 254964957, 58209358 ####[facility] [address] [place] [address] IgG [Mass/Vol] 1021 mg/dL Invalid Interpretation Code 586-8612 [facility] Comment on above: Performed By: #### 2 736137, 6543728, 70176847, 981076533, 78065402, 764733577, 23416347 ####[facility] [address] [place] [address] IgM [Mass/Vol] 47 mg/dL Invalid Interpretation Code [facility] Comment on above: Result Comment: Perf ormed at: [address] [id number] PhD Jessica Ferris Performed By: #### 2 565060, 0893221, 61476715, 689598288, 78144733, 899129628, 14231379 ####[facility] [address] [place] [address] Protein Fractions [Interp] Comment Invalid Interpretation Code [facility] Comment on above: Result Comment: No m onoclonality detected. Performed By: #### 2 654802, 1710160, 08446585, 053074951, 01374011, 222013142, 53049210 ####[facility] [address] [place] [address] PTH Intacton 03-10-2023 Parathyrin.intact [Mass/Vol] 169 pg/mL High 15-65 [facility] Comment on above: Result Comment: Perf ormed at: [address] [id number] PhD Jessica Ferris Performed By: #### 2 [id number] #### [facility] Laboratory [address] [place] [address] US Renalon 03-10-2023 US Renal Exam Date/Time: [...] Signed by: Alfonso Elizabeth Technologist: HW Normal [facility] CBC w/Indiceson 03-09-2023 Erythrocyte distribution width (RBC) [Ratio] 18.4 % High 10.9-14.2 [facility] Comment on above: Performed By: #### 2 032155, 1778205, 21552029, 085288043, 99546803, 864819023, 81107569 ####[facility] [address] [place] [address] Hematocrit (Bld) [Volume fraction] 34.4 % Normal 34.0-46.0 [facility] Comment on above: Performed By: #### 2 397320, 3278435, 75502426, 289550375, 65087604, 226913425, 20536086 ####[facility] [address] [place] [address] Hemoglobin (Bld) [Mass/Vol] 11.2 g/dL Low 12.0-16.0 [facility] Comment on above: Performed By: #### 2 058967, 2108844, 44961355, 086609753, 82571715, 198229176, 51121497 ####[facility] [address] [place] [address] MCH (RBC) [Entitic mass] 24.7 pg Low 27.0-34.0 [facility] Comment on above: Performed By: #### 2 350513, 7057612, 72863490, 441781941, 09855544, 670709977, 47826836 ####[facility] [address] [place] [address] MCHC (RBC) [Mass/Vol] 32.5 g/dL Normal 31.4-36.0 [facility] Comment on above: Performed By: #### 2 414470, 1724584, 18035692, 942256981, 25166669, 260237318, 01826816 ####[facility] [address] [place] [address] MCV (RBC) [Entitic vol] 75.9 fL Low 80.0-100.0 [facility] Comment on above: Performed By: #### 2 340572, 6144173, 38243294, 665632526, 43709485, 214291013, 01153396 ####[facility] [address] [place] [address] Platelet mean volume (Bld) [Entitic vol] 7.4 fL Normal 6.4-10.8 [facility] Comment on above: Performed By: #### 2 683146, 7081106, 37407891, 116765774, 62737576, 108269031, 97897831 ####[address] [address] Platelets (Bld) [#/Vol] 317.0 E9/L Normal 150.0-500. 0 [facility] Comment on above: Performed By: #### 2 415559, 9021888, 21063424, 480956914, 97053785, 043126905, 94342843 ####[address] [address] RBC (Bld) [#/Vol] 4.5 E12/L Normal 4.3-5.9 [facility] Comment on above: Performed By: #### 2 561220, 4988075, 46489307, 185256384, 10167280, 598572601, 46403006 ####[place] [address] [place] [address] WBC corrected for nucl RBC Auto (Bld) [#/Vol] 7.9 E9/L Normal 4.0-11.0 [facility] Comment on above: Performed By: #### 2 100340, 6986262, 45987785, 912205896, 73469485, 113105614, 66672973 ####[address] [address] CHEMISTRYOrdered By: SYSTEM SYSTEM on 03-09-2023 25-hydroxyvitamin D3 [Mass/Vol] 31.1 ng/mL Normal 30.0 - 100.0 ng/mL [facility] Comment on above: Interpretive Data: Vitamin D deficiency has been defined as a level of serum 25-OH vitamin D less than 20 ng/mL (1,2) by the [place] and an Endocrine Society practice guideline. The Endocrine Society further defined vitamin D insufficiency as a level between 21 and 29 ng/mL (2). 1. IOM ([place] of [place]). 2010. Dietary reference intakes for calcium and D. [place]: The National AcademVurb Press. 2. Cathleen MF, Tami NC, Adeola [...] 28 mmol/L Normal 21 - 31 mmol/L [facility] Creatinine [Mass/Vol] 2.0 mg/dL High 0.5 - 1.3 mg/dL [facility] GFR/1.73 sq M.predicted among non-blacks MDRD (S/P/Bld) [Vol rate/Area] 26 mL/min/1.73 m2 Low >=59mL/min /1.73 m2 [facility] Chem S Comment on above: Interpretive Data: [...] mg/dL Normal 1.3 - 2 .4 mg/dL [facility] Phosphate [Mass/Vol] 3.0 mg/dL Normal 1.9 - 4 .6 mg/dL [facility] Potassium [Moles/Vol] 3.6 mmol/L Normal 3.5 - 5.3 mmol/L [facility] Sodium [Moles/Vol] 140 mmol/L Normal 135 - 145 mmol/L [facility] Urea nitrogen [Mass/Vol] 29 mg/dL High 5 - 21 mg/dL [facility] Urea nitrogen/Creatinine [Mass ratio] 14 mg/mg Normal 10 - 20 [facility] Remisol CHEMISTRYOrdered By: Jamee Araya on 03-09-2023 Albumin Elph (U) [Mass fraction] 8.9 mg/dL Invalid Interpretation Code [facility] Comment on above: Interpretive Data: T he reference range and other method performance specifications have not been established for this test; results should be integrated into the clinical context for interpretation. Creatinine (U) [Mass/Vol] 126.3 mg/dL Invalid Interpretation Code [facility] Remiso Comment on above: Interpretive Data: T he reference range and other method performance specifications have not been established for this test; results should be integrated into the clinical context for interpretation. U Prot/Creat Ratio 70.50 mg/gm Cr Normal 0.00 - 200.00 mg/gm Cr [facility] Remisol Consent for Treatmenton 02-20 Consent for Treatment [id number]#1.00TIFF Normal [facility] HEMATOLOGYOrdered By: Deborah Rice on 03-09-2023 Erythrocyte [...] 32.5 g/dL Normal 31.4 - 36.0 gm/dL [facility] HemeAutoSS MCV (RBC) [Entitic vol] 75.9 fL Low 80.0 - 100.0 fL [facility] HemeAutoSS Platelet mean volume (Bld) [Entitic vol] 7.4 fL Normal 6.4 - 10.8 fL [facility] HemeAutoSS Platelets (Bld) [#/Vol] 317.0 E9/L Normal 150.0 - 500.0 E9/L [facility] HemeAutoSS RBC (Bld) [#/Vol] 4.5 E12/L Normal 4.3 - 5.9 E12/L [facility] HemeAutoSS WBC corrected for nucl RBC Auto (Bld) [#/Vol] 7.9 E9/L Normal 4.0 - 11.0 E9/L [facility] HemeAutoSS Lab Miscellaneous-LCon 03-09 Test Code 840079 Invalid Interpretation Code [facility] Comment on above: Performed By: #### 5 00515009, 09442643, 87657100, 1758523, 7018668 #### [facility] [address] [place] [address] Test Name immunofix ur Invalid Interpretation Code [facility] Comment on above: Performed By: #### 5 17719435, 47328042, 59863335, 1563457, 4220040 #### [facility] [address] [place] [address] Magnesiumon 03-09-2023 Magnesium [Mass/Vol] 1.9 mg/dL Normal 1.3-2.4 [facility] Comment on above: Performed By: #### 2 793110, 8390178, 23183120, 514652388, 95537248, 104453649, 51814242 ####[facility] [address] [place] [address] Physician Orderon 03-09-2023 Physician Order [id number]#1.00TIFF Normal [facility] Reference Laboratory Testing Ordered By: Genny Nava on 03-09-2023 Sodium [Moles/Vol] 232988 mmol/L Invalid Interpretation Code [facility] SendOuts Test Name immunofix ur Invalid Interpretation Code [facility] SendOutsSS Renal Panelon 03-09-2023 Albumin [Mass/Vol] 4.0 g/dL Normal 3.3-5.0 [facility] Comment on above: Performed By: #### 2 165941, 9519994, 11427535, 653812406, 35042478, 284162165, 36190899 ####[facility] [address] [place] [address] Anion gap [Moles/Vol] 13 mmol/L Normal 6-16 [facility] Comment on above: Performed By: #### 2 479239, 2062389, 42290182, 633313743, 78784980, 084827098, 56164659 ####[facility] [address] [place] [address] Calcium [Mass/Vol] 10.9 mg/dL Normal 8.9-11.1 [facility] Comment on above: Performed By: #### 2 903188, 7479916, 55325426, 390313354, 61929771, 475645715, 86098755 ####[facility] [address] [place] [address] Chloride [Moles/Vol] 103 mmol/L Normal 101-111 [facility] Comment on above: Performed By: #### 2 305533, 3946348, 89981198, 812698395, 57790979, 328672992, 45186951 ####[facility] [address] [place] [address] CO2 [Moles/Vol] 28 mmol/L Normal 21-31 [facility] Comment on above: Performed By: #### 2 922821, 0104076, 62214057, 809751748, 18989970, 604394098, 65488917 ####[facility] [address] [place] [address] Creatinine [Mass/Vol] 2.0 mg/dL High 0.5-1.3 [facility] Comment on above: Performed By: #### 2 081283, 3111790, 13606878, 850391270, 05208791, 824295009, 18769769 ####[facility] [address] [place] [address] Glucose [Mass/Vol] 124 mg/dL Normal 55-199 [facility] Comment on above: Result Comment: If t his glucose result represents a fasting glucose, interpretation should refer to the following reference range: 55-99 mg/dL Performed By: #### 2 614748, 8249134, 86903880, 971713283, 75678653, 142396507, 98564426 ####[facility] [address] [place] [address] Phosphate [Mass/Vol] 3.0 mg/dL Normal 1.9-4.6 [facility] Comment on above: Performed By: #### 2 406103, 2512375, 22369820, 947567715, 90406895, 843362837, 22066345 ####[facility] [address] [place] [address] Potassium [Moles/Vol] 3.6 mmol/L Normal 3.5-5.3 [facility] Comment on above: Performed By: #### 2 060685, 8884332, 26742220, 230020978, 42907093, 663567376, 10815415 ####[facility] [address] [place] [address] Sodium [Moles/Vol] 140 mmol/L Normal 135-145 [facility] Comment on above: Performed By: #### 2 596527, 1308713, 16953895, 458364086, 01904643, 387345162, 98365334 ####[facility] [address] [place] [address] Urea nitrogen [Mass/Vol] 29 mg/dL High 5-21 [facility] Comment on above: Performed By: #### 2 753439, 5187580, 84964785, 483000094, 92712237, 304267928, 29592231 ####[facility] [address] [place] [address] Urea nitrogen/Creatinine [Mass ratio] 14 No Units Normal 10-20 [facility] Comment on above: Performed By: #### 2 686817, 3213508, 37911778, 125006676, 20906886, 135556918, 08221430 ####[facility] [address] [place] [address] U Protein/Creat Ratioon 02-20 Albumin Elph (U) [Mass fraction] 8.9 mg/dL Invalid Interpretation Code [facility] Comment on above: Result Comment: The reference range and other method performance specifications have not been established for this test; results should be integrated into the clinical context for interpretation. Performed By: #### 5 34201689, 78736933, 33313930, 5018181, 9380365 #### [facility] [address] [place] [address] Creatinine (U) [Mass/Vol] 126.3 mg/dL Invalid Interpretation Code [facility] Comment on above: Result Comment: The reference range and other method performance specifications have not been established for this test; results should be integrated into the clinical context for interpretation. Performed By: #### 5 94981418, 83460939, 95872143, 5000124, 7268788 #### [facility] [address] [place] [address] U Prot/Creat Ratio 70.50 mg/gm Cr Normal .00-200.00 [facility] Comment on above: Performed By: #### 5 01058096, 88001961, 69890313, 9316040, 2480440 #### [facility] [address] [place] [address] URINALYSISOrdered By: Trevin Dominguez on 03-09-2023 Bacteria LM Ql (Urine sed) Trace /HPF Normal Trace/HPF [facility] UA Auto SS Bilirubin Ql (U) Negative (03/09/23 9:33 AM) Normal Negative [facility] UA Auto SS Clarity (U) Clear (03/09/23 9:33 AM) Normal Clear [facility] UA Auto SS Color (U) Yellow (03/09/23 9:33 AM) Normal Yellow [facility] UA Auto SS Epithelial cells.squamous LM.HPF (Urine sed) [#/Area] 5-8 /HPF Normal 0-2/HPF [facility] UA Auto SS Glucose Test strip (U) [Mass/Vol] Negative (03/09/23 9:33 AM) Normal Negative [facility] UA Auto SS Hemoglobin Ql (U) Negative (03/09/23 9:33 AM) Normal Negative [facility] UA Auto SS Ketones (U) [Mass/Vol] Negative (03/09/23 9:33 AM) Normal Negative [facility] UA Auto SS [place].plasma/[place] .RBC (Bld) [Mass ratio] 0-3 /HPF Normal 0-3/HPF [facility] UA Auto SS Nitrite Ql (U) Negative (03/09/23 9:33 AM) Normal Negative [facility] UA Auto SS pH (U) 5.5 *NA* (03/09/23 9:33 AM) Invalid Interpretation Code 5.0 - 9.0 [facility] UA Auto SS Protein (U) [Mass/Vol] Negative (03/09/23 9:33 AM) Normal Negative [facility] UA Auto SS Specific gravity (U) [Rel density] 1.020 *NA* (03/09/23 9:33 AM) Invalid Interpretation Code 1.005 - 1.030 [facility] UA Auto SS UA Spec Desc Clean Catch (03/09/23 9:33 AM) Normal [facility] UA Auto SS Urobilinogen Qn (U) 0.1424132 {Vitaliy'U}/dL Normal 0.0 - 1.0 EU/dL [facility] UA Auto SS WBC Auto Ql (U) 1+ *ABN* (03/09/23 9:33 AM) Invalid Interpretation Code Negative [facility] UA Auto SS WBC LM.HPF (Urine sed) [#/Area] 6-15 /HPF Invalid Interpretation Code 0-5/HPF [facility] UA Auto SS Urinalysison 03-09-2023 Bacteria LM Ql (Urine sed) TRACE Normal Trace [facility] Comment on above: Performed By: #### 5 46394429, 28950558, 38280770, 5522478, 4415107 #### [facility] [address] [place] [address] Bilirubin Ql (U) Negative Normal Negative [facility] Comment on above: Performed By: #### 5 87383144, 72365853, 08474343, 7596736, 7387482 #### [facility] [address] [place] [address] Clarity (U) CLEAR Normal Clear [facility] Comment on above: Performed By: #### 5 05756389, 75575139, 31867257, 7161526, 4377280 #### [facility] [address] [place] [address] Color (U) YELLOW Normal Yellow [facility] Comment on above: Performed By: #### 5 65253769, 79417602, 63605926, 0972625, 4765705 #### [facility] [address] [place] [address] Epithelial cells.squamous LM.HPF (Urine sed) [#/Area] 5-8 Normal 0-2 [facility] Comment on above: Performed By: #### 5 07836797, 66207036, 95093137, 0069813, 8085329 #### [facility] [address] [place] [address] Glucose Test strip (U) [Mass/Vol] Negative Normal Negative [facility] Comment on above: Performed By: #### 5 60750330, 42163072, 60798694, 3899600, 8150221 #### [facility] [address] [place] [address] Hemoglobin Ql (U) Negative Normal Negative [facility] Comment on above: Performed By: #### 5 91252930, 83795829, 38407551, 0292083, 7334319 #### [facility] [address] [place] [address] Ketones (U) [Mass/Vol] Negative Normal Negative [facility] Comment on above: Performed By: #### 5 58871336, 56339384, 40632383, 2809149, 0219018 #### [facility] [address] [place] [address] [place].plasma/[place] .RBC (Bld) [Mass ratio] 0-3 Normal 0-3 [facility] Comment on above: Performed By: #### 5 84382955, 66320977, 63948417, 2710004, 0437198 #### [facility] [address] [place] [address] Nitrite Ql (U) Negative Normal Negative [facility] Comment on above: Performed By: #### 5 92457847, 70431020, 42355961, 8673947, 2379397 #### [facility] [address] [place] [address] pH (U) 5.5 [pH] Invalid Interpretation Code 5.0-9.0 [facility] Comment on above: Performed By: #### 5 70056534, 12693859, 28886342, 4909360, 4385788 #### [facility] [address] [place] [address] Protein (U) [Mass/Vol] Negative Normal Negative [facility] Comment on above: Performed By: #### 5 75235706, 62155326, 58576431, 2403029, 0613507 #### [facility] [address] [place] [address] Specific gravity (U) [Rel density] 1.020 Invalid Interpretation Code 1.005-1.03 0 [facility] Comment on above: Performed By: #### 5 33042320, 05243094, 51862366, 6109657, 3682443 #### [facility] [address] [place] [address] Type of Urine collection method Clean Catch Normal [facility] Comment on above: Performed By: #### 5 85985161, 82487840, 86866677, 0456931, 7449020 #### [facility] [address] [place] [address] Urobilinogen Qn (U) 0.2 {Vitaliy'U}/dL Normal 0.0-1.0 [facility] Comment on above: Performed By: #### 5 63956625, 40551117, 87361280, 1645036, 1141984 #### [facility] [address] [place] [address] WBC Auto Ql (U) 1+ Abnormal Negative [facility] Comment on above: Performed By: #### 5 03734886, 62844206, 60698507, 0019278, 8852508 #### [facility] [address] [place] [address] WBC LM.HPF (Urine sed) [#/Area] 6-15 Abnormal 0-5 [facility] Comment on above: Performed By: #### 5 47461134, 12186166, 68576669, 1883112, 7561945 #### [facility] [address] [place] [address] Vitamin D 25 Hydroxyon 03-09 25-hydroxyvitamin D3 [Mass/Vol] 31.1 ng/mL Normal 30.0-100.0 [facility] Comment on above: Result Comment: Vit aviles D deficiency has been defined as a level of serum 25-OH vitamin D less than 20 ng/mL (1,2) by the [place] of [place] and an Endocrine Society practice guideline. The Endocrine Society further defined vitamin D insufficiency as a level between 21 and 29 ng/mL (2). 1. IOM ([place] of [place]). 2010. Dietary reference intakes for calcium and D. [place]: The National Academies Press. 2. Cathleen MF, Tami NC, Adeola BARAHONA, et al. Evaluation, treatment, and prevention of vitamin D deficiency: an Endocrine Society clinical practice guideline. JCEM. 2010; 96 (7):1911-30. Performed By: #### 2 352635, 9069273, 10433496, 423606753, 73060790, 989379857, 65388922 ####[facility] [address] [place] [address] eGFRon 03-09-2023 GFR/1.73 sq M.predicted among non-blacks MDRD (S/P/Bld) [Vol rate/Area] 26 mL/min/1.73 m2 Low >=59 [facility] Comment on above: Order Comment: Order added by Discern Expert. Result Comment: Logistics Clerk daria kidney disease could be indicated at eGFR's of less than 60 mL/min/1.73m2. Kidney failure is indicated at less than 15 mL/min/1.73m2. Performed By: #### 2 953467, 6571627, 31446316, 930298531, 34882253, 916842404, 09067729 ####[facility] [address] [place] [address] Physician Orderon 02-16-2023 Physician Order [id number]:127 Normal [facility] Vital Signs Date Time Vital Sign Value Performing Clinician Facility 11-26-2023 05:50-0400 Diastolic blood pressure 91 mm[Hg] Xander Charli [facility] 11-26-2023 05:50-0400 Heart rate 64 /min Xander Charli [facility] 11-26-2023 05:50-0400 Mean blood pressure 112 mm[Hg] Xander Charli [facility] 11-26-2023 05:50-0400 Respiratory rate 15 /min Xander Charli [facility] 11-26-2023 05:50-0400 SaO2% (BldA) [Mass fraction] 98 % Xander Charli [facility] 11-26-2023 05:50-0400 Systolic blood pressure 154 mm[Hg] Xander Charli [facility] 11-26-2023 04:18-0400 Diastolic blood pressure 70 mm[Hg] Xander Charli [facility] 11-26-2023 04:18-0400 Heart rate 66 /min Xander Charli [facility] 11-26-2023 04:18-0400 Mean blood pressure 90 mm[Hg] Xander Charli [facility] 11-26-2023 04:18-0400 Respiratory rate 16 /min Xander Charli [facility] 11-26-2023 04:18-0400 SaO2% (BldA) [Mass fraction] 97 % Xander Charli [facility] 11-26-2023 04:18-0400 Systolic blood pressure 129 mm[Hg] Xander Charli [facility] 11-26-2023 02:38-0400 Body temperature 97.52 [degF] Xander Charli [facility] 11-26-2023 02:38-0400 Diastolic blood pressure 69 mm[Hg] Xander Charli [facility] 11-26-2023 02:38-0400 Heart rate 67 /min Xander Charli [facility] 11-26-2023 02:38-0400 Respiratory rate 18 /min Xander Charli [facility] 11-26-2023 02:38-0400 SaO2% (BldA) [Mass fraction] 99 % Xander Charli [facility] 11-26-2023 02:38-0400 Systolic blood pressure 131 mm[Hg] [facility] Health 09-06-2023 16:18-0400 Heart rate 75 /min [facility] 09-06-2023 16:18-0400 SaO2% (BldA) [Mass fraction] 100 % [facility] 09-06-2023 16:15-0400 Body temperature 98.06 [degF] [facility] 09-06-2023 16:15-0400 Diastolic blood pressure 69 mm[Hg] [facility] 09-06-2023 16:15-0400 Mean blood pressure 84 mm[Hg] [facility] 09-06-2023 16:15-0400 Systolic blood pressure 113 mm[Hg] [facility] 09-06-2023 15:24-0400 Hourly Rounding [facility] 09-06-2023 15:24-0400 Promise to Return [facility] 09-06-2023 14:51-0400 Hourly Rounding [facility] 09-06-2023 14:51-0400 Promise to Return [facility] 09-06-2023 12:22-0400 Heart rate 75 /min [facility] 09-06-2023 12:22-0400 SaO2% (BldA) [Mass fraction] 100 % [facility] 09-06-2023 12:18-0400 Body temperature 97.7 [degF] [facility] 09-06-2023 12:17-0400 Diastolic blood pressure 74 mm[Hg] [facility] 09-06-2023 12:17-0400 Mean blood pressure 89 mm[Hg] [facility] 09-06-2023 12:17-0400 Systolic blood pressure 120 mm[Hg] [facility] 09-06-2023 12:00-0400 Hourly Rounding [facility] 12:00-0400 [facility]-06[facility] 01:17-0400 Respiratory rate 18 /min [facility]-05-2023 21:04-0400 Respiratory rate 16 /min Isabelle [facility] 09-05-2023 21:03-0400 Blood Pressure Location [facility] 09-05-2023 15:00-0400 Body temperature 97.7 [degF] Isabelle [facility] 09-05-2023 12:00-0400 Body temperature 97.52 [degF] Isabelle [facility] 09-05-2023 12:00-0400 Mean blood pressure 74 mm[Hg] [facility] 09-05-[facility] 07:30-0400 gluc 78 mg/dL Isabelle [facility] 09-04-2023 16:32-0400 gluc 104 mg/dL Isabelle [facility] 09-04-2023 11:48-0400 gluc 81 mg/dL [facility] 09-04-2023 08:00-0400 Mean blood pressure 69 mm[Hg] [facility] 09-04-2023 06:00-0400 Mean blood pressure 72 mm[Hg] [facility] 09-04-2023 04:00-0400 Heart rate 63 /min Isabelle [facility] 09-04-2023 01:00-0400 Heart rate 61 /min Isabelle [facility] 09-03-2023 23:00-0400 Heart rate 98 /min [facility] 09-03-2023 20:35-0400 Respiratory rate 13 /min [facility] 09-03-2023 20:02-0400 Respiratory rate 15 /min [facility] 09-03-2023 19:47-0400 Respiratory rate 16 /min Isabelle [facility] 09-03-2023 17:48-0400 gluc Isabelle [facility] 08-02-2023 11:19-0400 Body height 152.4 cm Yuli Duckworth Work Phone: [facility] 08-02-2023 11:19-0400 Body mass index (BMI) [Ratio] 49.6 kg/m2 Yulisundar Duckworth Work Phone: [facility] 08-02-2023 11:19-0400 Body temperature 96.4 [degF] Yuli Duckworth Work Phone: [facility] 08-02-2023 11:19-0400 Body weight 115.26 kg Yuli Duckworth Work Phone: [facility] 08-02-2023 11:19-0400 Diastolic blood pressure 72 mm[Hg] Yuli Duckworth Work Phone: [facility] 08-02-2023 11:19-0400 Heart rate 73 /min Yuli Duckworth Work Phone: [facility] 08-02-2023 11:19-0400 Respiratory rate 18 /min Yuli Duckworth Work Phone: [facility] 08-02-2023 11:19-0400 SaO2% (BldA) [Mass fraction] 100 % Yuli Duckworth Work Phone: [facility] 08-02-2023 11:19-0400 Systolic blood pressure 123 mm[Hg] Yuli Duckworth Work Phone: [facility] 05-17-2023 09:04-0500 Diastolic blood pressure 75 mm[Hg] Angel Page [facility] 05-17-2023 09:04-0500 Heart rate 71 /min Angel Callowaymarcsergei [facility] 05-17-2023 09:04-0500 Systolic blood pressure 115 mm[Hg] Angel Page [facility] 04-19-2023 23:14-0500 Diastolic blood pressure 69 mm[Hg] Yuli Duckworth Work Phone: [facility] 04-19-2023 23:14-0500 Heart rate 47 /min Yuli Duckworth Work Phone: [facility] 04-19-2023 23:14-0500 Respiratory rate 16 /min Yuli Duckworth Work Phone: [facility] 04-19-2023 23:14-0500 SaO2% (BldA) [Mass fraction] 98 % Yuli Duckworth Work Phone: [facility] 04-19-2023 23:14-0500 Systolic blood pressure 152 mm[Hg] Yuli Duckworth Work Phone: [facility] 04-19-2023 19:31-0500 Body height 152.4 cm Yuli Duckworth Work Phone: [facility] 04-19-2023 19:31-0500 Body temperature 98.2 [degF] Yuli Duckworth Work Phone: [facility] 04-19-2023 19:31-0500 Body weight 122.65 kg Yuli Duckworth Work Phone: [facility] 03-24-2023 09:40-0400 Body height 152.4 cm Heath Susan Other [employer] Other 03-24-2023 09:40-0400 Body mass index (BMI) [Ratio] 52.45 kg/m2 Heath Susan Other [employer] Other 03-24-2023 09:40-0400 Body weight 121.84 kg Heath Susan Other [employer] Other 03-24-2023 09:40-0400 Diastolic blood pressure 80 mm[Hg] Heath Susan Other [employer] Other 03-24-2023 09:40-0400 Respiratory rate 18 /min Heath Susan Other [employer] Other 03-24-2023 09:40-0400 Systolic blood pressure 130 mm[Hg] Heath Susan Other [employer] Other Encounters Encounter Date Encounter Type Care Provider Facility Start: 02-02-2024 End: 02-02-2024 ambulatory Yuli Duckworth Facility:[facility] Start: 02-01-2024 End: 02-01-2024 ambulatory Salvador Akkina Facility:[facility] Start: 02-01-2024 End: 02-01-2024 Patient encounter procedure Salvador Akkina [facility] Start: 12-19-2023 End: 12-19-2023 ambulatory Salvador Akkina Facility:[facility] Start: 12-19-2023 End: 12-19-2023 Patient encounter procedure Salvador Akkina [facility] Start: 11-26-2023 End: 11-26-2023 Emergency department patient visit Xander Augustin Facility:[facility] Start: 11-07-2023 End: 11-07-2023 ambulatory Angel Page Facility:[facility] Start: 10-03-2023 End: 10-03-2023 ambulatory Salvador Akkina Facility:[facility] Start: 10-03-2023 End: 10-03-2023 Patient encounter procedure Salvador Martineztoni [facility] Start: 09-03-2023 End: 09-06-2023 Evaluation and management of inpatient Gunner Remy Facility:[facility] Start: 09-03-2023 End: 09-06-2023 Evaluation and management of inpatient Isabelle Wilson [facility] Start: 08-25-2023 End: 08-25-2023 ambulatory VANDA Whit NARCISO Not Available Start: 08-09-2023 End: 08-09-2023 ambulatory Yuli Duckworth Facility:[facility] Start: 08-09-2023 End: 08-09-2023 ambulatory Yuli Duckworth Work Phone: [facility] Work Phone: Start: 08-09-2023 End: 08-09-2023 Patient encounter procedure Yuli Duckworth Work Phone: [facility] Work Phone: Start: 08-08-2023 End: 08-08-2023 ambulatory MD HEATH DAVIS Facility:[facility] Start: 08-08-2023 End: 08-08-2023 Patient encounter procedure HEATH DAVIS [facility] Start: 08-02-2023 End: 08-02-2023 Patient encounter procedure Yuli Duckworth Work Phone: [facility] Work Phone: Start: 07-25-2023 Non-patient / Non-visit Yuli Duckworth Work Phone: [facility] Work Phone: Start: 07-25-2023 End: 07-25-2023 ambulatory MD HEATH DAVIS Facility:[facility] Start: 07-25-2023 End: 07-25-2023 Patient encounter procedure HEATH SUSAN [facility] Start: 06-03-2023 End: 06-03-2023 ambulatory Angel Johnsony Facility:[facility] Start: 06-03-2023 End: 06-03-2023 Patient encounter procedure Angel Page [facility] Start: 05-27-2023 End: 05-27-2023 ambulatory Angel Johnsony Facility:[facility] Start: 05-27-2023 End: 05-27-2023 Patient encounter procedure Angel Johnsony [facility] Start: 05-24-2023 End: 05-24-2023 ambulatory Angel Johnsony Facility:[facility] Start: 05-17-2023 End: 05-17-2023 ambulatory Angel Cisneros. Alexy Facility:[facility] Start: 05-17-2023 End: 05-17-2023 Patient encounter procedure Angel BlayneVilma Brodiemarcy [facility] Start: 05-09-2023 [facility]ulatory [facility] Start: 05-06-2023 End: 05-06-2023 ambulatory Yuli Duckworth Facility:[facility] Start: 05-03-2023 End: 05-03-2023 ambulatory VANDA STUART Not Available Start: 04-19-2023 End: 04-20-2023 Emergency department patient visit Chris Walden Facility:[facility] Start: 04-19-2023 End: 04-19-2023 Emergency department patient visit Yuli Duckworth Work Phone: [facility] Work Phone: Start: 03-24-2023 End: 03-24-2023 ambulatory Heath Susan Other [facility] [employer] Other Start: 03-24-2023 Office outpatient visit 25 minutes Heath Susan [facility] Start: 03-24-2023 Telephone encounter Heath Susan [facility] Start: 03-09-2023 End: 03-09-2023 ambulatory MD HEATH DAVIS Facility:[facility] Start: 03-09-2023 End: 03-09-2023 Patient encounter procedure HEATH SUSAN [facility] Start: 11-08-2022 End: 11-08-2022 Patient encounter procedure Yuli Duckworth [facility] Procedures Date Procedure Procedure Detail Performing Clinician Start: 08-09-2023 Single photon emissi on computed tomography of parathyroid Yuli Duckworth Work Phone: Start: 04-19-2023 Plain chest X-ray Terence Duckworth Work Phone: Start: 08-07-2021 Colonoscopy Yuli Be ck Start: 09-09-2015 t tka compounded by obesity BMI>58 Yuli Duckworth Arthroplasty of knee Yuli Duckworth Comment on above: right Plan of Treatment Date Care Activity Detail Author Calcitriol [Mass/vol ume] in Serum or Plasma [facility] Immunofixation for Urine Fir [facility] Parathyrin related p rotein [Moles/volume] in Serum or Plasma [facility] Patient Education Shoulder Pain ED [facility] Work Phone: Patient referral [facility] Work Phone: Renal function 2000 panel - Serum or Plasma [facility] Immunizations Immunization Date Immunization Notes Care Provider Fa cility 03-22-2023 influenza virus vacc ine, unspecified formulation Angel Page [facility] 04-07-2022 influenza virus vacc ine, unspecified formulation Angel Page [facility] 04-07-2022 SARS-CoV-2 (COVID-19 ) [id number] Angel Page [facility] 09-07-2021 SARS-CoV-2 (COVID-19 ) mRNA BNT-162b2 vax Angel Page [facility] 09-07-2021 zoster vaccine recombinant Angel Page [facility] 02-23-2021 influenza virus vacc ine, unspecified formulation Angel Page [facility] 02-23-2021 SARS-CoV-2 (COVID-19 ) mRNA BNT-162b2 vax Angel Page [facility] 02-20-2021 influenza virus vacc ine, unspecified formulation Yuli Beck [facility] 08-13-2020 SARS-CoV-2 (COVID-19 ) Ad26 vaccine, recombinant Yuli Duckworth [facility] 07-25-2020 SARS-CoV-2 (COVID-19 ) mRNA BNT-162b2 vax Angel Alexsergei [facility] 07-16-2020 SARS-CoV-2 (COVID-19 ) Ad26 vaccine, recombinant Yuli Duckworth [facility] 07-03-2020 SARS-CoV-2 (COVID-19 ) mRNA BNT-162b2 vax Angel Page [facility] 03-19-2020 pneumococcal polysaccharide vaccine, 23 valent Angel Page [facility] 03-19-2020 tetanus toxoid, redu matthew diphtheria toxoid, and acellular pertussis vaccine, adsorbed Angel Page [facility] 03-03-2020 zoster vaccine recombinant Angel Page [facility] 02-29-2020 influenza virus vacc ine, unspecified formulation Angel Page [facility] 03-23-2016 influenza virus vacc ine, unspecified formulation Angel Page [facility] 05-22-2014 influenza virus vacc ine, unspecified formulation Angel Page [facility] Payers Date Payer Category Payer Self-pay 2021 Unknown [id number] 2. [id number] 2017 Medicare [id number] 2.1 [id number] 1950 Unknown [id number] 2.16.84 [id number] 1950 Unknown [id number] 2.16.840 .1.571789.3.579.2.1259 1952 Unknown [id number] 2.16.840 .1.131382.3.579.2.1259 1952 Unknown [id number] 2.16.8 40.1.015187.3.579.2.727 1952 Unknown [id number] 2.16.8 40.1.293779.3.579.2.727 1952 Unknown [id number] 2.16.8 40.1.281102.3.579.2.727 1952 Unknown [id number] 2.16.8 40.1.601442.3.579.2.727 1952 Unknown [id number] 2.16.8 40.1.342991.3.579.2.727 1952 Unknown [id number] 2.16.8 40.1.042675.3.579.2.727 1952 Unknown [id number] 2.16.8 40.1.960507.3.579.2.727 1952 Unknown [id number] 2.16.8 40.1.321337.3.579.2.727 1952 Unknown [id number] 2.16.8 40.1.270472.3.579.2.727 1952 Unknown [id number] 2.16.8 40.1.150070.3.579.2.727 1952 Unknown [id number] 2.16.8 40.1.412969.3.579.2.727 1952 Unknown [id number] 2.16.8 40.1.741584.3.579.2.727 1952 Unknown [id number] 2.16.8 40.1.085484.3.579.2.727 1952 Unknown [id number] 2.16.8 40.1.339624.3.579.2.727 1952 Unknown [id number] 2.16.8 40.1.896974.3.579.2.727 1952 Unknown [id number] 2.16.8 40.1.649280.3.579.2.727 Unknown [id number] 2.16.8 40.1.571440.3.579.2.531 Unknown [id number] 2.16.8 40.1.604644.3.579.2.531 Social History Date Type Detail Facility Start: 07-01-2021 End: 06-03-2023 Tobacco smoking status Never smoked tobacco (finding) [facility] Comment on above: Denies Sex Assigned At Female [facility] Start: 1950 Sex Assigned At Female F [facility] Functional Status Date Assessment Result Facility 11-26-2023 Functional Status N/A [facility] 09-03-2023 Functional Status No [facility] 09-03-2023 Functional Status [facility] 05-17-2023 Functional Status N/A [facility] General Surgery [place] Clinical Notes 05-27-2019 to 02-03-2024 Note Date & Type Note Facility 02-03-2024 Note Echocardiology Procedure Exam Date/Time Accession # Ordering Echo Transthoracic w/ 02/02/2024 13:59 EDT [id number] Yuli Duckworth CNP Contrast CPT code 69294 C8929 Reason for Exam (Echo Transthoracic w/ Contrast) Chest pain R07.9 Report [facility] [address] [place] [address] Adult Echocardiogram Report Name: DINORAH PEPE Study Date: 02/02/2024 01:06 PM BP: 153/86 mmHg Patient Location: [facility] HR: 70 : 1950 Gender: Female Height: 61 in Age: 73 yrs Ethnicity: T Weight: 259 lb Reason For Study: Chest pain R07.9 BSA: 2.1 m2 History: HTN,Morbid obesity Ordering Physician: Gucci^Yuli^L Referring Physician: Yuli Duckworth Performed By: Emma Parker, SARAY, RVT Interpretation Summary Ejection Fraction = 60-65%. Normal LV and RV. No significant valve disease. Normal estimated PA pressure. Impaired diastolic relaxation. Procedure A complete two-dimensional transthoracic echocardiogram was performed using contrast (2D, M-mode, spectral and color flow Doppler). A complete two-dimensional transthoracic echocardiogram was performed (2D, M-mode, spectral and color flow Doppler). Study quality is good. Left Ventricle The left ventricle is normal in size. There is normal left ventricular wall thickness. Ejection Fraction = 60-65%. The left ventricular wall motion is normal. Grade I diastolic dysfunction, (abnormal relaxation pattern). Left Atrium The left atrial size is normal. Right Atrium Echocardiology Report Right atrial size is normal. Right Ventricle The right ventricular systolic function is normal. The right ventricle is normal size. The right ventricular wall motion is normal. Aortic Valve The aortic valve is trileaflet. No aortic regurgitation. There is no aortic stenosis. Mitral Valve The mitral valve is normal in structure and function. There is no mitral regurgitation noted. No mitral valve stenosis. Tricuspid Valve Structurally normal tricuspid valve. No evidence of tricuspid regurgitation. Mean PA pressure estimate is normal. Pulmonic Valve There is no pulmonic valve regurgitation. Arteries The aortic root is normal in size. Normal ascending aorta. Pulmonary artery diameter is normal. Venous The inferior vena cava is normal in size, and collapses normally with respiration. Effusion There is no pericardial effusion. MMode/2D Measurements & Calculations RVDd: 3.5 cm LVIDd: 5.1 cm FS: 28.4 % Ao root diam: 3.0 cm IVSd: 0.75 cm LVIDs: 3.7 cm EDV(Teich): 125.5 ml Ao root area: 7.2 cm2 LVPWd: 0.88 cm ESV(Teich): 57.1 ml LA dimension: 3.6 cm EF(Teich): 54.5 % asc Aorta Diam: 3.5 cm LVOT diam: 2.0 cm LVLd ap4: 8.8 cm EDV(MOD-sp2): 79.0 ml LVOT area: 3.2 cm2 EDV(MOD-sp4): 114.0 ml ESV(MOD-sp2): 31.9 ml LVLs ap4: 7.0 cm EF(MOD-sp2): 59.6 % ESV(MOD-sp4): 43.1 ml EF(MOD-sp4): 62.2 % SV(MOD-sp4): 70.9 ml TAPSE: 1.9 cm Ao Sinus of Valsalva: 3.3 cm Ao Sinotubular Junction: 2.6 cm IVC Diam: 1.7 cm RVIDd/LVIDd: 0.68 EF (MOD-bp): 62.3 % LA Vol Index: 14.2 ml/m2 Doppler Measurements & Calculations MV E max kayla: 92.4 cm/sec MV dec time: 0.25 sec Ao V2 max: 169.0 cm/sec LV V1 max P.9 mmHg MV A max kayla: 104.0 cm/sec Ao max P.4 mmHg LV V1 mean P.0 mmHg Echocardiology Report MV E/A: 0.89 Ao V2 mean: 113.0 cm/sec LV V1 max: 111.0 cm/sec Lat Peak E' Kayla: 7.3 cm/sec Ao mean P.0 mmHg LV V1 mean: 72.7 cm/sec E/E' Lat: 12.7 Ao V2 VTI: 36.4 cm LV V1 VTI: 24.4 cm Med Peak E' Kayla: 3.8 cm/sec E/E' Med: 24.3 CHRISTIANO(I,D): 2.1 cm2 CHRISTIANO(V,D): 2.1 cm2 SV(LVOT): 78.2 ml RAP systole: 3.0 mmHg AV VR: 0.66 CHRISITANO(VTI)/BSA_phl: 1.0 FINAL REPORT Dictated: 02/02/2024 1:06 pm Augustine Ledbetter MD Signed (Electronic Signature): 02/03/2024 2:31 pm Signed by: Augustine Ledbetter MD Transcribed by: [facility] Technologist: [facility] 11-26-2023 Evaluation + Plan note Extrac jorge from: Title:ED Note Author:Charli Xander Fransico Date :11/26/23 Hypokalemia (E87.6: Hypokale leonides) Kidney stone (N20.0: Calculus of kidney) Orders: acetaminophen, 650 mg = 2 tab(s), Tab, Oral, Once, Stop date 11/26/23 2:59:00 EDT, STAT, Start date 11/26/23 2:59:00 EDT, 11/26/23 2:59:00 EDT cephalexin, 500 mg = 1 cap(s), Cap, Oral, Once, Stop date 11/26/23 5:32:00 EDT, STAT, Start date 11/26/23 5:32:00 EDT, 11/26/23 5:32:00 EDT cephalexin, 500 mg = 1 cap(s), Oral, q12hr, X 7 day(s), # 14 cap(s), Refills(s) 0, [id number], 152, cm, 11/26/23 2:41:00 EDT, Height/Length Dosing, 113, kg, 11/26/23 2:41:00 EDT, Weight Dosing docusate, 100 mg = 1 cap(s), Oral, BID, X 7 day(s), # 14 cap(s), Refills(s) 0, Pharmacy: [facility]/pharmacy #[id number], 152, cm, 11/26/23 2:41:00 EDT, Height/Length Dosing, 113, kg, 11/26/23 2:41:00 EDT, Weight Dosing ondansetron, 4 mg = 2 mL, Injection, IV Push, Once, Stop date 11/26/23 2:47:00 EDT, STAT, Start date 11/26/23 2:47:00 EDT, 11/26/23 2:47:00 EDT polyethylene glycol 3350, 17 gram, Oral, Daily, dissolve in water before taking, # 527 gram, Refills(s) 0, Pharmacy: [facility]/pharmacy #[id number], 152, cm, 11/26/23 2:41:00 EDT, Height/Length Dosing, 113, kg, 11/26/23 2:41:00 EDT, Weight Dosing potassium chloride, 40 mEq = 2 tab(s), Tab-ER, Oral, Once, Stop date 11/26/23 5:31:00 EDT, STAT, Start date 11/26/23 5:31:00 EDT, 11/26/23 5:31:00 EDT tamsulosin, 0.4 mg = 1 cap(s), Oral, Daily, # 10 cap(s), Refills(s) 0, Pharmacy: [facility]/pharmacy #[id number], 152, cm, 11/26/23 2:41:00 EDT, Height/Length Dosing, 113, kg, 11/26/23 2:41:00 EDT, Weight Dosing Basic Metabolic Panel CBC w/ Auto Diff CT Abdomen/Pelvis w/o Contrast eGFR Hepatic Function Panel Lipase Level Saline Lock Insert UA with Cult Rflx Urine Culture Diagnostic Tests Pending * Urine Culture 11/26/23 [facility]07-06-2024 Hospital Discharge instructions Patient Education 11/26/2023 05:51:40 Kidney Stones Kidney Stones Kidney stones are solid, rock-like deposits that form inside of the kidneys. The kidneys are a pairof organs that make urine. A kidney stone may form in a kidney and move into other parts of the urinary tract, including the tubes that connect the kidneys to the bladder (ureters), the bladder, and the tube that carries urine out of the body (urethra). As the stone moves through these areas, it can cause intense pain and block the flow of urine. Kidney stones are created when high levels of certain minerals are found in the urine. The stones are usually passed out of the body through urination, but in some cases, medical treatment may be needed to remove them. What are the causes? Kidney stones may be caused by: A condition in which certain glands produce too much parathyroid hormone (primary hyperparathyroidism), which causes too much calcium buildup in the blood. A buildup of uric acid crystals in the bladder (hyperuricosuria). Uric acid is a chemical that the body produces when you eat certain foods. It usually leaves the body in the urine. Narrowing (stricture) of one or both of the ureters. A kidney blockage that is present at (congenital obstruction). Past surgery on the kidney or the ureters. What increases the risk? The following factors may make you more likely to develop this condition: Having had a kidney stone in the past. Having a family history of kidney stones. Not drinking enough water. Eating a diet that is high in protein, salt (sodium), or sugar. Being overweight or obese. What are the signs or symptoms? Symptoms of a kidney stone may include: Pain in the side of the abdomen, right below the ribs (flank pain). Pain usually spreads (radiates)to the groin. Needing to urinate often or urgently. Painful urination. Blood in the urine (hematuria). Nausea. Vomiting. Fever and chills. How is this diagnosed? This condition may be diagnosed based on: Your symptoms and medical history. A physical exam. Blood tests. Urine tests. These may be done before and after the stone passes out of your body through urination. Imaging tests, such as a CT scan, abdominal X-ray, or ultrasound. A procedure to examine the inside of the bladder (cystoscopy). How is this treated? Treatment for kidney stones depends on the size, location, and makeup of the stones. Kidney stones will often pass out of the body through urination. You may need to: Increase your fluid intake to help pass the stone. In some cases, you may be given fluids through an IV and may need to be monitored in the hospital. Take medicine for pain. Make changes in your diet to help prevent kidney stones from coming back. Sometimes, procedures are needed to remove a kidney stone. This may involve: A procedure to break up kidney stones using: ?A focused beam of light (laser therapy). ?Shock waves (extracorporeal shock wave lithotripsy). Surgery to remove kidney stones. This may be needed if you have severe pain or have stones that block your urinary tract. Follow these instructions at home: Medicines Take gqlj-ujs-exmwrts and prescription medicines only as told by your health care provider. Ask your health care provider if the medicine prescribed to you requires you to avoid driving or using heavy machinery. Eating and drinking Drink enough fluid to keep your urine pale yellow. You may be instructed to drink at least 8 10 glasses of water each day. This will help you pass the kidney stone. If directed, change your diet. This may include: ?Limiting how much sodium you eat. ?Eating more fruits and vegetables. ?Limiting how much animal protein you eat. Animal proteins include red meat, poultry, fish, and eggs. ?Eating a normal amount of calcium (1,000 1,300 mg per day). Follow instructions from your health care provider about eating or drinking restrictions. General instructions Collect urine samples as told by your health care provider. You may need to collect a urine sample: ?24 hours after you pass the stone. ?8 12 weeks after you pass the kidney stone, and every 6 12 months after that. Strain your urine every time you urinate, for as long as directed. Use the strainer that your health care provider recommends. Do not throw out the kidney stone after passing it. Keep the stone so it can be tested by your health care provider. Testing the makeup of your kidney stone may help prevent you from getting kidney stones in the future. Keep all follow-up visits. You may need follow-up X-rays or ultrasounds to make sure that your stone has passed. How is this prevented? To prevent another kidney stone: Drink enough fluid to keep your urine pale yellow. This is the best way to prevent kidney stones. Eat a healthy diet. Follow recommendations from your health care provider about foods to avoid. Recommendations vary depending on the type of kidney stone that you have. You may be instructed to eat a low-protein diet. Maintain a healthy weight. Where to find more information National Kidney Foundation (NKF): www.kidney.org [facility] [employer] [facility] (F): www.urologyhealth.org Contact a health care provider if: You have pain that gets worse or does not get better with medicine. Get help right away if: You have a fever or chills. You develop severe pain. You develop new abdominal pain. You faint. You are unable to urinate. Summary Kidney stones are solid, rock-like deposits that form inside of the kidneys. Kidney stones can cause nausea, vomiting, blood in the urine, abdominal pain, and the urge to urinate often. Treatment for kidney stones depends on the size, location, and makeup of the stones. Kidney stones will often pass out of the body through urination. Kidney stones can be prevented by drinking enough fluids, eating a healthy diet, and maintaining a healthy weight. This information is not intended to replace advice given to you by your health care provider. Make sure you discuss any questions you have with your health care provider. Document Revised: 08/18/2022 Document Reviewed: 08/18/2022 [employer] Patient Education 2022 Glad to Have You. Follow Up Care 11/26/2023 02:34:23 With:Jenny Bah Address: [address] [place] [phone] Business (1) When: Unknown Comments:Call Dr for diagnosis based follow up With:Yuli Duckworth Address: [address], [address] [place] [address]- Business (1) When:Within 3 Day(s) [facility]07-06-2024 NoteED Patient Education Note Urology Kidney Stones Kidney stones are solid, rock-like deposits that form inside of the kidneys. The kidneys are a pairof organs that make urine. A kidney stone may form in a kidney and move into other parts of the urinary tract, including the tubes that connect the kidneys to the bladder (ureters), the bladder, and the tube that carries urine out of the body (urethra). As the stone moves through these areas, it can cause intense pain and block the flow of urine. Kidney stones are created when high levels of certain minerals are found in the urine. The stones are usually passed out of the body through urination, but in some cases, medical treatment may be needed to remove them. What are the causes? Kidney stones may be caused by: ? A condition in which certain glands produce too much parathyroid hormone (primary hyperparathyroidism), which causes too much calcium buildup in the blood. ? A buildup of uric acid crystals in the bladder (hyperuricosuria). Uric acid is a chemical that the body produces when you eat certain foods. It usually leaves the body in the urine. ? Narrowing (stricture) of one or both of the ureters. ? A kidney blockage that is present at (congenital obstruction). ? Past surgery on the kidney or the ureters. What increases the risk? The following factors may make you more likely to develop this condition: ? Having had a kidney stone in the past. ? Having a family history of kidney stones. ? Not drinking enough water. ? Eating a diet that is high in protein, salt (sodium), or sugar. ? Being overweight or obese. What are the signs or symptoms? Symptoms of a kidney stone may include: ? Pain in the side of the abdomen, right below the ribs (flank pain). Pain usually spreads (radiates) to the groin. ? Needing to urinate often or urgently. ? Painful urination. ? Blood in the urine (hematuria). ? Nausea. ? Vomiting. ? Fever and chills. How is this diagnosed? This condition may be diagnosed based on: ? Your symptoms and medical history. ? A physical exam. ? Blood tests. ? Urine tests. These may be done before and after the stone passes out of your body through urination. ? Imaging tests, such as a CT scan, abdominal X-ray, or ultrasound. ? A procedure to examine the inside of the bladder (cystoscopy). How is this treated? Treatment for kidney stones depends on the size, location, and makeup of the stones. Kidney stones will often pass out of the body through urination. You may need to: ? Increase your fluid intake to help pass the stone. In some cases, you may be given fluids throughan IV and may need to be monitored in the hospital. ? Take medicine for pain. ? Make changes in your diet to help prevent kidney stones from coming back. Sometimes, procedures are needed to remove a kidney stone. This may involve: ? A procedure to break up kidney stones using: ? A focused beam of light (laser therapy). ? Shock waves (extracorporeal shock wave lithotripsy). ? Surgery to remove kidney stones. This may be needed if you have severe pain or have stones that block your urinary tract. Follow these instructions at home: Medicines ? Take fnpq-sly-ezgdvey and prescription medicines only as told by your health care provider. ? Ask your health care provider if the medicine prescribed to you requires you to avoid driving or using heavy machinery. Eating and drinking ? Drink enough fluid to keep your urine pale yellow. You may be instructed to drink at least 8?10 glasses of water each day. This will help you pass the kidney stone. ? If directed, change your diet. This may include: ? Limiting how much sodium you eat. ? Eating more fruits and vegetables. ? Limiting how much animal protein you eat. Animal proteins include red meat, poultry, fish, and eggs. ? Eating a normal amount of calcium (1,000?1,300 mg per day). ? Follow instructions from your health care provider about eating or drinking restrictions. General instructions ? Collect urine samples as told by your health care provider. You may need to collect a urine sample: ? 24 hours after you pass the stone. ? 8?12 weeks after you pass the kidney stone, and every 6?12 months after that. ? Strain your urine every time you urinate, for as long as directed. Use the strainer that your health care provider recommends. ? Do not throw out the kidney stone after passing it. Keep the stone so it can be tested by your health care provider. Testing the makeup of your kidney stone may help prevent you from getting kidneystones in the future. ? Keep all follow-up visits. You may need follow-up X-rays or ultrasounds to make sure that your stone has passed. How is this prevented? To prevent another kidney stone: ? Drink enough fluid to keep your urine pale yellow. This is the best way to prevent kidney stones. ? Eat a healthy diet. (more content not included)...[facility] 09-06-2023 Hospital Discharge instructions Patient Education 09/06/2023 14:52:56 Hypotension, Bdbu-py-Vdwl Hypotension As your heart beats, it forces blood through your body. This force is called blood pressure. If youhave hypotension, you have low blood pressure. When [...] what you can eat or drink. A healthydiet includes: ?Fresh fruits and vegetables. ?Whole grains. ?Low-fat (lean) meats. ?Low-fat dairy products. If told, include more salt in your diet. Do not add extra salt to your diet unless your doctor tells you to. Eat small meals often. Avoid standing up quickly after you eat. Medicines Take awom-idt-klehbhe and prescription medicines only as told by [...] provider. Document Revised: 12/28/2021 Document Reviewed: 12/28/2021 [employer] Patient Education 2022 Glad to Have You. Follow Up Care 09/03/2023 17:25:09 With:Salvador Ahn Address: [address] [place] [address]- Business (1) When: Unknown Comments:Call for followup appointment With:Follow-up with cell biologist; call for appointment Address:Unknown When: Unknown With:Yuli Duckworth Address: [address] [place] [address], [address] [place] [phone]- [facility] (1) When: Unknown Comments:Call for followup appointment [facility]04-16-2024 NoteAdmission and Discharge Information Admit Date/Time:09/03/2023 20:32 Admitting Physician - Isabelle Wilson MD Consulting Physician - Salvador Ahn MD Admitting [...] weakness due to dehydration and acute kidney injuryas well as balance problems also due to [...] to stop that completely. Nephrology ordered PTH aswell as vitamin D 25-OH and vitamin D 1, 25 OH levels. They also ordered serum immunofixation, urine immunofixation and serum free light chain analysis. MRI of the brain was performed today that showed no acute process. Patient will be discharged home today. She will stop her Ozempic, indomethacin,Dyazide, lisinopril and metoprolol and she will need to follow-up with her primary care doctor and n ephrologist in the outpatient setting. Procedures and Treatment [...] gabapentin 300 mg Cap, (more content not included)...[facility] Comment on above:Result Comment: Electronically Signed By: Gunner Remy DO\.br\Date and Time Signed: 09/06/23 14:54 [id number] Evaluation + Plan note Extracted from: Title:Discharge Note Author:Gunner Remy DO Date:09/06/23 stable Discharge To, Anticipated II - [...] these medications until follow-up appointments Follow-up with cell biologist; call for appointment as well as PCP With When Contact Information Follow-up with cell biologist; call for appointment Additional Instructions: Yuli Duckworth [address] [place] [address], [address] [place] [address]- [facility] (1) Additional Instructions: Call for followup appointment Extracted from: Title:Acute Renal Failure * Author:Anabelle GELLER, House nellie Date:09/05/23 Impression and Plan 1. Acute kidney [...] 3b) Baseline creatinine around 1.7-1.8. Patient follows w Dr Davis in [place]. 7. Type 2 diabetes mellitus (E11.9: Type 2 diabetes mellitus without complications) Controlled. States last A1C 6.9 Would recommend coming off Ozempic indefinitely. Patient in agreement. 8. Subclinical hypothyroidism (E03.8: Other specified hypothyroidism) Patient not on Synthroid. Recommend repeat thyroid labs in 6 weeks as an outpatient. 9. Obesity (E66.9: Obesity, unspecified) Morbid obesity BMI 48 Addendum by Steve GELLER Isabelle on September 03, 2023 22:43:40 EDT Bladder [...] w/CAD if perf and 3D [place]rera 11/07/23 [facility]04-13-2024 NoteBasic Information Admit Date/Time:09/03/2023 20:32 Chief Complaint [...] Lymph Auto: 10.9 % Low (09/03/23 17:58:00) [place] Auto: 6.1 % (09/03/23 17:58:00) Eos Auto: 3.1 % (09/03/23 17:58:00) Basophil Auto: 0.4 % (09/03/23 17:58:00) Neutro Absolute: 7 E9/L (09/03/23 17:58:00) Lymph Absolute: 1 E9/L (09/03/23 17:58:00) [place] Absolute: 0.5 E9/L (09/03/23 17:58:00) Eos Absolute: [...] 76 mg/dL (09/03/23 17:54:00) POC Device SN: [id number] (09/03/23 17:54:00) POC User ID: [id number] (09/03/23 17:54:00) POC Username: POC Username ( (more content not included)...[facility]Result Comment: Electronically Signed By: Isabelle Wilson MD\.azucena\Date and Time Signed: 09/03/23 22:43 [id number] Hospital Discharge instructions Patient Education 05/17/2023 09:09:37 [...] ?Hypothyroidism. ?Polycystic ovarian syndrome (PCOS). ?Binge-eating disorder. ?Bobby syndrome. Taking certain medicines, such as steroids, [...] food choices, such as grocery stores and [employer]. What are the signs or symptoms? The [...] and how much exercise you get. Take rknv-ljb-mnqfswf and prescription medicines only as told by [...] provider. Document Revised: 12/15/2021 Document Reviewed: 12/15/2021 [employer] Patient Education 2022 Glad to Have You. [facility] [place] 11-02-2023 Evaluation note* Encounter Date Diagnosis Assessment [...] ratio, SPEP, UPEP serum and urine immunofixation. [employer] Other [id number] Evaluation + Plan note Future Appointments Appointment Date:05/24/2023 02:00:00 PM Scheduled Provider: Location:.MRI Appointment Type:MRI Breast (FT) Appointment Date:05/27/2023 01:00:00 PM Scheduled Provider: Location:.ULTRASOUND Appointment Type:US Breast (FT) Appointment Date:05/27/2023 02:00:00 PM Scheduled Provider: Location:.MAMMOGRAM Appointment Type:MA Diagnostic (FT) Appointment Date:06/03/2023 09:20:00 AM Scheduled Provider:Angel Page MD Location:[facility] Appointment Type: Established 15 Future Scheduled Tests Radiology* MA Mamm Diag w/CAD if performed LT 05/27/23 * US Breast biopsy Vac Asst, First Lesion 05/27/23 * MRI Breast w/o and w/ Contrast, Bilat 05/24/23 [facility] [place] Evaluation + Plan note No data available for this section [facility] Future Appointments Appointment Date:05/06/2023 [...] w/CAD if perf and 3D LT [facility]/06/23 [facility] Future Appointments Appointment Date:06/03/2023 09:20:00 AM Scheduled Provider:Angel Page MD Location:[facility] [address] Future Appointments Appointment Date:11/07/2023 08:45:00 AM Scheduled Provider: Location:.MAMMOGRAM Appointment Type:MA Diagnostic (FT) Appointment Date:11/07/2023 09:30:00 AM Scheduled Provider: Location:.ULTRASOUND Appointment Type:US Breast (FT) Future Scheduled Tests Radiology* US Breast Unilateral Lt Complete 11/07/23 * US Breast Unilateral Rt Complete 11/07/23 * MA Mamm Diag w/CAD if perf and 3D Cabrera 11/07/23 [facility] [place] Evaluation + Plan note Future Appointments Appointment Date:11/07/2023 08:45:00 AM Scheduled Provider: Location:.MAMMOGRAM Appointment Type:MA Diagnostic (FT) Appointment Date:11/07/2023 09:30:00 AM Scheduled Provider: Location:.ULTRASOUND Appointment Type:US Breast (FT) Diagnostic Tests Pending * PTH Intact 07/25/23 Future Scheduled Tests Radiology* US Breast Unilateral Lt Complete 11/07/23 * US Breast Unilateral Rt Complete 11/07/23 * MA Mamm Diag w/CAD if perf and 3D Cabrera [facility] Future Appointments Appointment Date:11/07/2023 [...] w/CAD if perf and 3D Cabrera [facility]07[facility] Future Appointments Appointment Date:02/02/2024 01:00:00 PM Scheduled Provider: Location:.CARDIO Appointment Type:CV Echo (FT) Diagnostic Tests Pending * PTH Intact 02/01/24 Future Scheduled Tests Radiology* Echo Transthoracic Complete 02/02/24 [facility]No [facility] [employer] [address] [employer] Other Evaluation noteNo assessment information available [facility] Work Phone: Evaluation note* Diagnosis Onset Date Resolution Status Anemia of renal disease acut e Priyank hy kid w cr kid I-IV acu te Chronic kidney disease, stage III (moderate) acute Diabetes mellitus with chronic kidney disease acute Hyperlipidemia acute [facility] Work Phone: History general Narrative - Reported* Type Description Date Medical History DEPRESSION Medical History HYPERTENSION Medical History DIABETES MELLITUS Medical History HYPERLIPIDEMIA Medical History RESTLESS LEG Surgical History BILATERAL KNEE REPLACEMENTS Hospitalization History SEE ABOVE Hospitalization History 3 CHILD BIRTHS [facility] [address] [employer] Other Hospital Discharge instructions No data available for this section [facility] No data available for this section [facility] Chief Complaint and Reason for Visit Chief [...] section and content) DATE CREATED AUTHOR 08/10/2023 [facility] DATE CREATED AUTHOR AUTHOR'S ORGANIZ ATION 08/26/2023 [facility] DATE CREATED AUTHOR AUTHOR'S ORGANIZ ATION 11/26/2023 [facility] DATE CREATED AUTHOR AUTHOR'S ORGANIZ ATION 12/19/2023 [facility] DATE CREATED AUTHOR AUTHOR'S ORGANIZ ATION 12/20/2023 [facility] DATE CREATED AUTHOR AUTHOR'S ORGANIZ ATION 01/10/2024 [facility] DATE CREATED AUTHOR AUTHOR'S ORGANIZ ATION 02/03/2024 [facility] DATE CREATED AUTHOR AUTHOR'S ORGANIZ ATION 02/07/2024 [facility] FOR RECORDS PERTAINING TO PATIENTS WHO [...] BE BASED ON THE PRIMARY CLINICAL RECORDS. [facility] [employer] [facility]. provides no warranty or guarantee of the accuracy or completeness of information in this document.
== END 2024-02-28 09:22 | disposition home or self-care (01) ==
LOC: RAD 09:21
PROVIDERS: PCP Nurse Practitioner Family; Visit Provider Podiatrist Foot & Ankle Surgery
DX: M86.671 Other chronic osteomyelitis, right ankle and foot (principal); S92.424D Nondisplaced fracture of distal phalanx of right great toe, subsequent encounter for fracture with routine healing
CPT/HCPCS: 73630